=== PATIENT | male | born 1955 | race Caucasian/White ===

== ENCOUNTER → 2021-11-20 10:10 | Outpatient (CLI) | payer OTHER, SELFPAY ==
--- NOTE | ~2021-11-20 | XR_ITS ---
EXAM: XR knee LT 2V HISTORY: M25.562 - Pain in left lateral left knee COMPARISON: None available FINDINGS: Normal mineralization. Severe lateral compartment narrowing. Moderate patellofemoral and m edial joint space narrowing. Tricompartmental osteophytosis. Large osteophyte versus loose joint body in a posterior joint recess. No fracture or dislocation. No lytic or blastic lesions. Large volume j oint effusion. IMPRESSION: Severe tricompartmental arthritis. Large joint effusion. Large posterior osteophyte versus loose join t body. Reviewed, dictated and finalized at location K. IMPRESSION: Severe tricompartmental arthritis. Large joint effusion. Large posterior osteop hyte versus loose joint body.
== END ==
PROVIDERS: PCP Family Medicine Adolescent Medicine; Visit Provider Physician Assistant
DX: M17.12 Unilateral primary osteoarthritis, left knee (principal); M25.462 Effusion, left knee
CPT/HCPCS: 73560

== ENCOUNTER 2022-10-25 00:21 | Day surgery (SDC) | payer OTHER, SELFPAY ==
[2022-10-12 12:59] VITALS: BMI 34.0
[2022-10-25 09:05] VITALS: BP 148/71; PULSE 79; RESP 16; TEMP 36; O2SAT 100; BMI 34.7
[2022-10-25] MEDS: LACTATED RINGERS 1,000 ML 150 ML IV CONT (09:18)
[2022-10-25 09:22] LABS: Glucose Point of Care 150 mg/dl (65-105)
--- NOTE | 2022-10-25 09:31 | WPDANESEPPF ---
Anes - Initial Pre Proc Eval Procedure: Operation Date: 10/25/22 09:30 Proposed Procedures p Screening Colonoscopy - Sanjay Ruff MD Date/Time: 10/25/22 09:31 Surgeon: Sanjay Ruff MD Pre Op Diagnosis: hx rectal polyp Patient Data Age: 67 Gender: M Height: 1.75 m Weight: 106.58 kg Last Vital Signs Temp 36.0 C L 10/25/22 09:05 Pulse 79 10/25/22 09:05 Resp 16 10/25/22 09:05 BP 148/71 H 10/25/22 09:05 Pulse Ox 100 10/25/22 09:05 O2 Del Method Room Air 10/25/22 09:05 Allergies Allergy/AdvReac Type Severity Reaction Status Date / Time No Known Allergies Allergy Verified 10/25/22 09:04 Home Medications Medication Instructions Recorded Confirmed Type gabapentin 800 mg tablet 800 mg PO BID 05/07/21 10/25/22 History atorvastatin 80 mg tablet 80 mg PO DAILY #90 tabs 07/27/22 10/25/22 Rx pioglitazone 45 mg tablet 45 mg PO DAILY #90 tabs 08/17/22 10/25/22 Rx metformin 500 mg tablet 1,000 mg PO BID #360 tabs 08/24/22 10/25/22 Rx glimepiride 2 mg tablet 2 mg PO QAM #90 tabs 09/13/22 10/25/22 Rx coQ10 (ubiquinol) 200 mg capsule 200 mg PO DAILY 10/12/22 10/25/22 History elderberry fruit 200 mg capsule 200 mg PO DAILY 10/12/22 10/25/22 History Laboratory Tests 10/25/22 09:14 POC Capillary Glucose 150 mg/dl H mg/dl (65-105) Patient hx anesthesia problems: none Family hx anesthesia problems: none Results Review: All pre-operative results and documents have been reviewed as part of the pre-operative evaluation. 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 Gender identity (if verbalized by the patient): Male Sexual Orientation (if Verbalized by the Patient): Straight or Heterosexual Spiritual care concerns: No Agree to blood products: Yes Anes - Eval Final PreProcedure Day of Procedure 10/25/22 09:31 Patient weight: obese Heart: regular rate and rhythm Lungs: clear to auscultation and normal air movement Airway: Mallampati scale class II Neurological: alert and oriented Last oral intake: >/= 8 hours ASA classification: III Emergent: no Anesthetic plan: proceed Anesthesia type and monitoring: general GIVS Results Review: All pre-operative results and documents have been reviewed as part of the pre-operative evaluation. Informed Consent: The patient's anesthetic plan and its attendant risks and benefits were discussed with the patient/family/POA. Questions were solicited and answers provided to the satisfaction of the patient/family/POA.
--- NOTE | 2022-10-25 09:38 | PM.HPGS ---
History of Present Illness History of Present Illness Consent: Risks, benefits, and alternatives have been discussed and questions answered. Patient agrees to proceed with procedure. Chief complaint: hx rectal polyp Narrative: Norman Byers is a 67 year old male Presents for screening colonoscopy. Patient's current weight appetite and bowel movements are normal. Patient has a history of adenomatous colon polyp removed from the colon 10 years ago. Patient denies abdominal pain. He has had no bleeding. Family history is noncontributory. Patient does have a past medical history of prostate carcinoma in the last 10 years for which he has received radiation therapy and now hormone therapy. Review of Systems Review of Systems: Review of systems noncontributory. 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 Gender identity (if verbalized by the patient): Male Sexual Orientation (if Verbalized by the Patient): Straight or Heterosexual Spiritual care concerns: No Agree to blood products: Yes Meds Home Medications and Allergies Home Medications Medication Instructions Recorded Confirmed Type gabapentin 800 mg tablet 800 mg PO BID 05/07/21 10/25/22 History atorvastatin 80 mg tablet 80 mg PO DAILY #90 tabs 07/27/22 10/25/22 Rx pioglitazone 45 mg tablet 45 mg PO DAILY #90 tabs 08/17/22 10/25/22 Rx metformin 500 mg tablet 1,000 mg PO BID #360 tabs 08/24/22 10/25/22 Rx glimepiride 2 mg tablet 2 mg PO QAM #90 tabs 09/13/22 10/25/22 Rx coQ10 (ubiquinol) 200 mg capsule 200 mg PO DAILY 10/12/22 10/25/22 History elderberry fruit 200 mg capsule 200 mg PO DAILY 10/12/22 10/25/22 History Allergies Allergy/AdvReac Type Severity Reaction Status Date / Time No Known Allergies Allergy Verified 10/25/22 09:04 Vital Signs Vital Signs - 24 hr 10/25/22 09:05 Temperature 96.8 F L Pulse Rate 79 Respiratory Rate 16 Blood Pressure 148/71 H Pulse Oximetry 100 Oxygen Delivery Room Air Exam Narrative: Physical exam reveals patient to be alert. Vital signs stable. HEENT exam is unremarkable. Patient is anicteric. Lungs are clear to auscultation and percussion. Heart is without murmur or extra sounds. Abdomen bowel sounds are present soft nontender with no organomegaly. Digital external rectal exam is normal. Assessment and Plan Assessment and plan (1) History of colon polyps: Code(s): Z86.010 - Personal history of colonic polyps Status: Acute Assessment and Plan: Patient presents for follow-up colonoscopy. Patient has a history of adenomatous colon polyp removed from colon 2012. Further recommendations may be given after endoscopy.
[2022-10-25] MEDS: SIMETHICONE ORAL SUSPENSION 20 MG/0.3 ML 30 ML BOTTLE 0.6 ML IRRIGATION (09:54)
[2022-10-25 10:10] VITALS: BP 147/81; PULSE 73; RESP 14; O2SAT 98
[2022-10-25 10:20] VITALS: BP 143/80; PULSE 74; RESP 24; O2SAT 100
[2022-10-25 10:30] VITALS: BP 155/83; PULSE 64; RESP 18; O2SAT 99
== END 2022-10-25 10:38 | disposition home or self-care (01) ==
PROVIDERS: PCP Family Medicine Adolescent Medicine; Visit Provider Internal Medicine Gastroenterology
PROC: 0DJD8ZZ Inspection of Lower Intestinal Tract, Via Natural or Artificial Opening Endoscopic (ICD-10-PCS; CPT 45378; principal; 2022-10-25 09:30)
DX: Z12.11 Encounter for screening for malignant neoplasm of colon (principal); K64.8 Other hemorrhoids; Z86.010 Personal history of colon polyps; Z79.84 Long term (current) use of oral hypoglycemic drugs; E66.9 Obesity, unspecified; Z68.34 Body mass index [BMI] 34.0-34.9, adult
CPT/HCPCS: G0105; 82948; J2704; J7120

== ENCOUNTER 2023-02-28 17:20 | Inpatient (IN) | payer OTHER, SELFPAY ==
[2023-02-28] VITALS (18 sets, daily range): BP systolic 116–154; BP diastolic 66–86; PULSE 95–125; RESP 15–26; TEMP 36.4; O2SAT 96–100
--- NOTE | ~2023-02-28 | XR_ITS ---
EXAMINATION: XR abdomen/kub 1V INDICATION: Right ureteral stone TECHNIQUE: Supine views of the abdomen were obtained on 2 radiographs. COMPARISON: 03/01/2023 FINDINGS: There is an unchanged 7 mm stone of the proximal right ureter projecting just above the rig ht L3 transverse process. No additional urolithiasis is identified. Widespread sclerosis of the bones again noted. IMPRESSION: 1. Unchanged 7 mm stone of the proximal right ureter. 2. Widespread sclerotic osseous metastases. Reviewed, dictated and finalized at location L.
--- NOTE | ~2023-02-28 | XR_ITS ---
EXAMINATION: XR abdomen/kub 1V INDICATION: Right ureteral stone TECHNIQUE: Supine views of the abdomen were obtained on 2 radiographs. COMPARISON: CT from yesterday FINDINGS: A 7 mm stone projects in the proximal right ureter. There is a small amount of retained con trast material in the right kidney with mild hydronephrosis. No additional urinary tract calculi are identified. There is widespread sclerosis of the bones, consistent with metastatic disease. IMPRESSION: 1. 7 mm stone proximal right ureter. 2. Widespread sclerotic osseous metastases. Reviewed, dictated and finalized at location L.
--- NOTE | ~2023-02-28 | XR_ITS ---
EXAMINATION: XR chest 2V DATE: 02/28/2023 19:07 INDICATION: Weakness. Back pain. TECHNIQUE: Frontal and lateral views of the chest were obtained. COMPARISON: CT abdomen and pelvis 02/07/2018 FINDINGS: There is no pneumonia, pleural effusion, or pneumothorax. The heart size is normal. There i s diffusely increased bone density. IMPRESSION: 1. Diffuse increased bone density suspicious for metastatic disease. Reviewed, dictated and finalized at location E.
--- NOTE | ~2023-02-28 | CT_ITS ---
EXAMINATION: CT lumbar spine wo con DATE: 02/28/2023 19:22 INDICATION: Midline lumbar tenderness. Prostate cancer. TECHNIQUE: Computed tomography (CT) of the lumbar spine was performed without intravenous contrast. A utomated exposure control and iterative reconstruction technique were employed. The dose-length produ ct was 1296.25 mGy-cm. COMPARISON: None FINDINGS: There is 5 degrees levocurvature of lumbar spine. There is mild chronic anterior wedging of T11 and T12 vertebral bodies. There is widespread sclerosis of the bones, consistent metastatic dise ase. There is severely decreased disc height at L3-L4 and moderately decreased disc height at L4-L5. The following disc levels are specifically discussed: L1-L2: The disc does not extend beyond the endplate margin. There is mild bilateral facet joint osteo arthritis. There is no neural foraminal stenosis. There is no central canal stenosis. L2-L3: The disc is bulging. There is mild bilateral facet joint osteoarthritis. There is mild bilater al neural foraminal stenosis. There is mild central canal stenosis. L3-L4: The disc is bulging. There is severe bilateral facet joint osteoarthritis. There is moderate r ight and mild left neural foraminal stenosis. There is mild central canal stenosis. L4-L5: The disc is bulging. There is severe bilateral facet joint osteoarthritis. There is mild bilat eral neural foraminal stenosis. There is mild central canal stenosis. L5-S1: The disc is bulging. There is mild right and severe left facet joint osteoarthritis. There is mild bilateral neural foraminal stenosis. There is mild central canal stenosis. IMPRESSION: 1. Widespread sclerosis of the bones, consistent with metastatic disease. 2. Severe lumbar spondylosis. Reviewed, dictated and finalized at location E.
--- NOTE | ~2023-02-28 | CT_ITS ---
EXAMINATION: CTA chest PE abdomen pel DATE: 02/28/2023 19:23 INDICATION: Dyspnea. Back tenderness. TECHNIQUE: Computed tomography angiography (CTA) of the chest was performed with 100 mL Omnipaque-350 intravenous contrast timed to evaluate the pulmonary arteries. Coronal maximum intensity projection 3D-reconstructions were created by the technologist. Computed tomography (CT) of the abdomen and pelv is was performed with intravenous contrast. Automated exposure control and iterative reconstruction t echnique were employed. The dose-length product was 2079.00 mGy-cm. COMPARISON: CT abdomen and pelvis 02/07/2018 FINDINGS: CTA chest: There is a 3 mm nodule in right lung upper lobe, likely benign. No pleural effusion. The h eart size is normal. There are coronary artery calcifications. There is no pulmonary embolus. Motion artifact moderately decreased sensitivity. There is widespread sclerosis of the bones, consistent wit h metastatic disease. CT abdomen and pelvis: The liver, spleen, pancreas, and adrenal glands are normal. There is mild righ t hydronephrosis. There is an 8 mm stone in proximal right ureter. There is a peripelvic cysts in lef t kidney measuring up to 2.8 cm. There are brachytherapy seeds in the prostate. The appendix is dixon l. There are no dilated loops of bowel. There is mild right external iliac lymphadenopathy. For examp le, a right external iliac node measures 17 x 10 mm. There is no free intraperitoneal fluid. There ar e bilateral inguinal hernias containing fat. There is widespread sclerosis of the bones, consistent m etastatic disease. IMPRESSION: 1. No pulmonary embolus. Motion artifact moderately decreases sensitivity. 2. 8 mm stone in proximal right ureter mild right hydronephrosis. 3. Widespread sclerosis of the bones and mild right external iliac lymphadenopathy, consistent with m etastatic disease. Reviewed, dictated and finalized at location E. IMPRESSION: 1. No pulmonary embolus. Motion artifact moderately decreases sensitivity. 2. 8 mm stone in proximal right ureter mild right hydronephrosis. 3. Widespread sclerosis of the bones and mild right external iliac lymphadenopa thy, consistent with metastatic disease.
--- NOTE | ~2023-02-28 | NM_ITS ---
EXAMINATION: NM bone scan whole body DATE: 03/03/2023 14:14 INDICATION: Metastatic prostate cancer with bone metastasis. TECHNIQUE: 25.5 mCi Tc-99m HDP was administered intravenously. Delayed whole-body scintigrams were o btained. COMPARISON: CT chest, abdomen, and pelvis 02/28/2023 FINDINGS: There is widespread increased activity of the bones including the skull, humeri, clavicles, scapulae, ribs, sternum, spine, pelvis, and femora correlating with sclerotic lesions by CT, consist ent with metastatic disease. IMPRESSION: 1. Widespread osseous metastatic disease. Reviewed, dictated and finalized at location E.
--- NOTE | 2023-02-28 17:34 | ECG_ITS ---
Measurements Intervals [place] Rate: 121 P: 14 [place]: 162 QRS: 10 QRSD: 77 T: -28 QT: 423 QTc: 601 Interpretive Statements SINUS TACHYCARDIA MINIMAL Q WAVES- HIGH LATERAL LEADS BORDERLINE ST-T WAVE ABNORMALITY- DIFFUSE LEADS ABNORMAL ECG NO PREVIOUS ECG AVAILABLE FOR COMPARISON Electronically Signed On 02-28-2023 21:07:05 CDT by Bob Ferreira D.O.
[2023-02-28 17:51] LABS: Basophils Absolute Auto 0.1 K/mm3 (0.0-0.1); Basophils Percent Auto 1.2 % (0.2-1.2); Eosinophils Percent Auto 0.9 % (0-4.4); Hemoglobin 11.8 g/dL (14.0-18.0); Immature Granulocyte Absolute 0.21 K/mm3 (0.00-0.031); Immature Granulocyte Percent A 4.9 % (0-0.5); Lymphocytes Absolute Auto 1.33 K/mm3 (0.9-3.2); Lymphocytes Percent Auto 31.3 % (18.3-44.2); Mean Corpuscular HGB Conc 32.8 g/dl (32-36); Mean Corpuscular Volume 82.4 fl (80-100); Mean Platelet Volume 8.9 fl (7.4-10.4); Monocytes Absolute Auto 0.4 K/mm3 (0.1-0.6); Monocytes Percent Auto 8.2 % (2.6-8.5); Neutrophils Absolute Auto 2.3 K/mm3 (1.3-6.7); Neutrophils Percent Auto 53.5 % (45.5-73.1); Nucleated Red Blood Cells Perc 0.5 % (0.0-0.2); Platelet Count Result 169 k/mm3 (150-375); Red Blood Count 4.37 M/mm3 (4.6-6.20); Red Cell Distribution Width 15.4 % (11.5-14.5); White Blood Count 4.3 K/mm3 (4.5-10.0)
[2023-02-28 18:03] LABS: Appearance Urine Cloudy (Clear); Bacteria Urine None Seen /hpf; Bilirubin Urine 1+ (Negative); Blood Urine Trace (Negative); Color Urine Dark Yellow (Yellow); Glucose Urine UA Trace mg/dL (Negative); Hyaline Casts Urine Present /lpf; Ketones Urine Trace mg/dL (Negative); Leukocyte Esterase Ur Negative LEU/UL (Negative); Nitrate Urine Negative (Negative); Non Pathogenic Casts >20; Protein Urine 2+ mg/dL (Negative); RBC Urine 0-2 /hpf (0-2); Specific Grav Ur 1.024 (1.001-1.035); Squamous Epithelial Cell Urine Few /hpf (Few); WBC Urine 0-5 /hpf
[2023-02-28 18:04] LABS: Alanine Aminotransferase 18 U/L (6-50); Albumin Level 4.2 g/dL (3.5-5.1); Anion Gap 12 mmol/L (8-16); Aspartate Amino Transferase 277 U/L (17-59); Bilirubin,Total 1.2 mg/dL (0.2-1.3); Blood Urea Nitrogen 11 mg/dL (9-20); Calcium 9.5 mg/dL (8.4-10.2); Carbon Dioxide 20 mmol/L (22-30); Chloride 101 mmol/L (98-107); Estimated CRCL calculation 100 ml/min; Estimated Glomerular Filt Rate > 60; Glucose 225 mg/dL (65-110); Potassium 3.8 mmol/L (3.4-5.0); Sodium 133 mmol/L (137-145)
[2023-02-28 18:09] LABS: Add Urine Microscopic? YES
[2023-02-28 18:21] LABS: Alkaline Phosphatase 4363 U/L (38-126)
--- NOTE | 2023-02-28 18:42 | ED.WEAKNESS ---
HPI - Weakness General Chief complaint: Weakness Stated complaint: weak/decreased appetite/body ache Time Seen by Provider: 02/28/23 18:01 History of Present Illness HPI Narrative: Patient is a 68-year-old male with a history of prostate cancer presenting with weight loss and weakness. Patient states that he has been losing weight over the last several months. States that he is also been increasingly weak. States that he is an avid golfer and he often does 18-36 holes in 1 day. Over the last week he has only been able to do up to 3 holes until he is overwhelmingly short of breath. Complains of worsening lower back pain as well as decreased appetite. No fevers or chills, headache, numbness or weakness, chest pain, shortness of breath, vomiting, dysuria, leg swelling. Related Data Home Medications Medication Instructions Recorded Confirmed gabapentin 800 mg tablet 800 mg PO BID 05/07/21 03/01/23 coQ10 (ubiquinol) 200 mg capsule 200 mg PO DAILY 10/12/22 03/01/23 elderberry fruit 200 mg capsule 200 mg PO DAILY 10/12/22 03/01/23 tamsulosin 0.4 mg capsule 0.4 mg PO DAILY 02/24/23 03/01/23 Allergies Allergy/AdvReac Type Severity Reaction Status Date / Time No Known Allergies Allergy Verified 02/24/23 09:46 Review of Systems Review of Systems: All systems reviewed & are unremarkable except as noted in HPI and below PMFSH Past Medical History Medical History Abnormal colonoscopy 06/03 Tubular adenoma Surgical History Surgical History Hx of left knee surgery (~08/1996) Cartilage removed Family History Family History Father Glaucoma Mother Breast cancer Social History Social History Smoking status: Never smoker Second hand tobacco smoke exposure: No Alcohol intake: never Drinks per week: 5 Substance use: never Substance use type: does not use Lack of Transportation: No Lack of Food: Never True Current Housing: I Have Housing Concerned About Future Housing: No Difficulty Paying Gas/Electric Bills: No Difficulty Paying for Meds: No Currently Unemployed: No Education: Trade/Vocational Certificate Difficulty w/ Childcare or Family Care: No Living arrangements: with family Occupation/Education: occupation 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 EYES: PERRLA and EOMI. ENT: Nares clear, no rhinorrhea or epistaxis. Mucous membranes dry NECK: Supple. BACK: + Midline lumbar tenderness CHEST: Clear to auscultation. No respiratory distress. HEART: Tachycardic, regular rhythm ABDOMEN: Soft, nontender, nondistended EXTREMITIES: Normal range of motion. No edema. SKIN: Warm, dry, no rash. NEURO: No focal deficits. Alert and oriented x3. PSYCH: Normal mood and affect. Course Vital Signs Vital signs: Vital Signs Temperature 97.6 F 02/28/23 17:31 Pulse Rate 125 H 02/28/23 17:31 Respiratory Rate 22 H 02/28/23 17:31 Blood Pressure 116/66 02/28/23 17:31 Pulse Oximetry 100 02/28/23 17:31 Temperature 98.3 F 03/03/23 14:00 Pulse Rate 79 03/03/23 14:00 Respiratory Rate 16 03/03/23 14:00 Blood Pressure 137/73 03/03/23 14:00 Pulse Oximetry 98 03/03/23 14:00 Oxygen Delivery Room Air 03/03/23 13:15 Oxygen Flow Rate 8 03/03/23 12:35 MDM - Weakness MDM Narrative Medical decision making narrative: Patient is a 68-year-old male presenting with exertional dyspnea and weakness. Patient is
[2023-02-28] MEDS: SODIUM CHLORIDE 0.9% IV 1,000 ML 999 ML IV CONT ×2 (18:53→20:39)
[2023-02-28] MEDS: HYDROmorphone HCL INJ (*CRX) 1 MG/ML SYR IV PUSH ×2 (18:53→21:19)
[2023-02-28] MEDS: ONDANSETRON INJ 4 MG/2 ML VIAL IV PUSH (18:53)
[2023-02-28 20:04] LABS: Creatine Kinase 967 U/L (55-170); Lipase 157 U/L (23-300); Magnesium 1.5 mg/dL (1.6-2.3)
[2023-02-28 20:06] LABS: INR 1.2; Prothrombin Time 15.4 Seconds (11.1-14.7)
[2023-02-28 20:07] LABS: Partial Thromboplastin Time 28.5 SECONDS (22.3-36.8)
[2023-02-28 20:14] LABS: Lactic Acid Reflex 4.3 mmol/L (0.7-2.0)
[2023-02-28 20:17] LABS: Troponin I < 0.012 ng/mL (0.000-0.034)
[2023-02-28 20:30] LABS: Influenza A QL RT-PCR Negative (Negative); Influenza B QL RT-PCR Negative (Negative); SARS-CoV-2 RNA PCR Negative (Negative)
--- NOTE | 2023-02-28 21:16 | PM.IMHP ---
H&P: HPI History of Present Illness Date/Time: 02/28/23 21:16 Chief Complaint: Weakness Narrative: This is a 68 yo male with PMHx significant for Prostate CA, T2DM, BPH, Peripheral neuropathy. Patient has had a roughly 25 weight loss in the last 2 months or so, he has had decreased stamina as well, sob at exertion, poor appetite, comes in today due to worsening of all of these was out today playing Golf. Patient has been found to have metastatic prostate CA EXAMINATION: XR chest 2V DATE: 02/28/2023 19:07 INDICATION: Weakness. Back pain. TECHNIQUE: Frontal and lateral views of the chest were obtained. COMPARISON: CT abdomen and pelvis 02/07/2018 FINDINGS: There is no pneumonia, pleural effusion, or pneumothorax. The heart size is normal. There is diffusely increased bone density. IMPRESSION: 1. Diffuse increased bone density suspicious for metastatic disease. EXAMINATION: CT lumbar spine wo con DATE: 02/28/2023 19:22 INDICATION: Midline lumbar tenderness. Prostate cancer. TECHNIQUE: Computed tomography (CT) of the lumbar spine was performed without intravenous contrast. Automated exposure control and iterative reconstruction technique were employed. The dose-length product was 1296.25 mGy-cm. COMPARISON: None FINDINGS: There is 5 degrees levocurvature of lumbar spine. There is mild chronic anterior wedging of T11 and T12 vertebral bodies. There is widespread sclerosis of the bones, consistent metastatic disease. There is severely decreased disc height at L3-L4 and moderately decreased disc height at L4-L5. The following disc levels are specifically discussed: L1-L2: The disc does not extend beyond the endplate margin. There is mild bilateral facet joint osteoarthritis. There is no neural foraminal stenosis. There is no central canal stenosis. L2-L3: The disc is bulging. There is mild bilateral facet joint osteoarthritis. There is mild bilateral neural foraminal stenosis. There is mild central canal stenosis. L3-L4: The disc is bulging. There is severe bilateral facet joint osteoarthritis. There is moderate right and mild left neural foraminal stenosis. There is mild central canal stenosis. L4-L5: The disc is bulging. There is severe bilateral facet joint osteoarthritis. There is mild bilateral neural foraminal stenosis. There is mild central canal stenosis. L5-S1: The disc is bulging. There is mild right and severe left facet joint osteoarthritis. There is mild bilateral neural foraminal stenosis. There is mild central canal stenosis. IMPRESSION: 1. Widespread sclerosis of the bones, consistent with metastatic disease. 2. Severe lumbar spondylosis. EXAMINATION: CTA chest PE abdomen pel DATE: 02/28/2023 19:23 INDICATION: Dyspnea. Back tenderness. TECHNIQUE: Computed tomography angiography (CTA) of the chest was performed with 100 mL Omnipaque-350 intravenous contrast timed to evaluate the pulmonary arteries. Coronal maximum intensity projection 3D-reconstructions were created by the technologist. Computed tomography (CT) of the abdomen and pelvis was performed with intravenous contrast. Automated exposure control and iterative reconstruction technique were employed. The dose-length product was 2079.00 mGy-cm. COMPARISON: CT abdomen and pelvis 02/07/2018 FINDINGS: CTA chest: There is a 3 mm nodule in right lung upper lobe, likely benign. No pleural effusion. The heart size is normal. There are coronary artery calcifications. There is no pulmonary embolus. Motion artifact moderately decreased sensitivity. There is widespread sclerosis of the bones, consistent with metastatic disease. CT abdomen and pelvis: The liver, spleen, pancreas, and adrenal glands are normal. There is mild right hydronephrosis. There is an 8 mm stone in proximal right ureter. There is a peripelvic cysts in left kidney measuring up to 2.8 cm. There are brachytherapy seeds in the prostate. The appendix is normal. There are no dilated loops of estela
[2023-02-28 22:53] LABS: Reflex Lactic Acid Yes or No Add Lactic
[2023-02-28 23:56] LABS: Lactic Acid 2.1 mmol/L (0.7-2.0)
[2023-03-01] VITALS (10 sets, daily range): BP systolic 136–164; BP diastolic 66–80; PULSE 83–110; RESP 16–18; TEMP 35.8–36.7; O2SAT 96–98; BMI 33.5
--- NOTE | 2023-03-01 00:04 | ADMGEN ---
This patient, Norman Byers, was admitted to Medical Room 343-01. Patient/family oriented to hospital policies and general routines including ID bracelet, bed and alarms, visiting hours, pain management, procedures, bathroom and other care routines, personal items, smoking policy, room service/diet, and visiting hours. Information on how to activate the Rapid Response Team has been discussed. Patient/Family are encouraged to report perceived risks to care and to ask questions if they do not understand what they are told or what they should do.
[2023-03-01 00:08] LABS: Troponin I < 0.012 ng/mL (0.000-0.034)
[2023-03-01 02:48] LABS: Troponin I < 0.012 ng/mL (0.000-0.034)
[2023-03-01] MEDS: TAMSULOSIN HCL 0.4 MG CAPSULE PO (08:24)
[2023-03-01] MEDS: GABAPENTIN 400 MG CAPSULE 800 MG PO ×2 (08:24→17:00)
--- NOTE | 2023-03-01 10:48 | WPDURCON ---
Assessment and Plan Assessment and plan (1) Prostate cancer metastatic to bone: Code(s): C61 - Malignant neoplasm of prostate; C79.51 - Secondary malignant neoplasm of bone Status: Acute Assessment and Plan: Oncology to continue management. (2) Prostate cancer: Code(s): C61 - Malignant neoplasm of prostate Status: Acute (3) Right ureteral stone: Code(s): N20.1 - Calculus of ureter Status: Acute Assessment and Plan: Plan to do a Right ESWL as an outpatient Tuesday. Avoid NSAID's and blood thinners. Ok to discharge per Urology at anytime. Urology Consult Note HPI Date Seen: 03/01/23 Time Seen: 09:00 Requesting Physician: Kandy Burgess MD Primary Care Provider: Shaheen Foley MD Consult Narrative Reason for consult: 8mm right proximal ureteral stone/metastatic prostate cancer Narrative: Norman Byers is a 68 year old male who presented to the ER yesterday for worsening weakness, shortness of breath and right flank pain. He states his flank pain started a month ago but feels like a dull back ache and he thought it was from laying around too much. He is a very active person normally, but has been loosing an excessive amount of weight unintentionally recently, 25lbs in total. He has known prostate cancer that was diagnosed by Dr. Enamorado originally on 01/12/18 via prostate biopsy with a Grimstead score of 7. He underwent prostate radiation and ADT therapy. Unfortunately, he has metastatic disease which is now managed by Dr. Acuña. His CT scan in the ER notes metastatic disease widespread to his bones, as well as right iliac lymphadenopathy. The CT also found an 8mm right proximal ureteral stone with hydronephrosis as well which correlates to his right flank pain. He denies hematuria, dysuria, frequency or urgency of urination. He is afebrile and has a WBC of 4.3, creatinine of 0.70, UA is not suggestive of a UTI, urine culture pending. KUB was done showing the proximal ureteral stone. His pain at this time is mild and well managed. Review of Systems Cardiovascular: Cardiovascular: Denies chest pain Respiratory: Respiratory: Reports no additional respiratory complaints Genitourinary: Genitourinary: Denies hematuria, Denies dysuria, Reports flank pain, Denies testicular pain, Denies urinary frequency, Denies urinary hesitancy, Denies urinary incontinence and Denies urinary urgency PMFSH Past Medical History Medical History Abnormal colonoscopy 06/03 Tubular adenoma Surgical History Surgical History Hx of left knee surgery (~08/1996) Cartilage removed Family History Family History Father Glaucoma Mother Breast cancer Social History Social History Smoking status: Never smoker Second hand tobacco smoke exposure: No Alcohol intake: never Drinks per week: 5 Substance use: never Substance use type: does not use Lack of Transportation: No Lack of Food: Never True Current Housing: I Have Housing Concerned About Future Housing: No Difficulty Paying Gas/Electric Bills: No Difficulty Paying for Meds: No Currently Unemployed: No Education: Trade/Vocational Certificate Difficulty w/ Childcare or Family Care: No Living arrangements: with family Occupation/Education: occupation 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
--- NOTE | 2023-03-01 14:59 | WPDPN ---
Progress Note: A&P Assessment and Plan (1) Prostate cancer metastatic to bone: Code(s): C61 - Malignant neoplasm of prostate; C79.51 - Secondary malignant neoplasm of bone Status: Acute Assessment and Plan: 03/01/2023 interval history: 66-year-old male history of prostate cancer presented the progress weakness and fatigue patient is found to have bony metastasis patient be seen by hospitalist physician-Oncology and further recommendation to follow, also complains of abdominal pain is found to have 7 mm right ureteral stone seen by urologist patient will have lithotripsy on this Tuesday, will avoid NSAID and anticoagulation. patient states the pain is controlled with just feels tired and fatigued patient's present in the room, (2) Appetite loss: Code(s): R63.0 - Anorexia Status: Acute Assessment and Plan: most likely secondary pain will encourage patient to oral intake (3) Fatigue: Code(s): R53.83 - Other fatigue Status: Acute Assessment and Plan: most likely secondary to prostate cancer metastasis to bones. (4) Type 2 diabetes mellitus with diabetic polyneuropathy: Code(s): E11.42 - Type 2 diabetes mellitus with diabetic polyneuropathy Status: Acute Assessment and Plan: will continue home regimen and monitor with sliding scale (5) Aortic atherosclerosis: Code(s): I70.0 - Atherosclerosis of aorta Status: Acute Subjective Date/time seen: 03/01/23 14:59 Interval history: ED-HPI Narrative: Patient is a 68-year-old male with a history of prostate cancer presenting with weight loss and weakness.? Patient states that he has been losing weight over the last several months.? States that he is also been increasingly weak.? States that he is an avid golfer and he often does 18-36 holes in 1 day.? Over the last week he has only been able to do up to 3 holes until he is overwhelmingly short of breath.? Complains of worsening lower back pain as well as decreased appetite.? No fevers or chills, headache, numbness or weakness, chest pain, shortness of breath, vomiting, dysuria, leg swelling. 03/01/2023 interval history: 66-year-old male history of prostate cancer presented the progress weakness and fatigue patient is found to have bony metastasis patient be seen by hospitalist physician-Oncology and further recommendation to follow, also complains of abdominal pain is found to have 7 mm right ureteral stone seen by urologist patient will have lithotripsy on this Tuesday, will avoid NSAID and anticoagulation. patient states the pain is controlled with just feels tired and fatigued patient's present in the room, Objective Data Vital Signs Vital Signs: Vital Signs - 24 hr 02/28/23 17:31 02/28/23 18:03 02/28/23 18:12 Temperature 97.6 F Pulse Rate 125 H 112 H 110 H Respiratory Rate 22 H 16 Blood Pressure 116/66 139/83 Pulse Oximetry 100 100 Oxygen Delivery 02/28/23 18:03 02/28/23 18:04 02/28/23 18:18 Temperature Pulse Rate 110 H 113 H 105 H Respiratory Rate 26 H 22 H 22 H Blood Pressure 139/83 Pulse Oximetry 100 Oxygen Delivery 02/28/23 18:30 02/28/23 18:45 02/28/23 20:39 Temperature Pulse Rate 115 H 109 H 104 H Respiratory Rate 21 H 26 H 15 Blood Pressure 154/86 H Pulse Oximetry 100 100 100 Oxygen Delivery 02/28/23 19:23 02/28/23 19:30 02/28/23 19:45 Temperature Pulse Rate 97 98 102 H Respiratory Rate 22 H 24 H 20 Blood Pressure Pulse Oximetry 100 100 Oxygen Delivery 02/28/23 20:00 02/28/23 20:15 02/28/23 20:30 Temperature Pulse Rate 95 102 H 110 H Respiratory Rate 19 19 20 Blood Pressure Pulse Oximetry 100 100 98 Oxygen Delivery 02/28/23 20:45 02/28/23 21:15 02/28/23 21:32 Temperature Pulse Rate 105 H 109 H 108 H Respiratory Rate 18 16 18 Blood Pressure 145/70 H Pulse Oximetry 96 100 96 Oxygen Delivery 02/28/23 21:45 03/01/23 00:08 03/01/23 00:00 Tempera
[2023-03-02] VITALS (9 sets, daily range): BP systolic 124–143; BP diastolic 57–74; PULSE 75–113; RESP 16–22; TEMP 36.2–36.6; O2SAT 98–99
[2023-03-02 05:56] LABS: Hematocrit 30.1 % (42.0-52.0); Hemoglobin 9.4 g/dL (14.0-18.0); Mean Corpuscular HGB Conc 31.2 g/dl (32-36); Mean Corpuscular Hemoglobin 26.3 pg (26-34); Mean Corpuscular Volume 84.3 fl (80-100); Mean Platelet Volume 8.7 fl (7.4-10.4); Platelet Count Result 108 k/mm3 (150-375); Red Blood Count 3.57 M/mm3 (4.6-6.20); Red Cell Distribution Width 15.9 % (11.5-14.5)
[2023-03-02 06:07] LABS: Anion Gap 0 mmol/L (8-16); Blood Urea Nitrogen 9 mg/dL (9-20); Calcium 8.3 mg/dL (8.4-10.2); Carbon Dioxide 27 mmol/L (22-30); Chloride 108 mmol/L (98-107); Estimated CRCL calculation 139 ml/min; Estimated Glomerular Filt Rate > 60; Glucose 133 mg/dL (65-110); Magnesium 1.8 mg/dL (1.6-2.3); Sodium 135 mmol/L (137-145)
[2023-03-02] MEDS: GABAPENTIN 400 MG CAPSULE 800 MG PO ×2 (08:44→17:32)
[2023-03-02] MEDS: TAMSULOSIN HCL 0.4 MG CAPSULE PO (08:44)
--- NOTE | 2023-03-02 12:55 | PDONCCN ---
HPI - Date of Consult Date/Time: 03/02/23 12:56 Requesting Physician: Kandy Burgess MD Primary Care Provider: Shaheen Foley MD - Consult Narrative Reason for consult: Metastatic prostate cancer Narrative: Norman Byers is a 68 year old male with metastatic prostate cancer on Lupron injection since June of 2021 with the last injection given in November of 2022. He came into the hospital with generalized weakness and back and leg pain. He has been losing weight. He was complaining of some shortness of breath. CT chest abdomen and pelvis was performed that showed no evidence of pulmonary embolism, 8 mm right ureteral stone with hydronephrosis and widespread bone metastasis with right external iliac lymphadenopathy consistent with metastatic disease. Labs also showed anemia with hemoglobin of 9.4. He denies any bleeding and bruising. Denies any other complaints. Review of Systems - Review of Systems All systems reviewed & are unremarkable except as noted in HPI and [facility] Medical History: Medical History (Last Reviewed 03/01/23 @ 12:00 by Maranda Flowers APRN) Abnormal colonoscopy 06/03 Tubular adenoma Surgical History: Surgical History (Last Reviewed 03/01/23 @ 12:00 by Maranda Flowers APRN) Hx of left knee surgery Onset Date: ~08/1996 Cartilage removed Family History: Family History (Last Reviewed 03/01/23 @ 12:00 by Maranda Flowers APRN) Father Glaucoma Mother Breast cancer - Social History Social History: Social History (Last Reviewed 03/01/23 @ 12:00 by Maranda Flowers APRN) Gender Identity: Gender identity (if verbalized by the patient): Male Sexual Orientation: Sexual Orientation (if Verbalized by the Patient): Straight or Heterosexual Alcohol Use: Alcohol intake: never Drinks per week: 5 Substance Use: Substance use: never Substance use type: does not use Others: Spiritual care concerns: No Agree to blood products: Yes Living Arrangements: Living arrangements: with family Oppucation/Education: Occupation/Education: occupation Smoking Status: Smoking status: Never smoker Second hand tobacco smoke exposure: No Social Determinants of Health: Has the Lack of Transportation Kept You From Medical Appointments or From Getting Medications?: No Within the Past 12 Months, Were You Worried Whether Your Food Would Run Out Before You Got Money to Buy More?: Never True What is Your Housing Situation Today?: I Have Housing Are You Worried That in the Next 2 Months, You May Not Have Your Own Housing to Live In?: No Do You Have Trouble Paying Your Heating Or Electricity Bill?: No Do You Have Trouble Paying For Medicines?: No Are You Currently Unemployed and Looking for Work?: No Highest Level of Education Completed: Trade/Vocational Certific Do You Have Trouble With Childcare or the Care of a Family Member?: No Exam - Vital Signs Vital Signs - 24 hr 03/01/23 14:53 03/01/23 16:00 03/01/23 21:56 Temperature 36.7 C 36.3 C L Pulse Rate 102 H 110 H 98 Respiratory Rate 18 18 Blood Pressure 141/71 H 136/66 Pulse Oximetry 97 97 Oxygen Delivery 03/01/23 20:00 03/01/23 20:00 03/02/23 00:00 Temperature Pulse Rate 97 93 Respiratory Rate Blood Pressure Pulse Oximetry Oxygen Delivery Room Air 03/02/23 04:00 03/02/23 06:00 03/02/23 08:44 Temperature 36.2 C L Pulse Rate 80 75 Respiratory Rate 16 Blood Pressure 137/57 L Pulse Oximetry 98 Oxygen Delivery Room Air 03/02/23 08:00 03/02/23 12:00 Temperature Pulse Rate 93 98 Respiratory Rate Blood Pressure Pulse Oximetry Oxygen Delivery - Exam HEENT: EOMI, PERRLA, mucous membranes moist and pink Neck: supple Lungs: clear to auscultation, normal air movement Heart: no murmurs, gallops, or rubs, regular rhythm, regular rate Abdomen: abdomen
[2023-03-02 13:28] LABS: Iron 77 ug/dL (49-181)
[2023-03-02 13:37] LABS: Percent Iron Saturation 27 % (20-50)
[2023-03-02 13:53] LABS: Prostate Specific Antigen 16.9 ng/mL (< OR = 4.0)
[2023-03-02 15:18] LABS: Folic Acid 19.4 ng/mL (2.76->20)
--- NOTE | 2023-03-02 15:29 | WPDPN ---
Progress Note: A&P Assessment and Plan (1) Prostate cancer metastatic to bone: Code(s): C61 - Malignant neoplasm of prostate; C79.51 - Secondary malignant neoplasm of bone Status: Acute Assessment and Plan: 03/02/2023 interval history: 66-year-old male history of prostate cancer presented the progress weakness and fatigue patient is found to have bony metastasis patient is consulted seed cleaner operator-Oncology to further evaluate patient will have bone scan, and further recommendation to follow, also complains of abdominal pain is found to have 7 mm right ureteral stone seen by urologist patient will have lithotripsy tomorrow, will avoid NSAID and anticoagulation. patient states the pain is controlled with just feels tired and fatigued patient's present in the room, (2) Appetite loss: Code(s): R63.0 - Anorexia Status: Acute Assessment and Plan: most likely secondary pain will encourage patient to oral intake (3) Fatigue: Code(s): R53.83 - Other fatigue Status: Acute Assessment and Plan: most likely secondary to prostate cancer metastasis to bones. (4) Type 2 diabetes mellitus with diabetic polyneuropathy: Code(s): E11.42 - Type 2 diabetes mellitus with diabetic polyneuropathy Status: Acute Assessment and Plan: will continue home regimen and monitor with sliding scale (5) Aortic atherosclerosis: Code(s): I70.0 - Atherosclerosis of aorta Status: Acute Subjective Date/time seen: 03/02/23 15:29 Interval history: ED-HPI Narrative: Patient is a 68-year-old male with a history of prostate cancer presenting with weight loss and weakness.? Patient states that he has been losing weight over the last several months.? States that he is also been increasingly weak.? States that he is an avid golfer and he often does 18-36 holes in 1 day.? Over the last week he has only been able to do up to 3 holes until he is overwhelmingly short of breath.? Complains of worsening lower back pain as well as decreased appetite.? No fevers or chills, headache, numbness or weakness, chest pain, shortness of breath, vomiting, dysuria, leg swelling. 03/02/2023 interval history: 66-year-old male history of prostate cancer presented the progress weakness and fatigue patient is found to have bony metastasis patient is consulted seed cleaner operator-Oncology to further evaluate patient will have bone scan, and further recommendation to follow, also complains of abdominal pain is found to have 7 mm right ureteral stone seen by urologist patient will have lithotripsy tomorrow, will avoid NSAID and anticoagulation. patient states the pain is controlled with just feels tired and fatigued patient's present in the room, Review of Systems Review of Systems: fatigue, weakness, poor appetite, weight loss. Objective Data Vital Signs Vital Signs: Vital Signs - 24 hr 03/01/23 16:00 03/01/23 21:56 03/01/23 20:00 Temperature 97.4 F L Pulse Rate 110 H 98 97 Respiratory Rate 18 Blood Pressure 136/66 Pulse Oximetry 97 Oxygen Delivery 03/01/23 20:00 03/02/23 00:00 03/02/23 04:00 Temperature Pulse Rate 93 80 Respiratory Rate Blood Pressure Pulse Oximetry Oxygen Delivery Room Air 03/02/23 06:00 03/02/23 08:44 03/02/23 08:00 Temperature 97.1 F L Pulse Rate 75 93 Respiratory Rate 16 Blood Pressure 137/57 L Pulse Oximetry 98 Oxygen Delivery Room Air 03/02/23 12:00 03/02/23 13:34 Temperature 98 F Pulse Rate 98 108 H Respiratory Rate 22 H Blood Pressure 143/60 H Pulse Oximetry 99 Oxygen Delivery Intake/Output Intake/Output: Intake & Output 02/27/23 02/28/23 03/01/23 03/02/23 23:59 23:59 23:59 23:59 Intake Total 1999 720 1490 Output Total 200 Balance 1999 520 1490 Meds/Results Medications: Active Medications Generic Name Dose Route Start Last Admin Trade Name Freq PRN Reason Stop Dose Adm
[2023-03-03] VITALS (15 sets, daily range): BP systolic 111–151; BP diastolic 59–85; PULSE 79–110; RESP 16–20; TEMP 36.1–36.8; O2SAT 94–100
[2023-03-03 05:49] LABS: Hematocrit 29.4 % (42.0-52.0); Hemoglobin 9.3 g/dL (14.0-18.0); Immature Platelet Fraction Pct 2.1 % (0.9-11.2); Mean Corpuscular HGB Conc 31.6 g/dl (32-36); Mean Corpuscular Hemoglobin 26.8 pg (26-34); Mean Corpuscular Volume 84.7 fl (80-100); Mean Platelet Volume 9.5 fl (7.4-10.4); Platelet Count Result 114 k/mm3 (150-375); Red Blood Count 3.47 M/mm3 (4.6-6.20); Red Cell Distribution Width 15.7 % (11.5-14.5); White Blood Count 3.1 K/mm3 (4.5-10.0)
[2023-03-03 05:56] LABS: Anion Gap 4 mmol/L (8-16); Blood Urea Nitrogen 10 mg/dL (9-20); Calcium 8.5 mg/dL (8.4-10.2); Carbon Dioxide 26 mmol/L (22-30); Chloride 106 mmol/L (98-107); Estimated CRCL calculation 139 ml/min; Estimated Glomerular Filt Rate > 60; Glucose 185 mg/dL (65-110); Magnesium 1.8 mg/dL (1.6-2.3); Potassium 3.9 mmol/L (3.4-5.0); Sodium 136 mmol/L (137-145)
--- NOTE | 2023-03-03 06:24 | WPDHPUPDATE1 ---
History and Physical Update Update Date/Time: 03/03/23 06:24 History and Physical has been reviewed, including an updated exam of the patient. There are NO changes in the patient's condition. Risks, benefits, and alternatives have been discussed and questions answered. Patient agrees to proceed with procedure.
--- NOTE | 2023-03-03 08:06 | PC.NURSE ---
Patient off of unit to XRAY
--- NOTE | 2023-03-03 10:00 | PC.NURSE ---
Patient off of unit to surgery
[2023-03-03 10:16] LABS: Glucose Point of Care 197 mg/dl (65-105)
[2023-03-03] MEDS: LACTATED RINGERS 1,000 ML 30 ML IV CONT (10:19)
--- NOTE | 2023-03-03 10:19 | WPDANESEPPF ---
Anes - Initial Pre Proc Eval Procedure: Operation Date: 03/03/23 10:30 Proposed Procedures p Right Extracorporeal Shock Wave Lithotripsy - Yogesh Sosa MD Date/Time: 03/03/23 10:19 Surgeon: Kandy Burgess MD Pre Op Diagnosis: metastatic prostate cancer Patient Data Age: 68 Gender: M Height: 1.75 m Weight: 102.8 kg Last Vital Signs Temp 36.3 C L 03/03/23 10:09 Pulse 87 03/03/23 10:09 Resp 16 03/03/23 10:09 BP 151/77 H 03/03/23 10:09 Pulse Ox 98 03/03/23 10:09 O2 Del Method Room Air 03/03/23 10:09 Allergies Allergy/AdvReac Type Severity Reaction Status Date / Time No Known Allergies Allergy Verified 02/24/23 09:46 Home Medications Medication Instructions Recorded Confirmed Type gabapentin 800 mg tablet 800 mg PO BID 05/07/21 03/01/23 History pioglitazone 45 mg tablet 45 mg PO DAILY #90 tabs 08/17/22 03/01/23 Rx metformin 500 mg tablet 1,000 mg PO BID #360 tabs 08/24/22 03/01/23 Rx glimepiride 2 mg tablet 2 mg PO QAM #90 tabs 09/13/22 03/01/23 Rx coQ10 (ubiquinol) 200 mg capsule 200 mg PO DAILY 10/12/22 03/01/23 History elderberry fruit 200 mg capsule 200 mg PO DAILY 10/12/22 03/01/23 History atorvastatin 80 mg tablet 80 mg PO DAILY #90 tabs 11/24/22 03/01/23 Rx mirtazapine 7.5 mg tablet 7.5 mg PO QHS #90 tabs 02/24/23 03/01/23 Rx tamsulosin 0.4 mg capsule 0.4 mg PO DAILY 02/24/23 03/01/23 History Laboratory Tests 03/02/23 03/03/23 03/03/23 05:25 05:28 10:13 WBC 3.1 L K/mm3 (4.5-10.0) RBC 3.47 L M/mm3 (4.6-6.20) Hgb 9.3 L g/dL (14.0-18.0) Hct 29.4 L % (42.0-52.0) MCV 84.7 fl (80-100) MCH 26.8 pg (26-34) MCHC 31.6 L g/dl (32-36) RDW 15.7 H % (11.5-14.5) Plt Count 114 L k/mm3 (150-375) MPV 9.5 fl (7.4-10.4) % Immature Plt Fraction 2.1 % (0.9-11.2) Sodium 136 L mmol/L (137-145) Potassium 3.9 mmol/L (3.4-5.0) Chloride 106 mmol/L (98-107) Carbon Dioxide 26 mmol/L (22-30) Anion Gap 4 L mmol/L (8-16) BUN 10 mg/dL (9-20) Creatinine 0.50 L mg/dL (0.7-1.3) Estim Creat Clear Calc 139 ml/min Estimated GFR > 60 (59 - ) Glucose 185 H mg/dL (65-110) POC Capillary Glucose 197 H mg/dl (65-105) Calcium 8.5 mg/dL (8.4-10.2) Magnesium 1.8 mg/dL (1.6-2.3) Iron 77 ug/dL (49-181) TIBC 285 ug/dL (265-497) % Saturation 27 % (20-50) Prostate Specific Ag 16.9 H ng/mL (< OR = 4.0) Vitamin B12 254.0 pg/mL (239-931) Folate 19.4 ng/mL (2.76->20) Patient hx anesthesia problems: none Family hx anesthesia problems: none Results Review: All pre-operative results and documents have been reviewed as part of the pre-operative evaluation. [facility] Past Medical History Medical History Abnormal colonoscopy 06/03 Tubular adenoma Surgical History Surgical History Hx of left knee surgery (~08/1996) Cartilage removed Family History Family History Father Glaucoma Mother Breast cancer Social History Social History Smoking status: Never smoker Second hand tobacco smoke exposure: No Alcohol intake: never Drinks per week: 5 Substance use: never Substance use type: does not use Lack of Transportation: No Lack of Food: Never True Current Housing: I Have Housing Concerned About Future Housing: No Difficulty Paying Gas/Electric Bills: No Difficulty Paying for Meds: No Currently Unemployed: No Education: Trade/Vocational Certificate Difficulty w/ Childcare or Family Care: No Living arrangements:
[2023-03-03] MEDS: ceFAZolin 2 GM/D5W 50 ML 2 GM/50 ML BAG IVPB (11:02)
--- NOTE | 2023-03-03 11:59 | W.PM.PROC2 ---
Procedure Note - Detailed Date of Procedure 03/03/23 Pre-op Diagnosis Right mid-ureteral stone, metastatic prostate cancer Post-op Diagnosis Same Procedure Performed Right ESWL Surgeon Yogesh Sosa MD Anesthesia General Description of Procedure The patient was brought to the operative suite where he was placed in the supine position on the Dornier lithotripsy table. The focal point of the lithotripter was placed at a 8mm right mid-ureteral calculus. A total of 3000 shocks were delivered at a power setting of 5. There appeared to be good fragmentation of the stone. The patient tolerated the procedure well and was taken to the recovery room in good condition. Urine Output 200 Drains No Packing No Pathology None sent Complications No immediate complications
[2023-03-03] MEDS: fentaNYL CITRATE INJ (*CRX) 100 MCG/2 ML VIAL 25 MCG IV PUSH ×4 (12:26→12:45)
--- NOTE | 2023-03-03 13:46 | PC.NURSE ---
Patient off of unit to Nuclear Medicine
--- NOTE | 2023-03-03 14:26 | WPDPN ---
Progress Note: A&P Assessment and Plan (1) Prostate cancer metastatic to bone: Code(s): C61 - Malignant neoplasm of prostate; C79.51 - Secondary malignant neoplasm of bone Status: Acute Assessment and Plan: 03/03/2023 interval history: 66-year-old male history of prostate cancer presented the progress weakness and fatigue patient is found to have bony metastasis patient is consulted bleacher lard-Oncology to further evaluate patient will have bone scan today and further recommendation to follow, also complains of abdominal pain is found to have 7 mm right ureteral stone seen by urologist patient is scheduled to have lithotripsy today, , will avoid NSAID and anticoagulation. patient states the pain is controlled with just feels tired and fatigued patient's present in the room, (2) Appetite loss: Code(s): R63.0 - Anorexia Status: Acute Assessment and Plan: most likely secondary pain will encourage patient to oral intake (3) Fatigue: Code(s): R53.83 - Other fatigue Status: Acute Assessment and Plan: most likely secondary to prostate cancer metastasis to bones. (4) Type 2 diabetes mellitus with diabetic polyneuropathy: Code(s): E11.42 - Type 2 diabetes mellitus with diabetic polyneuropathy Status: Acute Assessment and Plan: will continue home regimen and monitor with sliding scale (5) Aortic atherosclerosis: Code(s): I70.0 - Atherosclerosis of aorta Status: Acute Subjective Date/time seen: 03/03/23 14:26 Interval history: ED-HPI Narrative: Patient is a 68-year-old male with a history of prostate cancer presenting with weight loss and weakness.? Patient states that he has been losing weight over the last several months.? States that he is also been increasingly weak.? States that he is an avid golfer and he often does 18-36 holes in 1 day.? Over the last week he has only been able to do up to 3 holes until he is overwhelmingly short of breath.? Complains of worsening lower back pain as well as decreased appetite.? No fevers or chills, headache, numbness or weakness, chest pain, shortness of breath, vomiting, dysuria, leg swelling. 03/03/2023 interval history: 66-year-old male history of prostate cancer presented the progress weakness and fatigue patient is found to have bony metastasis patient is consulted bleacher lard-Oncology to further evaluate patient will have bone scan today and further recommendation to follow, also complains of abdominal pain is found to have 7 mm right ureteral stone seen by urologist patient is scheduled to have lithotripsy today, , will avoid NSAID and anticoagulation. patient states the pain is controlled with just feels tired and fatigued patient's present in the room, Review of Systems Review of Systems: fatigue, weakness, poor appetite, weight loss. Objective Data Vital Signs Vital Signs: Vital Signs - 24 hr 03/02/23 16:00 03/02/23 19:18 03/02/23 20:00 Temperature 97.7 F Pulse Rate 109 H 113 H Respiratory Rate 17 Blood Pressure 124/74 Pulse Oximetry 98 Oxygen Delivery Room Air Oxygen Flow Rate 03/03/23 00:57 03/02/23 20:00 03/03/23 00:00 Temperature Pulse Rate 110 H 106 H 88 Respiratory Rate Blood Pressure Pulse Oximetry 98 Oxygen Delivery Room Air Oxygen Flow Rate 03/03/23 04:43 03/03/23 04:00 03/03/23 10:09 Temperature 97 F L 97.3 F L Pulse Rate 85 80 87 Respiratory Rate 16 16 Blood Pressure 147/68 H 151/77 H Pulse Oximetry 97 98 Oxygen Delivery Room Air Oxygen Flow Rate 03/03/23 10:00 03/03/23 10:00 03/03/23 12:09 Temperature 97.5 F L Pulse Rate 89 81 Respiratory Rate 20 Blood Pressure 116/59 L Pulse Oximetry 97 Oxygen Delivery Room Air Simple Face Mask Oxygen Flow Rate 8 03/03/23 12:20 03/03/23 12:25 03/03/23 12:35 Temperature Pulse Rate 83 81 80 Respiratory Rate 20 19 18 Blood Pressure 11
--- NOTE | 2023-03-03 15:37 | PM.DS ---
DS: Admitting Diagnosis Discharge Date 03/03/2023 Admitting Diagnosis Weakness DS: Discharge Diagnosis Discharge Diagnosis (1) Prostate cancer metastatic to bone: Code(s): C61 - Malignant neoplasm of prostate; C79.51 - Secondary malignant neoplasm of bone Status: Acute Assessment and Plan: 03/03/2023 interval history: 66-year-old male history of prostate cancer presented the progress weakness and fatigue patient is found to have bony metastasis patient is consulted social science research assistant-Oncology to further evaluate patient will have bone scan today and further recommendation to follow, also complains of abdominal pain is found to have 7 mm right ureteral stone seen by urologist patient is scheduled to have lithotripsy today, , will avoid NSAID and anticoagulation. patient states the pain is controlled with just feels tired and fatigued patient's present in the room, (2) Appetite loss: Code(s): R63.0 - Anorexia Status: Acute Assessment and Plan: most likely secondary pain will encourage patient to oral intake (3) Fatigue: Code(s): R53.83 - Other fatigue Status: Acute Assessment and Plan: most likely secondary to prostate cancer metastasis to bones. (4) Type 2 diabetes mellitus with diabetic polyneuropathy: Code(s): E11.42 - Type 2 diabetes mellitus with diabetic polyneuropathy Status: Acute Assessment and Plan: will continue home regimen and monitor with sliding scale (5) Aortic atherosclerosis: Code(s): I70.0 - Atherosclerosis of aorta Status: Acute DS: Summary Hospital Course Reason for hospitalization: Weakness Narrative: This is a 68 yo male with PMHx significant for Prostate CA, T2DM, BPH, Peripheral neuropathy. Patient has had a roughly 25 weight loss in the last 2 months or so, he has had decreased stamina as well, sob at exertion, poor appetite, comes in today due to worsening of all of these was out today playing Golf Hospital Course: 66-year-old male history of prostate cancer presented the progress weakness and fatigue patient is found to have bony metastasis patient is consulted social science research assistant-Oncology to further evaluate patient will have bone scan today and further recommendation to follow, also complains of abdominal pain is found to have 7 mm right ureteral stone? seen by urologist patient is scheduled to have? lithotripsy today, , will avoid NSAID and anticoagulation.? patient states the pain is controlled with just feels tired and fatigued patient's present in the room, Today patient had lithotripsy and it was scuccessful with the fragments of the kidney stone and patient will follow up with the urologist, patient was seen by Dr. Acuña and ordered bone scan which showed widespread osseous metastatic disease, patient will follow up with Dr. Acuña and further recommendation to follow. Time Spent with Patient Time attestation: Total time spent providing and/or coordinating discharge services: Exam Narrative: Patient is comfortable, NAD HEENT: eyes are clear and none icteric LUNGS: Normal respiratory effort ABD: Distended Lower extremities: no edema SKIN: nonjaundiced Neuro: grossly intact. DS: Data Data Completed and Pending Labs on day of discharge: Labs from last 24 hours 03/03/23 03/03/23 10:13 05:28 WBC 3.1 L RBC 3.47 L Hgb 9.3 L Hct 29.4 L MCV 84.7 MCH 26.8 MCHC 31.6 L RDW 15.7 H Plt Count 114 L MPV 9.5 % Immature Plt Fraction 2.1 Sodium 136 L Potassium 3.9 Chloride 106 Carbon Dioxide 26 Anion Gap 4 L BUN 10 Creatinine 0.50 L Estim Creat Clear Calc 139 Estimated GFR > 60 Glucose 185 H POC Capillary Glucose 197 H Calcium 8.5 Magnesium 1.8 Discharge Plan Discharge Attending physician on discharge: Dean Blue Consulting providers: Bruce Acuña; Tiara Borrego Discharging Clinician: Dean Blue
[2023-03-04 07:25] LABS: Glucose Point of Care 178 mg/dl (65-105)
== END 2023-03-03 16:31 | disposition home or self-care (01) | DRG 694 ==
LOC: ANHED 18:23 → ANH3MED 22:29
PROVIDERS: Internal Medicine Hematology & Oncology; Urology; Admitting Provider Internal Medicine; Emergency Provider Emergency Medicine; PCP Family Medicine Adolescent Medicine; Visit Provider Family Medicine
PROC: 0TF6XZZ Fragmentation in Right Ureter, External Approach (ICD-10-PCS; CPT 50590; principal; 2023-03-03 10:30)
DX: N13.2 Hydronephrosis with renal and ureteral calculous obstruction (principal); C79.51 Secondary malignant neoplasm of bone; C61 Malignant neoplasm of prostate; D63.0 Anemia in neoplastic disease; E11.42 Type 2 diabetes mellitus with diabetic polyneuropathy; I70.0 Atherosclerosis of aorta; N40.0 Benign prostatic hyperplasia without lower urinary tract symptoms; R63.0 Anorexia; Z20.822 Contact with and (suspected) exposure to COVID-19; Z79.84 Long term (current) use of oral hypoglycemic drugs
CPT/HCPCS: 36415; 71046; 71275; 72131; 74018; 74177; 78306; 80048; 80053; 81001; 82550; 82607; 82746; 82948; 83540; 83550; 83605; 83690; 83735; 84153; 84484; 85025; 85027; 85055; 85610; 85730; 87086; 87636; 93005; 96361; 96374; 96375; 96376; 99285; A9270; A9503; J0690; J1100; J1170; J2250; J2405; J2704; J3010; J7030; J7120; Q9967

== ENCOUNTER 2023-03-16 04:27 | Day surgery (SDC) | payer OTHER, SELFPAY ==
--- NOTE | 2023-03-10 13:37 | PC.NURSE ---
Report to the Outpatient Waiting Room, entrance under the green pavilion located off [facility], at time ___1000____ on date 03/16/23 . Planned Procedure Time: _1200 . Time changes happen often and if your time is changed the preop area will call you the afternoon before. - You and your visitor will be asked to self-screen and do not enter if you have any COVID symptoms. - A mask is optional within the hospital at this time. Patients may have clear liquids (water, carbonated beverages, clear teas, apple juice) until 3 hours prior to surgery with a maximum of 20 ounces. - No food from midnight until time of surgery - Infants may have breast milk until 4 hours before surgery, infant formula 6 hours prior to surgery. - Children will be allowed to drink immediately following surgery. If applicable, please bring a bottle or sippy cup to assist with drinking. Juice, water, soda, and popsicles are readily available. For infants on formula, please bring formula the day of surgery. Pacifiers are allowed. Take the following medications with a SIP of water the morning of surgery: ___GABAPENTIN,PREDNISONE DO NOT STOP ANY OF YOUR OTHER PRESCRIPTION MEDICATIONS PRIOR TO SURGERY ?EXCEPT THE FOLLOWING Medications to discontinue per physician __ALL VITAMINS/SUPPLEMENTS 3 DAYS PRE OP.LAST DOSE03/12/23 Please no make-up, nail wolof, hairspray, perfume, deodorant, or body powder the day of surgery. No jewelry (including any body piercings) or valuables the day of surgery, leave them at home. Please take a shower or bath the night before, or the morning of, surgery with an antibacterial soap. Wear comfortable, loose fitting clothing. Children are encouraged to wear pajamas. - Jewelry must be removed prior to entering the operating room. Rings and piercings that are not removed may be cut off. - The hospital will not accept responsibility for valuables. - Please leave all valuables, including medications, at home the day of surgery. If you are going home after surgery, a licensed regional otr company driver must drive you home. - NO public transportation without another adult if you receive anesthesia. - We recommend that an adult stay with you for 24 hours following discharge. - We also recommend that you do not drive, make important decision, drink alcoholic beverages, or take any drugs that were not prescribed by your health care provider for at least 24 hours after your discharge time. For Pediatric surgeries, we recommend two adults accompany the child home. Follow any additional instructions given to you from your surgeon. If you or anyone in your household have experienced Covid symptoms in the past week, please notify your surgeon or the nurse liaison at the phone number below for possible testing. Telephone instructions given to _PT'S KARL and asked if any additional questions and then verbalized understanding. Patient advised to call surgeon office or pre surgery nurse liaison [phone] if any additional questions.
[2023-03-10 13:52] VITALS: BMI 30.5
--- NOTE | 2023-03-15 10:02 | WPDANESEPPF ---
Anes - Initial Pre Proc Eval Procedure: Operation Date: 03/16/23 12:00 Proposed Procedures p Insertion Laci Cath - Tiffany Villa MD Date/Time: 03/15/23 10:02 Surgeon: Tiffany Villa MD Pre Op Diagnosis: malig neoplasm of prostate Patient Data Age: 68 Gender: M Height: 1.75 m Weight: 93.9 kg Allergies Allergy/AdvReac Type Severity Reaction Status Date / Time No Known Allergies Allergy Verified 03/16/23 10:06 Home Medications Medication Instructions Recorded Confirmed Type gabapentin 800 mg tablet 800 mg PO BID 05/07/21 03/16/23 History pioglitazone 45 mg tablet 45 mg PO DAILY #90 tabs 08/17/22 03/16/23 Rx metformin 500 mg tablet 1,000 mg PO BID #360 tabs 08/24/22 03/16/23 Rx glimepiride 2 mg tablet 2 mg PO QAM #90 tabs 09/13/22 03/16/23 Rx coQ10 (ubiquinol) 200 mg capsule 200 mg PO DAILY 10/12/22 03/16/23 History elderberry fruit 200 mg capsule 200 mg PO DAILY 10/12/22 03/16/23 History atorvastatin 80 mg tablet 80 mg PO DAILY #90 tabs 11/24/22 03/16/23 Rx tamsulosin 0.4 mg capsule 0.4 mg PO DAILY 02/24/23 03/16/23 History cyanocobalamin (vitamin B-12) 1,000 mcg PO DAILY 03/10/23 03/16/23 History 1,000 mcg tablet prednisone 5 mg tablet 5 mg PO BID 03/10/23 03/16/23 History mirtazapine 15 mg tablet 15 mg PO QHS #90 tabs 03/14/23 03/16/23 Rx Patient hx anesthesia problems: none Family hx anesthesia problems: none Results Review: All pre-operative results and documents have been reviewed as part of the pre-operative evaluation. [facility] Past Medical History Medical History (Updated 03/15/23 @ 10:03 by Catrachito Hernandez DO) Abnormal colonoscopy 06/03 Tubular adenoma Aortic atherosclerosis CT 02/06 Essential tremor Mixed hyperlipidemia Prostate cancer metastatic to bone Type 2 diabetes mellitus with diabetic polyneuropathy Surgical History Surgical History Hx of left knee surgery (~08/1996) Cartilage removed Family History Family History Father Glaucoma Mother Breast cancer Social History Social History Smoking status: Never smoker Second hand tobacco smoke exposure: No Alcohol intake: current Drinks per week: 5 Substance use: never Substance use type: does not use Lack of Transportation: No Lack of Food: Never True Current Housing: I Have Housing Concerned About Future Housing: No Difficulty Paying Gas/Electric Bills: No Difficulty Paying for Meds: No Currently Unemployed: No Education: Trade/Vocational Certificate Difficulty w/ Childcare or Family Care: No Living arrangements: with family Occupation/Education: occupation 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 Gender identity (if verbalized by the patient): Male Sexual Orientation (if Verbalized by the Patient): Straight or Heterosexual Spiritual care concerns: No Agree to blood products: Yes Anes - Eval Final PreProcedure Day of Procedure 03/15/23 10:02 Patient weight: obese Heart: regular rate and rhythm Lungs: clear to auscultation Airway: Mallampati scale class II Neurological: alert and oriented Last oral intake: >/= 8 hours ASA classification: III Emergent: no Anesthetic plan: proceed Anesthesia type and monitoring: general GIVS and standard monitoring Results Review: All pre-operative results and documents have been reviewed as part of the pre-operative evaluation. Informed Consent: The patient's anesthetic plan and its attendant risks and benefits were discussed with the patient/family/POA. Questions were solicited and answers provided to the satisfaction of the patient/family/POA.
--- NOTE | ~2023-03-16 | XR_ITS ---
XR fl guide central line place 03/16/2023 12:46 Indication: Insertion of portacatheter Procedure: Single fluoroscopic limited view of the chest. 38 seconds of fluoroscopy. Comparison: Chest dated 02/28/2023 Findings: Portacatheter partially visualized, tip in the SVC. Please refer to procedural report for d etails. Impression: 1: Portacatheter tip in the SVC. Reviewed, dictated and finalized at location A. Impression: 1: Portacatheter tip in the SVC.
--- NOTE | ~2023-03-16 | XR_ITS ---
Portable chest x-ray Comparison: 02/28/2023 Clinical History: Mediport placement Findings: Left-sided Mediport is in satisfactory position. There is linear left basilar scarring or atelectasis. Right lung clear. No pneumothorax. Cardiomediastinal silhouette is stable. Bones and so ft tissues are unremarkable. Impression: Left-sided Mediport in place. Linear left basilar scarring or atelectasis. Reviewed, dictated and finalized at location . Impression: Left-sided Mediport in place. Linear left basilar scarring or atelectasis.
[2023-03-16 10:05] VITALS: BP 116/60; PULSE 118; RESP 20; TEMP 36.1; O2SAT 100
[2023-03-16 10:47] LABS: Glucose Point of Care 133 mg/dl (65-105)
[2023-03-16] MEDS: LACTATED RINGERS 1,000 ML 30 ML IV CONT (10:50)
[2023-03-16] MEDS: KETOROLAC 15 MG/ML VIAL (*BKC) IV PUSH (10:54)
--- NOTE | 2023-03-16 11:42 | PM.IMHP ---
H&P: HPI History of Present Illness Date/Time: 03/16/23 11:42 Chief Complaint: prostate cancer Narrative: The patient is a 68-year-old male presenting to the hospital for port placement. The patient with metastatic prostate cancer to bone required chemotherapy and radiation therapy. The patient is here to get access for chemotherapy with planned start date next week. The patient denies any previous central venous catheterization. The patient is right handed. 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 Surgical History Surgical History Hx of left knee surgery (~08/1996) Cartilage removed Family History Family History Father Glaucoma Mother Breast cancer Social History Social History Smoking status: Never smoker Second hand tobacco smoke exposure: No Alcohol intake: current Drinks per week: 5 Substance use: never Substance use type: does not use Lack of Transportation: No Lack of Food: Never True Current Housing: I Have Housing Concerned About Future Housing: No Difficulty Paying Gas/Electric Bills: No Difficulty Paying for Meds: No Currently Unemployed: No Education: Trade/Vocational Certificate Difficulty w/ Childcare or Family Care: No Living arrangements: with family Occupation/Education: occupation 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 Gender identity (if verbalized by the patient): Male Sexual Orientation (if Verbalized by the Patient): Straight or Heterosexual Spiritual care concerns: No Agree to blood products: Yes Meds Home Medications and Allergies Home Medications Medication Instructions Recorded Confirmed Type gabapentin 800 mg tablet 800 mg PO BID 05/07/21 03/16/23 History pioglitazone 45 mg tablet 45 mg PO DAILY #90 tabs 08/17/22 03/16/23 Rx metformin 500 mg tablet 1,000 mg PO BID #360 tabs 08/24/22 03/16/23 Rx glimepiride 2 mg tablet 2 mg PO QAM #90 tabs 09/13/22 03/16/23 Rx coQ10 (ubiquinol) 200 mg capsule 200 mg PO DAILY 10/12/22 03/16/23 History elderberry fruit 200 mg capsule 200 mg PO DAILY 10/12/22 03/16/23 History atorvastatin 80 mg tablet 80 mg PO DAILY #90 tabs 11/24/22 03/16/23 Rx tamsulosin 0.4 mg capsule 0.4 mg PO DAILY 02/24/23 03/16/23 History cyanocobalamin (vitamin B-12) 1,000 mcg PO DAILY 03/10/23 03/16/23 History 1,000 mcg tablet prednisone 5 mg tablet 5 mg PO BID 03/10/23 03/16/23 History mirtazapine 15 mg tablet 15 mg PO QHS #90 tabs 03/14/23 03/16/23 Rx Allergies Allergy/AdvReac Type Severity Reaction Status Date / Time No Known Allergies Allergy Verified 03/16/23 10:06 Vital Signs Vital Signs - 24 hr 03/16/23 10:05 Temperature 36.1 C L Pulse Rate 118 H Respiratory Rate 20 Blood Pressure 116/60 Pulse Oximetry 100 Oxygen Delivery Room Air Exam Const: General: cooperative, comfortable, no acute distress, ill appearing and overweight HENMT: Head: normal to inspection, normocephalic and atraumatic Neck: Neck: normal visual inspection, full ROM and no lymphadenopathy Chest: Chest palpation & inspection: normal inspection of the chest Resp: Auscultation: clear to auscultation bilaterally Cardio: Rate: regular rate Rhythm: regular rhythm GI: Inspection: normal to inspection Assessment and Plan Assessment and plan (1) Prostate cancer metastatic to bone: Code(s): C61 - Malignant neoplasm of prostate; C79.51 - Secondary malignant neoplasm of bon
--- NOTE | 2023-03-16 11:45 | WPDHPUPDATE1 ---
History and Physical Update Update Date/Time: 03/16/23 11:45 History and Physical has been reviewed, including an updated exam of the patient. There are NO changes in the patient's condition. Risks, benefits, and alternatives have been discussed and questions answered. Patient agrees to proceed with procedure.
[2023-03-16 12:43] VITALS: BP 121/62; PULSE 93; RESP 16; O2SAT 100
[2023-03-16 12:53] LABS: Glucose Point of Care 175 mg/dl (65-105)
[2023-03-16 13:13] VITALS: BP 117/54; PULSE 94; RESP 16
[2023-03-16 13:43] VITALS: BP 118/59; PULSE 92; RESP 16
--- NOTE | 2023-03-16 13:54 | W.PM.PROC2 ---
Procedure Note - Detailed Date of Procedure 03/16/23 Pre-op Diagnosis malig neoplasm of prostate Post-op Diagnosis Same Procedure Performed Placement of left subclavian venous access device under fluoroscopic guidance Surgeon Tiffany Villa MD Anesthesia MAC and Local Indications 68 y/o M c metastatic prostate cancer requiring chemotherapy Findings first stick L SCV Description of Procedure Patient was brought into the operating room and placed in the supine position. After adequate induction of mac anesthesia, the patient was prepped and draped in normal sterile fashion. Time-out was then done to verify the patient's identity, as well as the procedure being performed. I began by making a small incision in the left chest, I then gained access into the left subclavian vein with an 18 gauge needle. I then placed the guidewire into the vein and confirmed placement via fluoroscopic guidance. I then locally anesthetized the area in the left chest. I then enlarged the incision around the guidewire including making a subcutaneous pocket inferiorly to allow placement of the port itself. I then placed a dilating sheath over the guidewire into the left subclavian vein via sterile Seldinger technique. This was once again done and confirmed via fluoroscopic guidance. I then removed the dilator and the guidewire, now just leaving the sheath in the vein. I then fed the previously flushed catheter into the left subclavian vein under fluoroscopic guidance. At approximately 21 cm, the catheter was noted to be near the atrial caval junction. I then peeled away the sheath, now just leaving the catheter in the vein. I then was able to easily draw and flush from the catheter. The catheter was cut to fit and attached to the port itself. The port was placed into the previously made subcutaneous pocket and sutured in with 0 Ethibond suture. Final fluoroscopic view showed the termination of the catheter at the atrial caval junction with a nice smooth curvature back to the port itself. I was able to gain access to the port with a Sumner needle and was able to easily draw and flush from the port. I then flushed 4 cc of a final heparin flush into the port. The incision was closed with 3 0 Vicryl suture in the subcutaneous tissue and the skin was closed with 4 O Monocryl subcuticular suture. Dermabond was then placed on wound. The patient tolerated the procedure well and will be sent to the recovery room in stable condition. Implants L SCV VAD Estimated Blood Loss 5 Drains No Packing No Pathology None sent Complications No immediate complications Condition Stable Disposition PACU [facility] Billing Surgery - Charge Forward: Surgery Billing
== END 2023-03-16 13:52 | disposition home or self-care (01) ==
PROVIDERS: PCP Family Medicine Adolescent Medicine; Visit Provider Surgery
PROC: (CPT 36561; principal; 2023-03-16 12:00)
DX: C61 Malignant neoplasm of prostate (principal); C79.51 Secondary malignant neoplasm of bone; E11.42 Type 2 diabetes mellitus with diabetic polyneuropathy; E78.2 Mixed hyperlipidemia; G25.0 Essential tremor; I70.0 Atherosclerosis of aorta; Z79.84 Long term (current) use of oral hypoglycemic drugs; E66.9 Obesity, unspecified; Z68.30 Body mass index [BMI] 30.0-30.9, adult
CPT/HCPCS: 36561; 77001; 82948; C1788; J1644; J1885; J3010; J7030; J7120

== ENCOUNTER 2023-04-11 10:12 | Inpatient (IN) | payer OTHER, SELFPAY ==
[2023-04-11] VITALS (16 sets, daily range): BP systolic 80–133; BP diastolic 41–77; PULSE 73–117; RESP 16–28; TEMP 35.9–36.8; O2SAT 99–100; BMI 65.7
[2023-04-11] MEDS: SODIUM CHLORIDE 0.9% IV 1,000 ML 999 ML IV CONT (11:14)
[2023-04-11] MEDS: CALCIUM GLUC 1,000 MG/NS 50 ML 1,000 MG/50 ML BAG 100 MG IVPB (12:05)
[2023-04-11] MEDS: SODIUM CHLORIDE 0.9% IV 250 ML 30 ML IV CONT (12:06)
--- NOTE | 2023-04-11 12:46 | PM.IMHP ---
H&P: HPI History of Present Illness Date/Time: 04/11/23 12:46 Chief Complaint: Abnormal labs and hypotension Narrative: This is a 68-year-old male patient who has metastatic prostate cancer. The patient has been on oral chemotherapy for the last week. The patient took his last dose this morning. The patient went to his 1st chemo infusion today however he was not able to follow through with the treatment today because he was hypotensive and his blood pressure was 7 0.7 and 24.9. He receives his treatment through Dr. Acuña. The patient had a consult visit with Dr. Rafa Gallego for his metastatic prostate cancer.(cT2b N0 M0, [place] score 7(4+3), PSA 9.2.? He underwent definitive IMRT with concurrent Lupron completed on 07/03/18.)He was found to have locoregionally recurrent disease involving the prostate + right pelvic LN in 2020 based on MRI prostate and Axumin PET. He was started on ADT with lupron (Dr. Acuña).He was admitted to [facility] in 02/2023. NM bone scan showed widespread osseous metastases involving? skull, humeri, clavicles, scapulae, ribs, sternum, spine, pelvis, and femora. CT CAP showed widespread osseous metastases and right external iliac LN. CT spine showed widespread bon metastases and severe lumbar spondylosis. He saw Dr. Acuña recently who plans to add Zytiga to ongoing ADT. He was referred to me for consideration of palliative RT.? The patient was typed and cross-matched for a unit of blood and was receiving his 1st unit of blood while I was in the emergency room. His calcium level was 4.3 and his venous tongue calcium was 0.61. The patient was given IV fluids calcium gluconate and a unit of blood in the emergency room. The patient is being admitted to observation status on the date of service of 04/11/2023 for Review of Systems Review of Systems: All systems reviewed & are unremarkable except as noted in HPI and below Constitutional: Constitutional: Reports as per HPI and Reports no additional constitutional complaints Eyes: Eyes: Reports as per HPI and Reports no additional eye complaints ENT: Reports system reviewed and no additional complaints, except as documented and Reports Normal hearing present Cardiovascular: Cardiovascular: Reports no additional cardiovascular complaints Respiratory: Respiratory: Reports no additional respiratory complaints and Reports no additional respiratory complaints Gastrointestinal: Gastrointestinal: Reports as per HPI and Reports no additional gastrointestinal complaints Musculoskeletal: Musculoskeletal: Reports no additional musculoskeletal complaints Integumentary/Breasts: Skin/Breast: Reports system reviewed and no additional complaints, except as docu and Reports as per HPI Neurologic: Reports system reviewed and no additional complaints, except as documented, Reports as per HPI and Reports Normal hearing present Psychiatric: Psychiatric: Reports no additional psychiatric complaints and Reports as per HPI Endocrine: Endocrine: Reports no additional endocrine complaints Hematologic/Lymphatic: Hematologic/Lymphatic: Reports no additional hematologic/lymphatic complaints Allergic/Immunologic: Allergic/Immunologic: Reports no additional allergic/immunologic complaints [facility] Past Medical History Medical History (Updated 04/11/23 @ 15:04 by Velia Gleason NP) Abnormal colonoscopy 06/03 Tubular adenoma Aortic atherosclerosis CT 02/06 Essential tremor History of colon polyps Mixed hyperlipidemia Port-A-Cath in place 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
[2023-04-11 12:48] LABS: Iron 96 ug/dL (49-181)
[2023-04-11 12:58] LABS: Percent Iron Saturation 35 % (20-50)
[2023-04-11] MEDS: TUBING, BLOOD SET 1 EACH XX (13:13)
[2023-04-11 13:34] LABS: Folic Acid 17.1 ng/mL (2.76->20)
--- NOTE | 2023-04-11 14:09 | PC.NURSE ---
admitted to floor with blood infusing per order
--- NOTE | 2023-04-11 14:43 | ADMGEN ---
This patient, Norman Byers, was admitted to [facility] Surg Room 313-01. Patient/family oriented to hospital policies and general routines including ID bracelet, bed and alarms, visiting hours, pain management, procedures, bathroom and other care routines, personal items, smoking policy, room service/diet, and visiting hours. Information on how to activate the Rapid Response Team has been discussed. Patient/Family are encouraged to report perceived risks to care and to ask questions if they do not understand what they are told or what they should do.
[2023-04-11 17:55] LABS: Hematocrit 27.9 % (42.0-52.0); Hemoglobin 8.7 g/dL (14.0-18.0)
--- NOTE | 2023-04-11 18:51 | PDONCCN ---
HPI - Date of Consult Date/Time: 04/11/23 18:51 Requesting Physician: Jose Duarte MD Primary Care Provider: Shaheen Foley MD - Consult Narrative Reason for consult: Metastatic prostate cancer Narrative: Norman Byers is a 68 year old male with history of metastatic prostate cancer with widespread bone metastasis. Patient was started on Zytiga due to progressive disease in February 2023. She he has been on Lupron since June of 2021. He received cycle 1 of chemotherapy with Taxotere on March 21. He was seen in the office due to tiredness and fatigue and found to have hemoglobin of 7.7. He was quite hypertensive along with lightheadedness and dizziness. He was having diarrhea as well. He was sent to the ER due to decline in his status and symptomatic anemia. Patient has received 1 unit of packed red blood cells with improvement in the symptoms. Review of Systems - Review of Systems All systems reviewed & are unremarkable except as noted in HPI and bel - Neurologic Reports system reviewed and no additional complaints, except as documented, Reports hearing normal [facility] Medical History: Medical History (Last Updated 04/11/23 @ 15:04 by Velia Gleason NP) Abnormal colonoscopy 06/03 Tubular adenoma Aortic atherosclerosis CT 02/06 Essential tremor History of colon polyps Mixed hyperlipidemia Port-A-Cath in place Prostate cancer metastatic to bone Type 2 diabetes mellitus with diabetic polyneuropathy Surgical History: Surgical History (Last Reviewed 04/11/23 @ 14:53 by Velia Gleason NP) H/O colonoscopy with polypectomy Hx of left knee surgery Onset Date: ~08/1996 Cartilage removed Family History: Family History (Last Updated 04/11/23 @ 14:59 by SANDER Meier) Father Glaucoma Lung cancer Mother Breast cancer - Social History Social History: Social History (Last Updated 04/11/23 @ 14:55 by Velia Gleason NP) Gender Identity: Gender identity (if verbalized by the patient): Male Sexual Orientation: Sexual Orientation (if Verbalized by the Patient): Straight or Heterosexual Alcohol Use: Alcohol intake: current Drinks per week: 5 Substance Use: Substance use: never Substance use type: does not use Others: Spiritual care concerns: No Agree to blood products: Yes Living Arrangements: Living arrangements: with family Oppucation/Education: Occupation/Education: occupation Smoking Status: Smoking status: Never smoker Second hand tobacco smoke exposure: Yes Social Determinants of Health: Has the Lack of Transportation Kept You From Medical Appointments or From Getting Medications?: No Within the Past 12 Months, Were You Worried Whether Your Food Would Run Out Before You Got Money to Buy More?: Never True What is Your Housing Situation Today?: I Have Housing Are You Worried That in the Next 2 Months, You May Not Have Your Own Housing to Live In?: No Do You Have Trouble Paying Your Heating Or Electricity Bill?: No Do You Have Trouble Paying For Medicines?: No Are You Currently Unemployed and Looking for Work?: No Highest Level of Education Completed: Trade/Vocational Certific Do You Have Trouble With Childcare or the Care of a Family Member?: No Exam - Vital Signs Vital Signs - 24 hr 04/11/23 10:23 04/11/23 10:36 04/11/23 10:48 Temperature 36.4 C L Pulse Rate 117 H 95 Respiratory Rate 20 17 20 Blood Pressure 80/47 L 117/77 Pulse Oximetry 100 100 100 Oxygen Delivery 04/11/23 11:04 04/11/23 11:06 04/11/23 10:50 Temperature Pulse Rate 91 109 H 96 Respiratory Rate 23 H Blood Pressure 96/41 L 99/59 L Pulse Oximetry 100 Oxygen Delivery 04/11/23 11:02 04/11/23 11:06 04/11/23 11:08 Temperature Pulse Rate 100 94 105 H Respiratory Rate 28 H 27 H 26 H Blood Pressure 96/41 L 99/59 L Pulse Oximetry 100 100 100 Ox
--- NOTE | 2023-04-11 20:08 | PC.NURSE ---
Pt 1700 meds not to floor. Received late and communicated with night RN who stated she would give the 1700 doses tonight closer to 2100 when pt normally takes them. Pt stated that pt fell, well not really fell but kind of slightly passed out last night at 0230 after shift change. Communicated concerns to night nurse about pt being fall risk.
[2023-04-11] MEDS: MIRTAZAPINE 15 MG TABLET PO (21:28)
[2023-04-11] MEDS: GABAPENTIN 400 MG CAPSULE 800 MG PO (21:28)
[2023-04-11] MEDS: CALCIUM CARBONATE (OSCAL) 500 MG TABLET PO (21:28)
[2023-04-11] MEDS: predniSONE 5 MG TABLET PO (21:29)
[2023-04-11] MEDS: TAMSULOSIN HCL 0.4 MG CAPSULE PO (21:29)
[2023-04-11] MEDS: CENTRAL LINE FLUSH 10 ML IV PUSH (22:00)
[2023-04-11 23:28] LABS: Hematocrit 25.1 % (42.0-52.0); Hemoglobin 7.7 g/dL (14.0-18.0)
[2023-04-12 06:00] VITALS: BP 114/94; PULSE 71; RESP 16; TEMP 36.6; O2SAT 99
[2023-04-12] MEDS: CENTRAL LINE FLUSH 10 ML IV PUSH ×3 (06:00→21:18)
[2023-04-12 06:38] LABS: Alanine Aminotransferase 10 U/L (6-50); Albumin Level 2.7 g/dL (3.5-5.1); Alkaline Phosphatase 821 U/L (38-126); Anion Gap 1 mmol/L (8-16); Aspartate Amino Transferase 33 U/L (17-59); Bilirubin,Total 1.2 mg/dL (0.2-1.3); Blood Urea Nitrogen 4 mg/dL (9-20); Calcium 3.8 mg/dL (8.4-10.2); Carbon Dioxide 23 mmol/L (22-30); Chloride 108 mmol/L (98-107); Estimated CRCL calculation 212 ml/min; Estimated Glomerular Filt Rate > 60; Glucose 143 mg/dL (65-110); Magnesium 1.6 mg/dL (1.6-2.3); Potassium 3.7 mmol/L (3.4-5.0); Sodium 132 mmol/L (137-145)
[2023-04-12 07:05] LABS: Hemoglobin A1C 6.6 % (<5.7)
[2023-04-12 07:59] LABS: Glucose Point of Care 134 mg/dl (65-105)
[2023-04-12] MEDS: predniSONE 5 MG TABLET PO ×2 (09:19→21:18)
[2023-04-12] MEDS: CALCIUM CARBONATE (OSCAL) 500 MG TABLET PO ×2 (09:19→16:48)
[2023-04-12] MEDS: CYANOCOBALAMIN 1,000 MCG TABLET 1000 MCG PO (09:19)
[2023-04-12] MEDS: GABAPENTIN 400 MG CAPSULE 800 MG PO ×2 (09:19→21:18)
[2023-04-12] MEDS: PIOGLITAZONE HCL 45 MG TABLET PO (09:20)
[2023-04-12] MEDS: MAGNESIUM SULF 2 GM/WATER 50ML 2 GM/50 ML BAG IVPB (09:20)
[2023-04-12] MEDS: GLIMEPIRIDE 2 MG TABLET PO (09:20)
[2023-04-12 11:33] LABS: Glucose Point of Care 169 mg/dl (65-105)
[2023-04-12 11:39] VITALS: BMI 28.8
[2023-04-12 11:40] LABS: Glucose Point of Care 189 mg/dl (65-105)
[2023-04-12 12:40] LABS: Hematocrit 28.9 % (42.0-52.0); Hemoglobin 8.9 g/dL (14.0-18.0)
[2023-04-12 14:00] VITALS: BP 115/70; PULSE 101; RESP 16; TEMP 36.1; O2SAT 100
--- NOTE | 2023-04-12 14:47 | PM.IMPN ---
Progress Note: A&P Assessment and Plan (1) Anemia: Qualifiers: Anemia type: due to chronic kidney disease Code(s): D64.9 - Anemia, unspecified Status: Acute Assessment and Plan: Patient was having symptomatic anemia. Symptoms included syncope, fatigue, weakness and lightheadedness. History of metastatic prostate cancer receiving treatment from Oncology and known anemia of chronic disease. Hemoglobin found to be 7.7 and patient received 1 unit of PRBCs Patient on Procrit. H&H q.6 hours. Stool for occult blood ordered. Oncology consulted. PT and OT consulted due to progressive weakness. (2) Prostate cancer metastatic to bone: Code(s): C61 - Malignant neoplasm of prostate; C79.51 - Secondary malignant neoplasm of bone Status: Acute Assessment and Plan: Patient diagnosed with prostate cancer in 2018 and ever since then he has been treated by Dr. Acuña. Patient has been taking oral chemotherapy, Lupron injections every 3 months as well as IV infusion every 3 weeks. Patient offered palliative radiation treatment but this has not yet been started.. NM bone scan showed widespread osseous metastases involving? skull, humeri, clavicles, scapulae, ribs, sternum, spine, pelvis, and femora. CT CAP showed widespread osseous metastases and right external iliac LN. CT spine showed widespread bon metastases and severe lumbar spondylosis. Oncology consulted (3) Type 2 diabetes mellitus with diabetic polyneuropathy: Code(s): E11.42 - Type 2 diabetes mellitus with diabetic polyneuropathy Status: Acute Assessment and Plan: Accu-Cheks AC and HS with sliding scale insulin. Hypoglycemic protocol. Holding his metformin at this time resume the glimepiride and Actos (4) Essential tremor: Code(s): G25.0 - Essential tremor Status: Acute Assessment and Plan: Continue gabapentin (5) Mixed hyperlipidemia: Code(s): E78.2 - Mixed hyperlipidemia Status: Acute Assessment and Plan: Continue with atorvastatin Subjective Date/time seen: 04/12/23 14:47 Interval history: Patient states that he has been progressively weak over the past several weeks. He states that when he had a syncopal event he remembers feeling lightheaded prior to that. When he arrived to get his chemo infusion they found him to have a low blood pressure and low hemoglobin. Patient states after receiving blood and IV fluids that he is feeling better. Discussed with him it would be kumar to have an evaluation by PT and OT and close monitoring of H&H overnight. If patient remains stable he could likely discharge tomorrow. Exam Narrative: GENERAL: Comfortable, no acute distress HENMT: moist mucous membranes EYES: EOM intact b/l NECK: no lymphadenopathy RESPIRATORY: clear to auscultation CARDIO: RRR GI: soft, nontender, bowel sounds present SKIN: no rashes EXTREMITIES: no edema, redness or tenderness Objective Data Vital Signs Vital Signs: Vital Signs - 24 hr 04/11/23 15:17 04/11/23 22:00 04/11/23 20:00 Temperature 98.3 F Pulse Rate 81 81 Respiratory Rate 18 18 Blood Pressure 133/63 Pulse Oximetry 99 99 Oxygen Delivery Room Air Room Air 04/12/23 06:00 04/12/23 13:27 04/11/23 15:10 Temperature 97.9 F 97.8 F Pulse Rate 71 73 Respiratory Rate 16 16 Blood Pressure 114/94 H 122/64 Pulse Oximetry 99 100 Oxygen Delivery Room Air 04/11/23 15:40 04/12/23 14:00 Temperature 98.0 F 96.9 F L Pulse Rate 78 101 H Respiratory Rate 16 16 Blood Pressure 128/66 115/70 Pulse Oximetry 100 100 Oxygen Delivery Intake/Output Intake/Output: Intake & Output 04/09/23 04/10/23 04/11/23 04/12/23 23:59 23:59 23:59 23:59 Intake Total 1915 608 Output Total 100 Balance 1815 608 Meds/Results Medications: Active Medications Generic Name Dose Route Start Last Admin Trade Name Freq PRN Reason
[2023-04-12 16:08] VITALS: BP 110/55; PULSE 74; RESP 20; TEMP 36.4; O2SAT 100
[2023-04-12 16:20] LABS: Glucose Point of Care 228 mg/dl (65-105)
[2023-04-12] MEDS: INSULIN ASPART (*BKC) 100 UNITS/ML SUB-Q ×2 (16:48→21:18)
[2023-04-12 18:28] LABS: Hematocrit 29.3 % (42.0-52.0); Hemoglobin 9.1 g/dL (14.0-18.0)
[2023-04-12 21:12] LABS: Glucose Point of Care 207 mg/dl (65-105)
[2023-04-12] MEDS: TAMSULOSIN HCL 0.4 MG CAPSULE PO (21:17)
[2023-04-12] MEDS: MIRTAZAPINE 15 MG TABLET PO (21:18)
[2023-04-12 22:00] VITALS: BP 143/70; PULSE 95; RESP 18; TEMP 36.3; O2SAT 100
[2023-04-13] VITALS (10 sets, daily range): BP systolic 105–140; BP diastolic 53–74; PULSE 72–85; RESP 16–18; TEMP 35.8–36.2; O2SAT 99–100
[2023-04-13] MEDS: CENTRAL LINE FLUSH 10 ML IV PUSH ×3 (05:28→21:14)
[2023-04-13 06:41] LABS: Hemoglobin 7.7 g/dL (14.0-18.0); Mean Corpuscular HGB Conc 30.8 g/dl (32-36); Mean Corpuscular Hemoglobin 27.4 pg (26-34); Mean Platelet Volume 9.2 fl (7.4-10.4); Platelet Count Result 106 k/mm3 (150-375); Red Blood Count 2.81 M/mm3 (4.6-6.20); Red Cell Distribution Width 21.3 % (11.5-14.5); White Blood Count 4.3 K/mm3 (4.5-10.0)
[2023-04-13 06:48] LABS: Anion Gap 2 mmol/L (8-16); Blood Urea Nitrogen 7 mg/dL (9-20); Calcium 4.8 mg/dL (8.4-10.2); Carbon Dioxide 22 mmol/L (22-30); Chloride 108 mmol/L (98-107); Estimated CRCL calculation 148 ml/min; Estimated Glomerular Filt Rate > 60; Glucose 197 mg/dL (65-110); Potassium 3.9 mmol/L (3.4-5.0); Sodium 132 mmol/L (137-145)
--- NOTE | 2023-04-13 08:00 | ED.GENADULT ---
HPI - General Adult General Chief complaint: Recheck/Abnormal Lab/Rx Stated complaint: blow BP, low hemoglobin Time Seen by Provider: 04/11/23 10:34 History of Present Illness HPI narrative: Patient is a 68-year-old male who presents ER with low hemoglobin. He was at an outpatient infusion center when his hemoglobin was found to be low. Additionally his blood pressure was low. Patient has metastatic prostate cancer to the bone. He does not endorse exertional fatigue and shortness of breath. No chest pain or chest pressure. No fevers chills or sweats. No recent syncope. Patient opted to come in by private vehicle. Oncologist is Dr. Acuña Related Data Home Medications Medication Instructions Recorded Confirmed gabapentin 800 mg tablet 800 mg PO Q12H 05/07/21 04/11/23 tamsulosin 0.4 mg capsule 0.4 mg PO HS 02/24/23 04/11/23 cyanocobalamin (vitamin B-12) 1,000 mcg PO DAILY 03/10/23 04/11/23 1,000 mcg tablet prednisone 5 mg tablet 5 mg PO Q12H 03/10/23 04/11/23 Abhilash-500 500 mg PO BID 03/28/23 04/11/23 metformin 500 mg tablet 1,000 mg PO Q12H 04/11/23 04/11/23 Allergies Allergy/AdvReac Type Severity Reaction Status Date / Time No Known Allergies Allergy Verified 04/11/23 10:47 Review of Systems Review of Systems: All systems reviewed & are unremarkable except as noted in HPI and below Constitutional: Constitutional: Denies chills, Reports fatigue and Denies fever(s) ENT: Denies nasal congestion and Denies sore throat Cardiovascular: Cardiovascular: Denies chest pain, Denies rapid heart rate and Denies radiating jaw, neck or arm pain Respiratory: Respiratory: Denies cough, Reports dyspnea and Denies wheezing Gastrointestinal: Gastrointestinal: Denies abdominal pain, Denies diarrhea, Denies nausea and Denies vomiting Musculoskeletal: Musculoskeletal: Reports myalgias Neurologic: Reports system reviewed and no additional complaints, except as documented PMFSH Past Medical History Medical History (Updated 04/13/23 @ 19:12 by Elmo Bush MD) Abnormal colonoscopy 06/03 Tubular adenoma Aortic atherosclerosis CT 02/06 Essential tremor History of colon polyps Mixed hyperlipidemia Port-A-Cath in place Prostate cancer metastatic to bone Type 2 diabetes mellitus with diabetic polyneuropathy Surgical History Surgical History (Updated 04/11/23 @ 18:59 by Bruce Acuña MD) H/O colonoscopy with polypectomy Hx of left knee surgery (~08/1996) Cartilage removed Family History Family History (Updated 04/11/23 @ 14:59 by SANDER Meier) Father Glaucoma Lung cancer Mother Breast cancer Social History Social History (Updated 04/11/23 @ 14:55 by Velia Gleason NP) Social History: The patient lives with his and 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 The patient occasionally socially drinks alcohol but has never used any tobacco products. 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 HEAD: Normocephalic, atraumatic. ENT: Mucous membranes moist. NECK: Supple. CHEST: Clear to auscultation.
[2023-04-13 08:09] LABS: Glucose Point of Care 171 mg/dl (65-105)
[2023-04-13] MEDS: PIOGLITAZONE HCL 45 MG TABLET PO (08:44)
[2023-04-13] MEDS: GABAPENTIN 400 MG CAPSULE 800 MG PO ×2 (08:44→21:12)
[2023-04-13] MEDS: predniSONE 5 MG TABLET PO ×2 (08:44→21:12)
[2023-04-13] MEDS: GLIMEPIRIDE 2 MG TABLET PO (08:44)
[2023-04-13] MEDS: CYANOCOBALAMIN 1,000 MCG TABLET 1000 MCG PO (08:45)
[2023-04-13] MEDS: CALCIUM CARBONATE (OSCAL) 500 MG TABLET PO ×2 (08:46→17:36)
[2023-04-13 11:46] LABS: Glucose Point of Care 306 mg/dl (65-105)
--- NOTE | 2023-04-13 12:08 | PM.IMPN ---
Progress Note: A&P Assessment and Plan (1) Anemia: Qualifiers: Anemia type: due to chronic kidney disease Code(s): D64.9 - Anemia, unspecified Status: Acute Assessment and Plan: Patient was having symptomatic anemia. Symptoms included syncope, fatigue, weakness and lightheadedness. History of metastatic prostate cancer receiving treatment from Oncology and known anemia of chronic disease. Hemoglobin found to be 7.7 and patient received 1 unit of PRBCs Patient on Procrit. H&H q.6 hours. Stool for occult blood ordered. Oncology consulted. PT and OT consulted due to progressive weakness. 11/11/2022 Hgb is 7.7, will monitor, transfuse if neneded. (2) Prostate cancer metastatic to bone: Code(s): C61 - Malignant neoplasm of prostate; C79.51 - Secondary malignant neoplasm of bone Status: Acute Assessment and Plan: Patient diagnosed with prostate cancer in 2018 and ever since then he has been treated by Dr. Acuña. Patient has been taking oral chemotherapy, Lupron injections every 3 months as well as IV infusion every 3 weeks. Patient offered palliative radiation treatment but this has not yet been started.. NM bone scan showed widespread osseous metastases involving? skull, humeri, clavicles, scapulae, ribs, sternum, spine, pelvis, and femora. CT CAP showed widespread osseous metastases and right external iliac LN. CT spine showed widespread bon metastases and severe lumbar spondylosis. Oncology consulted Continue current treatment (3) Type 2 diabetes mellitus with diabetic polyneuropathy: Code(s): E11.42 - Type 2 diabetes mellitus with diabetic polyneuropathy Status: Acute Assessment and Plan: Accu-Cheks AC and HS with sliding scale insulin. Hypoglycemic protocol. Stable on current meds. (4) Essential tremor: Code(s): G25.0 - Essential tremor Status: Acute Assessment and Plan: Continue gabapentin, stable. (5) Mixed hyperlipidemia: Code(s): E78.2 - Mixed hyperlipidemia Status: Acute Assessment and Plan: Continue with atorvastatin, stable Subjective Date/time seen: 04/13/23 12:08 Interval history: Patient was seen during the morning rounds today. generalized weakness otherwise feeling better. No sob or chest pain. Diarrhea is better No nausea or vomiting. Mood stable. Review of Systems Review of Systems: All systems reviewed & are unremarkable except as noted in HPI and below Constitutional: Constitutional: Reports as per HPI and Reports no additional constitutional complaints Eyes: Eyes: Reports as per HPI and Reports no additional eye complaints ENT: Reports system reviewed and no additional complaints, except as documented and Reports Normal hearing present Cardiovascular: Cardiovascular: Reports no additional cardiovascular complaints Respiratory: Respiratory: Reports no additional respiratory complaints and Reports no additional respiratory complaints Gastrointestinal: Gastrointestinal: Reports as per HPI and Reports no additional gastrointestinal complaints Musculoskeletal: Musculoskeletal: Reports no additional musculoskeletal complaints Integumentary/Breasts: Skin/Breast: Reports system reviewed and no additional complaints, except as docu and Reports as per HPI Neurologic: Reports system reviewed and no additional complaints, except as documented, Reports as per HPI and Reports Normal hearing present Psychiatric: Psychiatric: Reports no additional psychiatric complaints and Reports as per HPI Endocrine: Endocrine: Reports no additional endocrine complaints Hematologic/Lymphatic: Hematologic/Lymphatic: Reports no additional hematologic/lymphatic complaints Allergic/Immunologic: Allergic/Immunologic: Reports no additional allergic/immunologic complaints Exam Narrative: GENERAL: Comfortable, no acute distress HENMT: moist mucous membranes EYES: EO
[2023-04-13] MEDS: polyethylene glycoL 3350 17 GM POWD.PACK PO ×2 (13:02→13:05)
[2023-04-13] MEDS: INSULIN ASPART (*BKC) 100 UNITS/ML SUB-Q ×2 (13:02→21:11)
[2023-04-13 16:27] LABS: Glucose Point of Care 164 mg/dl (65-105)
[2023-04-13 17:51] LABS: Hematocrit 31.1 % (42.0-52.0); Hemoglobin 9.8 g/dL (14.0-18.0)
[2023-04-13] MEDS: SODIUM CHLORIDE 0.9% IV 250 ML 30 ML (18:55)
[2023-04-13 20:49] LABS: IFOB Positive Control Positive; Immunochemical Fecal Occult Bl Negative (N)
[2023-04-13] MEDS: MIRTAZAPINE 15 MG TABLET PO (21:12)
[2023-04-13] MEDS: TAMSULOSIN HCL 0.4 MG CAPSULE PO (21:12)
[2023-04-14 01:32] LABS: Glucose Point of Care 227 mg/dl (65-105)
--- NOTE | 2023-04-14 03:45 | PC.NURSE ---
pt A&Ox4, noncompliant with call light use. pt re-educated that he is a high fall risk
[2023-04-14] MEDS: CENTRAL LINE FLUSH 10 ML IV PUSH ×2 (05:52→08:42)
[2023-04-14 06:00] VITALS: BP 96/50; PULSE 67; RESP 14; TEMP 35.9; O2SAT 100
[2023-04-14 06:29] LABS: Hematocrit 30.4 % (42.0-52.0); Hemoglobin 9.4 g/dL (14.0-18.0); Mean Corpuscular HGB Conc 30.9 g/dl (32-36); Mean Corpuscular Volume 90.5 fl (80-100); Mean Platelet Volume 9.9 fl (7.4-10.4); Platelet Count Result 109 k/mm3 (150-375); Red Blood Count 3.36 M/mm3 (4.6-6.20); Red Cell Distribution Width 20.8 % (11.5-14.5)
[2023-04-14 07:43] LABS: Glucose Point of Care 182 mg/dl (65-105)
[2023-04-14] MEDS: CYANOCOBALAMIN 1,000 MCG TABLET 1000 MCG PO (08:40)
[2023-04-14] MEDS: PIOGLITAZONE HCL 45 MG TABLET PO (08:40)
[2023-04-14] MEDS: GABAPENTIN 400 MG CAPSULE 800 MG PO (08:40)
[2023-04-14] MEDS: CALCIUM CARBONATE (OSCAL) 500 MG TABLET PO (08:41)
[2023-04-14] MEDS: predniSONE 5 MG TABLET PO (08:42)
[2023-04-14] MEDS: GLIMEPIRIDE 2 MG TABLET PO (08:42)
[2023-04-14 10:32] VITALS: BP 103/67; BP 118/65; BP 96/51; PULSE 101; PULSE 106; PULSE 78; RESP 15; TEMP 35.9; O2SAT 100
[2023-04-14 11:20] LABS: Glucose Point of Care 241 mg/dl (65-105)
--- NOTE | 2023-04-14 13:35 | PM.DS ---
DS: Admitting Diagnosis Discharge Date 04/14/2023 Admitting Diagnosis Dizziness DS: Discharge Diagnosis Discharge Diagnosis (1) Anemia: Qualifiers: Anemia type: due to chronic kidney disease Code(s): D64.9 - Anemia, unspecified Status: Acute (2) Prostate cancer metastatic to bone: Code(s): C61 - Malignant neoplasm of prostate; C79.51 - Secondary malignant neoplasm of bone Status: Acute (3) Type 2 diabetes mellitus with diabetic polyneuropathy: Code(s): E11.42 - Type 2 diabetes mellitus with diabetic polyneuropathy Status: Acute (4) Essential tremor: Code(s): G25.0 - Essential tremor Status: Acute (5) Mixed hyperlipidemia: Code(s): E78.2 - Mixed hyperlipidemia Status: Acute DS: Summary Hospital Course Hospital Course: This is 68-year-old male with past medical history of metastatic prostate cancer. He has chemotherapy but recently was started. During the treatment he 1 hypotensive with blood pressure 70s with low hemoglobin and hence was sent to ER for evaluation. He has also been referred for consideration of palliative radiation therapy hemoglobin was low at 7.7 on admission received transfusion with improvement. Required 2 units of packed red blood cell transfusion during the stay. Oncology was consulted no also has underlying diabetes essential hypertension. Post transfusion anemia remains stable. No no evidence of GI bleed with FOBT negative. Will continue follow up with Oncology as an outpatient basis for further treatment and evaluation Time Spent with Patient Time attestation: Total time spent providing and/or coordinating discharge services: 35 minutes Exam Narrative: GENERAL: Comfortable, no acute distress HENMT: moist mucous membranes EYES: EOM intact b/l NECK: no lymphadenopathy RESPIRATORY: clear to auscultation CARDIO: RRR GI: soft, nontender, bowel sounds present SKIN: no rashes EXTREMITIES: no edema, redness or tenderness DS: Data Data Completed and Pending Labs on day of discharge: Labs from last 24 hours 04/14/23 04/14/23 04/14/23 11:15 07:41 06:02 WBC 4.0 L RBC 3.36 L Hgb 9.4 L Hct 30.4 L MCV 90.5 MCH 28.0 MCHC 30.9 L RDW 20.8 H Plt Count 109 L MPV 9.9 POC Capillary Glucose 241 H 182 H Stl Occult Blood (IFOB) Crossmatch 04/13/23 04/13/23 04/13/23 20:47 20:13 17:38 WBC RBC Hgb 9.8 L Hct 31.1 L MCV MCH MCHC RDW Plt Count MPV POC Capillary Glucose 227 H Stl Occult Blood (IFOB) Negative Crossmatch 04/13/23 04/11/23 16:21 11:18 WBC RBC Hgb Hct MCV MCH MCHC RDW Plt Count MPV POC Capillary Glucose 164 H Stl Occult Blood (IFOB) Crossmatch See Detail Discharge Plan Discharge Attending physician on discharge: Maurilio Jarvis Consulting providers: Bruce Acuañ Discharging Clinician: Maurilio Jarvis Anticipated Discharge Date/Time: 04/14/23 13:33 Patient Disposition: Home Health Service Activity: as tolerated Diet: regular Discharge Instructions: [facility] arranged for PT/OT evaluations and treatment. [facility] can be reached at [phone]. First visit anticipated to be , 04/14/23. [place] will contact you to confirm. Continue Zytiga as suggested by Dr. Acuña Patient Instructions: Antibiotic Form, Pain Management in Older Adults (GEN) Stand Alone Forms: General Discharge Information Follow-up/Referrals: Bruce Acuña MD [Physician] - Keep Reg. Scheduled Appt. Shaheen Foley MD [Primary Care Provider] - 1 Week Discharge Medications: Continued Abhilash-500 500 mg PO BID gabapentin 800 mg Tablet 800 mg PO Q12H mirtazapine 15 mg tablet 15 mg PO QHS Qty: 90 0RF tamsulosin 0.4 mg capsule 0.4 mg PO HS prednisone 5 mg tablet 5 mg PO Q12H cyanocobalamin
[2023-04-14] MEDS: HEPARIN SODIUM LOCK FLUSH 500 UNITS/5 ML SYRINGE IV PUSH (14:19)
[2023-04-14] MEDS: NEOMYCIN/POLYMYXIN/BACITRACIN OINTMENT PACKET 1 PACKET TOPICAL (14:19)
[2023-04-14 20:10] LABS: Ionized Calcium 2.9 mg/dL (4.7-5.5)
== END 2023-04-14 14:30 | disposition home health service (06) | DRG 723 ==
LOC: ANHED 10:40 → ANH3MEDSUR 13:32
PROVIDERS: Internal Medicine; Internal Medicine Critical Care Medicine; Nurse Practitioner; Admitting Provider Internal Medicine; Emergency Provider Emergency Medicine; PCP Family Medicine Adolescent Medicine; Visit Provider Internal Medicine
DX: C61 Malignant neoplasm of prostate (principal); C79.51 Secondary malignant neoplasm of bone; D64.81 Anemia due to antineoplastic chemotherapy; D63.0 Anemia in neoplastic disease; I70.0 Atherosclerosis of aorta; E78.2 Mixed hyperlipidemia; E11.42 Type 2 diabetes mellitus with diabetic polyneuropathy; E83.51 Hypocalcemia; I95.9 Hypotension, unspecified; R19.7 Diarrhea, unspecified; G25.0 Essential tremor; Z86.010 Personal history of colon polyps
CPT/HCPCS: 36415; 36430; 36592; 80047; 80048; 80053; 82274; 82330; 82607; 82728; 82746; 82948; 83036; 83540; 83550; 83735; 84443; 85014; 85018; 85025; 85027; 86850; 86900; 86901; 86923; 96361; 96365; 96367; 97110; 97161; 97165; 97530; 97535; 99285; A9270; G0378; J0612; J1642; J1815; J3475; J7030; J7050; J7512; P9016

== ENCOUNTER 2023-05-11 08:00 | Outpatient (CLI) | payer OTHER, SELFPAY ==
--- NOTE | ~2023-05-11 | DEXA_ITS ---
Bone Density Report Name: ALISTAIR CRAFT Age: 68 Sex: Male Ethnicity: White Date of : 1955 Indication: parental hip fracture; height loss; cancer; Referring Provider: JOSE FRANCISCO HERNANDEZ Study: Bone densitometry was performed. Exam Date: May 11, 2023 Accession number: [id number] Bone Density: Region BMD T-score Z-score Classification AP Spine(L1-L4) 1.455 3.3 4.2 Normal Femoral Neck (Left) 0.761 -1.2 -0.1 Osteopenia Total Hip (Left) 0.981 -0.3 0.3 Normal Femoral Neck (Right) 0.741 -1.4 -0.3 Osteopenia Total Hip (Right) 0.841 -1.3 -0.7 Osteopenia Total Hip Mean 0.911 -0.8 -0.2 Normal World Health Organization criteria for BMD impression classify patients as: Normal (T-score at or above -1.0), Osteopenia (T-score between -1.0 and -2.5), or Osteoporosis (T-score at or below -2.5). 10-year Fracture Risk(1): Major Osteoporotic Fracture 9.9% Hip Fracture 1.6% Reported Risk Factors: [place] (), Neck BMD=0.741, BMI=31.0, parental fracture (1) FRAX(R) Version 3.08. Fracture probability calculated for an untreated patient. Fracture probability may be lower if the patient has received treatment. Clinical Information Provided by Patient: Parent has had a hip fracture Has used the following medications: Calcium Has the following medical conditions: Cancer Patient maximum height was 70 No regular weight bearing exercise Drinks caffeinated beverages Impression: The patient has low bone mass, based on the Right Femoral Neck T-score. The patient has an estimated ten-year risk of hip fracture of 1.6% and an estimated ten-year risk of major fracture of 9.9%, based on the WHO FRAX algorithm. The patient has risk factors, including: parental hip fracture. Discussion: BONE DENSITY IS LOW AT ONE OR MORE SKELETAL SITES. This patient's lowest T-score is low at one or more skeletal sites. It meets the World Health Organization's (WHO) criteria for ?low bone mass? (T-score between -1.0 and -2.5). The patient's 10-year risk of fracture as calculated by FRAX is less than the threshold where pharmacological therapy is recommended by the National Osteoporosis Foundation (NOF). However, all treatment decisions require clinical judgment and consideration of individual patient factors, including patient preferences, comorbidities, previous drug use, risk factors not captured in the FRAX model (e.g., frailty, falls, vitamin D deficiency, increased bone turnover, interval significant decline in bone density) and possible under or overestimation of fracture risk by FRAX. The patient should follow a healthful lifestyle (good nutrition with adequate calcium and vitamin D, and appropriate weight-bearing exercise). Follow-Up: Consider repeating this study in 2 to 3 years to reassess this patient's stat
--- NOTE | ~2023-05-11 | CT_ITS ---
CT of the Abdomen and Pelvis: Indication: Prostate cancer follow-up Technique: 2.5 mm axial scans were obtained through the abdomen and pelvis following intravenous adm inistration of 100 cc of Omnipaque 350. Dose reduction technique was used on this scan by utilizing a utomated exposure control and iterative reconstruction technique. The dose-length product (DLP) was 8 70.19 mGy-cm. COMPARISON: 02/28/2023 Findings: Scans through the lung bases are unremarkable. The liver, spleen, pancreas, gallbladder, adrenals and kidneys are within normal limits. There are at herosclerotic calcifications of the aorta. No bowel obstruction or bowel wall thickening. There is no evidence to suggest acute appendicitis. Images through the pelvis were performed. Urinary bladder demonstrates possible mild wall thickening. Prostate gland fiducial markers are present. Subcentimeter pelvic lymph nodes are present, decreased in size from prior exam. No ascites. Diffuse osteoblastic metastatic disease is present, similar to prior exam. Impression: Diffuse osteoblastic metastatic disease, unchanged. Subcentimeter pelvic lymph nodes are present, overall decreased in size from prior exam. This could r eflect interval decrease in size of metastatic lymph nodes. Correlate with treatment/clinical history . Possible cystitis. Correlate with urinalysis. Reviewed, dictated and finalized at location M. Impression: Diffuse osteoblastic metastatic disease, unchanged. Subcentimeter pelvic lymph nodes are present, overall decreased in size from pr ior exam. This could reflect interval decrease in size of metastatic lymph node s. Correlate with treatment/clinical history. Possible cystitis. Correlate with urinalysis.
== END 2023-05-11 08:01 | disposition home or self-care (01) ==
PROVIDERS: PCP Family Medicine Adolescent Medicine; Visit Provider Internal Medicine Hematology & Oncology
DX: C61 Malignant neoplasm of prostate (principal); C79.51 Secondary malignant neoplasm of bone; M85.852 Other specified disorders of bone density and structure, left thigh; M85.851 Other specified disorders of bone density and structure, right thigh
CPT/HCPCS: 74177; 77080; 77387; 77412; Q9967

== ENCOUNTER 2023-08-18 12:20 | Outpatient (CLI) | payer OTHER, SELFPAY ==
--- NOTE | ~2023-08-18 | CT_ITS ---
EXAMINATION: CT chest abdomen pelvis w con DATE: 08/18/2023 13:19 INDICATION: Malignant neoplasm of the prostate TECHNIQUE: Transaxial computed tomographic images of the chest, abdomen, and pelvis were obtained aft er the administration of 100 cc of Omnipaque 350 intravenous contrast. The dose-length product (DLP) was 1486.18 mGy-cm. Automated exposure control and iterative reconstruction technique were employed. COMPARISON: 05/11/2023 FINDINGS: CHEST CT: The lungs are free of acute opacities. No pleural effusion or pneumothorax. A left subclavian Port-A- Cath ends with its tip in the superior vena cava. No pathologically enlarged thoracic lymph nodes are identified. The heart size is normal. Calcified coronary artery atherosclerosis is noted. There is m ild bilateral gynecomastia. There are widespread sclerotic osseous metastases involving the axial and appendicular skeleton. ABDOMEN/PELVIS CT: The liver, spleen, pancreas, gallbladder, and adrenal glands are normal. The kidneys are unremarkable . No pathologically enlarged abdominal or pelvic lymph nodes are identified. No free intraperitoneal gas or evidence of bowel obstruction. There are widespread sclerotic osseous metastases of the spine and pelvis without significant change. There is a basicervical fracture of the right femoral neck. IMPRESSION: 1. Unchanged widespread sclerotic osseous metastases with pathologic basicervical fracture of the rig ht femoral neck. Reviewed, dictated and finalized at location B. FORCING BAR SETTER IMPRESSION: 1. Unchanged widespread sclerotic osseous metastases with pathologic basicervic al fracture of the right femoral neck.
--- NOTE | ~2023-08-18 | NM_ITS ---
EXAMINATION: NM bone scan whole body DATE: 08/18/2023 15:48 INDICATION: Malignant neoplasm of the prostate TECHNIQUE: 25.7 mCi Tc-99m HDP was administered intravenously. Delayed whole-body scintigrams were o btained. COMPARISON: Bone scan dated 03/03/[address] dated 08/18/2023 FINDINGS: No significant change in somewhat heterogeneous pattern of diffuse increased bone uptake consistent w ith widespread osseous metastatic disease with corresponding widespread sclerosis of the bones. There is a new photopenic defect in the region of the right femoral head which suggests possibility of dev eloping avascular necrosis related to the basicervical right femoral neck fracture evident on the zuly or CT. IMPRESSION: 1. No significant change in diffuse heterogeneous increased bone uptake consistent with widespread os seous metastatic disease. 2. New decreased activity in the region of the left femoral head which could be seen in the setting o f avascular necrosis related to a basicervical fracture seen on immediately prior CT imaging. Reviewed, dictated and finalized at location A. ECT ACCOUNT MANAGER IMPRESSION: 1. No significant change in diffuse heterogeneous increased bone uptake consist ent with widespread osseous metastatic disease. 2. New decreased activity in the region of the left femoral head which could be seen in the setting of avascular necrosis related to a basicervical fracture s een on immediately prior CT imaging.
== END 2023-08-18 12:21 | disposition home or self-care (01) ==
PROVIDERS: PCP Family Medicine Adolescent Medicine; Visit Provider Internal Medicine Hematology & Oncology
DX: C61 Malignant neoplasm of prostate (principal); M84.451A Pathological fracture, right femur, initial encounter for fracture
CPT/HCPCS: 71260; 74177; 78306; A9503; Q9967

== ENCOUNTER 2023-09-28 15:53 | Outpatient (CLI) | payer OTHER, SELFPAY ==
--- NOTE | ~2023-09-28 | XR_ITS ---
EXAMINATION: XR pelvis 1-2V DATE: 09/28/2023 16:42 INDICATION: Closed fracture of right hip. TECHNIQUE: An anteroposterior view of the pelvis was obtained. COMPARISON: CT abdomen and pelvis 08/18/2023 FINDINGS: There is a subcapital fracture right femoral neck. The distal fracture fragment demonstrate s 12 mm lateral displacement, shortening, and varus angulation. There is widespread sclerosis of all of the bones, consistent with metastatic disease. There is mild osteoarthritis of the hips. IMPRESSION: 1. Subcapital fracture of right femoral neck, stable from 08/18/23. 2. Mild osteoarthritis of the hips. 3. Widespread sclerosis of the bones, consistent with metastatic disease. Reviewed, dictated and finalized at location E. MOTIVE PRODUCT SPECIALIST
--- NOTE | ~2023-09-28 | XR_ITS ---
EXAMINATION: XR femur RT min 2V DATE: 09/28/2023 16:42 INDICATION: Closed fracture of right hip. TECHNIQUE: 2 views right femur on 4 radiographs were obtained. COMPARISON: CT abdomen and pelvis 08/18/2023 FINDINGS: There is a subcapital fracture of right femoral neck. The distal fracture fragment demonstr ates 12 mm lateral displacement, shortening, and varus angulation. There is widespread sclerosis of t he bones, consistent with metastatic disease. There is mild right hip osteoarthritis. There are brach ytherapy seeds in the prostate. IMPRESSION: 1. Subcapital fracture of right femoral neck. 2. Mild right hip osteoarthritis. 3. Widespread sclerosis of the bones, consistent with metastatic disease. Reviewed, dictated and finalized at location E. CAL EDITOR
== END 2023-09-28 15:54 | disposition home or self-care (01) ==
LOC: ANHIMG 15:55
DX: S72.011A Unspecified intracapsular fracture of right femur, initial encounter for closed fracture (principal); M16.11 Unilateral primary osteoarthritis, right hip; M41.80 Other forms of scoliosis, site unspecified; X58.XXXA Exposure to other specified factors, initial encounter
CPT/HCPCS: 72170; 73552

== ENCOUNTER 2024-04-30 09:31 | Outpatient (CLI) | payer OTHER, SELFPAY ==
--- NOTE | ~2024-04-30 | PE_ITS ---
EXAMINATION: PET_PETPSMAST_PT DATE: 04/30/2024 11:51 INDICATION: Posterior cancer TECHNIQUE: 4.86 mCi of Illucix Ga-68([id number]) was administered i.v. Low dose computed tomog solo (CT) images were acquired from the base of the brain to the base of the brain to the proximal t highs for attenuation correction and anatomic localization. Positron emission tomography (PET) images were acquired in the same distribution beginning 93 minutes after injection. Images including fused PET/CT images were reconstructed in axial, coronal, and sagittal planes. Automated exposure control t echnique was employed. The dose-length product was 1253.08mGy-cm. COMPARISON: None FINDINGS: Musculoskeletal: Widespread sclerosis of the bones with innumerable PSMA abdomen lesions in places becoming essentiall y confluent throughout the visualized axial and appendicular skeleton consistent with widespread osse ous metastatic disease. Bipolar type right hip hemiarthroplasty. Head/neck: Typical pattern of symmetric physiologic increased activity in the lacrimal, parotid and submandibula r glands as well as along the mucosa of the nasal and oral cavities, pharynx and hypopharynx. No path ologically enlarged cervical lymphadenopathy or suspicious foci of increased soft tissue uptake in th e visualized head or neck. Chest: Left subclavian central venous port catheter with distal tip at the superior cavoatrial junction. Nor mal variant azygos lobe and fissure at the medial right apex. No suspicious pulmonary nodules, pneumo tee, pulmonary edema or pleural effusion. Heart size is normal. Atherosclerotic coronary artery calci fication is. No pericardial effusion. No pathologically enlarged thoracic lymphadenopathy. Abdomen/pelvis/proximal thighs: Physiologic renal accumulation and excretion of activity in the kidneys, bladder and along portions o f ureters. Status post prostatectomy with a few surgical clips versus brachytherapy seeds at the pros tatectomy bed. There is asymmetric minimal increased PSV may uptake at the left posterior aspect of t he prostatectomy bed with maximal severe 3.9. Normal degree and slightly heterogenous pattern of incr eased uptake throughout the liver and spleen without radiologic correlate or dominant PSMA avid lesio n. There is increased PSV may uptake at both the left and right adrenal glands without clearly defina ble adrenal nodule nonetheless suspicious for metastatic disease with maximal SUV of 18.4 on the left and 13.2 on the right. The gallbladder and pancreas are normal. Moderate uptake scattered throughout the bowels with typical duodenal and proximal jejunal predominance and without radiologic correlate, also likely physiologic. No other abnormal foci of increased uptake or pathologically enlarged lymph adenopathy in the abdomen, pelvis or proximal thighs. IMPRESSION: 1. Widespread osseous metastatic disease with diffuse sclerosis of the bones and innumerable scattere d associated foci of prominent increased PSV may uptake. 2. Prominent PSV may uptake at the normal-appearing left and right adrenal glands suspicious for caren y metastatic disease. 3. Minimal asymmetric increased PSA may uptake at the left posterior aspect of the prostatectomy bed and cannot exclude minimal amount of residual versus locally recurrent disease. Reviewed, dictated and finalized at location B. IMPRESSION: 1. Widespread osseous metastatic disease with diffuse sclerosis of the bones an d innumerable scattered associated foci of prominent increased PSV may uptake. 2. Prominent PSV may uptake at the normal-appearing left and right adrenal glan ds suspicious for early metastatic disease. 3. Minimal asymmetric increased PSA may uptake at the left posterior aspect of the prostatectomy bed and cannot exclude
== END 2024-04-30 09:32 | disposition home or self-care (01) ==
PROVIDERS: PCP Family Medicine Adolescent Medicine; Visit Provider Internal Medicine Hematology & Oncology
DX: C61 Malignant neoplasm of prostate (principal)
CPT/HCPCS: 78815; A9596

== ENCOUNTER 2024-05-09 10:43 | Outpatient (CLI) | payer OTHER, SELFPAY ==
--- NOTE | ~2024-05-09 | US_ITS ---
EXAMINATION: US venous doppler LE RT DATE: 05/09/2024 11:26 INDICATION: Right lower limb swelling and pain TECHNIQUE: Grayscale ultrasound images without and with compression and Doppler ultrasound images of the right lower extremity veins were obtained. COMPARISON: None. FINDINGS: The visualized portions of right common femoral vein, profunda (deep) femoral vein, femoral vein, pop liteal vein, peroneal trunk, posterior tibial veins, peroneal veins and greater saphenous vein outflo w are patent. IMPRESSION: 1. No deep venous thrombosis in the right lower limb. Reviewed, dictated and finalized at location B.
== END 2024-05-09 10:44 | disposition home or self-care (01) ==
LOC: ANHIMG 10:45
PROVIDERS: PCP Family Medicine Adolescent Medicine; Visit Provider Internal Medicine Hematology & Oncology
DX: M79.89 Other specified soft tissue disorders (principal)
CPT/HCPCS: 93971

== ENCOUNTER 2024-08-07 08:21 | Outpatient (CLI) | payer OTHER, SELFPAY ==
--- NOTE | ~2024-08-07 | XR_ITS ---
EXAMINATION: XR fl port a cath w contrast DATE: 08/07/2024 09:17 INDICATION: Position the dependent TECHNIQUE: 605 fluoroscopic images of the central chest were obtained during injection of intravenous contrast into the patient's left subclavian central venous port catheter. Injections were performed with the patient's left at his side with the hand extending across the abdomen with the arm completel y at the patient's left side and with the left arm elevated. A total of 10 mL Omnipaque 240 intraveno us contrast was injected. The catheter was flushed with saline at the conclusion of imaging. The [facility] nt of fluoroscopy time used during this procedure was 0.4 minutes. Total DAP was 2.854 Gycm^2 COMPARISON: None. FINDINGS: There is a left internal jugular central venous port catheter with loop in the proximal catheter prio r to its passage between the medial head of the left clavicle and the anterior left first rib. On the initial imaging with contrast injection with the left arm at the patient's side there is a risk of c ontrast which extends into the superior vena cava. With the patient's arm elevated there is focal anna rowing of the catheter secured to compression between the rib and clavicle. The injected contrast exi ting the tip of the catheter with the arm in the elevated position appears of lower volume and signif icant weight lower velocity. IMPRESSION: 1. Left subclavian central venous port catheter with the catheter with decreased volume and velocity of injected catheter exiting the tip of the catheter with the arm in the elevated position and with c orresponding flattening of the catheter where it passes between the anterior left first rib and the m edial head of the left clavicle. Reviewed, dictated and finalized at location A. OR NETWORK SECURITY ENGINEER IMPRESSION: 1. Left subclavian central venous port catheter with the catheter with decrease d volume and velocity of injected catheter exiting the tip of the catheter with the arm in the elevated position and with corresponding flattening of the cath eter where it passes between the anterior left first rib and the medial head of the left clavicle.
== END 2024-08-07 08:22 | disposition home or self-care (01) ==
PROVIDERS: PCP Family Medicine Adolescent Medicine; Visit Provider Internal Medicine Hematology & Oncology
DX: Z45.2 Encounter for adjustment and management of vascular access device (principal); C61 Malignant neoplasm of prostate
CPT/HCPCS: 36598; Q9966

== ENCOUNTER 2024-09-07 14:04 | Observation (INO) | payer OTHER, SELFPAY ==
[2024-09-07] VITALS (62 sets, daily range): BP systolic 73–182; BP diastolic 44–149; PULSE 91–134; RESP 13–28; TEMP 36.6–38.3; O2SAT 92–100; BMI 27.4
--- NOTE | ~2024-09-07 | XR_ITS ---
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 RESULT: Lines, tubes, and devices: Right chest implanted port. Mild kink in the catheter as it passes undern eath the clavicle. Lungs and pleura: Mild senescent/emphysematous change, otherwise clear. Cardiomediastinal silhouette: Stable. Other: No acute osseous or upper abdominal finding. Diffuse osseous sclerosis, a chronic finding. IMPRESSION: No acute cardiopulmonary process. Kinked implanted port catheter, a chronic finding. Likely not clinically significant if there is norm al port function. Diffuse osseous metastatic disease. Reviewed, dictated and finalized at location K. E ANNEALING MACHINE OPERATOR IMPRESSION: No acute cardiopulmonary process. Kinked implanted port catheter, a chronic finding. Likely not clinically signif icant if there is normal port function. Diffuse osseous metastatic disease.
--- NOTE | 2024-09-07 14:31 | ECG_ITS ---
Test Date: 2024-09-07 14:39:31 Measurements Intervals [place] Rate: 139 P: 26 MN: 147 QRS: 5 QRSD: 69 T: 12 QT: 329 QTc: 501 Interpretive Statements ATRIAL FIBRILLATION WITH RVR NONSPECIFIC ST AND T WAVE ABNORMALITY No previous ECG available for comparison Electronically Signed On 09-07-2024 14:57:54 ASSEMBLER CARDS AND ANNOUNCEMENTS by eDv Chambers M.D.
[2024-09-07] MEDS: ACETAMINOPHEN 500 MG TABLET 1000 MG PO (15:52)
[2024-09-07] MEDS: SODIUM CHLORIDE 0.9% IV 1,000 ML 999 ML IV CONT ×4 (16:00→23:00)
[2024-09-07 16:16] LABS: Alanine Aminotransferase 11 U/L (6-50); Albumin Level 3.6 g/dL (3.5-5.1); Alkaline Phosphatase 157 U/L (38-126); Anion Gap 10 mmol/L (4-12); Aspartate Amino Transferase 44 U/L (17-59); Bilirubin,Total 1.6 mg/dL (0.2-1.3); Blood Urea Nitrogen 18 mg/dL (9-20); Calcium 8.8 mg/dL (8.4-10.2); Carbon Dioxide 24 mmol/L (22-30); Chloride 100 mmol/L (98-107); Estimated CRCL calculation 116 ml/min; Estimated Glomerular Filt Rate > 60; Glucose 129 mg/dL (65-110); Magnesium 1.3 mg/dL (1.6-2.3); Potassium 3.7 mmol/L (3.4-5.0); Sodium 134 mmol/L (137-145)
[2024-09-07 16:17] LABS: Lactic Acid Reflex 2.1 mmol/L (0.7-2.0)
[2024-09-07 16:20] LABS: Partial Thromboplastin Time 29.6 Seconds (22.3-36.8); Prothrombin Time 14.1 Seconds (11.1-14.7)
[2024-09-07 16:28] LABS: NT Pro B Type Natriuretic Pept 91 pg/mL (19.9-100); Troponin I < 0.012 ng/mL (0.000-0.034)
[2024-09-07 16:30] LABS: Strep Group A RT-PCR NOT DETECTED (Negative)
[2024-09-07 16:41] LABS: Influenza A QL RT-PCR Negative (Negative); Influenza B QL RT-PCR Negative (Negative); RSV RNA, RT-PCR Negative (Negative); SARS-CoV-2 RNA PCR Negative (Negative)
--- NOTE | 2024-09-07 16:47 | ED.GENADULT ---
HPI - General Adult General Chief complaint: Recheck/Abnormal Lab/Rx Stated complaint: high hr, sob, weakness Time Seen by Provider: 09/07/24 15:28 History of Present Illness HPI narrative: Patient is a 69-year-old gentleman who presents emergency department with chief complaint of tachycardia and shortness of breath. The patient is undergoing chemotherapy treatment for prostate cancer that is metastatic the patient states that today he went to his oncologist office had been feeling as though he is getting short of breath with exertion the patient was found to be tachycardic and sent to the emergency department Related Data Home Medications ?Medication ?Instructions ?Recorded ?Confirmed ?Last Taken ?Type tamsulosin 0.4 mg capsule 0.4 mg PO HS 02/24/23 07/30/24 04/10/23 21:00 History cyanocobalamin (vitamin B-12) 1,000 mcg PO DAILY 03/10/23 07/30/24 04/11/23 09:00 History 1,000 mcg tablet prednisone 5 mg tablet 5 mg PO Q12H 03/10/23 07/30/24 04/10/23 21:00 History calcium carbonate-vitamin D3 600 500 tablet PO QID 08/08/23 07/30/24 Unknown History mg-125 unit tablet omeprazole 40 mg capsule,delayed 40 mg PO DAILY 10/07/23 07/30/24 Unknown History release polysaccharide iron complex 150 mg 150 mg PO DAILY 10/07/23 07/30/24 Unknown History iron capsule (Ferrex) potassium gluconate 2.5 mEq tablet 2.5 meq PO DAILY 10/07/23 07/30/24 Unknown History abiraterone 250 mg tablet 1,000 mg PO DAILY 04/17/24 07/30/24 Unknown History gabapentin 800 mg tablet 800 mg PO BID 04/17/24 07/30/24 Unknown History Allergies Allergy/AdvReac Type Severity Reaction Status Date / Time No Known Allergies Allergy Verified 09/07/24 16:23 Review of Systems Review of Systems: A 10 system review of systems was completed on the patient and is negative except for what is stated in the HPI. Nursing and ancillary documentation was reviewed. [facility] Past Medical History Medical History Port-A-Cath in place Prostate cancer metastatic to bone History of colon polyps Essential tremor Abnormal colonoscopy 06/03 Tubular adenoma Type 2 diabetes mellitus with diabetic polyneuropathy Aortic atherosclerosis CT 02/06 Mixed hyperlipidemia Surgical History Surgical History History of total right hip replacement (09/2023) H/O colonoscopy with polypectomy Hx of left knee surgery (~08/1996) Cartilage removed Family History Family History Father Glaucoma Lung cancer Mother Breast cancer Social History Social History Social History: The patient lives with his and 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 The patient occasionally socially drinks alcohol but has never used any tobacco products. 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 HEAD: Normocephalic, atraumatic. EYES: PERRLA and EOMI. ENT: Nares clear, no rhinorrhea or epistaxis. Mucous membranes moist. NECK: Supple. CHEST: Clear to auscultation. No respiratory distress. HEART: Tachycardic rate and regular rhythm. No murmur heard. Normal peripheral pulses. ABDOMEN: Soft, nontender, nondistended, normal active bowel sounds. EXTREMITIES: Normal range of motion. No edema. SKIN: Warm, dry, no rash. NEURO: No focal deficits. Alert and oriented x3. PSYCH: Normal mood and affect. Course Vital Signs Vital signs: Vital Signs Temperature 37.1 C 09/07/24 14:27 Pulse Rate 130 H 09/07/24 14:27 Respiratory Rate 18 09/07/24 14:27 Blood Pressure 115/70 09/07/24 14:27 Pulse Oximetry 100 09/07/24 14:27 Oxygen Delivery Room Air 09/07/24 14:27 Temperature 38.3 C H 09/07/24 15:21 Pulse Rate 118 H 09/07/24 17:01 Respiratory Rate 23 H 09/07/24 17:01 Blood Pressure 73/54 L 09/07/24 17:01 Pulse Oximetry 94 09/07/24 16:46 Oxygen Delivery Room Air 09/07/24 14:27 Fraction of Inspired Oxygen 100 09/07/24 15:21 Medical Decision Making MDM Narrative Medical decision making narrative: Differential diagnosis includes pneumonia, sepsis, UTI, COVID, flu, RSV, strep The patient was initially tachycardic with a heart rate of 130 does possible AFib with RVR. Patient has no prior history of AFib. The patient was found to be febrile and was given Tylenol and also given IV fluids heart rate has come down in the 120s appears to be more sinus rhythm at this time CBC showed a white count of 3.2 with a hemoglobin of 10.4 absolute neutrophil 2.3 platelet count was 189 Chest x-ray showed No acute cardiopulmonary process. Kinked implanted port catheter, a chronic finding. Likely not clinically significant if there is normal port function. Diffuse osseous metastatic disease. Vital Signs Vital Signs: Vital Signs Temperature 37.1 C 09/07/24 14:27 Pulse Rate 130 H 09/07/24 14:27 Respiratory Rate 18 09/07/24 14:27 Blood Pressure 115/70 09/07/24 14:27 Pulse Oximetry 100 09/07/24 14:27 Oxygen Delivery Room Air 09/07/24 14:27 Temperature 38.3 C H 09/07/24 15:21 Pulse Rate 118 H 09/07/24 17:01 Respiratory Rate 23 H 09/07/24 17:01 Blood Pressure 73/54 L 09/07/24 17:01 Pulse Oximetry 94 09/07/24 16:46 Oxygen Delivery Room Air 09/07/24 14:27 Fraction of Inspired Oxygen 100 09/07/24 15:21 Lab Data 09/07/24 15:56 Labs: Lab Results 09/07/24 09/07/24 Range/Units 15:56 17:34 PT 14.1 (11.1-14.7) Seconds INR 1.0 APTT 29.6 (22.3-36.8) Seconds Sodium 134 L (137-145) mmol/L Potassium 3.7 (3.4-5.0) mmol/L Chloride 100 (98-107) mmol/L Carbon Dioxide 24 (22-30) mmol/L Anion Gap 10 (4-12) mmol/L BUN 18 (9-20) mg/dL Creatinine 0.50 L (0.7-1.3) mg/dL Estim Creat Clear Calc 116 ml/min Estimated GFR > 60 (59 - ) Glucose 129 H (65-110) mg/dL Lactic Acid 2.1 H (0.7-2.0) mmol/L Calcium 8.8 (8.4-10.2) mg/dL Magnesium 1.3 L (1.6-2.3) mg/dL Total Bilirubin 1.6 H (0.2-1.3) mg/dL AST 44 (17-59) U/L ALT 11 (6-50) U/L Alkaline Phosphatase 157 H (38-126) U/L Troponin I < 0.012 (0.000-0.034) ng/mL NT-Pro-B Natriuret Pep 91 (19.9-100) pg/mL Total Protein 6.0 L (6.3-8.2) g/dL Albumin 3.6 (3.5-5.1) g/dL Procalcitonin 0.3 ng/mL Nasal MRSA (PCR) Pending Influenza A (RT-PCR) Negative (Negative) Influenza B (RT-PCR) Negative (Negative) RSV (RT-PCR) Negative (Negative) SARS-CoV-2 RNA (RT-PCR) Negative (Negative) Group A Strep (PCR) Not detected (Negative) Discharge Plan Discharge Clinical Impression: Acute febrile illness, Prostate cancer Patient Disposition: Still a Patient Condition: Stable Patient Language: Welsh Prescriptions: No Action Calcium 600 + D(3) 600-125 mg-unit Tablet 500 tablet PO QID Patient Comments: . tamsulosin 0.4 mg capsule 0.4 mg PO HS polysaccharide iron complex [Ferrex 150] 150 mg iron capsule 150 mg PO DAILY omeprazole 40 mg capsule,delayed release(DR/EC) 40 mg PO DAILY potassium gluconate 2.5 mEq tablet 2.5 meq PO DAILY gabapentin 800 mg tablet 800 mg PO BID abiraterone 250 mg tablet 1,000 mg PO DAILY Patient Comments: . prednisone 5 mg tablet 5 mg PO Q12H cyanocobalamin (vitamin B-12) 1,000 mcg Tablet 1,000 mcg PO DAILY Patient Comments: . metformin 500 mg tablet See Rx Instructions .ROUTE .COMPLEX Qty: 360 2RF Dose Instruction: TAKE 2 TABLETS BY MOUTH EVERY 12 HOURS Rx Instructions: TAKE 2 TABLETS BY MOUTH EVERY 12 HOURS pioglitazone 45 mg tablet See Rx Instructions .ROUTE .COMPLEX Qty: 90 0RF Dose Instruction: Take 1 tablet by mouth once daily Rx Instructions: Take 1 tablet by mouth once daily atorvastatin 20 mg tablet See Rx Instructions .ROUTE .COMPLEX Qty: 30 6RF Dose Instruction: TAKE 1 TABLET BY MOUTH EVERY DAY AT BEDTIME Patient Comments: . Rx Instructions: TAKE 1 TABLET BY MOUTH EVERY DAY AT BEDTIME Follow-up/Referrals: Shaheen Foley MD [Primary Care Provider] - Time of Disposition: 18:18
[2024-09-07 16:51] LABS: Procalcitonin 0.3 ng/mL
[2024-09-07] MEDS: MAGNESIUM SULF 2 GM/WATER 50ML 2 GM/50 ML BAG IVPB (17:11)
--- NOTE | 2024-09-07 17:35 | ECG_ITS ---
Test Date: 2024-09-07 17:38:02 Measurements Intervals [place] Rate: 102 P: 25 NE: 149 QRS: 1 QRSD: 90 T: -3 QT: 325 QTc: 423 Interpretive Statements SINUS TACHYCARDIA LOW QRS VOLTAGE IN PRECORDIAL LEADS [QRS DEFLECTION < 1.0 mV IN CHEST LEADS] NONSPECIFIC T-WAVE ABNORMALITY ABNORMAL RHYTHM ECG Compared to ECG 09/07/2024 14:39:31 sinus rhythm has replaced atrial fibrillation Electronically Signed On 09-08-2024 10:29:53 COMMUNITY HEALTH ADVISOR by Stuart Mejia M.D.
--- NOTE | 2024-09-07 17:42 | PC.NURSE ---
pt refusing straight cath and asks for some time to try to provide a urine sample with the urinal
[2024-09-07] MEDS: CEFEPIME 2 GM/NS 50 ML 2 GM/50 ML BAG IVPB (18:49)
[2024-09-07 19:03] LABS: Reflex Lactic Acid Yes or No Add Lactic
[2024-09-07 19:08] LABS: Troponin I < 0.012 ng/mL (0.000-0.034)
[2024-09-07 19:10] LABS: MRSA (PCR) NOT DETECTED (NOT DETECTE)
[2024-09-07] MEDS: VANCOMYCIN 1,250 MG/NS 250 ML 1,250 MG/250 ML BAG 166.67 MG IVPB (19:21)
[2024-09-07 19:45] LABS: Lactic Acid 0.7 mmol/L (0.7-2.0)
--- NOTE | 2024-09-07 20:21 | P.HP_ITS ---
H&P: HPI History of Present Illness Date/Time: 09/07/24 20:21 Chief Complaint: Shortness of breath, elevated heart rate Narrative: 69-year-old male with past medical history metastatic prostate cancer with metastases to the bone on chemotherapy, essential hypertension and type 2 diabetes mellitus who presented to the ER from the infusion center due to tachycardia and shortness of breath. The patient with the assistance of his helps provide majority of information in addition to review of past medical records. The patient presented to the infusion center to have his weekly Docetaxel and dexamethasone infusion. However when they were getting ready for the infusion the patient was noted to be tachycardic with heart rates in the 130s to 140s and tachypneic. He was sent to the ER for evaluation. On arrival to the ER patient's heart rate was between 130 and 140 and he was found to be febrile with a T-max of 101?. On initial presentation to the ER his blood pressures were normal but shortly after arrival he became overtly hypotensive with blood pressures of 73/54 the lowest. He reported that he has been having chronic sinus congestion and sensation of a thickness in his throat when he lays down for several months. He has been having some nasal congestion intermittently for the same amount of time. He denies any sore throat or headache. He reports he just generally does not feel well. However when he did urinate 1st thing in the morning he reported that he felt like he was ?pissing fire?. He denies any purulence are foul odor to his urine. However his urine has been darker than usual. However he he was unable to urinate after arrival to the ER and bladder scan demonstrated an empty bladder. He denied any nausea, vomiting or chest pain. He did not have a sensation of palpitations. His EKG on initial presentation was initially read as AFib but had significant baseline artifact. His labs demonstrated some mild hypo magnesemia and he received 2 g magnesium sulfate rider in addition to 2 L of fluid. After 2 L of fluid patient's blood pressures had improved up to the mid 90s systolic. He denies having any diarrhea or recent constipation. He denies any recent ill contacts. His viral PCRs were negative. Has outpatient labs demonstrate some mild leukopenia. He did not receive his weekly chemotherapy infusion. He reports that he had received all of his morning medications including his 5 mg of prednisone and his Zytiga as well as oral hypoglycemic agents. He reports chronic poor appetite since he resumed chemotherapy this past fall. His reports that the patient does not drink enough fluids on a day-to-day basis. The patient gave permission to discuss his medical care and management with his was at bedside. All questions were answered and both patient and his agreed to plan of care. Review of Systems 2 Review of Systems: 12 systems were reviewed with pertinent positives and negatives per HPI. Except as documented in the HPI, all other systems were reviewed and are negative. [facility] Past Medical History Medical History (Updated 09/07/24 @ 20:52 by Vanessa Zimmerman DO) Prostate cancer metastatic to bone History of colon polyps Essential tremor Abnormal colonoscopy 06/03 Tubular adenoma Type 2 diabetes mellitus with diabetic polyneuropathy Aortic atherosclerosis CT 02/06 Mixed hyperlipidemia Surgical History Surgical History (Updated 09/07/24 @ 20:28 by Vanessa Zimmerman DO) Port-A-Cath in place History of total right hip replacement (09/2023) H/O colonoscopy with polypectomy Hx of left knee surgery (~08/1996) Cartilage removed Family History Family History Father Lung cancer Glaucoma Mother Breast cancer Sibling Arrhythmia Social History Social History (Updated 09/08/24 @ 01:00 by Vanessa Zimmerman DO) Social History: The patient lives with his of 45 years. 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 The patient occasionally socially drinks alcohol but has never used any tobacco products. Code status: Full Code Surrogate decision maker: Josee () Smoking status: Never smoker Second hand tobacco smoke exposure: Yes Alcohol intake: former Drinks per week: 5 Substance use: never Substance use type: does not use Do You Feel Safe in your Home?: Yes Lack of Transportation: No Lack of Food: Never True Current Housing: I Have Housing Concerned About Future Housing: No Difficulty Paying Gas/Electric Bills: No Difficulty Paying for Meds: No Currently Unemployed: No Education: Associate Degree Difficulty w/ Childcare or Family Care: No Living arrangements: with family Occupation/Education: occupation 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 Gender identity (if verbalized by the patient): Male Sexual Orientation (if Verbalized by the Patient): Straight or Heterosexual Spiritual care concerns: No Agree to blood products: Yes Meds Home Medications and Allergies Home Medications ?Medication ?Instructions ?Recorded ?Confirmed ?Type tamsulosin 0.4 mg capsule 0.4 mg PO HS 02/24/23 09/07/24 History cyanocobalamin (vitamin B-12) 500 mcg PO DAILY 03/10/23 09/07/24 History 1,000 mcg tablet prednisone 5 mg tablet 5 mg PO Q12H 03/10/23 09/07/24 History omeprazole 40 mg capsule,delayed 40 mg PO DAILY 10/07/23 09/07/24 History release polysaccharide iron complex 150 mg 65 mg PO DAILY 10/07/23 09/07/24 History iron capsule (Ferrex) abiraterone 250 mg tablet 1,000 mg PO DAILY 04/17/24 09/07/24 History gabapentin 800 mg tablet 800 mg PO BID 04/17/24 09/07/24 History metformin 500 mg tablet See Rx Instructions .Route 05/06/24 09/07/24 Rx .COMPLEX #360 tabs pioglitazone 45 mg tablet See Rx Instructions .Route 08/29/24 09/07/24 Rx .COMPLEX #90 tabs atorvastatin 20 mg tablet See Rx Instructions .Route 09/07/24 09/07/24 Rx .COMPLEX #30 tabs calcitriol 0.5 mcg capsule 0.5 mcg PO BID 09/07/24 09/08/24 History calcium 600 mg capsule 600 mg PO QID 09/07/24 09/07/24 History cholecalciferol (vitamin D3) 25 25 mcg PO DAILY 09/07/24 09/07/24 History mcg (1,000 unit) capsule (Vitamin D3) glimepiride 2 mg tablet 2 mg PO DAILY 09/08/24 09/08/24 History megestrol 400 mg/10 mL (40 mg/mL) 400 mg PO QID 09/08/24 09/08/24 History oral suspension ondansetron 8 mg disintegrating 8 mg translingual Q8H PRN nausea 09/08/24 09/08/24 History tablet and vomiting oxycodone 5 mg tablet 5 mg PO Q4H PRN pain (scale score 09/08/24 09/08/24 History 7-10) Allergies Allergy/AdvReac Type Severity Reaction Status Date / Time No Known Allergies Allergy Verified 09/07/24 16:23 Vital Signs Vital Signs - 24 hr 09/07/24 14:27 09/07/24 15:21 09/07/24 15:21 Temperature 98.7 F 101.0 F H Pulse Rate 130 H 129 H Respiratory Rate 18 28 H 27 H Blood Pressure 115/70 129/61 Pulse Oximetry 100 100 Oxygen Delivery Room Air Fraction of Inspired Oxygen 100 09/07/24 16:04 09/07/24 16:05 09/07/24 16:07 Temperature Pulse Rate 134 H 133 H 131 H Respiratory Rate 17 18 15 Blood Pressure 182/149 H 95/60 L Pulse Oximetry 99 Oxygen Delivery Fraction of Inspired Oxygen 09/07/24 16:15 09/07/24 16:16 09/07/24 16:30 Temperature Pulse Rate 129 H 131 H 129 H Respiratory Rate 23 H 22 H 21 H Blood Pressure 99/60 L Pulse Oximetry 96 96 93 Oxygen Delivery Fraction of Inspired Oxygen 09/07/24 16:31 09/07/24 16:45 09/07/24 16:46 Temperature Pulse Rate 131 H 124 H 125 H Respiratory Rate 22 H 16 20 Blood Pressure 88/46 L 85/50 L Pulse Oximetry 94 95 94 Oxygen Delivery Fraction of Inspired Oxygen 09/07/24 17:00 09/07/24 17:01 09/07/24 17:02 Temperature Pulse Rate 119 H 118 H 114 H Respiratory Rate 20 23 H 16 Blood Pressure 73/54 L Pulse Oximetry Oxygen Delivery Fraction of Inspired Oxygen 09/07/24 17:10 09/07/24 17:15 09/07/24 17:16 Temperature Pulse Rate 117 H 110 H 112 H Respiratory Rate 22 H 19 22 H Blood Pressure 106/60 93/59 L Pulse Oximetry Oxygen Delivery Fraction of Inspired Oxygen 09/07/24 17:30 09/07/24 17:31 09/07/24 17:32 Temperature Pulse Rate 103 H 103 H 108 H Respiratory Rate 24 H 20 17 Blood Pressure 97/52 L 101/54 L Pulse Oximetry 96 100 98 Oxygen Delivery Fraction of Inspired Oxygen 09/07/24 17:45 09/07/24 17:46 09/07/24 18:00 Temperature Pulse Rate 115 H 102 H 104 H Respiratory Rate 18 13 21 H Blood Pressure 93/44 L Pulse Oximetry 92 97 97 Oxygen Delivery Fraction of Inspired Oxygen 09/07/24 18:01 09/07/24 18:15 09/07/24 18:16 Temperature Pulse Rate 101 H 98 98 Respiratory Rate 17 17 19 Blood Pressure 99/44 L 90/44 L Pulse Oximetry 97 94 94 Oxygen Delivery Fraction of Inspired Oxygen 09/07/24 18:17 09/07/24 18:30 09/07/24 18:31 Temperature Pulse Rate 99 101 H 99 Respiratory Rate 17 16 17 Blood Pressure 99/47 L Pulse Oximetry 95 94 92 Oxygen Delivery Fraction of Inspired Oxygen 09/07/24 18:45 09/07/24 18:46 09/07/24 19:00 Temperature Pulse Rate 103 H 102 H 101 H Respiratory Rate 20 18 18 Blood Pressure 100/51 L Pulse Oximetry 93 93 94 Oxygen Delivery Fraction of Inspired Oxygen 09/07/24 19:01 09/07/24 19:15 09/07/24 19:16 Temperature Pulse Rate 113 H 99 101 H Respiratory Rate 20 19 17 Blood Pressure 97/50 L 102/47 L Pulse Oximetry 94 93 93 Oxygen Delivery Fraction of Inspired Oxygen 09/07/24 19:30 09/07/24 19:31 09/07/24 19:32 Temperature Pulse Rate 101 H 106 H 101 H Respiratory Rate 14 20 17 Blood Pressure 93/48 L Pulse Oximetry 98 99 96 Oxygen Delivery Fraction of Inspired Oxygen Exam 2 Narrative: Weight 86.3 kg BMI 28 Const: Other: Mildly ill-appearing, well-developed well-nourished, appears older than stated age HENMT: Other: Mucous membranes are dry, no oral pharyngeal erythema, fair dentition Eyes: Other: Pupils are equal and reactive, no scleral icterus, positive conjunctival pallor Neck: Other: Anterior cervical lymphadenopathy, trachea midline Resp: Other: Clear to auscultation bilaterally, no increased work of breathing Cardio: Other: Regular rate, regular rhythm, 2+ bilateral radial pedal pulses, no murmur GI: Other: Soft, nontender, nondistended, positive bowel sounds Skin: Other: Hot to touch, mild pallor, non jaundice, no petechiae to post areas of skin Neuro: Other: Alert orient x4, speech is clear but slow, mildly hard of hearing, no localizing neurologic deficits noted during the course of conversation Extrem: Other: No clubbing, cyanosis or edema, no foot wounds Psych: Other: Appropriate mood and affect, pleasant and cooperative, judgment and insight intact H&P: Results Labs Labs: CBC outpatient: WBC 3.2 hemoglobin 10.4 platelet count 189 Laboratory Tests 09/07/24 15:56 09/07/24 09/07/24 09/07/24 15:56 17:34 18:38 PT 14.1 INR 1.0 APTT 29.6 Sodium 134 L Potassium 3.7 Chloride 100 Carbon Dioxide 24 Anion Gap 10 BUN 18 Creatinine 0.50 L Estim Creat Clear Calc 116 Estimated GFR > 60 Glucose 129 H Lactic Acid 2.1 H Calcium 8.8 Magnesium 1.3 L Total Bilirubin 1.6 H AST 44 ALT 11 Alkaline Phosphatase 157 H Troponin I < 0.012 < 0.012 NT-Pro-B Natriuret Pep 91 Total Protein 6.0 L Albumin 3.6 Procalcitonin 0.3 Nasal MRSA (PCR) Not detected Influenza A (RT-PCR) Negative Influenza B (RT-PCR) Negative RSV (RT-PCR) Negative SARS-CoV-2 RNA (RT-PCR) Negative Group A Strep (PCR) Not detected 09/07/24 19:30 PT INR APTT Sodium Potassium Chloride Carbon Dioxide Anion Gap BUN Creatinine Estim Creat Clear Calc Estimated GFR Glucose Lactic Acid 0.7 Calcium Magnesium Total Bilirubin AST ALT Alkaline Phosphatase Troponin I NT-Pro-B Natriuret Pep Total Protein Albumin Procalcitonin Nasal MRSA (PCR) Influenza A (RT-PCR) Influenza B (RT-PCR) RSV (RT-PCR) SARS-CoV-2 RNA (RT-PCR) Group A Strep (PCR) Impressions Chest X-Ray 09/07/24 15:52 IMPRESSION: No acute cardiopulmonary process. Kinked implanted port catheter, a chronic finding. Likely not clinically significant if there is normal port function. Diffuse osseous metastatic disease. EKG: Personally reviewed 1st EKG read by Cardiology as AFib RVR but could be sinus tach with severe baseline artifact QTC was initially 501 with a rate of 139 repeat EKG demonstrated sinus tachycardia rate 1 0 to with normal QTC of 423 Assessment and Plan Assessment and plan (1) SIRS (systemic inflammatory response syndrome): Code(s): R65.10 - Systemic inflammatory response syndrome (SIRS) of non-infectious origin without acute organ dysfunction Status: Acute (2) Hypotension: Qualifiers: Hypotension type: unspecified hypotension type Qualified Code(s): I95.9 - Hypotension, unspecified Code(s): I95.9 - Hypotension, unspecified Status: Acute (3) Type 2 diabetes mellitus with diabetic polyneuropathy: Qualifiers: Diabetes mellitus half-way insulin use: without half-way use Q ualified Code(s): E11.42 - Type 2 diabetes mellitus with diabetic polyneuropathy Code(s): E11.42 - Type 2 diabetes mellitus with diabetic polyneuropathy Status: Acute (4) Hypomagnesemia: Code(s): E83.42 - Hypomagnesemia Status: Acute (5) Chronic steroid use: Status: Acute Plan Patient meets SIRS criteria although source is uncertain. Blood cultures have been obtained and are pending. COVID flu and RSV PCR negative. Chest x-ray was read as no focal infiltrates by Radiology although on my review does seem suspicious for possible multifocal pneumonia. Patient been placed on broad- spectrum antibiotic coverage with vancomycin and cefepime since he has actively on immunosuppressive therapy with both chronic steroid therapy and is receiving chemotherapy for prostate cancer. SIRS criteria met with tachycardia, tachypnea, leukopenia and fever of 101?. Patient also had transient hypotension improved with 2 L fluid bolus. Patient will be continued on maintenance IV fluids. Initial EKG consistent with sinus tach versus AFib but rhythm is normalized to sinus tach with rate of 101. Will continue monitor on telemetry. Patient did have hypotension and given his chronic steroid use he did receive 1 dose of stress dose IV hydrocortisone. However, patient's blood pressures had already normalized prior to stress dose steroid. Patient's evening prednisone dose has subsequently been held will resume his home prednisone in a.m.. Will repeat CBC and electrolyte panel in a.m.. Will hold the patient's home Zytiga given acute infection. Will obtain UA with reflex culture as patient likely has underlying UTI given reported symptoms. Patient's initial magnesium in the ER was 1.3. Patient received 2 g magnesium sulfate rider. Will repeat magnesium level with a.m. labs. Patient does have type 2 diabetes mellitus presents currently euglycemic. Will hold patient's home metformin and resume patient's glimepiride and pioglitazone. Will also check Accu-Cheks a.c. HS and provide low-dose sliding scale insulin with hypoglycemia protocol as needed. Patient has been admitted to the IMU. Patient has been admitted as observation status. Quality VTE Prophylaxis VTE prophylaxis: pharmacologic ordered (Lovenox 40 mg subQ daily.) Hospitalist [facility] Advance Care Plan I have confirmed that the patient's Advanced Care Plan is present, code status is documented, or surrogate decision maker is listed in patient medical record.: Yes Medication Reconciliation I have utilized all available resources to obtain, update and review the patients current medications (includes all prescriptions, OTC, herbals, cannabis, and nutritional supplements).: Yes
[2024-09-07] MEDS: VANCOMYCIN 1,000 MG/NS 250 ML 1,000 MG/250 ML BAG 250 MG IVPB (20:55)
[2024-09-07] MEDS: HYDROCORTISONE SODIUM SUCCINATE 100 MG/2 ML VIAL IV PUSH (21:45)
[2024-09-07] MEDS: GABAPENTIN 400 MG CAPSULE 800 MG PO (22:59)
[2024-09-07] MEDS: TAMSULOSIN HCL 0.4 MG CAPSULE PO (22:59)
[2024-09-07] MEDS: SODIUM CHLORIDE 0.9% IV 1,000 ML 125 ML IV CONT (23:00)
[2024-09-07 23:04] LABS: Add Urine Microscopic? YES; Appearance Urine Clear (Clear); Bacteria Urine None Seen /hpf; Bilirubin Urine Negative (Negative); Blood Urine Negative (Negative); Color Urine Yellow (Yellow); Glucose Urine UA Negative (Negative); Ketones Urine 1+ mg/dL (Negative); Leukocyte Esterase Ur 1+ LEU/UL (Negative); Nitrate Urine Negative (Negative); Non Pathogenic Casts 0-2; Protein Urine Negative (Negative); RBC Urine 0-2 /hpf (0-2); Specific Grav Ur 1.022 (1.001-1.035); Squamous Epithelial Cell Urine None Seen /hpf (Few); Urobilinogen Urine 0.2 mg/dL (<2.0); WBC Urine 21-50 /hpf (0-3); pH Urine 5.5 (5.0-9.0)
--- NOTE | 2024-09-07 23:13 | ADMGEN ---
This patient, Norman Byers, was admitted to IMU Room 201-01 on 09/07/24 at 2244. Patient/family oriented to hospital policies and general routines including ID bracelet, bed and alarms, visiting hours, pain management, procedures, bathroom and other care routines, personal items, smoking policy, room service/diet, and visiting hours. Information on how to activate the Rapid Response Team has been discussed. Patient/Family are encouraged to report perceived risks to care and to ask questions if they do not understand what they are told or what they should do.
[2024-09-07 23:55] LABS: Glucose Point of Care 130 mg/dl (65-105)
[2024-09-08] VITALS (15 sets, daily range): BP systolic 102–133; BP diastolic 48–62; PULSE 74–129; RESP 15–24; TEMP 36.4–36.8; O2SAT 94–100
[2024-09-08 00:16] LABS: Glucose Point of Care 138 mg/dl (65-105)
[2024-09-08 05:27] LABS: Basophils Percent Auto 0.7 % (0.2-1.2); Hemoglobin 8.3 g/dL (14.0-18.0); Immature Granulocyte Absolute 0.07 K/mm3 (0.00-0.031); Immature Granulocyte Percent A 5.1 % (0-0.5); Lymphocytes Absolute Auto 0.18 K/mm3 (0.9-3.2); Mean Corpuscular HGB Conc 30.7 g/dl (32-36); Mean Corpuscular Hemoglobin 27.9 pg (26-34); Mean Corpuscular Volume 90.9 fl (80-100); Mean Platelet Volume 8.9 fl (7.4-10.4); Monocytes Absolute Auto 0.1 K/mm3 (0.1-0.6); Monocytes Percent Auto 7.2 % (2.6-8.5); Platelet Count Result 128 k/mm3 (150-375); Red Blood Count 2.97 M/mm3 (4.6-6.20); Red Cell Distribution Width 18.1 % (11.5-14.5)
[2024-09-08 05:36] LABS: White Blood Count 1.4 K/mm3 (4.5-10.0)
[2024-09-08 05:45] LABS: Alanine Aminotransferase 9 U/L (6-50); Albumin Level 2.6 g/dL (3.5-5.1); Alkaline Phosphatase 117 U/L (38-126); Anion Gap 6 mmol/L (4-12); Aspartate Amino Transferase 35 U/L (17-59); Bilirubin,Total 1.1 mg/dL (0.2-1.3); Blood Urea Nitrogen 11 mg/dL (9-20); Calcium 7.2 mg/dL (8.4-10.2); Carbon Dioxide 18 mmol/L (22-30); Chloride 108 mmol/L (98-107); Estimated CRCL calculation 159 ml/min; Estimated Glomerular Filt Rate > 60; Glucose 166 mg/dL (65-110); Magnesium 1.6 mg/dL (1.6-2.3); Potassium 3.6 mmol/L (3.4-5.0); Sodium 132 mmol/L (137-145)
[2024-09-08 05:54] LABS: Anisocytosis 1+; Burr Cells 1+; Ovalocytes 1+; Platelet Estimate Slightly Decreased (Adequate); Schistocytes None Seen; Tear Drop Cells 1+
[2024-09-08] MEDS: CEFEPIME 2 GM/NS 50 ML 2 GM/50 ML BAG IVPB ×2 (06:33→17:17)
[2024-09-08 08:16] LABS: Glucose Point of Care 153 mg/dl (65-105)
[2024-09-08] MEDS: calcitrioL 0.25 MCG CAPSULE 0.5 MCG PO ×2 (09:20→17:16)
[2024-09-08] MEDS: MEGESTROL ACETATE (*CHEMO) ORAL SUSP 40 MG/ML SYR 400 MG PO ×3 (09:20→17:27)
[2024-09-08] MEDS: GLIMEPIRIDE 2 MG TABLET PO (09:21)
[2024-09-08] MEDS: PANTOPRAZOLE 40 MG TABLET PO ×2 (09:21→21:35)
[2024-09-08] MEDS: CHOLECALCIFEROL 1,000 UNITS TABLET 1000 UNITS PO (09:21)
[2024-09-08] MEDS: predniSONE 5 MG TABLET PO ×2 (09:21→21:35)
[2024-09-08] MEDS: CALCIUM CARBONATE (OSCAL) 500 MG TABLET PO ×4 (09:21→21:35)
[2024-09-08] MEDS: GABAPENTIN 400 MG CAPSULE 800 MG PO ×2 (09:21→17:16)
[2024-09-08] MEDS: ENOXAPARIN 40 MG/0.4 ML SYRINGE SUB-Q (09:22)
[2024-09-08] MEDS: PIOGLITAZONE HCL 45 MG TABLET PO (09:22)
[2024-09-08] MEDS: CYANOCOBALAMIN 500 MCG TABLET PO (09:22)
[2024-09-08] MEDS: VANCOMYCIN 1,500 MG/NS 500 ML 1,500 MG/500 ML BAG 250 MG IVPB ×2 (09:33→21:33)
[2024-09-08] MEDS: POLYSACCHARIDE IRON COMPLEX 150 MG CAPSULE PO (10:22)
[2024-09-08 12:03] LABS: Glucose Point of Care 209 mg/dl (65-105)
[2024-09-08] MEDS: SODIUM CHLORIDE 0.9% IV 1,000 ML 125 ML IV CONT (14:32)
[2024-09-08 16:20] LABS: Glucose Point of Care 224 mg/dl (65-105)
[2024-09-08] MEDS: INSULIN ASPART (*BKC) 100 UNITS/ML SUB-Q (17:27)
[2024-09-08] MEDS: ATORVASTATIN 20 MG TABLET PO (21:35)
[2024-09-08] MEDS: TAMSULOSIN HCL 0.4 MG CAPSULE PO (21:35)
[2024-09-08 22:11] LABS: Glucose Point of Care 154 mg/dl (65-105)
--- NOTE | 2024-09-08 23:17 | PM.IMPN ---
Progress Note: A&P Assessment and Plan (1) Hypotension: Qualifiers: Hypotension type: unspecified hypotension type Qualified Code(s): I95.9 - Hypotension, unspecified Code(s): I95.9 - Hypotension, unspecified Status: Acute Assessment and Plan: Blood pressures improved --Follow VS (2) Neutropenia: Code(s): D70.9 - Neutropenia, unspecified Status: Acute Assessment and Plan: WBC low, neutropenic. WBC 1.4, neutrophils --discuss filgrastim with oncology (3) UTI (urinary tract infection): Code(s): N39.0 - Urinary tract infection, site not specified Status: Acute (4) Type 2 diabetes mellitus with diabetic polyneuropathy: Qualifiers: Diabetes mellitus correction insulin use: without correction use Qualified Code(s): E11.42 - Type 2 diabetes mellitus with diabetic polyneuropathy Code(s): E11.42 - Type 2 diabetes mellitus with diabetic polyneuropathy Status: Acute Assessment and Plan: Home meds: Actos, Metformin, Have been holding glimeperide for poor PO intake per PCP Blood sugars intermittently above goal --Coninue SSI --Continue actos, holding metformin (5) Prostate cancer: Code(s): C61 - Malignant neoplasm of prostate Status: Acute Assessment and Plan: Recieving chemotherapy outpatient --Follows with Dr. Acuña --Oncology consult for neutropenia and management (6) SIRS (systemic inflammatory response syndrome): Code(s): R65.10 - Systemic inflammatory response syndrome (SIRS) of non-infectious origin without acute organ dysfunction Status: Acute Assessment and Plan: Reporting dysuria. UA positive --Continue empiric antibioitics --Follow WBC and temps --Urine culture and blood cultures pending Time Spent With Patient Time: 56 minutes Subjective Date/time seen: 09/08/24 18:35 Interval history: Clinically improving, VSS. Lungs clear. Still having dysuria but improving on IV antibiotics. Has been up to the bathroom and no signficant shortness of breath. Has a rare cough, nonproductive Urine and blood cultures pending. Leukopenia/neutropenia, discuss with oncology, Dr. Acuña Exam Narrative: General - Awake and alert. No acute distress Eyes - PERRLA, EOM intact ENT - No thrush, No erythema Neck - No noticeable or palpable swelling Lymph Nodes - No lymphadenopathy Cardiovascular - Irregular, no m/r/g, no JVD Lungs: Clear to auscultation, No wheezing, use of accessory muscles, no crackles or wheezes. Skin - Skin warm and dry, no wounds or rashes Abdomen - Normal bowel sounds, abdomen soft and nontender Extremities - No edema, cyanosis or clubbing Musculoskeletal - 5/5 strength, normal range of motion, no swollen or erythematous joints. Neurological ? Alert and oriented x 3, CN 2-12 grossly intact. Psych: Normal mood and affect Objective Data Vital Signs Vital Signs: Vital Signs - 24 hr 09/08/24 00:00 09/08/24 00:00 09/08/24 02:00 Temperature 98.3 F Pulse Rate 94 93 83 Respiratory Rate 16 Blood Pressure 133/60 Pulse Oximetry 94 Oxygen Delivery 09/08/24 04:00 09/08/24 04:00 09/08/24 04:00 Temperature 98.1 F Pulse Rate 120 H 95 Respiratory Rate 15 Blood Pressure 102/48 L Pulse Oximetry 97 Oxygen Delivery Room Air 09/08/24 06:00 09/08/24 08:00 09/08/24 08:00 Temperature 98.0 F Pulse Rate 74 75 Respiratory Rate 20 Blood Pressure 107/54 L Pulse Oximetry 97 98 Oxygen Delivery Room Air 09/08/24 08:00 09/08/24 09:15 09/08/24 10:00 Temperature Pulse Rate 97 84 Respiratory Rate Blood Pressure Pulse Oximetry 98 Oxygen Delivery Room Air 09/08/24 12:00 09/08/24 12:00 09/08/24 12:00 Temperature 97.7 F Pulse Rate 91 129 H Respiratory Rate 20 Blood Pressure 110/49 L Pulse Oximetry 99 99 Oxygen Delivery Room Air 09/08/24 14:00 09/08/24 16:00 09/08/24 16:00 Temperature 97.6 F Pulse Rate 92 97 86 Respiratory Rate 16 Blood Pressure 112/62 Pulse Oximetry 100 Oxygen Delivery 09/08/24 16:00 09/08/24 18:00 09/08/24 19:40 Temperature 98.1 F Pulse Rate 105 H 106 H Respiratory Rate 24 H Blood Pressure 111/57 L Pulse Oximetry 100 99 Oxygen Delivery Room Air 09/08/24 22:48 Temperature Pulse Rate Respiratory Rate Blood Pressure Pulse Oximetry 98 Oxygen Delivery Room Air Intake/Output Intake/Output: Intake & Output 09/05/24 09/06/24 09/07/24 09/08/24 23:59 23:59 23:59 23:59 Intake Total 3600 3770 Output Total 1425 Balance 3600 2345 Meds/Results Medications: Active Medications Generic Name Dose Route Start Last Admin Trade Name Freq PRN Reason Stop Dose Admin Acetaminophen 650 mg 09/07/24 18:16 Acetaminophen 325 Mg Tablet PO Q4H PRN Mild Pain (1-3) or Fever Atorvastatin Calcium 20 mg 09/08/24 21:00 09/08/24 21:35 Atorvastatin 20 Mg Tablet PO 20 mg HS DUSTY Administration Calcitriol 0.5 mcg 09/08/24 09:00 09/08/24 17:16 Calcitriol 0.25 Mcg Capsule PO 0.5 mcg BID DUSTY Administration Calcium Carbonate 500 mg 09/08/24 09:00 09/08/24 21:35 Calcium Carbonate (Oscal) 500 Mg Tablet PO 500 mg QID DUSTY Administration Cyanocobalamin 500 mcg 09/08/24 09:00 09/08/24 09:22 Cyanocobalamin 500 Mcg Tablet PO 500 mcg DAILY DUSTY Administration Dextrose 12.5 gm 09/07/24 20:47 Dextrose 50% 25 Gm/50 Ml Syringe IV PUSH PRN PRN Hypoglycemia Protocol Enoxaparin Sodium 40 mg 09/08/24 09:00 09/08/24 09:22 Enoxaparin 40 Mg/0.4 Ml Syringe SUB-Q 40 mg DAILY DUSTY Administration Gabapentin 800 mg 09/08/24 09:00 09/08/24 17:16 Gabapentin 400 Mg Capsule PO 800 mg BID DUSTY Administration Glimepiride 2 mg 09/08/24 09:00 09/08/24 09:21 Glimepiride 2 Mg Tablet PO 2 mg DAILY DUSTY Administration Glucagon 1 mg 09/07/24 20:47 Glucagon For Inj 1 Mg Vial IM PRN PRN Hypoglycemia Protocol Glucose 15 gm 09/07/24 20:47 Glucose Oral Gel 15 Gm Of Glucse In 37.5 Gm Tube PO PRN PRN Hypoglycemia Protocol Cefepime HCl 2 gm in 50 mls @ 100 mls/hr 09/08/24 06:00 09/08/24 18:00 Maxipime 2 Gm/Ns 50 Ml IVPB Infused Q12H DUSTY Infusion Sodium Chloride 1,000 mls @ 125 mls/hr 09/07/24 18:20 09/08/24 14:32 Normal Saline Iv IV CONT 125 mls/hr .Q8H DUSTY Administration Vancomycin HCl 1,500 mg in 500 mls @ 250 mls/hr 09/08/24 08:00 09/08/24 21:33 Vancomycin 1,500 Mg/Ns 500 Ml IVPB 250 mls/hr Q12H DUSTY Administration Dextrose 1,000 mls @ 100 mls/hr 09/07/24 20:47 Dextrose 5% 1,000 Ml IVPB PRN PRN Hypoglycemia Protocol Insulin Aspart 2 - 5 units 09/08/24 08:00 09/08/24 17:27 Insulin Aspart (*Bkc) 100 Units/Ml SUB-Q 2 units TIDWM DUSTY Administration Protocol Insulin Aspart 1 - 2 units 09/07/24 21:00 09/08/24 21:37 Insulin Aspart (*Bkc) 100 Units/Ml SUB-Q Not Given HS DUSTY Protocol Megestrol Acetate 400 mg 09/08/24 09:00 09/08/24 21:37 Megestrol Acetate (*Chemo) Oral Susp 40 Mg/Ml Syr PO Not Given QID DUSTY Ondansetron HCl 4 mg 09/07/24 18:16 Ondansetron Inj 4 Mg/2 Ml Vial IV PUSH Q4H PRN Nausea Oxycodone HCl 5 mg 09/08/24 00:25 Oxycodone Hcl (*Crx) 5 Mg Tab Ir PO Q4H PRN pain (scale score 7-10) Pantoprazole Sodium 40 mg 09/08/24 09:00 09/08/24 21:35 Pantoprazole 40 Mg Tablet PO 40 mg Q12HR DUSTY Administration Pioglitazone HCl 45 mg 09/08/24 09:00 09/08/24 09:22 Pioglitazone Hcl 45 Mg Tablet PO 45 mg DAILY DUSTY Administration Polysaccharide Iron Complex 150 mg 09/08/24 09:40 09/08/24 10:22 Polysaccharide Iron Complex 150 Mg Capsule PO 150 mg DAILY DUSTY Administration Prednisone 5 mg 09/08/24 09:00 09/08/24 21:35 Prednisone 5 Mg Tablet PO 5 mg Q12HR DUSTY Administration Tamsulosin HCl 0.4 mg 09/07/24 21:55 09/08/24 21:35 Tamsulosin Hcl 0.4 Mg Capsule PO 0.4 mg HS DUSTY Administration Vitamin D 1,000 units 09/08/24 09:00 09/08/24 09:21 Cholecalciferol 1,000 Units Tablet PO 1,000 units DAILY DUSTY Administration Radiology Results: ITS Impressions Chest X-Ray 09/07/24 15:52 IMPRESSION: No acute cardiopulmonary process. Kinked implanted port catheter, a chronic finding. Likely not clinically significant if there is normal port function. Diffuse osseous metastatic disease. Labs Labs: Laboratory Results - last 24 hr 09/07/24 09/07/24 09/08/24 23:15 23:54 05:14 WBC 1.4 L* RBC 2.97 L Hgb 8.3 L Hct 27.0 L MCV 90.9 MCH 27.9 MCHC 30.7 L RDW 18.1 H Plt Count 128 L MPV 8.9 Immature Gran % (Auto) 5.1 H Neut % (Auto) 74.0 H Lymph % (Auto) 13.0 L [place] % (Auto) 7.2 Eos % (Auto) 0.0 Baso % (Auto) 0.7 Lymph # (Auto) 0.18 L [place] # (Auto) 0.1 Eos # (Auto) 0.0 Baso # (Auto) 0.0 Abs Immat Gran (auto) 0.07 H Absolute Neuts (auto) 1.0 L Absolute Nucleated RBC 0.000 Nucleated RBC % 0.0 Platelet Estimate Slightly decreased Anisocytosis 1+ Tear Drop Cells 1+ Ovalocytes 1+ [place] Cells 1+ Schistocytes None seen Sodium 132 L Potassium 3.6 Chloride 108 H Carbon Dioxide 18 L Anion Gap 6 BUN 11 D Creatinine 0.35 L Estim Creat Clear Calc 159 Estimated GFR > 60 Glucose 166 H POC Capillary Glucose 130 H 138 H Calcium 7.2 L Magnesium 1.6 Total Bilirubin 1.1 AST 35 ALT 9 Alkaline Phosphatase 117 Total Protein 5.0 L Albumin 2.6 L 09/08/24 09/08/24 09/08/24 08:10 11:45 16:15 WBC RBC Hgb Hct MCV MCH MCHC RDW Plt Count MPV Immature Gran % (Auto) Neut % (Auto) Lymph % (Auto) [place] % (Auto) Eos % (Auto) Baso % (Auto) Lymph # (Auto) [place] # (Auto) Eos # (Auto) Baso # (Auto) Abs Immat Gran (auto) Absolute Neuts (auto) Absolute Nucleated RBC Nucleated RBC % Platelet Estimate Anisocytosis Tear Drop Cells Ovalocytes [place] Cells Schistocytes Sodium Potassium Chloride Carbon Dioxide Anion Gap BUN Creatinine Estim Creat Clear Calc Estimated GFR Glucose POC Capillary Glucose 153 H 209 H 224 H Calcium Magnesium Total Bilirubin AST ALT Alkaline Phosphatase Total Protein Albumin 09/08/24 21:32 WBC RBC Hgb Hct MCV MCH MCHC RDW Plt Count MPV Immature Gran % (Auto) Neut % (Auto) Lymph % (Auto) [place] % (Auto) Eos % (Auto) Baso % (Auto) Lymph # (Auto) [place] # (Auto) Eos # (Auto) Baso # (Auto) Abs Immat Gran (auto) Absolute Neuts (auto) Absolute Nucleated RBC Nucleated RBC % Platelet Estimate Anisocytosis Tear Drop Cells Ovalocytes [place] Cells Schistocytes Sodium Potassium Chloride Carbon Dioxide Anion Gap BUN Creatinine Estim Creat Clear Calc Estimated GFR Glucose POC Capillary Glucose 154 H Calcium Magnesium Total Bilirubin AST ALT Alkaline Phosphatase Total Protein Albumin Quality VTE Prophylaxis VTE prophylaxis: pharmacologic ordered Hospitalist MIPS Advance Care Plan I have confirmed that the patient's Advanced Care Plan is present, code status is documented, or surrogate decision maker is listed in patient medical record.: Yes Medication Reconciliation I have utilized all available resources to obtain, update and review the patients current medications (includes all prescriptions, OTC, herbals, cannabis, and nutritional supplements).: Yes
[2024-09-09] VITALS (17 sets, daily range): BP systolic 114–147; BP diastolic 54–72; PULSE 85–143; RESP 14–20; TEMP 36.4–36.8; O2SAT 98–100
[2024-09-09] MEDS: SODIUM CHLORIDE 0.9% IV 1,000 ML 125 ML IV CONT ×3 (01:30→21:13)
[2024-09-09] MEDS: CEFEPIME 2 GM/NS 50 ML 2 GM/50 ML BAG IVPB (05:02)
[2024-09-09 07:23] LABS: Estimated CRCL calculation 145 ml/min; Estimated Glomerular Filt Rate > 60
[2024-09-09 08:26] LABS: Vancomycin Trough 17.5 ug/mL (10.0-20.0)
--- NOTE | 2024-09-09 08:32 | P.PNIM_ITS ---
Progress Note: A&P Assessment and Plan (1) Hypotension: Qualifiers: Hypotension type: unspecified hypotension type Qualified Code(s): I95.9 - Hypotension, unspecified Code(s): I95.9 - Hypotension, unspecified Status: Acute Assessment and Plan: Blood pressures improved --Follow VS (2) Neutropenia: Code(s): D70.9 - Neutropenia, unspecified Status: Acute Assessment and Plan: WBC low, neutropenic. 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 Acuña --Oncology consult for neutropenia and management (6) SIRS (systemic inflammatory response syndrome): Code(s): R65.10 - Systemic inflammatory response syndrome (SIRS) of non-infectious origin without acute organ dysfunction Status: Acute Assessment and Plan: Hypotensive and tachycardic prior to antibiotics. Reporting dysuria, now resolved. UA positive --Urine culture negative but received Cefepime and Vancomycin prior to culture --Follow blood cultures 09/07 --Follow WBC and temps --Stop Cefepime, change to augmentin 875/125 BID since fever to 101 and hypotensive on 09/07 and monitor. Dysuria resolved. Monitor on augmentin. Monitor off IV antibiotics (7) Tachycardia: Code(s): R00.0 - Tachycardia, unspecified Status: Acute Assessment and Plan: Heart rate elevated to the 160's intermittently Concern for afib on initial EKG. Repeat EKG Sinus tach with frequent supraventricular premature complexes Rates intermittently to 140's. Sinus arrhythmia vs afib Metoprolol for rate control 6.25 q6. Rate control may be limited by blood pressure Add on TSH Repleting electrolytes TTE Cardiology consult Holding off on anticoagulation for now after discussion with patient and family. Risk of falls. Overall risk of stroke 3% in a year if intermittently in afib Time Spent With Patient Time: 57 minutes Subjective Date/time seen: 09/09/24 08:32 Interval history: Clinically improving, VSS. Lungs clear. Dysuria resolved. Has been up to the bathroom and no significant shortness of breath. Has a rare cough, nonproductive Urine cultures negative but sent after antibiotics. Blood cultures pending. Leukopenia/neutropenia, discuss with oncology, Dr. Acuña EKG/Tele afib initially, sinus tach with premature complexes on EKG today. Review of Systems Review of Systems: 12 systems were reviewed with pertinent positives and negatives per HPI. Except as documented in the HPI, all other systems were reviewed and are negative. Exam Narrative: General - Awake and alert. No acute distress Eyes - PERRLA, EOM intact ENT - No thrush, No erythema Neck - No noticeable or palpable swelling Lymph Nodes - No lymphadenopathy Cardiovascular - Irregular, no m/r/g, no JVD Lungs: Clear to auscultation, No wheezing, use of accessory muscles, no crackles or wheezes. Skin - Skin warm and dry, no wounds or rashes Abdomen - Normal bowel sounds, abdomen soft and nontender Extremities - No edema, cyanosis or clubbing Musculoskeletal - 5/5 strength, normal range of motion, no swollen or erythematous joints. Neurological ? Alert and oriented x 3, CN 2-12 grossly intact. Psych: Normal mood and affect Objective Data Vital Signs Vital Signs: Vital Signs - 24 hr 09/08/24 09:15 09/08/24 10:00 09/08/24 12:00 Temperature 97.7 F Pulse Rate 84 91 Respiratory Rate 20 Blood Pressure 110/49 L Pulse Oximetry 98 99 Oxygen Delivery Room Air 09/08/24 12:00 09/08/24 12:00 09/08/24 14:00 Temperature Pulse Rate 129 H 92 Respiratory Rate Blood Pressure Pulse Oximetry 99 Oxygen Delivery Room Air 09/08/24 16:00 09/08/24 16:00 09/08/24 16:00 Temperature 97.6 F Pulse Rate 97 86 Respiratory Rate 16 Blood Pressure 112/62 Pulse Oximetry 100 100 Oxygen Delivery Room Air 09/08/24 18:00 09/08/24 19:40 09/08/24 20:00 Temperature 98.1 F Pulse Rate 105 H 106 H 100 Respiratory Rate 24 H Blood Pressure 111/57 L Pulse Oximetry 99 Oxygen Delivery 09/08/24 20:00 09/08/24 22:00 09/08/24 22:48 Temperature Pulse Rate 92 Respiratory Rate Blood Pressure Pulse Oximetry 98 Oxygen Delivery Room Air Room Air 09/09/24 00:00 09/09/24 00:00 09/09/24 00:00 Temperature 97.6 F Pulse Rate 91 105 H Respiratory Rate 16 Blood Pressure 147/72 H Pulse Oximetry 100 Oxygen Delivery Room Air 09/09/24 02:00 09/09/24 04:00 09/09/24 04:00 Temperature 98.1 F Pulse Rate 88 86 Respiratory Rate 14 Blood Pressure 116/54 L Pulse Oximetry 98 Oxygen Delivery Room Air 09/09/24 04:00 09/09/24 06:00 09/09/24 07:51 Temperature 98.2 F Pulse Rate 88 85 88 Respiratory Rate 18 Blood Pressure 117/62 Pulse Oximetry 100 Oxygen Delivery Intake/Output Intake/Output: Intake & Output 09/06/24 09/07/24 09/08/24 09/09/24 23:59 23:59 23:59 23:59 Intake Total 3600 4270 1290 Output Total 1425 600 Balance 3600 2845 690 Meds/Results Medications: Active Medications Generic Name Dose Route Start Last Admin Trade Name Freq PRN Reason Stop Dose Admin Acetaminophen 650 mg 09/07/24 18:16 Acetaminophen 325 Mg Tablet PO Q4H PRN Mild Pain (1-3) or Fever Atorvastatin Calcium 20 mg 09/08/24 21:00 09/08/24 21:35 Atorvastatin 20 Mg Tablet PO 20 mg HS DUSTY Administration Calcitriol 0.5 mcg 09/08/24 09:00 09/08/24 17:16 Calcitriol 0.25 Mcg Capsule PO 0.5 mcg BID DUSTY Administration Calcium Carbonate 500 mg 09/08/24 09:00 09/08/24 21:35 Calcium Carbonate (Oscal) 500 Mg Tablet PO 500 mg QID DUSTY Administration Cyanocobalamin 500 mcg 09/08/24 09:00 09/08/24 09:22 Cyanocobalamin 500 Mcg Tablet PO 500 mcg DAILY DUSTY Administration Dextrose 12.5 gm 09/07/24 20:47 Dextrose 50% 25 Gm/50 Ml Syringe IV PUSH PRN PRN Hypoglycemia Protocol Enoxaparin Sodium 40 mg 09/08/24 09:00 09/08/24 09:22 Enoxaparin 40 Mg/0.4 Ml Syringe SUB-Q 40 mg DAILY DUSTY Administration Gabapentin 800 mg 09/08/24 09:00 09/08/24 17:16 Gabapentin 400 Mg Capsule PO 800 mg BID DUSTY Administration Glucagon 1 mg 09/07/24 20:47 Glucagon For Inj 1 Mg Vial IM PRN PRN Hypoglycemia Protocol Glucose 15 gm 09/07/24 20:47 Glucose Oral Gel 15 Gm Of Glucse In 37.5 Gm Tube PO PRN PRN Hypoglycemia Protocol Cefepime HCl 2 gm in 50 mls @ 100 mls/hr 09/08/24 06:00 09/09/24 05:35 Maxipime 2 Gm/Ns 50 Ml IVPB Infused Q12H DUSTY Infusion Sodium Chloride 1,000 mls @ 125 mls/hr 09/07/24 18:20 09/09/24 01:30 Normal Saline Iv IV CONT 125 mls/hr .Q8H DUSTY Administration Vancomycin HCl 1,500 mg in 500 mls @ 250 mls/hr 09/08/24 08:00 09/08/24 23:33 Vancomycin 1,500 Mg/Ns 500 Ml IVPB Infused Q12H DUSTY Infusion Dextrose 1,000 mls @ 100 mls/hr 09/07/24 20:47 Dextrose 5% 1,000 Ml IVPB PRN PRN Hypoglycemia Protocol Insulin Aspart 2 - 5 units 09/08/24 08:00 09/08/24 17:27 Insulin Aspart (*Bkc) 100 Units/Ml SUB-Q 2 units TIDWM DUSTY Administration Protocol Insulin Aspart 1 - 2 units 09/07/24 21:00 09/08/24 21:37 Insulin Aspart (*Bkc) 100 Units/Ml SUB-Q Not Given HS DUSTY Protocol Megestrol Acetate 400 mg 09/09/24 09:00 Megestrol Acetate (*Chemo) Oral Susp 40 Mg/Ml Syr PO QAM DUSTY Ondansetron HCl 4 mg 09/07/24 18:16 Ondansetron Inj 4 Mg/2 Ml Vial IV PUSH Q4H PRN Nausea Oxycodone HCl 5 mg 09/08/24 00:25 Oxycodone Hcl (*Crx) 5 Mg Tab Ir PO Q4H PRN pain (scale score 7-10) Pantoprazole Sodium 40 mg 09/08/24 09:00 09/08/24 21:35 Pantoprazole 40 Mg Tablet PO 40 mg Q12HR DUSTY Administration Pioglitazone HCl 45 mg 09/08/24 09:00 09/08/24 09:22 Pioglitazone Hcl 45 Mg Tablet PO 45 mg DAILY DUSTY Administration Polysaccharide Iron Complex 150 mg 09/08/24 09:40 09/08/24 10:22 Polysaccharide Iron Complex 150 Mg Capsule PO 150 mg DAILY DUSTY Administration Prednisone 5 mg 09/08/24 09:00 09/08/24 21:35 Prednisone 5 Mg Tablet PO 5 mg Q12HR DUSTY Administration Tamsulosin HCl 0.4 mg 09/07/24 21:55 09/08/24 21:35 Tamsulosin Hcl 0.4 Mg Capsule PO 0.4 mg HS DUSTY Administration Vitamin D 1,000 units 09/08/24 09:00 09/08/24 09:21 Cholecalciferol 1,000 Units Tablet PO 1,000 units DAILY DUSTY Administration Radiology Results: ITS Impressions Chest X-Ray 09/07/24 15:52 IMPRESSION: No acute cardiopulmonary process. Kinked implanted port catheter, a chronic finding. Likely not clinically significant if there is normal port function. Diffuse osseous metastatic disease. Labs Labs: Laboratory Results - last 24 hr 09/08/24 09/08/24 09/08/24 11:45 16:15 21:32 Creatinine Estim Creat Clear Calc Estimated GFR POC Capillary Glucose 209 H 224 H 154 H Vancomycin Trough 09/09/24 06:50 Creatinine 0.39 L Estim Creat Clear Calc 145 Estimated GFR > 60 POC Capillary Glucose Vancomycin Trough 17.5 ECG Interpretation: 09/09 EKG Sinus tachycardia with premature supraventricular premature complexes 09/07 EKG Afib with RVR Quality VTE Prophylaxis VTE prophylaxis: pharmacologic ordered Hospitalist MIPS Advance Care Plan I have confirmed that the patient's Advanced Care Plan is present, code status is documented, or surrogate decision maker is listed in patient medical record.: Yes Medication Reconciliation I have utilized all available resources to obtain, update and review the patients current medications (includes all prescriptions, OTC, herbals, cannabis, and nutritional supplements).: Yes
[2024-09-09 08:48] LABS: Glucose Point of Care 163 mg/dl (65-105)
[2024-09-09 08:50] LABS: Anion Gap 3 mmol/L (4-12); Blood Urea Nitrogen 6 mg/dL (9-20); Calcium 8.4 mg/dL (8.4-10.2); Carbon Dioxide 22 mmol/L (22-30); Chloride 113 mmol/L (98-107); Estimated CRCL calculation 141 ml/min; Estimated Glomerular Filt Rate > 60; Glucose 170 mg/dL (65-110); Magnesium 1.7 mg/dL (1.6-2.3); Phosphorus 1.9 mg/dL (2.5-4.5); Potassium 3.8 mmol/L (3.4-5.0); Sodium 138 mmol/L (137-145)
[2024-09-09] MEDS: PANTOPRAZOLE 40 MG TABLET PO ×2 (08:56→21:20)
[2024-09-09] MEDS: CALCIUM CARBONATE (OSCAL) 500 MG TABLET PO ×4 (08:56→21:20)
[2024-09-09] MEDS: POLYSACCHARIDE IRON COMPLEX 150 MG CAPSULE PO (08:56)
[2024-09-09] MEDS: predniSONE 5 MG TABLET PO ×2 (08:56→21:20)
[2024-09-09] MEDS: MEGESTROL ACETATE (*CHEMO) ORAL SUSP 40 MG/ML SYR 400 MG PO (08:56)
[2024-09-09] MEDS: GABAPENTIN 400 MG CAPSULE 800 MG PO ×2 (08:56→16:42)
[2024-09-09] MEDS: CYANOCOBALAMIN 500 MCG TABLET PO (08:56)
[2024-09-09] MEDS: CHOLECALCIFEROL 1,000 UNITS TABLET 1000 UNITS PO (08:56)
[2024-09-09] MEDS: PIOGLITAZONE HCL 45 MG TABLET PO (08:56)
[2024-09-09] MEDS: VANCOMYCIN 1,500 MG/NS 500 ML 1,500 MG/500 ML BAG 250 MG IVPB (08:57)
[2024-09-09] MEDS: calcitrioL 0.25 MCG CAPSULE 0.5 MCG PO ×2 (08:57→16:42)
[2024-09-09] MEDS: MAGNESIUM SULF 1 GM/D5W 100 ML 1 GM/100 ML BAG IVPB (09:02)
[2024-09-09 10:20] LABS: Basophils Percent Auto 1.2 % (0.2-1.2); Eosinophils Percent Auto 0.6 % (0-4.4); Hematocrit 27.4 % (42.0-52.0); Hemoglobin 8.4 g/dL (14.0-18.0); Immature Granulocyte Absolute 0.09 K/mm3 (0.00-0.031); Immature Granulocyte Percent A 5.3 % (0-0.5); Lymphocytes Absolute Auto 0.31 K/mm3 (0.9-3.2); Lymphocytes Percent Auto 18.3 % (18.3-44.2); Mean Corpuscular HGB Conc 30.7 g/dl (32-36); Mean Corpuscular Hemoglobin 28.2 pg (26-34); Mean Corpuscular Volume 91.9 fl (80-100); Mean Platelet Volume 9.4 fl (7.4-10.4); Monocytes Absolute Auto 0.1 K/mm3 (0.1-0.6); Monocytes Percent Auto 7.7 % (2.6-8.5); Neutrophils Absolute Auto 1.1 K/mm3 (1.3-6.7); Neutrophils Percent Auto 66.9 % (45.5-73.1); Platelet Count Result 176 k/mm3 (150-375); Red Blood Count 2.98 M/mm3 (4.6-6.20); Red Cell Distribution Width 18.1 % (11.5-14.5)
[2024-09-09 10:35] LABS: White Blood Count 1.7 K/mm3 (4.5-10.0)
[2024-09-09 10:41] LABS: Platelet Estimate Adequate (Adequate)
[2024-09-09 10:42] LABS: Anisocytosis 1+; Burr Cells 1+; Ovalocytes 1+; Schistocytes None Seen; Tear Drop Cells 1+
--- NOTE | 2024-09-09 11:01 | ECG_ITS ---
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
[2024-09-09 11:43] LABS: Glucose Point of Care 294 mg/dl (65-105)
[2024-09-09] MEDS: INSULIN ASPART (*BKC) 100 UNITS/ML SUB-Q (12:30)
[2024-09-09] MEDS: METOPROLOL TARTRATE 6.25 MG TABLET PO ×2 (12:30→18:57)
[2024-09-09 13:01] LABS: Free T4 Free Thyroxine Reflex 1.56 ng/dL (0.78-2.19)
[2024-09-09 13:50] LABS: Total Triiodothyronine (T3) 0.96 NG/ML (0.97-1.69)
[2024-09-09 16:22] LABS: Glucose Point of Care 196 mg/dl (65-105)
[2024-09-09] MEDS: MAGNESIUM OXIDE 400 MG TABLET PO (16:42)
[2024-09-09] MEDS: POTASSIUM PHOS/SODIUM PHOS 250 MG TABLET 500 MG PO (18:57)
[2024-09-09] MEDS: AMOXICILLIN/CLAVULANATE K 875-125 MG TAB 1 TABLET PO (21:19)
[2024-09-09] MEDS: TAMSULOSIN HCL 0.4 MG CAPSULE PO (21:20)
[2024-09-09] MEDS: ATORVASTATIN 20 MG TABLET PO (21:20)
[2024-09-10] VITALS (17 sets, daily range): BP systolic 113–140; BP diastolic 52–67; PULSE 80–103; RESP 16–28; TEMP 36.4–36.9; O2SAT 96–100; BMI 27.3
--- NOTE | 2024-09-10 | ECHO_ITS ---
Patient Info Name: Norman Byers Age: 69 years : 1955 Gender: Male Ht: 69 in Wt: 186 lbs BSA: 2.04 m2 HR: 98 bpm BP: 119 / 59 mmHg Technical Quality: Poor Exam Date: 09/10/2024 9:40 AM Exam Location: Echo Lab Patient Status: Outpatient Admit Date: 09/07/2024 Staff Ordering Physician: oPlly Barillas APRN Superintendent Drivers: Lara Sutton RDCS Attending Provider: Ashley Beard Exam Type: CA echo dop color flow w con Study Info Indications - NEW AFIB Complete two-dimensional, color flow and Doppler transthoracic echocardiogram is performed with contrast to opacify the left ventricle and to improve the deliniation of the left ventricle endocardial borders. Contrast/Agitated Saline Contrast/Ag. Saline: Definity Amount: 2.00 ml Existing IV Access: Yes Summary 1. Left ventricular systolic function is normal, estimated at 60-65%. 2. There is mildly increased left ventricular wall thickness. 3. There is mild mitral valve calcification. Left Ventricle Left ventricular chamber dimension is normal. Left ventricular systolic function is normal, estimated at 60-65%. There is mildly increased left ventricular wall thickness. Left ventricular septal wall motion is normal. The left ventricular diastolic function is normal. Right Ventricle Right ventricular chamber dimension is normal. Right ventricular systolic function is normal. Left Atria Left atrial chamber dimension is normal. Right Atria Right atrial chamber dimension is normal. Aortic Valve The aortic valve is trileaflet. There is no aortic valve sclerosis. There is no aortic valve stenosis. There is no aortic valve regurgitation. There is mild aortic valve calcification. Pulmonic Valve The pulmonic valve is normal. There is no pulmonic valve stenosis. There is no pulmonic regurgitation. Mitral Valve The mitral valve has normal leaflets. There is no mitral valve stenosis. There is no mitral valve regurgitation. There is mild mitral valve calcification. Tricuspid Valve The tricuspid valve leaflets are normal. There is no significant tricuspid valve stenosis. There is no tricuspid valve regurgitation. No pulmonary hypertension, estimated pulmonary arterial systolic pressure is Empty. Pericardium/Pleural The pericardium appears epicardial fat pad. There is no pericardial effusion. Inferior Vena Cava Normal inferior vena cava with <50% collapse upon inspiration consistent with Empty right atrial pressure, 10 mmHg. Aorta The aortic root size at the sinus of Valsalva is normal. The prox ascending aorta size is normal. Left Ventricular Outflow Tract Name Value Normal LVOT 2D LVOT Diameter 1.94 cm LVOT Doppler LVOT Peak Gradient 5 mmHg LVOT Mean Gradient 3 mmHg LVOT VTI 27.94 cm LVOT VTI/AV VTI Ratio 0.92 LVOT Stroke Volume 68.41 ml LVOT CO 6.02 l/min LVOT CI 3.01 L/min/m2 Pulmonic Valve Name Value Normal RVOT Doppler RVOT Peak Gradient 3 mmHg PV Doppler PV Peak Gradient 3 mmHg Mitral Valve Name Value Normal MV Doppler MV Decel [place] 589.44 cm/s2 MV PHT 0 s MV Area (PHT) 5.25 cm2 4.00-5.00 MV Diastolic Function MV E Peak Velocity 85.24 cm/s MV A Peak Velocity 94.93 cm/s MV E/A 0.90 MV Decel Time 0 s MV Annular TDI MV E/e' (Septal) 10.28 <=8.00 MV E/e' (Lateral) 6.18 <=8.00 MV E/e' (Average) 8.23 Tricuspid Valve Name Value Normal Estimated PAP/RSVP RA Pressure 10 mmHg <=5 Aorta Name Value Normal Ascending Aorta Ao Root Diameter (MM) 3.79 cm Ao Root Diam Index (MM) 1.86 cm/m2 Aortic Valve Name Value Normal AV Doppler AV Peak Velocity 152.86 cm/s AV Peak Gradient 8 mmHg AV Mean Gradient 5 mmHg AV VTI 30.50 cm AV Area (Cont Eq VTI) 2.47 cm2 >=3.00 AV Area (Cont Eq Mauricio) 2.25 cm2 AV Regurgitation 2D LVOT Area 2.96 cm2 Ventricles Name Value Normal LV Dimensions 2D/MM IVS Diastolic Thickness (2D) 0.92 cm 0.60-1.00 LVID Diastole (2D) 3.61 cm 4.20-5.80 LVIW Diastolic Thickness (2D) 1.22 cm 0.60-1.00 LVID Systole (2D) 2.37 cm 2.50-4.00 LVOT Diameter 1.94 cm LV Mass (2D Cubed) 119.77 g 88.00-224.00 LV Mass Index (2D Cubed) 0.01 g/cm2 0.00-0.01 Relative Wall Thickness (2D) 0.68 LV Fractional Shortening/Ejection Fraction 2D/MM LV Fractional Shortening (2D) 27 % 25-43 LV EF (2D Teicholz) 53 % 52-72 LV Diastolic Volume (4C MOD) 95.29 ml LV EF (4C MOD) 70 % LV Diastolic Volume (2C MOD) 89.73 ml LV EF (2C MOD) 67 % LV Diastolic Volume (BP MOD) 99.69 ml 62.00-150.00 LV Diastolic Volume Index (BP MOD) 0.05 l/m2 0.03-0.07 LV Systolic Volume (BP MOD) 29.65 ml 21.00-61.00 LV Systolic Volume Index (BP MOD) 0.01 l/m2 0.01-0.03 LV EF (BP MOD) 70 % 52-72 LV Diastolic Length (4C) 8.84 cm LV Systolic Length (4C) 7.28 cm LV Stroke Volume (4C MOD) 66.80 ml Atria Name Value Normal LA Dimensions LA Dimension (MM) 3.60 cm 3.00-4.10 LA Volume (4C A-L) 46.02 ml LA Volume (BP A-L) 58.28 ml RA Dimensions RA Area (4C) 14.76 cm2 <=18.00 Report Signatures
[2024-09-10 00:03] LABS: Glucose Point of Care 195 mg/dl (65-105)
[2024-09-10] MEDS: METOPROLOL TARTRATE 6.25 MG TABLET PO ×4 (01:04→17:01)
[2024-09-10 05:24] LABS: Eosinophils Percent Auto 0.5 % (0-4.4); Hematocrit 24.8 % (42.0-52.0); Hemoglobin 7.6 g/dL (14.0-18.0); Immature Granulocyte Absolute 0.16 K/mm3 (0.00-0.031); Lymphocytes Absolute Auto 0.36 K/mm3 (0.9-3.2); Lymphocytes Percent Auto 18.1 % (18.3-44.2); Mean Corpuscular HGB Conc 30.6 g/dl (32-36); Mean Corpuscular Hemoglobin 28.1 pg (26-34); Mean Corpuscular Volume 91.9 fl (80-100); Mean Platelet Volume 9.2 fl (7.4-10.4); Monocytes Absolute Auto 0.2 K/mm3 (0.1-0.6); Monocytes Percent Auto 10.6 % (2.6-8.5); Neutrophils Absolute Auto 1.2 K/mm3 (1.3-6.7); Neutrophils Percent Auto 60.8 % (45.5-73.1); Platelet Count Result 170 k/mm3 (150-375); Red Cell Distribution Width 18.4 % (11.5-14.5)
[2024-09-10 05:36] LABS: Anion Gap 6 mmol/L (4-12); Blood Urea Nitrogen 3 mg/dL (9-20); Calcium 7.4 mg/dL (8.4-10.2); Carbon Dioxide 18 mmol/L (22-30); Chloride 111 mmol/L (98-107); Estimated CRCL calculation 159 ml/min; Estimated Glomerular Filt Rate > 60; Glucose 171 mg/dL (65-110); Potassium 3.6 mmol/L (3.4-5.0); Sodium 135 mmol/L (137-145)
[2024-09-10] MEDS: SODIUM CHLORIDE 0.9% IV 1,000 ML 125 ML IV CONT ×2 (05:47→13:46)
[2024-09-10 05:49] LABS: Anisocytosis 1+; Platelet Estimate Adequate (Adequate)
[2024-09-10 05:50] LABS: Poikilocytosis 1+; Schistocytes None Seen
[2024-09-10 08:25] LABS: Glucose Point of Care 159 mg/dl (65-105)
[2024-09-10] MEDS: POTASSIUM PHOS/SODIUM PHOS 250 MG TABLET 500 MG PO (08:46)
[2024-09-10] MEDS: PIOGLITAZONE HCL 45 MG TABLET PO (08:47)
[2024-09-10] MEDS: AMOXICILLIN/CLAVULANATE K 875-125 MG TAB 1 TABLET PO ×2 (08:47→20:21)
[2024-09-10] MEDS: calcitrioL 0.25 MCG CAPSULE 0.5 MCG PO ×2 (08:47→16:57)
[2024-09-10] MEDS: POLYSACCHARIDE IRON COMPLEX 150 MG CAPSULE PO (08:47)
[2024-09-10] MEDS: GABAPENTIN 400 MG CAPSULE 800 MG PO ×2 (08:48→16:57)
[2024-09-10] MEDS: CHOLECALCIFEROL 1,000 UNITS TABLET 1000 UNITS PO (08:48)
[2024-09-10] MEDS: PANTOPRAZOLE 40 MG TABLET PO ×2 (08:48→20:21)
[2024-09-10] MEDS: CALCIUM CARBONATE (OSCAL) 500 MG TABLET PO ×4 (08:48→20:21)
[2024-09-10] MEDS: CYANOCOBALAMIN 500 MCG TABLET PO (08:48)
[2024-09-10] MEDS: MAGNESIUM OXIDE 400 MG TABLET PO (08:49)
[2024-09-10] MEDS: MEGESTROL ACETATE (*CHEMO) ORAL SUSP 40 MG/ML SYR 400 MG PO (08:49)
[2024-09-10] MEDS: ENOXAPARIN 40 MG/0.4 ML SYRINGE SUB-Q (08:49)
[2024-09-10] MEDS: predniSONE 5 MG TABLET PO ×2 (08:53→20:21)
[2024-09-10] MEDS: PERFLUTREN LIPID MICROSPHERES 1.5 ML VIAL DILUTED TO 10 ML TOTAL VOLUME IV PUSH (10:20)
[2024-09-10 11:49] LABS: Glucose Point of Care 232 mg/dl (65-105)
[2024-09-10] MEDS: INSULIN ASPART (*BKC) 100 UNITS/ML SUB-Q ×2 (12:16→20:30)
--- NOTE | 2024-09-10 13:13 | IVDEFINITY ---
Prior to administration of IV Definity the patient was educated on the risks and benefits of the imaging enhancing agent including potential adverse side effects. The patient verbalized understanding. Allergies were verified. No exclusion criteria were identified and at least one of the following inclusion criteria were met: 1) physician request, 2) patient technically difficult to image (per the [place] [employer] guidelines of two or more segments not discernable within the apical view), or 3) questionable left ventricular function. ?
[2024-09-10] MEDS: OXYMETAZOLINE HCL 0.05% NAS 15 ML BTL (*BKC) 1 SPRAY NASAL (14:28)
--- NOTE | 2024-09-10 14:32 | P.PNIM_ITS ---
Progress Note: A&P Assessment and Plan (1) Hypotension: Qualifiers: Hypotension type: unspecified hypotension type Qualified Code(s): I95.9 - Hypotension, unspecified Code(s): I95.9 - Hypotension, unspecified Status: Resolved Assessment and Plan: 09/10/24: * Resolved. Blood pressures improved --Follow VS (2) Neutropenia: Code(s): D70.9 - Neutropenia, unspecified Status: Acute Assessment and Plan: 09/10/24: * WBC's 2.0. * Oncology is consulted. Awaiting recs. * Await Blood cultures. WBC low, neutropenic. WBC 1.4<1.7, neutropenia --discuss filgrastim with oncology (3) UTI (urinary tract infection): Code(s): N39.0 - Urinary tract infection, site not specified Status: Ruled-out Assessment and Plan: 09/10/24: * Final urine culture is without any growth. * Transition to oral abx of Augmentin. (4) Type 2 diabetes mellitus with diabetic polyneuropathy: Qualifiers: Diabetes mellitus medical terminologist insulin use: without medical terminologist use Qualified Code(s): E11.42 - Type 2 diabetes mellitus with diabetic polyneuropathy Code(s): E11.42 - Type 2 diabetes mellitus with diabetic polyneuropathy Status: Acute Assessment and Plan: 09/10/24: * Continue current regimen. Home meds: Actos, Metformin, Have been holding glimeperide for poor PO intake per PCP Blood sugars intermittently above goal --Coninue SSI --Continue actos, holding metformin (5) Prostate cancer: Code(s): C61 - Malignant neoplasm of prostate Status: Acute Assessment and Plan: 09/10/24; * Awaiting Dr. Domenico lorenz and recommendations. Recieving chemotherapy outpatient --Follows with Dr. Acuña --Oncology consult for neutropenia and management (6) SIRS (systemic inflammatory response syndrome): Code(s): R65.10 - Systemic inflammatory response syndrome (SIRS) of non-infectious origin without acute organ dysfunction Status: Resolved Assessment and Plan: 09/10/24: * Negative Urine cx. * Continue Augmentin to complete a full course. * CXR without acute infectious source. * Await Blood cultures * Trend and monitor labs and VS. Hypotensive and tachycardic prior to antibiotics. Reporting dysuria, now resolved. UA positive --Urine culture negative but received Cefepime and Vancomycin prior to culture --Follow blood cultures 09/07 --Follow WBC and temps --Stop Cefepime, change to augmentin 875/125 BID since fever to 101 and hypotensive on 09/07 and monitor. Dysuria resolved. Monitor on augmentin. Monitor off IV antibiotics (7) Tachycardia: Code(s): R00.0 - Tachycardia, unspecified Status: Resolved Assessment and Plan: Heart rate elevated to the 160's intermittently Concern for afib on initial EKG. Repeat EKG Sinus tach with frequent supraventricular premature complexes Rates intermittently to 140's. Sinus arrhythmia vs afib Metoprolol for rate control 6.25 q6. Rate control may be limited by blood pressure Add on TSH Repleting electrolytes TTE Cardiology consult Holding off on anticoagulation for now after discussion with patient and family. Risk of falls. Overall risk of stroke 3% in a year if intermittently in afib Time Spent With Patient Time with patient: 15 - 25 minutes Subjective Date/time seen: 09/10/24 0850 Interval history: This pt was examined today at the bedside and is found to have no definite cause of his presenting sepsis. He states he feels better overall and is feeling stronger. Currently being treated with Augmentin, downgrading from IV abx. No longer meeting sepsis criteria, but pt's first symptom with his initial sepsis presentation this hospitalization was tachycardia. ECHO was performed today and cardiology is consulted, but we have no results as of yet. Dr. Acuña was also consulted. No new complaints. Review of Systems Review of Systems: All systems reviewed & are unremarkable except as noted in HPI and below Exam Narrative: General - Awake and alert. No acute distress, obese male pt lying supine at this time. Eyes - PERRLA, EOM intact ENT - No thrush, No erythema Neck - No noticeable or palpable swelling Lymph Nodes - No lymphadenopathy Cardiovascular - Irregular, no m/r/g, no JVD Lungs: Clear to auscultation, No wheezing, use of accessory muscles, no crackles or wheezes. Skin - Skin warm and dry, no wounds or rashes Abdomen - Normal bowel sounds, abdomen soft and nontender Extremities - No edema, cyanosis or clubbing Musculoskeletal - 5/5 strength, normal range of motion, no swollen or erythem atous joints. Neurological ? Alert and oriented x 3, CN 2-12 grossly intact. Psych: Normal mood and affect Objective Data Vital Signs Vital Signs: Vital Signs - 24 hr 09/09/24 16:00 09/09/24 16:00 09/09/24 16:00 Temperature 97.9 F Pulse Rate 90 94 Respiratory Rate 20 Blood Pressure 114/60 Pulse Oximetry 100 Oxygen Delivery Room Air 09/09/24 18:00 09/09/24 18:57 09/09/24 19:17 Temperature 98.3 F Pulse Rate 92 95 104 H Respiratory Rate 20 Blood Pressure 115/60 Pulse Oximetry 100 Oxygen Delivery 09/09/24 20:00 09/09/24 20:10 09/09/24 22:00 Temperature Pulse Rate 97 104 H 87 Respiratory Rate 20 Blood Pressure Pulse Oximetry 100 Oxygen Delivery Room Air 09/10/24 00:00 09/10/24 00:40 09/10/24 00:40 Temperature 97.6 F Pulse Rate 95 87 87 Respiratory Rate 20 20 Blood Pressure 119/59 L Pulse Oximetry 96 96 Oxygen Delivery Room Air 09/10/24 01:04 09/10/24 02:00 09/10/24 04:00 Temperature Pulse Rate 91 80 87 Respiratory Rate Blood Pressure Pulse Oximetry Oxygen Delivery 09/10/24 04:02 09/10/24 04:02 09/10/24 05:45 Temperature 98.3 F Pulse Rate 85 85 98 Respiratory Rate 16 16 Blood Pressure 119/66 Pulse Oximetry 99 99 Oxygen Delivery Room Air 09/10/24 06:00 09/10/24 08:00 09/10/24 08:00 Temperature 98.1 F Pulse Rate 98 85 Respiratory Rate 22 H Blood Pressure 117/52 L Pulse Oximetry 97 Oxygen Delivery Room Air 09/10/24 08:00 09/10/24 10:00 09/10/24 12:00 Temperature 98 F Pulse Rate 93 103 H 102 H Respiratory Rate 28 H Blood Pressure 140/67 Pulse Oximetry 97 Oxygen Delivery 09/10/24 12:00 Temperature Pulse Rate 86 Respiratory Rate Blood Pressure Pulse Oximetry Oxygen Delivery Intake/Output Intake/Output: Intake & Output 09/07/24 09/08/24 09/09/24 09/10/24 23:59 23:59 23:59 23:59 Intake Total 3600 4270 5470 3394.9 Output Total 6467 869 4145 Balance 3600 2845 4870 1094.9 Meds/Results Medications: Active Medications Generic Name Dose Route Start Last Admin Trade Name Freq PRN Reason Stop Dose Admin Acetaminophen 650 mg 09/07/24 18:16 Acetaminophen 325 Mg Tablet PO Q4H PRN Mild Pain (1-3) or Fever Amoxicillin/Clavulanate Potassium 1 tablet 09/09/24 21:00 09/10/24 08:47 Amoxicillin/Clavulanate K 875-125 Mg Tab PO 09/12/24 20:59 1 tablet Q12HR DUSTY Administration Atorvastatin Calcium 20 mg 09/08/24 21:00 09/09/24 21:20 Atorvastatin 20 Mg Tablet PO 20 mg HS DUSTY Administration Calcitriol 0.5 mcg 09/08/24 09:00 09/10/24 08:47 Calcitriol 0.25 Mcg Capsule PO 0.5 mcg BID DUSTY Administration Calcium Carbonate 500 mg 09/08/24 09:00 09/10/24 12:16 Calcium Carbonate (Oscal) 500 Mg Tablet PO 500 mg QID DUSTY Administration Cyanocobalamin 500 mcg 09/08/24 09:00 09/10/24 08:48 Cyanocobalamin 500 Mcg Tablet PO 500 mcg DAILY DUSTY Administration Dextrose 12.5 gm 09/07/24 20:47 Dextrose 50% 25 Gm/50 Ml Syringe IV PUSH PRN PRN Hypoglycemia Protocol Enoxaparin Sodium 40 mg 09/08/24 09:00 09/10/24 08:49 Enoxaparin 40 Mg/0.4 Ml Syringe SUB-Q 40 mg DAILY DUSTY Administration Gabapentin 800 mg 09/08/24 09:00 09/10/24 08:48 Gabapentin 400 Mg Capsule PO 800 mg BID DUSTY Administration Glucagon 1 mg 09/07/24 20:47 Glucagon For Inj 1 Mg Vial IM PRN PRN Hypoglycemia Protocol Glucose 15 gm 09/07/24 20:47 Glucose Oral Gel 15 Gm Of Glucse In 37.5 Gm Tube PO PRN PRN Hypoglycemia Protocol Sodium Chloride 1,000 mls @ 125 mls/hr 09/07/24 18:20 09/10/24 13:46 Normal Saline Iv IV CONT 125 mls/hr .Q8H DUSTY Administration Dextrose 1,000 mls @ 100 mls/hr 09/07/24 20:47 Dextrose 5% 1,000 Ml IVPB PRN PRN Hypoglycemia Protocol Insulin Aspart 2 - 5 units 09/08/24 08:00 09/10/24 12:16 Insulin Aspart (*Bkc) 100 Units/Ml SUB-Q 2 units TIDWM DUSTY Administration Protocol Insulin Aspart 1 - 2 units 09/07/24 21:00 09/09/24 21:34 Insulin Aspart (*Bkc) 100 Units/Ml SUB-Q Not Given HS DUSTY Protocol Megestrol Acetate 400 mg 09/09/24 09:00 09/10/24 08:49 Megestrol Acetate (*Chemo) Oral Susp 40 Mg/Ml Syr PO 400 mg QAM DUSTY Administration Metoprolol Tartrate 6.25 mg 09/09/24 11:15 09/10/24 12:16 Metoprolol Tartrate 6.25 Mg Tablet PO 6.25 mg Q6HR DUSTY Administration Ondansetron HCl 4 mg 09/07/24 18:16 Ondansetron Inj 4 Mg/2 Ml Vial IV PUSH Q4H PRN Nausea Oxycodone HCl 5 mg 09/08/24 00:25 Oxycodone Hcl (*Crx) 5 Mg Tab Ir PO Q4H PRN pain (scale score 7-10) Oxymetazoline HCl 1 spray 09/10/24 12:58 09/10/24 14:28 Oxymetazoline Hcl 0.05% Kyle 15 Ml Btl (*Bkc) NASAL 1 spray Q12HR PRN Administration Congestion Pantoprazole Sodium 40 mg 09/08/24 09:00 09/10/24 08:48 Pantoprazole 40 Mg Tablet PO 40 mg Q12HR DUSTY Administration Pioglitazone HCl 45 mg 09/08/24 09:00 09/10/24 08:47 Pioglitazone Hcl 45 Mg Tablet PO 45 mg DAILY DUSTY Administration Polysaccharide Iron Complex 150 mg 09/08/24 09:40 09/10/24 08:47 Polysaccharide Iron Complex 150 Mg Capsule PO 150 mg DAILY DUSTY Administration Prednisone 5 mg 09/08/24 09:00 09/10/24 08:53 Prednisone 5 Mg Tablet PO 5 mg Q12HR DUSTY Administration Tamsulosin HCl 0.4 mg 09/07/24 21:55 09/09/24 21:20 Tamsulosin Hcl 0.4 Mg Capsule PO 0.4 mg HS DUSTY Administration Vitamin D 1,000 units 09/08/24 09:00 09/10/24 08:48 Cholecalciferol 1,000 Units Tablet PO 1,000 units DAILY DUSTY Administration Radiology Results: ITS Impressions Chest X-Ray 09/07/24 15:52 IMPRESSION: No acute cardiopulmonary process. Kinked implanted port catheter, a chronic finding. Likely not clinically significant if there is normal port function. Diffuse osseous metastatic disease. Labs Labs: Laboratory Results - last 24 hr 09/09/24 09/09/24 09/10/24 16:18 21:32 04:26 WBC 2.0 L RBC 2.70 L Hgb 7.6 L Hct 24.8 L MCV 91.9 MCH 28.1 MCHC 30.6 L RDW 18.4 H Plt Count 170 MPV 9.2 Immature Gran % (Auto) 8.0 H Neut % (Auto) 60.8 Lymph % (Auto) 18.1 L [place] % (Auto) 10.6 H Eos % (Auto) 0.5 Baso % (Auto) 2.0 H Lymph # (Auto) 0.36 L [place] # (Auto) 0.2 Eos # (Auto) 0.0 Baso # (Auto) 0.0 Abs Immat Gran (auto) 0.16 H Absolute Neuts (auto) 1.2 L Absolute Nucleated RBC 0.020 H Nucleated RBC % 1.0 H Platelet Estimate Adequate Poikilocytosis 1+ Anisocytosis 1+ Schistocytes None seen Sodium 135 L Potassium 3.6 Chloride 111 H Carbon Dioxide 18 L Anion Gap 6 BUN 3 L Creatinine 0.35 L Estim Creat Clear Calc 159 Estimated GFR > 60 Glucose 171 H POC Capillary Glucose 196 H 195 H Calcium 7.4 L 09/10/24 09/10/24 07:48 11:25 WBC RBC Hgb Hct MCV MCH MCHC RDW Plt Count MPV Immature Gran % (Auto) Neut % (Auto) Lymph % (Auto) [place] % (Auto) Eos % (Auto) Baso % (Auto) Lymph # (Auto) [place] # (Auto) Eos # (Auto) Baso # (Auto) Abs Immat Gran (auto) Absolute Neuts (auto) Absolute Nucleated RBC Nucleated RBC % Platelet Estimate Poikilocytosis Anisocytosis Schistocytes Sodium Potassium Chloride Carbon Dioxide Anion Gap BUN Creatinine Estim Creat Clear Calc Estimated GFR Glucose POC Capillary Glucose 159 H 232 H Calcium Quality VTE Prophylaxis VTE prophylaxis: pharmacologic ordered
--- NOTE | 2024-09-10 15:47 | PM.CNCAR ---
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: without 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 Check TSH, free T3 and T4 2. Obtain TTE 3. Check electrolytes and replace keeping potassium greater than 4 and magnesium greater than 2 4. Monitor H&H daily and transfuse for hemoglobin less than 7 5. Continue metoprolol 6.25 mg q.6 hours. Can switch to 12.5 mg b.i.d. Target heart rate less 90 6. Keep well-hydrated and to avoid dehydration 7. Management of other medical problems per primary team History of Present Illness History of Present Illness Consult date/time: 09/10/24 15:47 Reason For Visit: prostate cancer febrille illness Narrative: 69-year-old male with past medical history of metastatic prostate cancer with metastasis to bone on chemotherapy, hypertension, hyperlipidemia, type 2 diabetes presented to the ER from the chemotherapy infusion center due to shortness of breath and tachycardia. When patient was getting ready for the infusion, he was noted to be tachycardic with heart rates in the 140s. He was also tachypneic. He was sent to the ER for further evaluation. In the ER patient was noted to have a temperature of 101?. His blood pressure was normal at presentation but quickly dropped to 73/54. This improved with 2 L of saline. He reported chronic sinus congestion and tightness in his throat when he lays down for several months. He is overall feeling weak and tired and had not been drinking enough fluids. He also reported burning urination. Cardiology was consulted for sinus tachycardia/concern for atrial fibrillation. Patient denies any chest pain, dizziness, lightheadedness, palpitations at this time. No leg swelling, recent weight gain. He reports feeling very tired and weak at the time of his chemotherapy. He also reports shortness of breath prior to his admission. Pertinent workup: EKG: ST, NSTWA, PACs CXR: IMPRESSION: No acute cardiopulmonary process. Kinked implanted port catheter, a chronic finding. Likely not clinically significant if there is normal port function. Diffuse osseous metastatic disease. Review of Systems Review of Systems: A complete review of systems was performed and is mentioned in the HPI. [facility] Past Medical History Medical History (Updated 09/10/24 @ 14:41 by JUAN Ace) Prostate cancer metastatic to bone History of colon polyps Essential tremor Abnormal colonoscopy 06/03 Tubular adenoma Type 2 diabetes mellitus with diabetic polyneuropathy Aortic atherosclerosis CT 02/06 Mixed hyperlipidemia Surgical History Surgical History (Updated 09/07/24 @ 20:28 by Vanessa Zimmerman DO) Port-A-Cath in place History of total right hip replacement (09/2023) H/O colonoscopy with polypectomy Hx of left knee surgery (~08/1996) Cartilage removed Family History Family History Father Lung cancer Glaucoma Mother Breast cancer Sibling Arrhythmia Social History Social History (Updated 09/08/24 @ 01:00 by Vanessa Zimmerman DO) Social History: The patient lives with his of 45 years. 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 The patient occasionally socially drinks alcohol but has never used any tobacco products. Code status: Full Code Surrogate decision maker: Josee () Smoking status: Never smoker Second hand tobacco smoke exposure: Yes Alcohol intake: former Drinks per week: 5 Substance use: never Substance use type: does not use Do You Feel Safe in your Home?: Yes Lack of Transportation: No Lack of Food: Never True Current Housing: I Have Housing Concerned About Future Housing: No Difficulty Paying Gas/Electric Bills: No Difficulty Paying for Meds: No Currently Unemployed: No Education: Associate Degree Difficulty w/ Childcare or Family Care: No Living arrangements: with family Occupation/Education: occupation 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 Gender identity (if verbalized by the patient): Male Sexual Orientation (if Verbalized by the Patient): Straight or Heterosexual Spiritual care concerns: No Agree to blood products: Yes Meds Home Medications and Allergies Home Medications ?Medication ?Instructions ?Recorded ?Confirmed ?Type tamsulosin 0.4 mg capsule 0.4 mg PO HS 02/24/23 09/07/24 History cyanocobalamin (vitamin B-12) 500 mcg PO DAILY 03/10/23 09/07/24 History 1,000 mcg tablet prednisone 5 mg tablet 5 mg PO Q12H 03/10/23 09/07/24 History omeprazole 40 mg capsule,delayed 40 mg PO DAILY 10/07/23 09/07/24 History release polysaccharide iron complex 150 mg 65 mg PO DAILY 10/07/23 09/07/24 History iron capsule (Ferrex) abiraterone 250 mg tablet 1,000 mg PO DAILY 04/17/24 09/07/24 History gabapentin 800 mg tablet 800 mg PO BID 04/17/24 09/07/24 History metformin 500 mg tablet See Rx Instructions .Route 05/06/24 09/07/24 Rx .COMPLEX #360 tabs pioglitazone 45 mg tablet See Rx Instructions .Route 08/29/24 09/07/24 Rx .COMPLEX #90 tabs atorvastatin 20 mg tablet See Rx Instructions .Route 09/07/24 09/07/24 Rx .COMPLEX #30 tabs calcitriol 0.5 mcg capsule 0.5 mcg PO BID 09/07/24 09/08/24 History calcium 600 mg capsule 600 mg PO QID 09/07/24 09/07/24 History cholecalciferol (vitamin D3) 25 25 mcg PO DAILY 09/07/24 09/07/24 History mcg (1,000 unit) capsule (Vitamin D3) glimepiride 2 mg tablet 2 mg PO DAILY 09/08/24 09/08/24 History megestrol 400 mg/10 mL (40 mg/mL) 400 mg PO DAILY 09/08/24 09/08/24 History oral suspension ondansetron 8 mg disintegrating 8 mg translingual Q8H PRN nausea 09/08/24 09/08/24 History tablet and vomiting oxycodone 5 mg tablet 5 mg PO Q4H PRN pain (scale score 09/08/24 09/08/24 History 7-10) Allergies Allergy/AdvReac Type Severity Reaction Status Date / Time No Known Allergies Allergy Verified 09/07/24 16:23 Vital Signs Vital Signs - 24 hr 09/09/24 16:00 09/09/24 16:00 09/09/24 16:00 Temperature 36.6 C Pulse Rate 90 94 Respiratory Rate 20 Blood Pressure 114/60 Pulse Oximetry 100 Oxygen Delivery Room Air 09/09/24 18:00 09/09/24 18:57 09/09/24 19:17 Temperature 36.8 C Pulse Rate 92 95 104 H Respiratory Rate 20 Blood Pressure 115/60 Pulse Oximetry 100 Oxygen Delivery 09/09/24 20:00 09/09/24 20:10 09/09/24 22:00 Temperature Pulse Rate 97 104 H 87 Respiratory Rate 20 Blood Pressure Pulse Oximetry 100 Oxygen Delivery Room Air 09/10/24 00:00 09/10/24 00:40 09/10/24 00:40 Temperature 36.4 C Pulse Rate 95 87 87 Respiratory Rate 20 20 Blood Pressure 119/59 L Pulse Oximetry 96 96 Oxygen Delivery Room Air 09/10/24 01:04 09/10/24 02:00 09/10/24 04:00 Temperature Pulse Rate 91 80 87 Respiratory Rate Blood Pressure Pulse Oximetry Oxygen Delivery 09/10/24 04:02 09/10/24 04:02 09/10/24 05:45 Temperature 36.8 C Pulse Rate 85 85 98 Respiratory Rate 16 16 Blood Pressure 119/66 Pulse Oximetry 99 99 Oxygen Delivery Room Air 09/10/24 06:00 09/10/24 08:00 09/10/24 08:00 Temperature 36.7 C Pulse Rate 98 85 Respiratory Rate 22 H Blood Pressure 117/52 L Pulse Oximetry 97 Oxygen Delivery Room Air 09/10/24 08:00 09/10/24 10:00 09/10/24 12:00 Temperature 36.6 C Pulse Rate 93 103 H 102 H Respiratory Rate 28 H Blood Pressure 140/67 Pulse Oximetry 97 Oxygen Delivery 09/10/24 12:00 Temperature Pulse Rate 86 Respiratory Rate Blood Pressure Pulse Oximetry Oxygen Delivery Exam Narrative: General: Alert oriented x3, no acute distress Neck: Supple, JVD + Chest: Bilaterally clear to auscultation, no rales or rhonchi Cardiac: S1, S2 +, regular rate, regular rhythm, no murmurs or rubs Extremities: Bilateral lower extremity edema 1+, no skin rash Neurologic: Alert and oriented x3, no focal neurological deficits Results Labs and Meds 09/10/24 04:26 09/10/24 04:26 Lab results: CBC 09/10/24 Range/Units 04:26 WBC 2.0 L (4.5-10.0) K/mm3 RBC 2.70 L (4.6-6.20) M/mm3 Hgb 7.6 L (14.0-18.0) g/dL Hct 24.8 L (42.0-52.0) % Plt Count 170 (150-375) k/mm3 Lymph # (Auto) 0.36 L (0.9-3.2) K/mm3 [place] # (Auto) 0.2 (0.1-0.6) K/mm3 Eos # (Auto) 0.0 (0-0.3) K/mm3 Baso # (Auto) 0.0 (0.0-0.1) K/mm3 Comprehensive Metabolic Panel 09/10/24 Range/Units 04:26 Sodium 135 L (137-145) mmol/L Potassium 3.6 (3.4-5.0) mmol/L Chloride 111 H (98-107) mmol/L Carbon Dioxide 18 L (22-30) mmol/L BUN 3 L (9-20) mg/dL Creatinine 0.35 L (0.7-1.3) mg/dL Glucose 171 H (65-110) mg/dL Calcium 7.4 L (8.4-10.2) mg/dL Intake and Output 09/09/24 09/10/24 09/10/24 23:59 07:59 15:59 Intake Total 2340 1577 1817.9 Output Total 1700 600 Balance 2340 -123 1217.9 Intake: IV 1000 957 997.9 Sodium Chloride 0.9% IV 1,000 1000 957 997.9 ml @ 125 mls/hr IV CONT .Q8H [facility] Rx#:[id number] Oral 1340 620 820 Output: Urine 1700 600 Patient Weight 09/10/24 23:59 Weight 84.2 kg
[2024-09-10 17:11] LABS: Glucose Point of Care 171 mg/dl (65-105)
--- NOTE | 2024-09-10 19:02 | WPDONCCN ---
Assessment and Plan Assessment and plan (1) Prostate cancer: Code(s): C61 - Malignant neoplasm of prostate Status: Acute Assessment and Plan: Patient was diagnosed with metastatic prostate cancer with bone involvement in February of 2023. He has been on Lupron injection along with Zytiga and prednisone. He finished initial round of chemotherapy with Taxotere in June of 2023 but the chemotherapy with restarted in April of 2024 due to rising PSA. Patient is due to have chemotherapy today we. We will hold chemotherapy until next week until he starts feeling better and more energetic. I will check PSA now. Plan Pancytopenia. This is secondary to metastatic prostate cancer and chemotherapy-induced pancytopenia. I will check iron studies and vitamin B12 level today. ANC is stable and no need for Neupogen support. He will continue oral iron and vitamin B12. I will give him a dose of Procrit 16819 units while he is inpatient and continue that as an outpatient for chemotherapy-induced anemia. HPI Data of Consult Date/Time: 09/10/24 19:02 Requesting Physician: JUAN Ace Primary Care Provider: Shaheen Foley MD Consult Narrative Narrative: Norman Byers is a 69 year old male with history of metastatic prostate cancer with widespread bone metastasis. Patient is currently on weekly chemotherapy with Taxotere started again on April 2024 due to rising PSA. He is due to have chemotherapy today but came into the hospital on last Tuesday when he was in the office and having symptoms of nausea vomiting tiredness and fatigue. He was complaining of shortness of breath and tachycardia. He was sent to the ER from the clinic due to the symptoms. He is feeling much better now. Labs showed WBC count of 2.0 with hemoglobin of 7.6 and platelet of 170,000. Review of Systems Review of Systems: Review of system as per HPI otherwise negative PMFSH Past Medical History Medical History (Updated 09/10/24 @ 14:41 by JUAN Ace) Prostate cancer metastatic to bone History of colon polyps Essential tremor Abnormal colonoscopy 06/03 Tubular adenoma Type 2 diabetes mellitus with diabetic polyneuropathy Aortic atherosclerosis CT 02/06 Mixed hyperlipidemia Surgical History Surgical History (Updated 09/07/24 @ 20:28 by Vanessa Zimmerman DO) Port-A-Cath in place History of total right hip replacement (09/2023) H/O colonoscopy with polypectomy Hx of left knee surgery (~08/1996) Cartilage removed Family History Family History Father Lung cancer Glaucoma Mother Breast cancer Sibling Arrhythmia Social History Social History (Updated 09/08/24 @ 01:00 by Vanessa Zimmerman DO) Social History: The patient lives with his of 45 years. 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 The patient occasionally socially drinks alcohol but has never used any tobacco products. Code status: Full Code Surrogate decision maker: Josee () Smoking status: Never smoker Second hand tobacco smoke exposure: Yes Alcohol intake: former Drinks per week: 5 Substance use: never Substance use type: does not use Do You Feel Safe in your Home?: Yes Lack of Transportation: No Lack of Food: Never True Current Housing: I Have Housing Concerned About Future Housing: No Difficulty Paying Gas/Electric Bills: No Difficulty Paying for Meds: No Currently Unemployed: No Education: Associate Degree Difficulty w/ Childcare or Family Care: No Living arrangements: with family Occupation/Education: occupation 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 Gender identity (if verbalized by the patient): Male Sexual Orientation (if Verbalized by the Patient): Straight or Heterosexual Spiritual care concerns: No Agree to blood products: Yes Meds Home Medications and Allergies Home Medications ?Medication ?Instructions ?Recorded ?Confirmed ?Type tamsulosin 0.4 mg capsule 0.4 mg PO HS 02/24/23 09/07/24 History cyanocobalamin (vitamin B-12) 500 mcg PO DAILY 03/10/23 09/07/24 History 1,000 mcg tablet prednisone 5 mg tablet 5 mg PO Q12H 03/10/23 09/07/24 History omeprazole 40 mg capsule,delayed 40 mg PO DAILY 10/07/23 09/07/24 History release polysaccharide iron complex 150 mg 65 mg PO DAILY 10/07/23 09/07/24 History iron capsule (Ferrex) abiraterone 250 mg tablet 1,000 mg PO DAILY 04/17/24 09/07/24 History gabapentin 800 mg tablet 800 mg PO BID 04/17/24 09/07/24 History metformin 500 mg tablet See Rx Instructions .Route 05/06/24 09/07/24 Rx .COMPLEX #360 tabs pioglitazone 45 mg tablet See Rx Instructions .Route 08/29/24 09/07/24 Rx .COMPLEX #90 tabs atorvastatin 20 mg tablet See Rx Instructions .Route 09/07/24 09/07/24 Rx .COMPLEX #30 tabs calcitriol 0.5 mcg capsule 0.5 mcg PO BID 09/07/24 09/08/24 History calcium 600 mg capsule 600 mg PO QID 09/07/24 09/07/24 History cholecalciferol (vitamin D3) 25 25 mcg PO DAILY 09/07/24 09/07/24 History mcg (1,000 unit) capsule (Vitamin D3) glimepiride 2 mg tablet 2 mg PO DAILY 09/08/24 09/08/24 History megestrol 400 mg/10 mL (40 mg/mL) 400 mg PO DAILY 09/08/24 09/08/24 History oral suspension ondansetron 8 mg disintegrating 8 mg translingual Q8H PRN nausea 09/08/24 09/08/24 History tablet and vomiting oxycodone 5 mg tablet 5 mg PO Q4H PRN pain (scale score 09/08/24 09/08/24 History 7-10) Allergies Allergy/AdvReac Type Severity Reaction Status Date / Time No Known Allergies Allergy Verified 09/07/24 16:23 Vital Signs Vital Signs - 24 hr 09/09/24 19:17 09/09/24 20:00 09/09/24 20:10 Temperature 36.8 C Pulse Rate 104 H 97 104 H Respiratory Rate 20 20 Blood Pressure 115/60 Pulse Oximetry 100 100 Oxygen Delivery Room Air 09/09/24 22:00 09/10/24 00:00 09/10/24 00:40 Temperature 36.4 C Pulse Rate 87 95 87 Respiratory Rate 20 Blood Pressure 119/59 L Pulse Oximetry 96 Oxygen Delivery 09/10/24 00:40 09/10/24 01:04 09/10/24 02:00 Temperature Pulse Rate 87 91 80 Respiratory Rate 20 Blood Pressure Pulse Oximetry 96 Oxygen Delivery Room Air 09/10/24 04:00 09/10/24 04:02 09/10/24 04:02 Temperature 36.8 C Pulse Rate 87 85 85 Respiratory Rate 16 16 Blood Pressure 119/66 Pulse Oximetry 99 99 Oxygen Delivery Room Air 09/10/24 05:45 09/10/24 06:00 09/10/24 08:00 Temperature 36.7 C Pulse Rate 98 98 85 Respiratory Rate 22 H Blood Pressure 117/52 L Pulse Oximetry 97 Oxygen Delivery 09/10/24 08:00 09/10/24 08:00 09/10/24 10:00 Temperature Pulse Rate 93 103 H Respiratory Rate Blood Pressure Pulse Oximetry Oxygen Delivery Room Air 09/10/24 12:00 09/10/24 12:00 09/10/24 16:00 Temperature 36.6 C Pulse Rate 102 H 86 86 Respiratory Rate 28 H Blood Pressure 140/67 Pulse Oximetry 97 Oxygen Delivery 09/10/24 16:58 09/10/24 17:01 Temperature Pulse Rate 98 Respiratory Rate Blood Pressure 113/56 L Pulse Oximetry Oxygen Delivery Exam Narrative: Lungs are clear to auscultation bilaterally Cardiovascular regular rate rhythm no murmurs Abdomen soft nontender nondistended Extremities no edema Results Labs 09/10/24 04:26 09/10/24 04:26 Labs: Short CBC 09/10/24 Range/Units 04:26 WBC 2.0 L (4.5-10.0) K/mm3 Hgb 7.6 L (14.0-18.0) g/dL Hct 24.8 L (42.0-52.0) % Plt Count 170 (150-375) k/mm3 BMP 09/10/24 04:26 Sodium 135 L Potassium 3.6 Chloride 111 H Carbon Dioxide 18 L BUN 3 L Creatinine 0.35 L Glucose 171 H Calcium 7.4 L
[2024-09-10 19:55] LABS: Iron 50 ug/dL (49-181)
[2024-09-10 20:05] LABS: Percent Iron Saturation 23 % (20-50)
[2024-09-10] MEDS: EPOETIN ALFA 20,000 UNITS/ML VIAL 20000 UNITS SUB-Q (20:17)
[2024-09-10] MEDS: TAMSULOSIN HCL 0.4 MG CAPSULE PO (20:21)
[2024-09-10] MEDS: ATORVASTATIN 20 MG TABLET PO (20:21)
[2024-09-10 20:26] LABS: Glucose Point of Care 201 mg/dl (65-105)
[2024-09-10 21:49] LABS: Ferritin > 2000.00 ng/mL (11.1-264)
[2024-09-10 21:59] LABS: Prostate Specific Antigen 7.2 ng/mL (< OR = 4.0)
[2024-09-11] VITALS (9 sets, daily range): BP systolic 120–126; BP diastolic 63–66; PULSE 81–120; RESP 17–18; TEMP 36.5–36.6; O2SAT 97–98
[2024-09-11] MEDS: METOPROLOL TARTRATE 6.25 MG TABLET PO ×3 (00:32→12:31)
[2024-09-11 06:15] LABS: Basophils Absolute Auto 0.1 K/mm3 (0.0-0.1); Basophils Percent Auto 2.3 % (0.2-1.2); Eosinophils Percent Auto 0.9 % (0-4.4); Hematocrit 28.4 % (42.0-52.0); Hemoglobin 8.5 g/dL (14.0-18.0); Immature Granulocyte Percent A 9.3 % (0-0.5); Lymphocytes Absolute Auto 0.36 K/mm3 (0.9-3.2); Lymphocytes Percent Auto 16.7 % (18.3-44.2); Mean Corpuscular HGB Conc 29.9 g/dl (32-36); Mean Corpuscular Hemoglobin 28.1 pg (26-34); Mean Corpuscular Volume 93.7 fl (80-100); Mean Platelet Volume 9.5 fl (7.4-10.4); Monocytes Absolute Auto 0.3 K/mm3 (0.1-0.6); Monocytes Percent Auto 12.6 % (2.6-8.5); Neutrophils Absolute Auto 1.3 K/mm3 (1.3-6.7); Neutrophils Percent Auto 58.2 % (45.5-73.1); Nucleated Red Blood Cells Perc 1.4 % (0.0-0.2); Platelet Count Result 162 k/mm3 (150-375); Red Blood Count 3.03 M/mm3 (4.6-6.20); Red Cell Distribution Width 18.6 % (11.5-14.5); White Blood Count 2.2 K/mm3 (4.5-10.0)
[2024-09-11 06:35] LABS: Anion Gap 8 mmol/L (4-12); Blood Urea Nitrogen 4 mg/dL (9-20); Calcium 7.8 mg/dL (8.4-10.2); Carbon Dioxide 18 mmol/L (22-30); Chloride 110 mmol/L (98-107); Estimated CRCL calculation 180 ml/min; Estimated Glomerular Filt Rate > 60; Glucose 140 mg/dL (65-110); Potassium 3.8 mmol/L (3.4-5.0); Sodium 136 mmol/L (137-145)
[2024-09-11 07:11] LABS: Anisocytosis 1+; Burr Cells 1+; Ovalocytes 1+; Platelet Estimate Adequate (Adequate); Schistocytes None Seen
[2024-09-11 07:12] LABS: Tear Drop Cells 1+
--- NOTE | 2024-09-11 07:48 | P.PNIM_ITS ---
Progress Note: A&P Assessment and Plan (1) Neutropenia: Code(s): D70.9 - Neutropenia, unspecified Status: Acute Assessment and Plan: neutropenic fever * Oncology is consulted. * blood cultures with no growth today * ANC is stable and no need for Neupogen * Procrit 13241 units while he is inpatient and continue that as an outpatient for chemotherapy-induced anemia. (2) UTI (urinary tract infection): Code(s): N39.0 - Urinary tract infection, site not specified Status: Ruled-out Assessment and Plan: * Final urine culture is without any growth. * Transition to oral abx of Augmentin. 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 Acuña (5) SIRS (systemic inflammatory response syndrome): Code(s): R65.10 - Systemic inflammatory response syndrome (SIRS) of non-infectious origin without acute organ dysfunction Status: Resolved Assessment and Plan: * Negative Urine cx. * Continue Augmentin to complete a full course. * CXR without acute infectious source. * blood cultures no growth today * Trend and monitor labs and VS. (6) Tachycardia: Code(s): R00.0 - Tachycardia, unspecified Status: Resolved Assessment and Plan: secondary to neutropenic fever Heart rate elevated to the 160's intermittently Concern for afib on initial EKG. Repeat EKG Sinus tach with frequent supraventricular premature complexes Rates intermittently to 140's. Sinus arrhythmia vs afib Metoprolol for rate control 6.25 q6. Rate control may be limited by blood pressure Add on TSH Repleting electrolytes TTE pending Cardiology consult Holding off on anticoagulation for now after discussion with patient and family. Risk of falls. Overall risk of stroke 3% in a year if intermittently in afib (7) Hypotension: Qualifiers: Hypotension type: unspecified hypotension type Qualified Code(s): I95.9 - Hypotension, unspecified Code(s): I95.9 - Hypotension, unspecified Status: Resolved Assessment and Plan: * Resolved. Follow VS Incourage oral intake Subjective Date/time seen: 09/11/24 07:48 Interval history: 69-year-old male with past medical history metastatic prostate cancer with metastases to the bone on chemotherapy, essential hypertension and type 2 diabetes mellitus who presented to the ER from the infusion center due to tachycardia and shortness of breath pending of neutropenic fever and chemotherapy-induced pancytopenia. Currently being treated with Augmentin, downgrading from IV abx. Cardiology is consulted, with plan for KAV[facility]. Dr. Acuña was also consulted. No new complaints. Review of Systems Review of Systems: 12 systems were reviewed with pertinent positives and negatives per HPI. Except as documented in the HPI, all other systems were reviewed and are negative. Exam Narrative: General - Awake and alert. No acute distress, obese male pt lying supine at this time. Eyes - PERRLA, EOM intact ENT - No thrush, No erythema Neck - No noticeable or palpable swelling Lymph Nodes - No lymphadenopathy Cardiovascular - Irregular, no m/r/g, no JVD Lungs: Clear to auscultation, No wheezing, use of accessory muscles, no crackles or wheezes. Skin - Skin warm and dry, no wounds or rashes Abdomen - Normal bowel sounds, abdomen soft and nontender Extremities - No edema, cyanosis or clubbing Musculoskeletal - 5/5 strength, normal range of motion, no swollen or erythematous joints. Neurological ? Alert and oriented x 3, CN 2-12 grossly intact. Psych: Normal mood and affect Objective Data Vital Signs Vital Signs: Vital Signs - 24 hr 09/10/24 08:00 09/10/24 08:00 09/10/24 08:00 Temperature 98.1 F Pulse Rate 85 93 Respiratory Rate 22 H Blood Pressure 117/52 L Pulse Oximetry 97 Oxygen Delivery Room Air 09/10/24 10:00 09/10/24 12:00 09/10/24 12:00 Temperature 98 F Pulse Rate 103 H 102 H 86 Respiratory Rate 28 H Blood Pressure 140/67 Pulse Oximetry 97 Oxygen Delivery 09/10/24 16:00 09/10/24 16:58 09/10/24 17:01 Temperature Pulse Rate 86 98 Respiratory Rate Blood Pressure 113/56 L Pulse Oximetry Oxygen Delivery 09/10/24 20:00 09/10/24 20:21 09/10/24 22:00 Temperature 98.5 F Pulse Rate 88 81 Respiratory Rate 18 Blood Pressure 136/63 Pulse Oximetry 100 100 Oxygen Delivery Room Air 09/11/24 00:01 09/11/24 00:32 09/11/24 04:00 Temperature Pulse Rate 89 89 88 Respiratory Rate Blood Pressure Pulse Oximetry Oxygen Delivery 09/11/24 05:20 09/11/24 06:00 Temperature 97.9 F Pulse Rate 81 84 Respiratory Rate 18 Blood Pressure 126/66 Pulse Oximetry 97 Oxygen Delivery Intake/Output Intake/Output: Intake & Output 09/08/24 09/09/24 09/10/24 09/11/24 23:59 23:59 23:59 23:59 Intake Total 4270 5470 4034.9 Output Total 9703 665 1063 Balance 2845 4870 1734.9 Meds/Results Medications: Active Medications Generic Name Dose Route Start Last Admin Trade Name Freq PRN Reason Stop Dose Admin Acetaminophen 650 mg 09/07/24 18:16 Acetaminophen 325 Mg Tablet PO Q4H PRN Mild Pain (1-3) or Fever Amoxicillin/Clavulanate Potassium 1 tablet 09/09/24 21:00 09/10/24 20:21 Amoxicillin/Clavulanate K 875-125 Mg Tab PO 09/12/24 20:59 1 tablet Q12HR DUSTY Administration Atorvastatin Calcium 20 mg 09/08/24 21:00 09/10/24 20:21 Atorvastatin 20 Mg Tablet PO 20 mg HS DUSTY Administration Calcitriol 0.5 mcg 09/08/24 09:00 09/10/24 16:57 Calcitriol 0.25 Mcg Capsule PO 0.5 mcg BID DUSTY Administration Calcium Carbonate 500 mg 09/08/24 09:00 09/10/24 20:21 Calcium Carbonate (Oscal) 500 Mg Tablet PO 500 mg QID DUSTY Administration Cyanocobalamin 500 mcg 09/08/24 09:00 09/10/24 08:48 Cyanocobalamin 500 Mcg Tablet PO 500 mcg DAILY DUSTY Administration Dextrose 12.5 gm 09/07/24 20:47 Dextrose 50% 25 Gm/50 Ml Syringe IV PUSH PRN PRN Hypoglycemia Protocol Enoxaparin Sodium 40 mg 09/08/24 09:00 09/10/24 08:49 Enoxaparin 40 Mg/0.4 Ml Syringe SUB-Q 40 mg DAILY DUSTY Administration Gabapentin 800 mg 09/08/24 09:00 09/10/24 16:57 Gabapentin 400 Mg Capsule PO 800 mg BID DUSTY Administration Glucagon 1 mg 09/07/24 20:47 Glucagon For Inj 1 Mg Vial IM PRN PRN Hypoglycemia Protocol Glucose 15 gm 09/07/24 20:47 Glucose Oral Gel 15 Gm Of Glucse In 37.5 Gm Tube PO PRN PRN Hypoglycemia Protocol Dextrose 1,000 mls @ 100 mls/hr 09/07/24 20:47 Dextrose 5% 1,000 Ml IVPB PRN PRN Hypoglycemia Protocol Insulin Aspart 2 - 5 units 09/08/24 08:00 09/10/24 17:14 Insulin Aspart (*Bkc) 100 Units/Ml SUB-Q Not Given TIDWM DUSTY Protocol Insulin Aspart 1 - 2 units 09/07/24 21:00 09/10/24 20:30 Insulin Aspart (*Bkc) 100 Units/Ml SUB-Q 1 units HS DUSTY Administration Protocol Megestrol Acetate 400 mg 09/09/24 09:00 09/10/24 08:49 Megestrol Acetate (*Chemo) Oral Susp 40 Mg/Ml Syr PO 400 mg QAM DUSTY Administration Metoprolol Tartrate 6.25 mg 09/09/24 11:15 09/11/24 05:20 Metoprolol Tartrate 6.25 Mg Tablet PO 6.25 mg Q6HR DUSTY Administration Ondansetron HCl 4 mg 09/07/24 18:16 Ondansetron Inj 4 Mg/2 Ml Vial IV PUSH Q4H PRN Nausea Oxycodone HCl 5 mg 09/08/24 00:25 Oxycodone Hcl (*Crx) 5 Mg Tab Ir PO Q4H PRN pain (scale score 7-10) Oxymetazoline HCl 1 spray 09/10/24 12:58 09/10/24 14:28 Oxymetazoline Hcl 0.05% Kyle 15 Ml Btl (*Bkc) NASAL 1 spray Q12HR PRN Administration Congestion Pantoprazole Sodium 40 mg 09/08/24 09:00 09/10/24 20:21 Pantoprazole 40 Mg Tablet PO 40 mg Q12HR DUSTY Administration Pioglitazone HCl 45 mg 09/08/24 09:00 01/20/25 08:47 Pioglitazone Hcl 45 Mg Tablet PO 45 mg DAILY DUSTY Administration Polysaccharide Iron Complex 150 mg 09/08/24 09:40 09/10/24 08:47 Polysaccharide Iron Complex 150 Mg Capsule PO 150 mg DAILY DUSTY Administration Prednisone 5 mg 09/08/24 09:00 09/10/24 20:21 Prednisone 5 Mg Tablet PO 5 mg Q12HR DUSTY Administration Tamsulosin HCl 0.4 mg 09/07/24 21:55 09/10/24 20:21 Tamsulosin Hcl 0.4 Mg Capsule PO 0.4 mg HS DUSTY Administration Vitamin D 1,000 units 09/08/24 09:00 09/10/24 08:48 Cholecalciferol 1,000 Units Tablet PO 1,000 units DAILY DUSTY Administration Radiology Results: ITS Impressions Chest X-Ray 09/07/24 15:52 IMPRESSION: No acute cardiopulmonary process. Kinked implanted port catheter, a chronic finding. Likely not clinically significant if there is normal port function. Diffuse osseous metastatic disease. Labs Labs: Laboratory Results - last 24 hr 09/10/24 09/10/24 09/10/24 07:48 11:25 17:03 WBC RBC Hgb Hct MCV MCH MCHC RDW Plt Count MPV Immature Gran % (Auto) Neut % (Auto) Lymph % (Auto) [place] % (Auto) Eos % (Auto) Baso % (Auto) Lymph # (Auto) [place] # (Auto) Eos # (Auto) Baso # (Auto) Abs Immat Gran (auto) Absolute Neuts (auto) Absolute Nucleated RBC Nucleated RBC % Platelet Estimate Anisocytosis Tear Drop Cells Ovalocytes [place] Cells Schistocytes Sodium Potassium Chloride Carbon Dioxide Anion Gap BUN Creatinine Estim Creat Clear Calc Estimated GFR Glucose POC Capillary Glucose 159 H 232 H 171 H Calcium Iron TIBC % Saturation Ferritin Prostate Specific Ag 09/10/24 09/10/24 09/11/24 19:34 20:15 05:44 WBC 2.2 L RBC 3.03 L Hgb 8.5 L Hct 28.4 L MCV 93.7 MCH 28.1 MCHC 29.9 L RDW 18.6 H Plt Count 162 MPV 9.5 Immature Gran % (Auto) 9.3 H Neut % (Auto) 58.2 Lymph % (Auto) 16.7 L [place] % (Auto) 12.6 H Eos % (Auto) 0.9 Baso % (Auto) 2.3 H Lymph # (Auto) 0.36 L [place] # (Auto) 0.3 Eos # (Auto) 0.0 Baso # (Auto) 0.1 Abs Immat Gran (auto) 0.20 H Absolute Neuts (auto) 1.3 Absolute Nucleated RBC 0.030 H Nucleated RBC % 1.4 H Platelet Estimate Adequate Anisocytosis 1+ Tear Drop Cells 1+ Ovalocytes 1+ [place] Cells 1+ Schistocytes None seen Sodium 136 L Potassium 3.8 Chloride 110 H Carbon Dioxide 18 L Anion Gap 8 BUN 4 L Creatinine 0.30 L Estim Creat Clear Calc 180 Estimated GFR > 60 Glucose 140 H POC Capillary Glucose 201 H Calcium 7.8 L Iron 50 TIBC 219 L % Saturation 23 Ferritin > 2000.00 H Prostate Specific Ag 7.2 H Quality VTE Prophylaxis VTE prophylaxis: mechanical ordered
[2024-09-11 08:34] LABS: Glucose Point of Care 123 mg/dl (65-105)
[2024-09-11] MEDS: GABAPENTIN 400 MG CAPSULE 800 MG PO (08:37)
[2024-09-11] MEDS: AMOXICILLIN/CLAVULANATE K 875-125 MG TAB 1 TABLET PO (08:37)
[2024-09-11] MEDS: CHOLECALCIFEROL 1,000 UNITS TABLET 1000 UNITS PO (08:38)
[2024-09-11] MEDS: calcitrioL 0.25 MCG CAPSULE 0.5 MCG PO (08:38)
[2024-09-11] MEDS: CYANOCOBALAMIN 500 MCG TABLET PO (08:38)
[2024-09-11] MEDS: PANTOPRAZOLE 40 MG TABLET PO (08:38)
[2024-09-11] MEDS: POLYSACCHARIDE IRON COMPLEX 150 MG CAPSULE PO (08:38)
[2024-09-11] MEDS: MEGESTROL ACETATE (*CHEMO) ORAL SUSP 40 MG/ML SYR 400 MG PO (08:38)
[2024-09-11] MEDS: CALCIUM CARBONATE (OSCAL) 500 MG TABLET PO ×2 (08:38→12:31)
[2024-09-11] MEDS: predniSONE 5 MG TABLET PO (08:39)
[2024-09-11] MEDS: PIOGLITAZONE HCL 45 MG TABLET PO (08:39)
[2024-09-11] MEDS: ENOXAPARIN 40 MG/0.4 ML SYRINGE SUB-Q (08:39)
--- NOTE | 2024-09-11 11:31 | P.PNCA_ITS ---
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 Qualified Code(s): E11.42 - Type 2 diabetes mellitus with diabetic polyneuropathy Code(s): E11.42 - Type 2 diabetes mellitus with diabetic polyneuropathy Status: Acute Plan Sinus tachycardia most likely secondary to ongoing chemotherapy with dehydration-review of EKGs shows sinus tachycardia with PACs; TTE showed normal LV ejection fraction and no significant valvular pathology Hypertension with hypotension on presentation-hypertension is also Hyperlipidemia Type 2 diabetes mellitus Prostate cancer with metastatic disease to the bone on chemotherapy Leukopenia and anemia with hemoglobin 7.6 secondary to chemotherapy Plan: 1. TSH was low at 0.270 on 09/09, free T3 was low normal, free T4 was normal 2. Check electrolytes and replace keeping potassium greater than 4 and magnesium greater than 2 3. Monitor H&H daily and transfuse for hemoglobin less than 7 4. Continue metoprolol 6.25 mg q.6 hours. Can switch to 12.5 mg b.i.d. Target heart rate less 90 5. Keep well-hydrated and to avoid dehydration 6. Management of other medical problems per primary team Thank you for allowing us to participate in the care of your patient. Cardiology will sign off please call for any further questions Subjective Date/time seen: 09/11/24 11:31 Interval history: 69-year-old male with past medical history of metastatic prostate cancer with metastasis to bone on chemotherapy, hypertension, hyperlipidemia, type 2 diabetes presented to the ER from the chemotherapy infusion center due to eli rtness of breath and tachycardia. When patient was getting ready for the infusion, he was noted to be tachycardic with heart rates in the 140s. He was also tachypneic. He was sent to the ER for further evaluation. In the ER patient was noted to have a temperature of 101?. His blood pressure was normal at presentation but quickly dropped to 73/54. This improved with 2 L of saline. He reported chronic sinus congestion and tightness in his throat when he lays down for several months. He is overall feeling weak and tired and had not been drinking enough fluids. He also reported burning urination. Cardiology was consulted for sinus tachycardia/concern for atrial fibrillation. Review of EKG showed sinus tachycardia with PACs. Pertinent workup: EKG: ST, NSTWA, PACs TT: Normal LVEF of 60-65%, no significant valvular abnormalities CXR: IMPRESSION: No acute cardiopulmonary process. Kinked implanted port catheter, a chronic finding. Likely not clinically significant if there is normal port function. Diffuse osseous metastatic disease. Interval history: Patient denies any chest pain, shortness of breath, lightheadedness, dizziness. He he states he is improving. He remains in sinus rhythm with heart rate in the 80s. Review of Systems Review of Systems: A complete review of systems was performed and negative other than those mentioned in the interval history Exam Narrative: General: Alert oriented x3, no acute distress Neck: Supple, JVD + Chest: Bilaterally clear to auscultation, no rales or rhonchi Cardiac: S1, S2 +, regular rate, regular rhythm, no murmurs or rubs Extremities: No pedal edema, no skin rash Neurologic: Alert and oriented x3, no focal neurological deficits Objective Data Vital Signs Vital Signs: Vital Signs - 24 hr 09/10/24 12:00 09/10/24 12:00 09/10/24 16:00 Temperature 36.6 C Pulse Rate 102 H 86 86 Respiratory Rate 28 H Blood Pressure 140/67 Pulse Oximetry 97 Oxygen Delivery 09/10/24 16:58 09/10/24 17:01 09/10/24 20:00 Temperature Pulse Rate 98 88 Respiratory Rate Blood Pressure 113/56 L Pulse Oximetry Oxygen Delivery 09/10/24 20:21 09/10/24 22:00 09/11/24 00:01 Temperature 36.9 C Pulse Rate 81 89 Respiratory Rate 18 Blood Pressure 136/63 Pulse Oximetry 100 100 Oxygen Delivery Room Air 09/11/24 00:32 09/11/24 04:00 09/11/24 05:20 Temperature Pulse Rate 89 88 81 Respiratory Rate Blood Pressure Pulse Oximetry Oxygen Delivery 09/11/24 06:00 Temperature 36.6 C Pulse Rate 84 Respiratory Rate 18 Blood Pressure 126/66 Pulse Oximetry 97 Oxygen Delivery Intake/Output Intake/Output: Intake & Output 09/08/24 09/09/24 09/10/24 09/11/24 23:59 23:59 23:59 23:59 Intake Total 4270 5470 4034.9 340 Output Total 2120 884 8095 Balance 2845 4870 1734.9 340 Meds/Results Medications: Active Medications Generic Name Dose Route Start Last Admin Trade Name Freq PRN Reason Stop Dose Admin Acetaminophen 650 mg 09/07/24 18:16 Acetaminophen 325 Mg Tablet PO Q4H PRN Mild Pain (1-3) or Fever Amoxicillin/Clavulanate Potassium 1 tablet 09/09/24 21:00 09/11/24 08:37 Amoxicillin/Clavulanate K 875-125 Mg Tab PO 09/12/24 20:59 1 tablet Q12HR DUSTY Administration Atorvastatin Calcium 20 mg 09/08/24 21:00 09/10/24 20:21 Atorvastatin 20 Mg Tablet PO 20 mg HS DUSTY Administration Calcitriol 0.5 mcg 09/08/24 09:00 09/11/24 08:38 Calcitriol 0.25 Mcg Capsule PO 0.5 mcg BID DUSTY Administration Calcium Carbonate 500 mg 09/08/24 09:00 09/11/24 08:38 Calcium Carbonate (Oscal) 500 Mg Tablet PO 500 mg QID DUSTY Administration Cyanocobalamin 500 mcg 09/08/24 09:00 09/11/24 08:38 Cyanocobalamin 500 Mcg Tablet PO 500 mcg DAILY DUSTY Administration Dextrose 12.5 gm 09/07/24 20:47 Dextrose 50% 25 Gm/50 Ml Syringe IV PUSH PRN PRN Hypoglycemia Protocol Enoxaparin Sodium 40 mg 09/08/24 09:00 09/11/24 08:39 Enoxaparin 40 Mg/0.4 Ml Syringe SUB-Q 40 mg DAILY DUSTY Administration Gabapentin 800 mg 09/08/24 09:00 09/11/24 08:37 Gabapentin 400 Mg Capsule PO 800 mg BID DUSTY Administration Glucagon 1 mg 09/07/24 20:47 Glucagon For Inj 1 Mg Vial IM PRN PRN Hypoglycemia Protocol Glucose 15 gm 09/07/24 20:47 Glucose Oral Gel 15 Gm Of Glucse In 37.5 Gm Tube PO PRN PRN Hypoglycemia Protocol Dextrose 1,000 mls @ 100 mls/hr 09/07/24 20:47 Dextrose 5% 1,000 Ml IVPB PRN PRN Hypoglycemia Protocol Insulin Aspart 2 - 5 units 09/08/24 08:00 09/11/24 08:35 Insulin Aspart (*Bkc) 100 Units/Ml SUB-Q Not Given TIDWM [facility] Protocol Insulin Aspart 1 - 2 units 09/07/24 21:00 09/10/24 20:30 Insulin Aspart (*Bkc) 100 Units/Ml SUB-Q 1 units HS DUSTY Administration Protocol Megestrol Acetate 400 mg 09/09/24 09:00 09/11/24 08:38 Megestrol Acetate (*Chemo) Oral Susp 40 Mg/Ml Syr PO 400 mg QAM DUSTY Administration Metoprolol Tartrate 6.25 mg 09/09/24 11:15 09/11/24 05:20 Metoprolol Tartrate 6.25 Mg Tablet PO 6.25 mg Q6HR DUSTY Administration Ondansetron HCl 4 mg 09/07/24 18:16 Ondansetron Inj 4 Mg/2 Ml Vial IV PUSH Q4H PRN Nausea Oxycodone HCl 5 mg 09/08/24 00:25 Oxycodone Hcl (*Crx) 5 Mg Tab Ir PO Q4H PRN pain (scale score 7-10) Oxymetazoline HCl 1 spray 09/10/24 12:58 09/10/24 14:28 Oxymetazoline Hcl 0.05% Kyle 15 Ml Btl (*Bkc) NASAL 1 spray Q12HR PRN Administration Congestion Pantoprazole Sodium 40 mg 09/08/24 09:00 09/11/24 08:38 Pantoprazole 40 Mg Tablet PO 40 mg Q12HR DUSTY Administration Pioglitazone HCl 45 mg 09/08/24 09:00 09/11/24 08:39 Pioglitazone Hcl 45 Mg Tablet PO 45 mg DAILY DUSTY Administration Polysaccharide Iron Complex 150 mg 09/08/24 09:40 09/11/24 08:38 Polysaccharide Iron Complex 150 Mg Capsule PO 150 mg DAILY DUSTY Administration Prednisone 5 mg 09/08/24 09:00 09/11/24 08:39 Prednisone 5 Mg Tablet PO 5 mg Q12HR DUSTY Administration Tamsulosin HCl 0.4 mg 09/07/24 21:55 09/10/24 20:21 Tamsulosin Hcl 0.4 Mg Capsule PO 0.4 mg HS [facility] Administration Vitamin D 1,000 units 09/08/24 09:00 09/11/24 08:38 Cholecalciferol 1,000 Units Tablet PO 1,000 units DAILY DUSTY Administration Radiology Results: ITS Impressions Chest X-Ray 09/07/24 15:52 IMPRESSION: No acute cardiopulmonary process. Kinked implanted port catheter, a chronic finding. Likely not clinically significant if there is normal port function. Diffuse osseous metastatic disease. Labs Labs: Laboratory Results - last 24 hr 09/10/24 09/10/24 09/10/24 11:25 17:03 19:34 WBC RBC Hgb Hct MCV MCH MCHC RDW Plt Count MPV Immature Gran % (Auto) Neut % (Auto) Lymph % (Auto) [place] % (Auto) Eos % (Auto) Baso % (Auto) Lymph # (Auto) [place] # (Auto) Eos # (Auto) Baso # (Auto) Abs Immat Gran (auto) Absolute Neuts (auto) Absolute Nucleated RBC Nucleated RBC % Platelet Estimate Anisocytosis Tear Drop Cells Ovalocytes [place] Cells Schistocytes Sodium Potassium Chloride Carbon Dioxide Anion Gap BUN Creatinine Estim Creat Clear Calc Estimated GFR Glucose POC Capillary Glucose 232 H 171 H Calcium Iron 50 TIBC 219 L % Saturation 23 Ferritin > 2000.00 H Prostate Specific Ag 7.2 H 09/10/24 09/11/24 09/11/24 20:15 05:44 08:15 WBC 2.2 L RBC 3.03 L Hgb 8.5 L Hct 28.4 L MCV 93.7 MCH 28.1 MCHC 29.9 L RDW 18.6 H Plt Count 162 MPV 9.5 Immature Gran % (Auto) 9.3 H Neut % (Auto) 58.2 Lymph % (Auto) 16.7 L [place] % (Auto) 12.6 H Eos % (Auto) 0.9 Baso % (Auto) 2.3 H Lymph # (Auto) 0.36 L [place] # (Auto) 0.3 Eos # (Auto) 0.0 Baso # (Auto) 0.1 Abs Immat Gran (auto) 0.20 H Absolute Neuts (auto) 1.3 Absolute Nucleated RBC 0.030 H Nucleated RBC % 1.4 H Platelet Estimate Adequate Anisocytosis 1+ Tear Drop Cells 1+ Ovalocytes 1+ [place] Cells 1+ Schistocytes None seen Sodium 136 L Potassium 3.8 Chloride 110 H Carbon Dioxide 18 L Anion Gap 8 BUN 4 L Creatinine 0.30 L Estim Creat Clear Calc 180 Estimated GFR > 60 Glucose 140 H POC Capillary Glucose 201 H 123 H Calcium 7.8 L Iron TIBC % Saturation Ferritin Prostate Specific Ag
[2024-09-11 12:11] LABS: Glucose Point of Care 162 mg/dl (65-105)
--- NOTE | 2024-09-11 15:16 | P.DS_ITS ---
DS: Admitting Diagnosis Discharge Date 09/11/2024 Admitting Diagnosis fever DS: Discharge Diagnosis Discharge Diagnosis (1) Neutropenia: Code(s): D70.9 - Neutropenia, unspecified Status: Acute Assessment and Plan: neutropenic fever * Oncology is consulted. * blood cultures with no growth today * ANC is stable and no need for Neupogen * Procrit 08609 units while he is inpatient and continue that as an outpatient for chemotherapy-induced anemia. * holding off chemotherapy until next week (2) UTI (urinary tract infection): Code(s): N39.0 - Urinary tract infection, site not specified Status: Ruled-out Assessment and Plan: * Final urine culture is without any growth. * Transition to oral abx of Augmentin. (3) Type 2 diabetes mellitus with diabetic polyneuropathy: Qualifiers: Diabetes mellitus termite exterminator insulin use: without long-term use Qualified Code(s): E11.42 - Type 2 diabetes mellitus with diabetic polyneuropathy Code(s): E11.42 - Type 2 diabetes mellitus with diabetic polyneuropathy Status: Acute Assessment and Plan: Blood sugars intermittently above goal --Coninue SSI --Continue actos, holding metformin while hospital diabetic diet (4) Prostate cancer: Code(s): C61 - Malignant neoplasm of prostate Status: Acute Assessment and Plan: management per Dr. Acuña (5) SIRS (systemic inflammatory response syndrome): Code(s): R65.10 - Systemic inflammatory response syndrome (SIRS) of non-infectious origin without acute organ dysfunction Status: Resolved Assessment and Plan: * Negative Urine cx. * Continue Augmentin to complete a full course. * CXR without acute infectious source. * blood cultures no growth today * Trend and monitor labs and VS. (6) Tachycardia: Code(s): R00.0 - Tachycardia, unspecified Status: Resolved Assessment and Plan: secondary to neutropenic fever Heart rate elevated to the 160's intermittently Concern for afib on initial EKG. Repeat EKG Sinus tach with frequent supraventricular premature complexes Rates intermittently to 140's. Sinus arrhythmia vs afib Metoprolol for rate control 6.25 q6. Rate control may be limited by blood pressure Add on TSH Repleting electrolytes echo EF 60-65% Cardiology consult Holding off on anticoagulation for now after discussion with patient and family. Risk of falls. Overall risk of stroke 3% in a year if intermittently in afib (7) Hypotension: Qualifiers: Hypotension type: unspecified hypotension type Qualified Code(s): I95.9 - Hypotension, unspecified Code(s): I95.9 - Hypotension, unspecified Status: Resolved Assessment and Plan: * Resolved. Follow VS Incourage oral intake DS: Summary Hospital Course Reason for hospitalization: neutropenic fever Hospital Course: 69-year-old male with past medical history metastatic prostate cancer with metastases to the bone on chemotherapy, essential hypertension and type 2 diabetes mellitus who presented to the ER from the infusion center due to tachycardia and shortness of breath. The patient with the assistance of his helps provide majority of information in addition to review of past medical records. The patient presented to the infusion center to have his weekly Docetaxel and dexamethasone infusion. However when they were getting ready for the infusion the patient was noted to be tachycardic with heart rates in the 130s to 140s and tachypneic. He was sent to the ER for evaluation. On arrival to the ER patient's heart rate was between 130 and 140 and he was found to be febrile with a T-max of 101?. On initial presentation to the ER his blood pressures were normal but shortly after arrival he became overtly hypotensive w ith blood pressures of 73/54 the lowest. He reported that he has been having chronic sinus congestion and sensation of a thickness in his throat when he lays down for several months. He has been having some nasal congestion intermittently for the same amount of time. He denies any sore throat or headache. He reports he just generally does not feel well. However when he did urinate 1st thing in the morning he reported that he felt like he was ?pissing fire?. He denies any purulence are foul odor to his urine. However his urine has been darker than usual. However he he was unable to urinate after arrival to the ER and bladder scan demonstrated an empty bladder. He denied any nausea, vomiting or chest pain. He did not have a sensation of palpitations. His EKG on initial presentation was initially read as AFib but had significant baseline artifact. His labs demonstrated some mild hypo magnesemia and he received 2 g magnesium sulfate rider in addition to 2 L of fluid. After 2 L of fluid patient's blood pressures had improved up to the mid 90s systolic. He denies having any diarrhea or recent constipation. He denies any recent ill contacts. His viral PCRs were negative. Has outpatient labs demonstrate some mild leukopenia. He did not receive his weekly chemotherapy infusion. He reports that he had received all of his morning medications including his 5 mg of predni sone and his Zytiga as well as oral hypoglycemic agents. He reports chronic poor appetite since he resumed chemotherapy this past fall. His reports that the patient does not drink enough fluids on a day-to-day basis. patient was seen by Cardiology with normal findings on echocardiogram with a EF of 60 -65%, with recommendations discharge on metoprolol 12.5 b.i.d. And maintain hydration. Patient was seen by Oncology for Pancytopenia. This is secondary to metastatic prostate cancer and chemotherapy-induced pancytopenia. . ANC is stable and no need for Neupogen support. He will continue oral iron and vitamin B12. he was given a dose of Procrit 40352 units while he is inpatient and continue that as an outpatient for chemotherapy-induced anemia. oncology and cardiology okay with patient discharging. Patient's blood cultures and urine showed no growth to date. Patient will continue with Augmentin outpatient. And follow-up with Oncology in 1 week. Patient has no additional complaints. Status at Discharge Functional status at discharge: independent ambulation Time Spent with Patient Time attestation: Total time spent providing and/or coordinating discharge services: Time spent: Greater than 30 minutes Exam Narrative: General - Awake and alert. No acute distress, obese male pt lying supine at this time. Eyes - PERRLA, EOM intact ENT - No thrush, No erythema Neck - No noticeable or palpable swelling Lymph Nodes - No lymphadenopathy Cardiovascular - Irregular, no m/r/g, no JVD Lungs: Clear to auscultation, No wheezing, use of accessory muscles, no crackles or wheezes. Skin - Skin warm and dry, no wounds or rashes Abdomen - Normal bowel sounds, abdomen soft and nontender Extremities - No edema, cyanosis or clubbing Musculoskeletal - 5/5 strength, normal range of motion, no swollen or erythematous joints. Neurological ? Alert and oriented x 3, CN 2-12 grossly intact. Psych: Normal mood and affect DS: Data Data Completed and Pending Completed studies during hospitalization: Summary 1. Left ventricular systolic function is normal, estimated at 60-65%. 2. There is mildly increased left ventricular wall thickness. 3. There is mild mitral valve calcification. Left Ventricle Left ventricular chamber dimension is normal. Left ventricular systolic function is normal, estimated at 60-65%. There is mildly increased left ventricular wall thickness. Left ventricular septal wall motion is normal. The left ventricular diastolic function is normal. Right Ventricle Right ventricular chamber dimension is normal. Right ventricular systolic function is normal. Left Atria Left atrial chamber dimension is normal. Right Atria Right atrial chamber dimension is normal. Aortic Valve The aortic valve is trileaflet. There is no aortic valve sclerosis. There is no aortic valve stenosis. There is no aortic valve regurgitation. There is mild aortic valve calcification. Pulmonic Valve The pulmonic valve is normal. There is no pulmonic valve stenosis. There is no pulmonic regurgitation. Mitral Valve The mitral valve has normal leaflets. There is no mitral valve stenosis. There is no mitral valve regurgitation. There is mild mitral valve calcification. Tricuspid Valve The tricuspid valve leaflets are normal. There is no significant tricuspid valve stenosis. There is no tricuspid valve regurgitation. No pulmonary hypertension, estimated pulmonary arterial systolic pressure is Empty. Pericardium/Pleural The pericardium appears epicardial fat pad. There is no pericardial effusion. Inferior Vena Cava Normal inferior vena cava with <50% collapse upon inspiration consistent with Empty right atrial pressure, 10 mmHg. Aorta The aortic root size at the sinus of Valsalva is normal. The prox ascending aorta size is normal. Pending studies at discharge: None Labs on day of discharge: Labs from last 24 hours 09/11/24 09/11/24 09/11/24 11:58 08:15 05:44 WBC 2.2 L RBC 3.03 L Hgb 8.5 L Hct 28.4 L MCV 93.7 MCH 28.1 MCHC 29.9 L RDW 18.6 H Plt Count 162 MPV 9.5 Immature Gran % (Auto) 9.3 H Neut % (Auto) 58.2 Lymph % (Auto) 16.7 L Taliaferro % (Auto) 12.6 H Eos % (Auto) 0.9 Baso % (Auto) 2.3 H Lymph # (Auto) 0.36 L Taliaferro # (Auto) 0.3 Eos # (Auto) 0.0 Baso # (Auto) 0.1 Abs Immat Gran (auto) 0.20 H Absolute Neuts (auto) 1.3 Absolute Nucleated RBC 0.030 H Nucleated RBC % 1.4 H Platelet Estimate Adequate Anisocytosis 1+ Tear Drop Cells 1+ Ovalocytes 1+ Santa Cells 1+ Schistocytes None seen Sodium 136 L Potassium 3.8 Chloride 110 H Carbon Dioxide 18 L Anion Gap 8 BUN 4 L Creatinine 0.30 L Estim Creat Clear Calc 180 Estimated GFR > 60 Glucose 140 H POC Capillary Glucose 162 H 123 H Calcium 7.8 L Iron TIBC % Saturation Ferritin Prostate Specific Ag Vitamin B12 Folate 09/10/24 09/10/24 09/10/24 20:15 19:34 17:03 WBC RBC Hgb Hct MCV MCH MCHC RDW Plt Count MPV Immature Gran % (Auto) Neut % (Auto) Lymph % (Auto) Taliaferro % (Auto) Eos % (Auto) Baso % (Auto) Lymph # (Auto) Taliaferro # (Auto) Eos # (Auto) Baso # (Auto) Abs Immat Gran (auto) Absolute Neuts (auto) Absolute Nucleated RBC Nucleated RBC % Platelet Estimate Anisocytosis Tear Drop Cells Ovalocytes Parish Cells Schistocytes Sodium Potassium Chloride Carbon Dioxide Anion Gap BUN Creatinine Estim Creat Clear Calc Estimated GFR Glucose POC Capillary Glucose 201 H 171 H Calcium Iron 50 TIBC 219 L % Saturation 23 Ferritin > 2000.00 H Prostate Specific Ag 7.2 H Vitamin B12 Pending Folate Pending Preliminary micro results at discharge 09/07/24 15:56 Blood Culture - Preliminary Blood 09/07/24 16:03 Blood Culture - Preliminary Blood Discharge Plan Discharge Consulting providers: Bruce Acuña; Stuart Mejia Discharging Clinician: Dasia Rosas Anticipated Discharge Date/Time: 09/11/24 15:41 Patient Disposition: Home, Self-Care Activity: may shower Diet: diabetic Discharge Instructions: Discharge instructions: Take medications as prescribed New medications prescribed: you have been started on metoprolol, follow-up with your primary care provider You are activity as tolerated Monitor blood pressures Avoid social areas, you wear a mask when in social settings Encouraged to continue with yearly vaccinations Return to the emergency department if he developed sudden shortness of breath, chest pain, nausea, vomiting, upset stomach or intractable diarrhea Return to the emergency department if you develop fever greater than 101.5 Follow-up with: Your primary care physician within 1-2 weeks for post hospitalization check up follow-up with your oncologist next week no need to follow up with Cardiology at this time Thank you for [facility] for your healthcare needs Patient Instructions: Antibiotic Form, Prostate Cancer (GEN), Fever in Adults (GEN) Patient Language: Thai Stand Alone Forms: General Discharge Information Follow-up/Referrals: Bruce Acuña MD [Physician] - 1 Week Shaheen Foley MD [Primary Care Provider] - 2 Weeks Discharge Medications: New metoprolol succinate 25 mg tablet extended release 24 hr 12.5 mg PO BID Qty: 30 0RF amoxicillin-pot clavulanate [Augmentin] 500-125 mg tablet 1 tablet PO Q12H Qty: 6 0RF Continued tamsulosin 0.4 mg capsule 0.4 mg PO HS polysaccharide iron complex [Ferrex 150] 150 mg iron capsule 65 mg PO DAILY omeprazole 40 mg capsule,delayed release(DR/EC) 40 mg PO DAILY gabapentin 800 mg tablet 800 mg PO BID abiraterone 250 mg tablet 1,000 mg PO DAILY Patient Comments: . prednisone 5 mg tablet 5 mg PO Q12H cyanocobalamin (vitamin B-12) 1,000 mcg Tablet 500 mcg PO DAILY Patient Comments: . Rx Instructions: takes 250mcg (2) gummies daily cholecalciferol (vitamin D3) [Vitamin D3] 25 mcg (1,000 unit) capsule 25 mcg PO DAILY calcium 600 mg capsule 600 mg PO QID calcitriol 0.5 mcg capsule 0.5 mcg PO BID glimepiride 2 mg tablet 2 mg PO DAILY megestrol 400 mg/10 mL (40 mg/mL) suspension 400 mg PO DAILY ondansetron 8 mg tablet,disintegrating 8 mg translingual Q8H PRN (Reason: nausea and vomiting) oxycodone 5 mg tablet 5 mg PO Q4H PRN (Reason: pain (scale score 7-10)) metformin 500 mg tablet See Rx Instructions .ROUTE .COMPLEX Qty: 360 2RF Dose Instruction: TAKE 2 TABLETS BY MOUTH EVERY 12 HOURS Rx Instructions: TAKE 2 TABLETS BY MOUTH EVERY 12 HOURS pioglitazone 45 mg tablet See Rx Instructions .ROUTE .COMPLEX Qty: 90 0RF Dose Instruction: Take 1 tablet by mouth once daily Rx Instructions: Take 1 tablet by mouth once daily atorvastatin 20 mg tablet See Rx Instructions .ROUTE .COMPLEX Qty: 30 6RF Dose Instruction: TAKE 1 TABLET BY MOUTH EVERY DAY AT BEDTIME Patient Comments: . Rx Instructions: TAKE 1 TABLET BY MOUTH EVERY DAY AT BEDTIME Date of admission: 09/07/24 18:17 Primary Care Provider: Shaheen Foley Admitting Provider: Todd Castillo Attending physician on admission: Ashley Beard Condition: Stable Quality VTE Prophylaxis VTE prophylaxis: mechanical ordered Hospitalist MIPS Heart Failure (Exclusion) Patient has history of Heart Transplant or Left Ventricular Assistive Device?: No IF YES, STOP HERE Heart Failure (Qualifier) Patient has current or prior documentation of LVEF less than or equal to 40%, or mod/servere depressed LVSF?: No IF NO, STOP HERE
[2024-09-12 00:25] LABS: Folic Acid 8.4 ng/mL (2.76->20)
--- OUTSIDE RECORDS SUMMARY | 2024-09-13 07:16 | XMS_ITS | Encounter Summary ---
Author Organization [facility] [employer] [facility] Address [address] [place] [address] Care Team Providers Care Fire [employer] Name Role Phone Shaheen Foley MD Primary Care Provider [phone]- [phone] Encounter Details Date Type Department Care Team (Late Contact Info) Description 03/21/2023 Telephone [facility] Oncology and [facility] [address] [place] [address] Bruce Acuña MD [facility] [employer] [address] [place] [phone] Social History Tobacco Use Types Packs/Day Years Used Date Smoking Tobacco: Never Smokeless Tobacco: Never Comments:non smoker Sex and Gender Information Value Date Recorded Sex Assigned at Not on file Legal Sex Male 2:13 PM CDT Gender Identity Not on file Sexual Orientation Not on file documented as of this encounter Plan of Treatment Upcoming Encounters Date Type Department Care Team (Late Contact Info) Description 09/17/2024 10:15 AM COMPRESSED GAS TESTER Office Visit [facility] Oncology [facility] [address] [place] [address] Bruce Acuña MD [address] [employer] [address] [place] [phone] documented as of this encounter Visit Diagnoses Diagnosis Malignant neoplasm of prostate (CMS/HCC)- Primary Malignant neoplasm of prostate documented in this encounter Care Teams [employer] Relationship Specialty Start Date End Date Shaheen Foley MD [address] [address] PCP - General Family Practice 04/21/21 documented as of this encounter
--- OUTSIDE RECORDS SUMMARY | 2024-09-13 07:16 | XMS_ITS | Encounter Summary ---
Author Organization [facility] [employer] [facility] Address [address] [place] [address] Care Team Providers Care Securities Adviser Name Role Phone Shaheen Foley MD Primary Care Provider [phone]- [phone] Encounter Details Date Type Department Care Team (Late Contact Info) Description 09/04/2024 Orders Only [facility] Oncology and Hematology - [facility] [address] [place] [address] Bruce Acuña MD [address] [place], [place] [address] [employer] [address] [place] [phone] Social History Tobacco Use Types Packs/Day Years Used Date Smoking Tobacco: Never Smokeless Tobacco: Never Comments:non smoker Sex and Gender Information Value Date Recorded Sex Assigned at Not on file Legal Sex Male 2:13 PM CDT Gender Identity Not on file Sexual Orientation Not on file documented as of this encounter Plan of Treatment Upcoming Encounters Date Type Department Care Team (Late st Contact Info) Description 09/17/2024 10:15 AM MATERIAL CONTROL SPECIALIST Office Visit [facility] Oncology and Hematology [address] [place] [address] Bruce Acuña MD [address] [place] [phone] documented as of this encounter Procedures Procedure Name Priority Date/Time Associated Diagnosis Comments COMPREHENSIVE METABOLIC PANEL Routine 09/03/2024 1:43 PM MATERIAL CONTROL SPECIALIST BASIC METABOLIC PANEL Routine 09/03/2024 12:15 PM MATERIAL CONTROL SPECIALIST CBC WITH DIFFERENTIAL Routine 09/03/2024 10:24 AM MATERIAL CONTROL SPECIALIST documented in this encounter Results * COMPREHENSIVE METABOLIC PANEL (09/03/2024 1:43 PM MATERIAL CONTROL SPECIALIST) Blood us Bruce Acuña MD CHEMISTRY ORDERABLES Final Resu lt * BASIC METABOLIC PANEL (09/03/2024 12:15 PM MATERIAL CONTROL SPECIALIST) Blood us Bruce Acuña MD CHEMISTRY ORDERABLES Final Resu lt * CBC WITH DIFFERENTIAL (09/03/2024 10:24 AM MATERIAL CONTROL SPECIALIST) Blood Result Mariah Acuña MD HEMATOLOGY ORDERABLES Final Res ult documented in this encounter Visit Diagnoses Not on filedocumented in this encounter Care Teams Securities Adviser Relationship Specialty Start Date End Date Shaheen Foley MD [address] [address] PCP - General Family Practice 04/21/21 documented as of this encounter
--- OUTSIDE RECORDS SUMMARY | 2024-09-13 07:16 | XMS_ITS | Clinical Summary ---
Author Organization [facility] Administrative Offices Address [address] [place] [address] Care Team Providers Care Bulk Driver Name Role Phone Shaheen Foley MD Primary Care Provider [phone] Allergies No known active allergies Medications atorvastatin (LIPITOR) 80 mg tablet 1 Active gabapentin (NEURONTIN) 800 mg tablet TAKE 1 TABLET BY MOUTH TWICE DAILY 1 Active metFORMIN (GLUCOPHAGE) 500 mg tablet Take 500 mg by mouth 4 times daily. Active pioglitazone (ACTOS) 30 mg tablet Take 30 mg by mouth daily. Active mecobalamin/L- mefolate/B6 phos (METANX ORAL) Take 2 mg by mouth 2 times daily. Active bicalutamide (Casodex) 50 mg tabletIndicati ons:Malignant neoplasm of prostate (CMS/HCC) Take 1 Tablet (50 mg) by mouth daily. 10 Tablet 2 Active mirtazapine (REMERON) 7.5 mg tablet Take 7.5 mg by mouth daily at bedtime. 3 Active amoxicillin (AMOXIL) 500 mg capsule Take 500 mg by mouth 3 times daily. Active oxyCODONE (ROXICODONE) 5 mg tabletIndicati ons:Cancer associated pain Take 1 Tablet (5 mg) by mouth every 4 hours as needed for Pain. Max Daily Amount: 30 mg 60 Tablet 4 Active omeprazole (PriLOSEC) 40 mg Capsule, Delayed Release(E.C.)I ndications:Mal ignant neoplasm of prostate (CMS/HCC) Take 1 capsule by mouth once daily 30 Capsule 4 Active nitrofurantoin (Macrobid) 100 mg capsule Take 1 Capsule (100 mg) by mouth 2 times daily. 14 Capsule 4 Active phenazopyridin e 200 mg tabletIndicati ons:Urine frequency Take 1 Tablet (200 mg) by mouth 3 times daily. 20 Tablet 4 Active calcitRIOL (ROCALTROL) 0.5 mcg capsuleIndicat ions:Cancer associated pain Take 1 Capsule (0.5 mcg) by mouth 2 times daily. 60 Capsule 4 4 Active cyanocobalamin 1,000 mcg Tablet Take 1,000 mcg by mouth daily. Active abiraterone (ZYTIGA) 250 mg tablet Take 4 Tablets (1,000 mg) by mouth daily before breakfast. 120 Tablet 5 08/23/2024 3:11 PM HEALTHCARE RECRUITER 4 Active ondansetron (ZOFRAN ODT) 8 mg Tablet, Rapid DissolveIndica tions:Malignan t neoplasm of prostate (CMS/HCC) Dissolve 1 tablet on top of tongue then swallow with saliva every 8 hours as needed for nausea or vomiting 30 Tablet 3 4 Active megestroL (MEGACE) 400 mg/10 mL (40 mg/mL) suspension Take 5 mL (200 mg) by mouth daily. 300 mL 4 Active predniSONE (DELTASONE) 5 mg tablet Take 1 Tablet (5 mg) by mouth 2 times daily with meals. 60 Tablet 2 4 Active tamsulosin (FLOMAX) 0.4 mg capsule Take 1 capsule by mouth once daily 60 Capsule 4 Active omeprazole (PriLOSEC) 40 mg Capsule, Delayed Release(E.C.)I ndications:Mal ignant neoplasm of prostate (CMS/HCC) Take 1 capsule by mouth once daily 90 Capsule 5 Active omeprazole (PriLOSEC) 40 mg Capsule, Delayed Release(E.C.)I ndications:Mal ignant neoplasm of prostate (CMS/HCC) Take 1 capsule by mouth once daily 30 Capsule 1 4 025 Discontinued Active Problems Problem Noted Date Diagnosed Date Chronic anemia 04/14/2023 DM (diabetes mellitus) 06/12/2021 Malignant neoplasm of prostate Encounters Date Type Department Care Team Description 09/13/2024 External Device Data ST[facility] ABSTRACTION Provider, Abstract 09/11/2024 External Device Data [facility] ABSTRACTION Provider, Abstract 09/10/2024 Orders Only [facility] - [address] [place] [address] Bruce Acuña MD Malignant neoplasm of prostate (CMS/HCC) 09/09/2024 Refill [facility] - [address] [place] [address] Bruce Acuña MD Malignant neoplasm of prostate (CMS/HCC) 09/04/2024 External Device Data STL ABSTRACTION Provider, Abstract 09/04/2024 Orders Only [facility] - [address] [place] [address] Bruce Acuña MD 08/31/2024 Orders Only [facility] - [address] [place] [address] Bruce Acuña MD 08/28/2024 Telephone [facility] - [address] [place] [address] Bruce Acuña MD Referral 08/27/2024 Orders Only [facility] - [address] [place] [address] Bruce Acuña MD Malignant neoplasm of prostate (CMS/HCC) 08/17/2024 9:30 AM HEALTHCARE RECRUITER Office Visit [facility] - [address] [place] [id number] Isaac Matson MD Malignant neoplasm of prostate (CMS/HCC) (Primary Dx) 08/14/2024 Specialty Pharmacy [facility] [address] [place] [address] [place] [phone] Maranda Doll, PHARMACIST Specialty Pharmacy Refill Coordination 08/13/2024 Orders Only [facility] - [address] [place] [id number] Bruce Acuña MD Malignant neoplasm of prostate ([facility]/HCC) 08/08/2024 Orders Only [facility] - [address] [place] [id number] Bruce Acuña MD 08/07/2024 Orders Only [facility]ology - [address] [place] [id number] Bruce Acuña MD 08/01/2024 Orders Only [facility] - [address] [place] [address] Bruce Acuña MD 07/30/2024 Orders Only [facility] - [address] [place] [address] Bruce Acuña MD Malignant neoplasm of prostate ([facility]/HCC) 07/24/2024 Orders Only [facility] - [address] [place] [address] Bruce Acuña MD 07/23/2024 Refill [facility] - [address] [place] [address] Bruce Acuña MD Malignant neoplasm of prostate ([facility]/HCC) 07/20/2024 Specialty Pharmacy [facility] [address] [place] [address] [place] [phone] Maranda Doll, PHARMACIST Specialty Pharmacy Refill Coordination 07/17/2024 Telephone [facility] - [address] [place] [address] Bruce Acuña MD Port Dye Study 07/17/2024 Orders Only [facility] - [address] [place] [address] Bruce Acuña MD 07/16/2024 9:30 AM HEALTHCARE RECRUITER Office Visit [facility] - [address] [place] [address] Bruce Acuña MD Malignant neoplasm of prostate (CMS/HCC) 07/16/2024 Refill [facility] - [address] [place] [address] Bruce Acuña MD 07/11/2024 Orders Only [facility] - [address] [place] [address] Bruce Acuña MD 07/04/2024 Orders Only [facility] - [address] [place] [address] Bruce Acuña MD 07/02/2024 Orders Only [facility] - [address] [place] [address] Bruce Acuña MD Malignant neoplasm of prostate (CMS/HCC) 06/25/2024 Refill [facility] - [address] [place] [address] Nasreen Lunsford MD 06/22/2024 Specialty Pharmacy [facility] [address] [place] [address] [place] [address] Elaine Hernández, PHARMACIST Specialty Pharmacy Refill Coordination 06/20/2024 9:30 AM CDT Office Visit [facility] - [address] [place] [address] Bruce Acuña MD Malignant neoplasm of prostate (CMS/HCC) (Primary Dx) 06/19/2024 Orders Only [facility]ology - [address] [place] [address] Bruce Acuña MD Malignant neoplasm of prostate (CMS/HCC) (Primary Dx) 06/18/2024 Orders Only [facility] [address] [place] [address] Bruce Acuña MD Malignant neoplasm of prostate (CMS/HCC) from Last 3 Months Family History Medical History Relation Name Comments Cancer Father Cancer Mother Relation Name Status Comments Brother Alive Daughter Alive Father Mother Alive Sister Alive Son 1 Alive Son 2 Alive Social History Tobacco Use Types Packs/Day Years Used Date Smoking Tobacco: Never Smokeless Tobacco: Never Comments:non smoker Sex and Gender Information Value Date Recorded Sex Assigned at Not on file Legal Sex Male 2:13 PM CDT Gender Identity Not on file Sexual Orientation Not on file Last Filed Vital Signs Vital Sign Reading Time Taken Comments Blood Pressure 116/69 08/17/2024 9:10 AM HEALTHCARE RECRUITER Pulse 115 08/17/2024 9:10 AM HEALTHCARE RECRUITER Temperature 36.4 ??C (97.5 ??F) 08/17/2024 9:10 AM CS T Respiratory Rate 15 08/17/2024 9:10 AM HEALTHCARE RECRUITER Oxygen Saturation 97% 08/17/2024 9:10 AM HEALTHCARE RECRUITER Inhaled Oxygen Concentration - - Weight 86.4 kg (190 lb 6.4 oz) 08/17/2024 9:10 A M HEALTHCARE RECRUITER Height 175.3 cm (5' 9 ) 06/16/2022 11:54 AM CDT Body Mass Index 28.12 06/16/2022 11:54 AM CDT Plan of Treatment Upcoming Encounters Date Type Department Care Team (Late st Contact Info) Description 09/17/2024 10:15 AM HEALTHCARE RECRUITER Office Visit [facility] [address] [place] [address] Bruce Acuña MD [address] [facility] [address] [place] [address] Health Maintenance Due Date Last Done Comments DIABETES ANNUAL FOOT EXAM 1973 DIABETES ANNUAL RETINAL EXAM 1973 DIABETES MICROALBUMIN ANNUAL SCREEN 1973 LDL CHOLESTEROL ANNUAL 1973 DTAP/TDAP/TD VACCINES (1 - Tdap) 1974 PNEUMOCOCCAL VACCINE 65+ YEARS (1 of 2 - PCV) 02/13/19 74 COLORECTAL SCREENING 02/14/2000 Colorectal Cancer Screening 02/14/2000 FIT-DNA Q 3 years 02/14/2000 FIT/FOBT Q 1 year 02/14/2000 Flex Sig/CT Colonography Q 5 years 02/14/2000 ZOSTER VACCINE (1 of 2) 2005 INFLUENZA VACCINE (#1) 2024 DIABETES HBA1C Q 6 MONTHS 03/23/2024 09/23/2023 [place] Prev entative Visit/Annual Wellness Visit 08/22/2024 RSV VACCINE (60+ or ) (1 - 1-dose 75+ series) 2030 Procedures Procedure Name Priority Date/Time Associated Diagnosis Comments CBC WITH DIFFERENTIAL Routine 09/07/2024 11:27 AM HEALTHCARE RECRUITER COMPREHENSIVE METABOLIC PANEL Routine 09/03/2024 1:43 PM HEALTHCARE RECRUITER BASIC METABOLIC PANEL Routine 09/03/2024 12:15 PM HEALTHCARE RECRUITER CBC WITH DIFFERENTIAL Routine 09/03/2024 10:24 AM HEALTHCARE RECRUITER COMPREHENSIVE METABOLIC PANEL Routine 08/24/2024 11:18 AM HEALTHCARE RECRUITER BASIC METABOLIC PANEL Routine 08/24/2024 10:17 AM HEALTHCARE RECRUITER CBC WITH DIFFERENTIAL Routine 08/24/2024 10:14 AM HEALTHCARE RECRUITER XR PORT CONTRAST INJECT W FLUORO Routine 08/07/2024 10:12 AM HEALTHCARE RECRUITER COMPREHENSIVE METABOLIC PANEL Routine 08/06/2024 1:24 PM HEALTHCARE RECRUITER BASIC METABOLIC PANEL Routine 08/06/2024 1:03 PM HEALTHCARE RECRUITER COMPREHENSIVE METABOLIC PANEL Routine 07/30/2024 2:52 PM HEALTHCARE RECRUITER CBC WITH DIFFERENTIAL Routine 07/30/2024 1:04 PM HEALTHCARE RECRUITER BASIC METABOLIC PANEL Routine 07/30/2024 12:35 PM HEALTHCARE RECRUITER COMPREHENSIVE METABOLIC PANEL Routine 07/23/2024 1:06 PM HEALTHCARE RECRUITER CBC WITH DIFFERENTIAL Routine 07/23/2024 11:10 AM HEALTHCARE RECRUITER BASIC METABOLIC PANEL Routine 07/23/2024 10:44 AM HEALTHCARE RECRUITER BASIC METABOLIC PANEL Routine 07/16/2024 10:19 AM HEALTHCARE RECRUITER CBC WITH DIFFERENTIAL Routine 07/16/2024 10:03 AM HEALTHCARE RECRUITER COMPREHENSIVE METABOLIC PANEL Routine 07/09/2024 3:41 PM HEALTHCARE RECRUITER BASIC METABOLIC PANEL Routine 07/09/2024 10:41 AM HEALTHCARE RECRUITER COMPREHENSIVE METABOLIC PANEL Routine 07/02/2024 11:13 AM HEALTHCARE RECRUITER BASIC METABOLIC PANEL Routine 07/02/2024 10:36 AM HEALTHCARE RECRUITER CBC WITH DIFFERENTIAL Routine 07/02/2024 10:28 AM HEALTHCARE RECRUITER COMPREHENSIVE METABOLIC PANEL Routine 06/18/2024 10:57 AM CDT BASIC METABOLIC PANEL Routine 06/18/2024 10:33 AM CDT CBC WITH DIFFERENTIAL Routine 06/18/2024 10:22 AM CDT PSA FREE Routine 06/15/2024 12:06 PM CDT from Last 3 Months Results * CBC WITH DIFFERENTIAL (09/07/2024 11:27 AM HEALTHCARE RECRUITER) Only the most recent of8 resultswithin the time period is included. Blood us Bruce Acuña MD HEMATOLOGY ORDERABLES Final Res ult * COMPREHENSIVE METABOLIC PANEL (09/03/2024 1:43 PM HEALTHCARE RECRUITER) Only the most recent of8 resultswithin the time period is included. Blood us Bruce Acuña MD CHEMISTRY ORDERABLES Final Resu lt * BASIC METABOLIC PANEL (09/03/2024 12:15 PM HEALTHCARE RECRUITER) Only the most recent of9 resultswithin the time period is included. Blood us Bruce Acuña MD CHEMISTRY ORDERABLES Final Resu lt * XR PORT CONTRAST INJECT W FLUORO (08/07/2024 10:12 AM HEALTHCARE RECRUITER) Anatomical Region Laterality Modality Other us Bruce Acuña MD DIAGNOSTIC IMAGING ORDERABLES F inal Result * PSA FREE (06/15/2024 12:06 PM CDT) Blood us Bruce Acuña MD CHEMISTRY ORDERABLES Final Resu lt from Last 3 Months Insurance [employer] Medicare Part D Care Teams Bulk Driver Relationship Specialty Start Date End Date Shaheen Foley MD [address] [place] [phone] PCP - General Family Practice 04/21/21
== END 2024-09-11 16:19 | disposition home or self-care (01) ==
LOC: ANHED 17:39 → ANHIMU 20:34 → ANH2MED 09-10 13:29
PROVIDERS: Internal Medicine; Internal Medicine Hematology & Oncology; Nurse Practitioner Acute Care; Admitting Provider General Practice; Emergency Provider Emergency Medicine; PCP Family Medicine Adolescent Medicine; Visit Provider Nurse Practitioner Adult Health
DX: D70.9 Neutropenia, unspecified (principal); R50.81 Fever presenting with conditions classified elsewhere; R65.10 Systemic inflammatory response syndrome (SIRS) of non-infectious origin without acute organ dysfunction; C61 Malignant neoplasm of prostate; C79.51 Secondary malignant neoplasm of bone; D64.81 Anemia due to antineoplastic chemotherapy; D61.810 Antineoplastic chemotherapy induced pancytopenia; R30.0 Dysuria; E11.42 Type 2 diabetes mellitus with diabetic polyneuropathy; I10 Essential (primary) hypertension; G25.0 Essential tremor; E83.42 Hypomagnesemia; E78.2 Mixed hyperlipidemia; R06.01 Orthopnea; Z20.822 Contact with and (suspected) exposure to COVID-19; Z79.84 Long term (current) use of oral hypoglycemic drugs; Z79.52 Long term (current) use of systemic steroids; Z79.899 Other long term (current) drug therapy
CPT/HCPCS: 36415; 71045; 80048; 80053; 80202; 81001; 82565; 82607; 82728; 82746; 82948; 83540; 83550; 83605; 83735; 83880; 84100; 84145; 84153; 84439; 84443; 84480; 84484; 85025; 85610; 85730; 87040; 87086; 87637; 87641; 87651; 93005; 94762; 96361; 96365; 96366; 96367; 96368; 96372; 96375; 96376; 99285; A9270; C8929; G0378; J0692; J1650; J1720; J1815; J3370; J3475; J7030; J7512; Q4081; Q9957

== ENCOUNTER 2024-09-20 01:12 | Day surgery (SDC) | payer OTHER, SELFPAY ==
[2024-09-13 14:46] VITALS: BMI 29.1
--- NOTE | 2024-09-13 15:07 | PC.NURSE ---
Report to the Outpatient Waiting Room, entrance under the green pavilion located off [facility], at time ___7:00AM____ on date ___09/20/24____. Planned Procedure Time: ___9:00AM .? Time changes happen often and if your time is changed the preop area will call you the afternoon before. - You and your visitor will be asked to self-screen and do not enter if you have any COVID symptoms. Please call surgeon if you need to reschedule. - A mask is optional within the hospital at this time. Patients may have clear liquids (water, carbonated beverages, clear teas, apple juice) until 3 hours prior to surgery (6:00AM) with a maximum of 20 ounces. - No food from midnight until time of surgery and no smoking. This includes no chewing gum, candy or mints. Take only the following medications with a SIP of water on the morning of surgery: __GABAPENTIN, METOPROLOL, PREDNISONE. MAY TAKE ONDANSETRON & OXYCODONE NEEDED. DO NOT STOP ANY OF YOUR OTHER PRESCRIPTION MEDICATIONS PRIOR TO SURGERY EXCEPT THE FOLLOWING Medications to discontinue per physician ___HOLD VITAMINS/SUPPLEMENTS 3 DAYS PRE-OP PER ANESTHESIA (VIT D AND B12) Date to take last dose 09/16/24 Please no make-up, nail vincentian, hairspray, perfume, deodorant, or body powder the day of surgery.? No jewelry (including any body piercings) or valuables the day of surgery, leave them at home.? Please take a shower or bath the night before, or the morning of, surgery with an antibacterial soap.? Wear comfortable, loose fitting clothing.? Children are encouraged to wear pajamas. - Jewelry must be removed prior to entering the operating room.? Rings and piercings that are not removed may be cut off. - The hospital will not accept responsibility for valuables.? - Please leave all valuables, including medications, at home the day of surgery. If you are going home after surgery, a licensed cdl dedicated truck driver must drive you home.? - NO public transportation without another adult if you receive anesthesia. - We recommend that an adult stay with you for 24 hours following discharge. - We also recommend that you do not drive, make important decision, drink alcoholic beverages, or take any drugs that were not prescribed by your health care provider for at least 24 hours after your discharge time. Follow any additional instructions given to you from your surgeon. Telephone instructions given to __PATIENT'S WIFE and asked if any additional questions and then verbalized understanding. Patient advised to call surgeon office or pre surgery nurse liaison [phone] if any additional questions.
--- NOTE | ~2024-09-20 | XR_ITS ---
EXAMINATION: XR fl guide central line place DATE: 09/20/2024 09:50 INDICATION: Port placement. TECHNIQUE: 2 intraoperative fluoroscopic views of the chest were obtained. I was not present. Fluoros copy exposure time was 17 seconds. COMPARISON: Chest single view 09/20/2024 FINDINGS: There is a left internal jugular port with tip in superior vena cava. IMPRESSION: 1. Port tip in superior vena cava. Reviewed, dictated and finalized at location A. RIDER
--- NOTE | ~2024-09-20 | XR_ITS ---
EXAMINATION: XR chest port-a-cath/central DATE: 09/20/2024 10:10 INDICATION: Port placement. TECHNIQUE: A single frontal view of the chest was obtained on 2 radiographs. COMPARISON: Chest single view 09/07/2024 FINDINGS: There is no pneumonia, pleural effusion, or pneumothorax. The heart size is normal. There i s a left internal jugular port with tip in superior vena cava. There is widespread sclerosis of the b ones. IMPRESSION: 1. Port tip in superior vena cava. 2. Widespread sclerosis of the bones, consistent with metastatic disease. Reviewed, dictated and finalized at location A. ET MAKER
--- OUTSIDE RECORDS SUMMARY | 2024-09-20 01:15 | XMS_ITS | Clinical Summary ---
Author Organization [facility] Address [address] [place] [address] Care Team Providers Care Processing Analyst Name Role Phone Bruce Acuña MD Primary Care Provider [phone] Sammy Patel MD Unavailable Allergies No known active allergies Medications abiraterone (ZYTIGA) 250 mg tablet Take 4 tablets (1,000 mg total) by mouth daily before breakfast 08/31/19 24 Active calcitRIOL (ROCALTROL) 0.5 mcg capsule Take 1 capsule (0.5 mcg total) by mouth 2 (two) times a day 09/01/19 24 Active gabapentin (NEURONTIN) 800 mg tablet Take 1 tablet (800 mg total) by mouth 2 (two) times a day Active glimepiride (AMARYL) 2 mg tablet Take 1 tablet (2 mg total) by mouth daily with breakfast Active metFORMIN (GLUCOPHAGE) 500 mg tablet Take 2 tablets (1,000 mg total) by mouth every 12 (twelve) hours Active mirtazapine (REMERON) 15 mg tablet Take 1 tablet (15 mg total) by mouth nightly at bedtime Active omeprazole (PriLOSEC) 40 mg capsule Take 1 capsule (40 mg total) by mouth supervisor covering and lining before breakfast 08/25/19 24 Active pioglitazone (ACTOS) 45 mg tablet Take 1 tablet (45 mg total) by mouth nightly Active predniSONE (DELTASONE) 5 mg tablet Take 1 tablet (5 mg) by mouth 2 (two) times a day 09/07/19 24 Active tamsulosin (FLOMAX) 0.4 mg extended release capsule Take 1 capsule (0.4 mg total) by mouth nightly 08/29/19 24 Active ondansetron ODT (ZOFRAN-ODT) 8 mg disintegrating tablet Take 1 tablet (8 mg total) by mouth every 12 (twelve) hours as needed 03/21/20 23 Active mupirocin (BACTROBAN) 2 % ointmentIndication s:Closed fracture of right hip, initial encounter ([facility]) Apply to each nostril with a clean Q-tip twice a day for 5 days prior to surgery 15 g 09/19/19 24 Active Additional Information Patient not taking.Informant: Self, Reported on 02/29/2024 calcium carbonate-vitamin D3 1,500 mg (600mg elemental) -800 unit per tablet Take 1 tablet by mouth 4 (four) times a day Active potassium gluconate 2.5 mEq tablet Take 30 mcg by mouth supervisor covering and lining before breakfast Active iron bis-gly/FA/C/B12/C a/succ (IRON-150 ORAL) Take 65 mg by mouth supervisor covering and lining before breakfast Active amoxicillin-clavul anate (AUGMENTIN) 875-125 mg per tablet Take 1 tablet by mouth 2 (two) times a day 02/16/20 24 Active cyanocobalamin (Vitamin B-12) 1,000 mcg tablet Take 1 tablet (1,000 mcg total) by mouth daily Active nitrofurantoin monohydrate (MACROBID) 100 mg capsule Take 1 capsule (100 mg total) by mouth 2 (two) times a day 12/07/19 24 Active phenazopyridine (PYRIDIUM) 200 mg tablet Take 1 tablet (200 mg total) by mouth 3 (three) times a day 12/16/19 24 Active Active Problems Problem Noted Date Diagnosed Date COVID 11/10/2023 Assessment & Plan (11/10/2023 2:02 AM CDT): Sick contact at home. Symptoms started 11/07 with new cough. Diagnosed positive 11/08. He presented with dry cough and fever. Vital signs on admission with minimum SPO2 84% leading to 2L [id number]. A CXR obtained on admission unremarkable. - The patient currently requires supplemental oxygen. Closely monitor continuous pulse oximetry for evidence of decompensation. Wean oxygen as tolerated. - Remdesivir (11/08-) - Dexamethasone (11/09-) - Continue supportive care with antitussives and antipyretics as needed. COVID- 19 droplet and contact precautions per hospital protocol. Hypocalcemia 11/10/2023 Assessment & Plan (11/10/2023 2:13 AM CDT): On calcium and vitamin D supplementation at home - Continue home meds - Check PTH, vit D, phos, mg Fall, initial encounter 11/09/2023 Assessment & Plan (11/10/2023 4:18 AM CDT): Mechanical fall at home. CTH/Cspine, XR R hip without fracture. GTS consulted in ED, reassuring exam. - PT/OT - Pain control: APAP PRN, home gabapentin - CT pelvis - GTS to follow for tertiary exam Hip fracture requiring opera tive repair, right, closed, initial encounter 09/30/2023 Closed fracture of right hip, initial encounter 09/29/2023 Closed displaced fracture of right femoral neck 09/29/2023 Closed fracture of right hip 09/19/2023 Malignant neoplasm of prostate 09/14/2023 Assessment & Plan (11/10/2023 2:15 AM CDT): Patient follows with Zhane Shay, diagnosed with [id number] prostate adenocarcinoma in 2020, on ADT with lupron and docetaxel x6c last 07/18/2023, s/p RT to bilateral knees completed 05/2023. He underwent elective R hip hemiarthroplasty 09/29/2023 for pathologic fracture and discharged 10/02/2023. - Home abiraterone Chronic anemia 04/14/2023 DM (diabetes mellitus) 06/12/2021 Assessment & Plan (11/10/2023 2:14 AM CDT): - Hold PO metformin/glimepiride/pioglitazone - HDSSI while on steroids Encounters Date Type Department Care Team Description 09/14/2024 Orders Only [facility] Cardiology [address] [place] [address] REINA Smith [address] Coral Fitzgerald MD from Last 3 Months Social History Tobacco Use Types Packs/Day Years Used Date Smoking Tobacco: Never Passive Smoke Exposure: Past Smokeless Tobacco: Never Tobacco Cessation:Counseling Given: Not Answered Alcohol Use Standard Drinks/Week Comments Not Currently 0 (1 standard drink = 0.6 oz pur e alcohol) AUDIT-C Answer Date Recorded Q1: How often do you have a drink containing alc ohol? 2-3 times a week 09/23/2023 Q2: How many drinks containi ng alcohol do you have on a typical day when you are drinking? 3 or 4 09/23/2023 Q3: How often do you have si x or more drinks on one occasion? Never 09/23/2023 Personal Safety Answer Date Recorded Have you ever been in or are you currently in a harmful physical or emotional relationship or is someone making you feel afraid or unsafe? 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 Gender Identity Not on file Sexual Orientation Not on file Obstetrics History Last Filed Vital Signs Vital Sign Reading Time Taken Comments Blood Pressure 109/65 11/13/2023 8:25 AM CDT Pulse 65 11/13/2023 8:25 AM CDT Temperature 36.6 ??C (97.9 ??F) 11/13/2023 8:25 AM CD T Respiratory Rate 18 11/13/2023 4:36 AM CDT Oxygen Saturation 99% 11/13/2023 8:25 AM CDT Inhaled Oxygen Concentration - - Weight 102.9 kg (226 lb 14.4 oz) 11/13/2023 4:36 AM CDT Height 175.3 cm (5' 9.02 ) 11/10/2023 1 1:10 PM CDT Body Mass Index 33.49 11/10/2023 11:10 PM CDT Plan of Treatment Health Maintenance Due Date Last Done Comments Albumin Creatinine Ratio, Urine 1955 Colon Cancer Screening-Colonoscopy 1955 Depression Screening 1955 Hepatitis C Screening 1955 Prostate Cancer Screening-PSA 1955 Dilated Eye Exam 1955 Foot Exam 1955 Pneumococcal vaccine 65+ (1 of 2 - PCV) 1961 DTaP/Tdap/Td Vaccine (1 - Tdap) 1966 Hepatitis B Screening 1973 Zoster Vaccine (1 of 2) 1974 Well Visit 65+ 02/14/2020 Covid-19 Vaccine (3 - Modern a risk series) 11/29/2020 11/01/2020, 10/04/2020 Hemoglobin A1C 03/23/2024 09/23/2023 Influenza Vaccine (#1) 2024 Lipid Panel 09/29/2024 09/29/2023 eGFR 11/08/2024 11/09/2023, 09/22, 09/30/2023, Additional history exists Fall Risk Assessment 11/12/2024 11/13/2023 Medical Devices Implanted Type Area Plant Tender Device Identifier Shelf Expiration Date Model / Serial / Lot [employer] Simplex P Radiopaque Full Dose Cement Bone Sterile 6191-1-010 - [id number] Implanted:Qty: 2 on 09/29/2023 by Sammy Patel MD at [facility] Right: Hip [employer] 11/19/2025 6191-1-010 / / [id number] [employer] Simplex P Radiopaque Full Dose Cement Bone Sterile 6191-1-010 - [id number] Implanted:Qty: 1 on 09/29/2023 by Sammy Patel MD at [facility] Right: Hip [employer] 09/21/2024 6191-1-010 / / [id number] [employer] Versys Od13 Mm L300 Mm Revision; Cemented Hip; Calcar 41 Mm; Offs [id number] - [id number] Implanted:Qty: 1 on 09/29/2023 by Sammy Patel MD at [facility] Right: Hip [employer] [id number] 11/19/2028 [id number] / / [id number] [employer] 28mm Hip +0mm [place] Femoral Cocr [id number] - [id number] Implanted:Qty: 1 on 09/29/2023 by Sammy Patel MD at [facility] Right: Hip [employer] [id number] 12/27/2032 [id number] / / [id number] [employer] Ringloc Bio-Arizmendi Ii 52mm 28mm 2 Articulate Surface Lock [id number] - [id number] Implanted:Qty: 1 on 09/29/2023 by Sammy Patel MD at [facility] Right: Hip [employer] [id number] 10/13/2027 / / [id number] Explanted Type Area Plant Tender Device Identifier Shelf Expiration Date Model / Serial / Lot [employer]/ Ortho Prep-Im Plug Strunk Sponge Suction Hip Kit Thr Latex Free [id number] - [id number] Explanted:Qty: 1 on 09/29/2023 by Sammy Patel MD at [facility] Right: Hip [employer]/Or tho [id number] 06/01/2033 [id number] / / [id number] Description:Kit was used but cement restrictor was not used. Procedures Procedure Name Priority Date/Time Associated Diagnosis Comments CARDIOLOGY DOCUMENT SCAN Routine 09/11/2024 5:15 PM PARTS ANALYST CARDIOLOGY DOCUMENT SCAN Routine 09/10/2024 5:13 PM PARTS ANALYST EGFR STAT 11/09/2023 4:38 PM CDT LIPID PANEL Routine 09/29/2023 11:47 PM PARTS ANALYST POCT HEMOGLOBIN A1C Routine 09/23/2023 4 :18 PM PARTS ANALYST from Last 3 Months or Most Recently Relevant to Health Maintenance Results * Cardiology Document Scan (09/11/2024 5:15 PM PARTS ANALYST) Anatomical Region Laterality Modality Other us Coral Fitzgerald MD [facility] PROCEDU RES Final Result * Cardiology Document Scan (09/10/2024 5:13 PM PARTS ANALYST) Anatomical Region Laterality Modality Other us Coral Fitzgerald MD CV CARDIAC SERVICES PROCEDU RES Final Result * eGFR (11/09/2023 4:38 PM CDT) eGFR >90 >=60 mL/min/1. 73 m2 Comment: Interpretive Data Reference Interval Normal ?>/= 90 mL/min/1.73m2 Mildly decreased* ? 60 - 89 mL/min/1.73m2 Mildly to moderately decreased ?45 - 59 mL/min/1.73m2 Moderately to severely decreased ??30 - 44 mL/min/1.73m2 Severely decreased ?15 - 29 mL/min/1.73m2 Kidney Failure ?< 15 ??mL/min/1.73m2 *Relative to young adult level Estimated glomerular filtration rate is determined by the 2020 CKD-EPI equation recommended by the National Kidney Foundation (A Unifying Approach to GFR Estimation: Recommendations of the NKF-ASK Task Force on Reassessing the Inclusion of Race in Diagnosing Kidney Disease, JASN 2020). The CKD-EPI equation should not be used for patients with unstable renal function and has not been validated in children and those over 70. Current interpretive data was last reviewed 2021. Blood 11/09/2023 4:38 PM CDT 11/09/2023 4:56 PM CDT Jamil Cisneros MD LAB BLOOD ORDERABLE S Final Result [facility] Department [place] [address] * (ABNORMAL) Lipid panel (09/29/2023 11:47 PM PARTS ANALYST) Cholesterol 161 30 - 199 mg/dL [facility] Comment: Interpretive Data Ages < or = 19 years ??Acceptable: ? <170 mg/dL ??Borderline high: ??170-199 mg/dL ??High: ? >or= 200 mg/dL Ages > or = 20 years ??Desirable: ?<200 mg/dL ??Borderline high: ??200-239 mg/dL ??High: ? >or= 240 mg/dL Literature References: 1. Expert Panel on Integrated Guidelines for Cardiovascular Health and Risk Reduction in Children and Adolescents. Pediatrics 2011;128:S213 2. NCEP Expert Panel. Circulation 2004;110:227 Current Interpretive Data was last revised on 2018. Triglycerides 169(H) <=149 mg/dL [facility] Comment: Interpretive Data Ages < or = 9 years ??Acceptable: ? <75 mg/dL ??Borderline high: ??75-99 mg/dL ??High: ? >or= 100 mg/dL Ages 10 to 20 years ??Acceptable: ? <90 mg/dL ??Borderline high: ??90-129 mg/dL ??High: ? >or= 130 mg/dL Ages > or = 20 years ??Desirable: ?<150 mg/dL ??Borderline high: ??150-199 mg/dL ??High: ? 200-499 mg/dL ?Very high: ?? >or= 499 mg/dL Literature References: 1. Expert Panel on Integrated Guidelines for Cardiovascular Health and Risk Reduction in Children and Adolescents. Pediatrics 2011;128:S213 2. NCEP Expert Panel. Circulation 2004;110:227 Current Interpretive Data was last revised on 2018. HDL 32(L) >=40 mg/dL [facility] Comment: Interpretive Data Ages < or = 19 years ??Acceptable: ? >45 mg/dL ??Borderline low: ?? 40-45 mg/dL ??Low: ? <40 mg/dL Ages > or = 20 years ??Desirable: ?>or= 60 mg/dL ??Low: ? <40 mg/dL Literature References: 1. Expert Panel on Integrated Guidelines for Cardiovascular Health and Risk Reduction in Children and Adolescents. Pediatrics 2011;128:S213 2. NCEP Expert Panel. Circulation 2004;110:227 Current Interpretive Data was last revised on 2018. LDL, calculated 95 <=129 mg/dL [facility] Comment: Interpretive Data Ages < or = 19 years ??Acceptable: ? <110 mg/dL ??Borderline high: ??110-129 mg/dL ??High: ?>or= 130 mg/dL Ages > or = 20 years ??Optimal: ? <100 mg/dL ??Near optimal: ?100-129 mg/dL ??Borderline high: ?? 130-159 mg/dL ??High: ?>160 mg/dL Literature References: 1. Expert Panel on Integrated Guidelines for Cardiovascular Health and Risk Reduction in Children and Adolescents. Pediatrics 2011;128:S213 2. NCEP Expert Panel. Circulation 2004;110:227 Current Interpretive Data was last revised on 2018. Non-HDL Cholesterol 129 mg/dL [facility] Comment: Interpretive Data Ages < or = 19 years ??Acceptable: ?<120 mg/dL ??Borderline high: ??120-144 mg/dL ??High: ?>145 mg/dL Ages > or = 20 years ??When triglycerides are >200 mg/dL, Non-HDL cholesterol is a secondary target of ? therapy with treatment goals that are 30 mg/dL greater than the LDL cholesterol target. ? Literature References: 1. Expert Panel on Integrated Guidelines for Cardiovascular Health and Risk Reduction in Children and Adolescents. Pediatrics 2011;128:S213 2. NCEP Expert Panel. Circulation 2004;110:227 Current Interpretive Data was last revised on 2018. Chol/HDL ratio 5 [facility] Blood 09/29/2023 11:4 7 PM PARTS ANALYST 09/30/2023 12:27 AM PARTS ANALYST us Sammy Patel MD LAB BLOOD ORDERABLES Hailey l Result Performing Organization Address [facility] Co de Phone Number [facility] Department [place] [address] * (ABNORMAL) POCT hemoglobin A1c (09/23/2023 4:18 PM PARTS ANALYST) Hgb A1C, POC 6.3(H) 4.0 - 5.6 % [facility] Est Average Gluc POC 134 mg/dL [facility] Comment: The ADA recommends reporting an estimated Average Glucose (eAG) with all Hemoglobin A1c results using the equation derived from a study of 507 normal and diabetic adults. ??Minority populations were underrepresented and children were not included. ?? (Diabetes Care 31:4060-5844, 2008). ??The eAG is not equivalent to a fasting glucose. Blood 09/23/2023 4:18 PM PARTS ANALYST 09/23/2023 4:18 PM PARTS ANALYST Sammy Patel MD POINT OF CARE TEST ORDERA BLES Final Result Performing Organization Address [facility] de Phone Number [facility] Department [place] [address] from Last 3 Months or Most Recently Relevant to Health Maintenance Insurance [facility] Advance Directives For more information, please contact: [phone] * Full Code (Latest Code Status on File) Date Activated Date Inactivated Comments 11/10/2023 2:10 AM 11/13/2023 2:47 PM * Full Code Date Activated Date Inactivated Comments 09/29/2023 2:47 PM 10/02/2023 8:01 PM Care Teams Processing Analyst Relationship Specialty Start Date End Date Bruce Acuña MD [address] [address] PCP - General Hematology 09/08/23 Sammy Patel MD [address] [facility] [address] [place] [address] Surgeon Orthopedic Surgery 10/04/23
--- OUTSIDE RECORDS SUMMARY | 2024-09-20 01:15 | XMS_ITS ---
Author Organization [facility] Address [address] [place] [address] Care Team Providers Care Service Captain Name Role Phone Bruce Acuña MD Primary Care Provider Sammy Patel MD Unavailable [phone] Active Problems Problem Noted Date Diagnosed Date COVID 11/10/2023 Assessment & Plan (11/10/2023 2:02 AM CDT): Sick contact at home. Symptoms started 11/07 with new cough. Diagnosed positive 11/08. He presented with dry cough and fever. Vital signs on admission with minimum SPO2 84% leading to 2L [id number]. A CXR obtained on admission unremarkable. - [...] Patient follows with Zhane Shay, diagnosed with [id number] prostate adenocarcinoma in 2020, on ADT with lupron and docetaxel x6c last 07/18/2023, s/p RT to bilateral knees completed 05/2023. He underwent elective R hip hemiarthroplasty 09/29/2023 for pathologic fracture and discharged 10/02/2023. - Home abiraterone Chronic anemia 04/14/2023 DM (diabetes mellitus) 06/12/2021 Assessment & Plan (11/10/2023 2:14 AM CDT): - Hold PO metformin/glimepiride/pioglitazone - HDSSI while on steroids Current Oncology Plans No current plan information found. Past Plans No past plan information found. Radiation Treatments * No radiation treatments are documented for this patient in [facility]. Treatments may have been administered in another system. Lifetime Dose Tracking * Chemical Lifetime Dose Automatic Entry Manual Entr y DLP 1,860 mGycm 1,860 mGycm 0 mGycm
--- OUTSIDE RECORDS SUMMARY | 2024-09-20 01:15 | XMS_ITS | Referral Summary ---
Author Organization [facility] Address [address] [place] [id number] Care Team Providers Care Work From Home Name Role Phone Bruce Acuña MD Primary Care Provider [phone] Sammy Patel MD Unavailable [phone] Encounters Date Type Department Care Team Description 09/14/2024 Orders Only [facility] Cardiology [address] [place] [id number] Coral Fitzgerald MD from Last 3 Months Allergies No known active allergies Medications abiraterone [...] 1 capsule (40 mg total) by mouth assisted living care manager before breakfast 08/25/19 24 Active pioglitazone (ACTOS) [...] s:Closed fracture of right hip, initial encounter ([facility]) Apply to each nostril with a clean Q-tip twice a day for 5 days prior to surgery 15 g 09/19/19 24 Active Additional Information Patient not taking.Informant: Self, Reported on 02/29/2024 calcium carbonate-vitamin D3 1,500 mg (600mg elemental) -800 unit per tablet Take 1 tablet by mouth 4 (four) times a day Active potassium gluconate 2.5 mEq tablet Take 30 mcg by mouth assisted living care manager before breakfast Active iron bis-gly/FA/C/B12/C a/succ (IRON-150 ORAL) Take 65 mg by mouth assisted living care manager before breakfast Active amoxicillin-clavul anate (AUGMENTIN) 875-125 [...] with minimum SPO2 84% leading to 2L [id number]. A CXR obtained on admission unremarkable. - [...] Patient follows with Zhane Shay, diagnosed with [id number] prostate adenocarcinoma in 2020, on ADT with lupron and docetaxel x6c last 07/18/2023, s/p RT to bilateral knees completed 05/2023. He underwent elective R hip hemiarthroplasty 09/29/2023 for pathologic fracture and discharged 10/02/2023. 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 Gender Identity Not on file Sexual Orientation [...] 11/10/2023 11:10 PM CDT Plan of Treatment Not on file Medical Devices Implanted Type Area [employer] Certified Internetwork Expert Device Identifier Shelf Expiration Date Model / Serial / Lot [employer] Simplex P Radiopaque Full Dose Cement Bone Sterile 6191-1-010 - [id number] Implanted:Qty: 2 on 09/29/2023 by Sammy Patel MD at [facility] Right: Hip [employer] 11/19/2025 6191-1-010 / / [id number] [employer] Simplex P Radiopaque Full Dose Cement Bone Sterile 6191-1-010 - [id number] Implanted:Qty: 1 on 09/29/2023 by Sammy Patel MD at [facility] Right: Hip [employer] 09/21/2024 6191-1-010 / / [id number] [employer] Versys Od13 Mm L300 Mm Revision; Cemented Hip; Calcar 41 Mm; Offs [id number] - [id number] Implanted:Qty: 1 on 09/29/2023 by Sammy Patel MD at [facility] Right: Hip [employer] [id number] 11/19/2028 [id number] / / [id number] [employer] 28mm Hip +0mm Elmo Head Femoral Cocr [id number] - [id number] Implanted:Qty: 1 on 09/29/2023 by Sammy Patel MD at [facility] Right: Hip [employer] [id number] 12/27/2032 [id number] / / [id number] [employer] Ringloc Bio-Arizmendi Ii 52mm 28mm 2 Articulate Surface Lock [id number] - [id number] Implanted:Qty: 1 on 09/29/2023 by Sammy Patel MD at [facility] Right: Hip [employer] [id number] 10/13/2027 / / [id number] Explanted Type Area Cisco Certified Internetwork Expert Device Identifier Shelf Expiration Date Model / Serial / Lot [employer]/ Ortho Prep-Im Plug Lewis Sponge Suction Hip Kit Thr Latex Free 096814 - [id number] Explanted:Qty: 1 on 09/29/2023 by Sammy Patel MD at [facility] Right: Hip [employer]/Or tho [id number] 06/01/2033 [id number] / / [id number] Description:Kit was used but cement restrictor was not used. Procedures Procedure Name Priority Date/Time Associated Diagnosis Comments CARDIOLOGY DOCUMENT SCAN Routine 09/11/2024 5:15 PM EMAIL ADMINISTRATOR CARDIOLOGY DOCUMENT SCAN Routine 09/10/2024 5:13 PM EMAIL ADMINISTRATOR EGFR STAT 11/09/2023 4:38 PM CDT LIPID PANEL Routine 09/29/2023 11:47 PM EMAIL ADMINISTRATOR POCT HEMOGLOBIN A1C Routine 09/23/2023 4 :18 PM EMAIL ADMINISTRATOR from Last 3 Months or Most Recently Relevant to Health Maintenance Results * Cardiology Document Scan (09/11/2024 5:15 PM EMAIL ADMINISTRATOR) Anatomical Region Laterality Modality Other us Coral Fitzgerald MD CV CARDIAC SERVICES PROCEDU RES Final Result * Cardiology Document Scan (09/10/2024 5:13 PM EMAIL ADMINISTRATOR) Anatomical Region Laterality Modality Other us Coral [...] of Race in Diagnosing Kidney Disease, JASN 1). The CKD-EPI equation should not be used for patients with unstable renal function and has not been validated in children and those over 70. Current interpretive data was last reviewed 2021. Blood 11/09/2023 4:38 PM CDT 11/09/2023 4:56 PM CDT Jamil Cisneros MD LAB BLOOD ORDERABLE S Final Result [facility] [place] [address] * (ABNORMAL) Lipid panel (09/29/2023 11:47 PM EMAIL ADMINISTRATOR) Cholesterol 161 30 - 199 mg/dL [facility] Comment: Interpretive Data Ages < or = [...] on 2018. Triglycerides 169(H) <=149 mg/dL [facility] Comment: Interpretive Data Ages < or = [...] revised on 2018. HDL 32(L) >=40 mg/dL [facility] Comment: Interpretive Data Ages < or = [...] on 2018. LDL, calculated 95 <=129 mg/dL [facility] Comment: Interpretive Data Ages < or = [...] revised on 2018. Non-HDL Cholesterol 129 mg/dL [facility] Comment: Interpretive Data Ages < or = [...] last revised on 2018. Chol/HDL ratio 5 [facility] Blood 09/29/2023 11:4 7 PM EMAIL ADMINISTRATOR 09/30/2023 12:27 AM EMAIL ADMINISTRATOR us Sammy Patel MD LAB BLOOD ORDERABLES Hailey l Result [facility] [place] [address] * (ABNORMAL) POCT hemoglobin A1c (09/23/2023 4:18 PM EMAIL ADMINISTRATOR) Hgb A1C, POC 6.3(H) 4.0 - 5.6 % [facility] Est Average Gluc POC 134 mg/dL [facility] Comment: The ADA recommends reporting an estimated Average Glucose (eAG) with all Hemoglobin A1c results using the equation derived from a study of 507 normal and diabetic adults. ??Minority populations were underrepresented and children were not included. ?? (Diabetes Care 31:5003-9883, 2008). ??The eAG is not equivalent to a fasting glucose. Blood 09/23/2023 4:18 PM EMAIL ADMINISTRATOR 09/23/2023 4:18 PM EMAIL ADMINISTRATOR us Sammy Patel MD POINT OF CARE TEST ORDERA BLES Final Result [facility] [place] [address] from Last 3 Months or Most Recently Relevant to Health Maintenance Insurance [facility] Advance Directives For more information, please contact: [phone] * Full Code (Latest Code Status on File) Date Activated Date Inactivated Comments 11/10/2023 2:10 AM 11/13/2023 2:47 PM * Full Code Date Activated Date Inactivated Comments 09/29/2023 2:47 PM 10/02/2023 8:01 PM Care Teams Work From Home Relationship Specialty Start Date End Date Bruce Acuña MD [address] [place] [id number] PCP - General Hematology 09/08/23 Sammy Patel MD [address] [facility] [address] [address] Surgeon Orthopedic Surgery 10/04/23
--- NOTE | 2024-09-20 07:28 | PM.IMHP ---
H&P: HPI History of Present Illness Date/Time: 09/20/24 07:28 Chief Complaint: Metastatic prostate cancer Narrative: The patient is a 69-year-old male continuing treatment for metastatic prostate cancer. The patient had port placed in the left subclavian vein in February of 2023. The patient reports that the port initially worked well, however has recently become very positional dependent. Port study shows narrowing of the catheter near the clavicle, 1st rib junction. Given these findings, it has been decided to replace the port as the patient will need continued access for treatment. Of note, the patient denies any other issues with the port. 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 The patient occasionally socially drinks alcohol but has never used any tobacco products. Code status: Full Code Surrogate decision maker: Josee () Smoking status: Never smoker Second hand tobacco smoke exposure: Yes Alcohol intake: current Drinks per week: 5 Substance use: never Substance use type: does not use Do You Feel Safe in your Home?: Yes Lack of Transportation: No Lack of Food: Never True Current Housing: I Have Housing Concerned About Future Housing: No Difficulty Paying Gas/Electric Bills: No Difficulty Paying for Meds: No Currently Unemployed: No Education: Associate Degree Difficulty w/ Childcare or Family Care: No Living arrangements: with family Additional living arrangements comments: Occupation/Education: occupation 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 Gender identity (if verbalized by the patient): Male Sexual Orientation (if Verbalized by the Patient): Straight or Heterosexual Spiritual care concerns: No Agree to blood products: Yes Meds Home Medications and Allergies Home Medications ?Medication ?Instructions ?Recorded ?Confirmed ?Type tamsulosin 0.4 mg capsule 0.4 mg PO HS 02/24/23 09/18/24 History cyanocobalamin (vitamin B-12) 500 mcg PO DAILY 03/10/23 09/18/24 History 1,000 mcg tablet omeprazole 40 mg capsule,delayed 40 mg PO DAILY 10/07/23 09/18/24 History release polysaccharide iron complex 150 mg 65 mg PO DAILY 10/07/23 09/18/24 History iron capsule (Ferrex) abiraterone 250 mg tablet 500 mg PO DAILY 04/17/24 09/19/24 History gabapentin 800 mg tablet 800 mg PO BID 04/17/24 09/18/24 History metformin 500 mg tablet See Rx Instructions .Route 05/06/24 09/18/24 Rx .COMPLEX #360 tabs pioglitazone 45 mg tablet See Rx Instructions .Route 08/29/24 09/18/24 Rx .COMPLEX #90 tabs atorvastatin 20 mg tablet See Rx Instructions .Route 09/07/24 09/18/24 Rx .COMPLEX #30 tabs calcitriol 0.5 mcg capsule 0.5 mcg PO BID 09/07/24 09/18/24 History calcium 600 mg capsule 600 mg PO QID 09/07/24 09/18/24 History cholecalciferol (vitamin D3) 25 25 mcg PO DAILY 09/07/24 09/18/24 History mcg (1,000 unit) capsule (Vitamin D3) megestrol 400 mg/10 mL (40 mg/mL) 40 mg PO DAILY 09/08/24 09/18/24 History oral suspension ondansetron 8 mg disintegrating 8 mg translingual Q8H PRN nausea 09/08/24 09/18/24 History tablet and vomiting albuterol sulfate 90 mcg/actuation 1 inh inhalation Q4H PRN shortness 09/18/24 09/19/24 Rx aerosol inhaler (Ventolin HFA) of breath or wheezing #6.7 grams metoprolol succinate 25 mg 12.5 mg PO DAILY 09/18/24 09/19/24 History tablet,extended release 24 hr prednisone 5 mg tablet 5 mg PO DAILY 09/18/24 09/19/24 History tramadol 50 mg tablet 50 mg PO DAILY PRN pain #30 tabs 09/18/24 09/19/24 Rx Allergies Allergy/AdvReac Type Severity Reaction Status Date / Time No Known Allergies Allergy Verified 09/18/24 09:53 Exam Const: General: cooperative, comfortable, no acute distress and ill appearing Neck: Neck: normal visual inspection, full ROM and no lymphadenopathy Chest: Other: Left subclavian Port-A-Cath clean dry and intact Resp: Effort & Inspection: normal respiratory effort Cardio: Rate: tachycardic Rhythm: regular rhythm GI: Inspection: normal to inspection Assessment and Plan Assessment and plan (1) Encounter for care related to Port-a-Cath: Code(s): Z45.2 - Encounter for adjustment and management of vascular access device Status: Acute Assessment and Plan: full set up for removal and replacement left subclavian Port-A-Cath, most likely placement in the left internal jugular vein
--- NOTE | 2024-09-20 07:31 | WPDHPUPDATE1 ---
History and Physical Update Update Date/Time: 09/20/24 07:31 History and Physical has been reviewed, including an updated exam of the patient. There are NO changes in the patient's condition. Risks, benefits, and alternatives have been discussed and questions answered. Patient agrees to proceed with procedure.
--- NOTE | 2024-09-20 07:33 | P.PNAN_ITS ---
Anes - Initial Pre Proc Eval Procedure: Operation Date: 09/20/24 09:00 Proposed Procedures p Removal and Replacement Laci Cath - Tiffany Villa MD Date/Time: 09/20/24 07:33 Surgeon: Tiffany Villa MD Pre Op Diagnosis: malig neoplasm of prostate Patient Data Age: 69 Gender: M Height: 1.73 m Weight: 87 kg Allergies Allergy/AdvReac Type Severity Reaction Status Date / Time No Known Allergies Allergy Verified 09/18/24 09:53 Home Medications ?Medication ?Instructions ?Recorded ?Confirmed ?Type tamsulosin 0.4 mg capsule 0.4 mg PO HS 02/24/23 09/18/24 History cyanocobalamin (vitamin B-12) 500 mcg PO DAILY 03/10/23 09/18/24 History 1,000 mcg tablet omeprazole 40 mg capsule,delayed 40 mg PO DAILY 10/07/23 09/18/24 History release polysaccharide iron complex 150 mg 65 mg PO DAILY 10/07/23 09/18/24 History iron capsule (Ferrex) abiraterone 250 mg tablet 500 mg PO DAILY 04/17/24 09/19/24 History gabapentin 800 mg tablet 800 mg PO BID 04/17/24 09/18/24 History metformin 500 mg tablet See Rx Instructions .Route 05/06/24 09/18/24 Rx .COMPLEX #360 tabs pioglitazone 45 mg tablet See Rx Instructions .Route 08/29/24 09/18/24 Rx .COMPLEX #90 tabs atorvastatin 20 mg tablet See Rx Instructions .Route 09/07/24 09/18/24 Rx .COMPLEX #30 tabs calcitriol 0.5 mcg capsule 0.5 mcg PO BID 09/07/24 09/18/24 History calcium 600 mg capsule 600 mg PO QID 09/07/24 09/18/24 History cholecalciferol (vitamin D3) 25 25 mcg PO DAILY 09/07/24 09/18/24 History mcg (1,000 unit) capsule (Vitamin D3) megestrol 400 mg/10 mL (40 mg/mL) 40 mg PO DAILY 09/08/24 09/18/24 History oral suspension ondansetron 8 mg disintegrating 8 mg translingual Q8H PRN nausea 09/08/24 09/18/24 History tablet and vomiting albuterol sulfate 90 mcg/actuation 1 inh inhalation Q4H PRN shortness 09/18/24 09/19/24 Rx aerosol inhaler (Ventolin HFA) of breath or wheezing #6.7 grams metoprolol succinate 25 mg 12.5 mg PO DAILY 09/18/24 09/19/24 History tablet,extended release 24 hr prednisone 5 mg tablet 5 mg PO DAILY 09/18/24 09/19/24 History tramadol 50 mg tablet 50 mg PO DAILY PRN pain #30 tabs 09/18/24 09/19/24 Rx Patient hx anesthesia problems: none Family hx anesthesia problems: none Results Review: All pre-operative results and documents have been reviewed as part of the pre- operative evaluation. 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 The patient occasionally socially drinks alcohol but has never used any tobacco products. Code status: Full Code Surrogate decision maker: Josee () Smoking status: Never smoker Second hand tobacco smoke exposure: Yes Alcohol intake: current Drinks per week: 5 Substance use: never Substance use type: does not use Do You Feel Safe in your Home?: Yes Lack of Transportation: No Lack of Food: Never True Current Housing: I Have Housing Concerned About Future Housing: No Difficulty Paying Gas/Electric Bills: No Difficulty Paying for Meds: No Currently Unemployed: No Education: Associate Degree Difficulty w/ Childcare or Family Care: No Living arrangements: with family Additional living arrangements comments: Occupation/Education: occupation 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 Gender identity (if verbalized by the patient): Male Sexual Orientation (if Verbalized by the Patient): Straight or Heterosexual Spiritual care concerns: No Agree to blood products: Yes Anes - Eval Final PreProcedure Day of Procedure 09/20/24 07:33 Patient weight: overweight Heart: regular rate and rhythm Lungs: clear to auscultation Airway: Mallampati scale class II Neurological: alert and oriented Last oral intake: >/= 8 hours ASA classification: IV Emergent: no Anesthetic plan: proceed Anesthesia type and monitoring: general GIVS and standard monitoring Results Review: All pre-operative results and documents have been reviewed as part of the pre-op erative evaluation. Informed Consent: The patient's anesthetic plan and its attendant risks and benefits were discussed with the patient/family/POA. Questions were solicited and answers provided to the satisfaction of the patient/family/POA.
[2024-09-20 08:30] VITALS: BP 94/60; PULSE 115; RESP 16; TEMP 37.2; O2SAT 94
[2024-09-20] MEDS: KETOROLAC 15 MG/ML VIAL (*BKC) IV PUSH (08:30)
[2024-09-20] MEDS: LACTATED RINGERS 1,000 ML 30 ML IV CONT (08:30)
[2024-09-20 08:31] LABS: Glucose Point of Care 122 mg/dl (65-105)
[2024-09-20] MEDS: ceFAZolin 2 GM/D5W 50 ML 2 GM/50 ML BAG IVPB (08:55)
[2024-09-20] MEDS: BUPIVACAINE/EPINEPHRINE 0.5% 50 ML VIAL 20 ML INFILTRATE (09:22)
[2024-09-20] MEDS: HEPARIN SODIUM, PORCINE 10,000 UNITS/10 ML VIAL 4000 UNITS IRRIGATION (09:24)
[2024-09-20] MEDS: HEPARIN SODIUM 5,000 UNITS/ML VIAL 5000 UNITS IRRIGATION (09:25)
[2024-09-20 09:52] VITALS: BP 92/48; PULSE 106; RESP 16; O2SAT 100
--- NOTE | 2024-09-20 10:04 | W.PM.PROC2 ---
Procedure Note - Detailed Date of Procedure 09/20/24 Pre-op Diagnosis metastatic prostate cancer, malfunction of previously placed left subclavian venous access device Post-op Diagnosis Same Procedure Performed removal of malfunction left subclavian venous access device, placement of left internal jugular venous access device under ultrasound and fluoroscopic guidance Surgeon Tiffany Villa MD Anesthesia MAC and Local Indications 69-year-old male with metastatic prostate cancer presenting with malfunction of previously placed left subclavian venous access device Findings 1st stick left IJ under ultrasound guidance Description of Procedure Patient was brought into the operating room and placed in the supine position. After adequate induction of mac anesthesia, the patient was prepped and draped in normal sterile fashion. Time-out was then done to verify the patient's identity, as well as the procedure being performed. I then used the ultrasound to gain access into the left internal jugular vein. Once access was gained, I placed the guidewire in the vein and confirmed proper positioning under fluoroscopic guidance. I then locally anesthetized the area in the left chest of the previously placed catheterization. I then open the previous incision and dissected out the previously placed left subclavian venous access device. I was then able to remove the device in full including the previously placed catheter in the left subclavian vein. Pressure was then held at the level of the left subclavian vein and hemostasis was obtained. I proceeded to tunnel the new catheter from the left chest to the left neck insertion site. I then placed a dilating sheath over the guidewire into the left internal jugular vein via sterile Seldinger technique. This was once again done and confirmed via fluoroscopic guidance. I then removed the dilator and the guidewire, now just leaving the sheath in the vein. I then fed the previously flushed catheter into the left internal jugular vein under fluoroscopic guidance. At approximately 35 cm, the catheter was noted to be near the superior vena cava. I then peeled away the sheath, now just leaving the catheter in the vein. I then was able to easily draw and flush from the catheter. The catheter was cut to fit and attached to the port itself. The port was placed into the previously made subcutaneous pocket and sutured in with 0 Ethibond suture. Final fluoroscopic view showed the termination of the catheter at the atrial caval junction with a nice smooth curvature back to the port itself. I was able to gain access to the port with a Sumner needle and was able to easily draw and flush from the port. I then flushed 4 cc of a final heparin flush into the port. The incision was closed with 3 0 Vicryl suture in the subcutaneous tissue and the skin was closed with 4 O Monocryl subcuticular suture. Dermabond was then placed on wound. The patient tolerated the procedure well and will be sent to the recovery room in stable condition. Implants left internal jugular venous access device Estimated Blood Loss 5 Pathology None sent Complications No immediate complications Condition Stable Disposition PACU [facility] Billing Surgery - Charge Forward: Surgery Billing
[2024-09-20 10:22] VITALS: BP 106/54; PULSE 115; RESP 16; O2SAT 94
[2024-09-20 10:44] LABS: Glucose Point of Care 132 mg/dl (65-105)
[2024-09-20 10:52] VITALS: BP 112/47; PULSE 98; RESP 16
== END 2024-09-20 11:04 | disposition home or self-care (01) ==
PROVIDERS: PCP Family Medicine Adolescent Medicine; Visit Provider Surgery
PROC: (CPT 36590; principal; 2024-09-20 09:00)
DX: Z45.2 Encounter for adjustment and management of vascular access device (principal); C61 Malignant neoplasm of prostate; E78.2 Mixed hyperlipidemia; E11.42 Type 2 diabetes mellitus with diabetic polyneuropathy; I70.0 Atherosclerosis of aorta; G25.0 Essential tremor; Z79.84 Long term (current) use of oral hypoglycemic drugs; Z79.51 Long term (current) use of inhaled steroids; Z79.52 Long term (current) use of systemic steroids; Z79.891 Long term (current) use of opiate analgesic; Z98.890 Other specified postprocedural states; Z86.0100 Personal history of colon polyps, unspecified; Z80.1 Family history of malignant neoplasm of trachea, bronchus and lung; Z80.3 Family history of malignant neoplasm of breast
CPT/HCPCS: 36590; 36561; 77001; 82948; C1788; J0690; J1644; J1885; J2405; J2704; J3010; J7030; J7120

== ENCOUNTER 2024-10-10 12:39 | Inpatient (IN) | payer OTHER, SELFPAY ==
[2024-10-10] VITALS (53 sets, daily range): BP systolic 90–123; BP diastolic 48–72; PULSE 93–128; RESP 15–26; TEMP 36.4–36.6; O2SAT 94–100; BMI 25.6
--- OUTSIDE RECORDS SUMMARY | 2024-10-10 12:42 | XMS_ITS | Clinical Summary ---
Author Organization [facility] Administrative Offices Address [address] [place] [address] Care Team Providers Care Credit Card Control Clerk Name Role Phone Shaheen Foley MD Primary Care Provider [phone]- [phone] Allergies No known active allergies Medications atorvastatin (LIPITOR) 80 mg tablet 05/26/20 21 Active gabapentin (NEURONTIN) 800 mg tablet TAKE 1 TABLET BY MOUTH TWICE DAILY 05/05/20 21 Active metFORMIN (GLUCOPHAGE) 500 mg tablet Take 500 mg by mouth 4 times daily. Active pioglitazone (ACTOS) 30 mg tablet Take 30 mg by mouth daily. Active mecobalamin/L- mefolate/B6 phos (METANX ORAL) Take 2 mg by mouth 2 times daily. Active bicalutamide (Casodex) 50 mg tabletIndicati ons:Malignant neoplasm of prostate (CMS/HCC) Take 1 Tablet (50 mg) by mouth daily. 10 Tablet 09/16/19 22 Active mirtazapine (REMERON) 7.5 mg tablet Take 7.5 mg by mouth daily at bedtime. 02/27/20 23 Active amoxicillin (AMOXIL) 500 mg capsule Take 500 mg by mouth 3 times daily. Active oxyCODONE (ROXICODONE) 5 mg tabletIndicati ons:Cancer associated pain Take 1 Tablet (5 mg) by mouth every 4 hours as needed for Pain. Max Daily Amount: 30 mg 60 Tablet 09/19/19 24 Active omeprazole (PriLOSEC) 40 mg Capsule, Delayed Release(E.C.)I ndications:Mal ignant neoplasm of prostate (CMS/HCC) Take 1 capsule by mouth once daily 30 Capsule 09/26/19 24 Active nitrofurantoin (Macrobid) 100 mg capsule Take 1 Capsule (100 mg) by mouth 2 times daily. 14 Capsule 12/07/19 24 Active phenazopyridin e 200 mg tabletIndicati ons:Urine frequency Take 1 Tablet (200 mg) by mouth 3 times daily. 20 Tablet 12/16/19 24 Active calcitRIOL (ROCALTROL) 0.5 mcg capsuleIndicat ions:Cancer associated pain Take 1 Capsule (0.5 mcg) by mouth 2 times daily. 60 Capsule 4 01/18/20 24 Active cyanocobalamin 1,000 mcg Tablet Take 1,000 mcg by mouth daily. Active ondansetron (ZOFRAN ODT) 8 mg Tablet, Rapid DissolveIndica tions:Malignan t neoplasm of prostate (CMS/HCC) Dissolve 1 tablet on top of tongue then swallow with saliva every 8 hours as needed for nausea or vomiting 30 Tablet 3 05/17/20 24 Active megestroL (MEGACE) 400 mg/10 mL (40 mg/mL) suspension Take 5 mL (200 mg) by mouth daily. 300 mL 06/04/20 24 Active predniSONE (DELTASONE) 5 mg tablet Take 1 Tablet (5 mg) by mouth 2 times daily with meals. 60 Tablet 2 06/25/20 24 Active omeprazole (PriLOSEC) 40 mg Capsule, Delayed Release(E.C.)I ndications:Mal ignant neoplasm of prostate (CMS/HCC) Take 1 capsule by mouth once daily 90 Capsule 09/10/19 25 Active tamsulosin (FLOMAX) 0.4 mg capsule Take 1 capsule by mouth once daily 60 Capsule 09/17/19 25 Active metoprolol succinate (TOPROL XL) 25 mg Extended Release 24 hour tablet Take 25 mg by mouth daily. 09/11/19 25 Active abiraterone (ZYTIGA) 250 mg tabletIndicati ons:Malignant neoplasm of prostate (CMS/HCC) Take 2 Tablets (500 mg) by mouth daily before breakfast. 60 Tablet 4 09/17/19 25 Active abiraterone (ZYTIGA) 250 mg tablet Take 4 Tablets (1,000 mg) by mouth daily before breakfast. 120 Tablet 5 5 3:11 PM TOBACCO FEEDER CATCHER 03/19/20 24 01/27/2 025 Discontinued(Re order) tamsulosin (FLOMAX) 0.4 mg capsule Take 1 capsule by mouth once daily 60 Capsule 07/17/20 025 Discontinued Active Problems Problem Noted Date Diagnosed Date Chronic anemia 04/14/2023 DM (diabetes mellitus) 06/12/2021 Malignant neoplasm of prostate Encounters Date Type Department Care Team Description 10/09/2024 External Device Data STL ABSTRACTION Provider, Abstract 10/08/2024 Orders Only [facility] Oncology and Hematology - Edu F[address] Clements [address] Bruce Acuña MD Malignant neoplasm of prostate (CMS/HCC) 09/25/2024 External Device Data STL ABSTRACTION Provider, Abstract 09/25/2024 Orders Only [facility] Oncology and Hematology - Edu Fah[address] Clements [address] Bruce Acuña MD 09/24/2024 Orders Only [facility] Oncology and Hematology - Edu [address] Bruce Acuña MD Malignant neoplasm of prostate (CMS/HCC) 09/18/2024 Orders Only [facility] Oncology and Hematology - Edu Fahad Clements [address] Bruce Acuña MD 09/17/2024 10:15 AM TOBACCO FEEDER CATCHER Office Visit [facility] Oncology and Hematology - Edu Fah[address] Clements [address] [place] [id number] Bruce Acuña MD Malignant neoplasm of prostate (CMS/HCC) (Primary Dx); Chronic anemia 09/17/2024 Refill [facility] Oncology and Hematology - Edu Fahad Clements [address] Bruce Acuña MD Malignant neoplasm of prostate (CMS/HCC) (Primary Dx) 09/16/2024 Refill [facility] Oncology and Hematology - Edu Fahad Clements [address] Bruce Mosher MD 09/13/2024 External Device Data STL ABSTRACTION Provider, Abstract 09/11/2024 External Device Data STL ABSTRACTION Provider, Abstract 09/10/2024 Orders Only [facility] Oncology and Hematology - Edu [address] [place] [address] Bruce Acuña MD Malignant neoplasm of prostate (CMS/HCC) 09/09/2024 Refill [facility] Oncology and Hematology - Edu [address] [place] [address] Bruce Acuña MD Malignant neoplasm of prostate (CMS/HCC) 09/04/2024 External Device Data STL ABSTRACTION Provider, Abstract 09/04/2024 Orders Only [facility] Oncology and Hematology - Edu [address] [place] [address] Bruce Acuña MD 08/31/2024 Orders Only [facility] Oncology and Hematology - Edu [address] [place] [address] Bruce Acuña MD 08/28/2024 Telephone [facility] Oncology and Hematology - Edu [address] [place] [address] Bruce Acuña MD Referral 08/27/2024 Orders Only [facility] Oncology and Hematology - Edu [address] [place] [address] Bruce Acuña MD Malignant neoplasm of prostate (CMS/HCC) 08/17/2024 9:30 AM TOBACCO FEEDER CATCHER Office Visit [facility] Oncology and Hematology - Edu [address] [place] [id number] Isaac Matson MD Malignant neoplasm of prostate (CMS/HCC) (Primary Dx) 08/14/2024 Specialty Pharmacy [facility] [address] [place] [phone] Maranda Doll, PHARMACIST Specialty Pharmacy Refill Coordination 08/13/2024 Orders Only [facility] Oncology and Hematology - Edu [address] [place] [id number] Bruce Acuña MD Malignant neoplasm of prostate ([facility]/HCC) 08/08/2024 Orders Only [facility] Oncology and Hematology - Edu [address] [place] [id number] Bruce Acuña MD 08/07/2024 Orders Only [facility] Oncology and Hematology - Edu [address] [place] [id number] Bruce Acuña MD 08/01/2024 Orders Only [facility] Oncology and Hematology - Edu [address] [place] [address] Bruce Acuña MD 07/30/2024 Orders Only [facility] Oncology and Hematology - Edu [address] [place] [address] Bruce Acuña MD Malignant neoplasm of prostate ([facility]/HCC) 07/24/2024 Orders Only [facility] Oncology and Hematology - Edu [address] [place] [id number] Bruce Acuña MD 07/23/2024 Refill [facility] Oncology and Hematology - Edu [address] [place] [address] Bruce Acuña MD Malignant neoplasm of prostate ([facility]/HCC) 07/20/2024 Specialty Pharmacy [facility] [address] [place] [phone] Maranda Doll, PHARMACIST Specialty Pharmacy Refill Coordination 07/17/2024 Telephone [facility] Oncology and Hematology - Edu [address] [place] [address] Bruce Acuña MD Port Dye Study 07/17/2024 Orders Only [facility] Oncology and Hematology - Edu [address] [place] [address] Bruce Acuña MD 07/16/2024 9:30 AM TOBACCO FEEDER CATCHER Office Visit [facility] Oncology and Hematology - Edu [address] [place] [address] Bruce Acuña MD Malignant neoplasm of prostate (CMS/HCC) 07/16/2024 Refill [facility] Oncology and Hematology - Edu [address] [place] [address] Bruce Acuña MD 07/11/2024 Orders Only [facility] Oncology and Hematology - Edu [address] [place] [address] Bruce Acuña MD from Last 3 Months Family History Medical History Relation Name Comments Cancer Father Cancer Mother Relation Name Status Comments Brother Alive Daughter Alive Father Mother Alive Sister Alive Son 1 Alive Son 2 Alive Social History Tobacco Use Types Packs/Day Years Used Date Smoking Tobacco: Never Smokeless Tobacco: Never Tobacco Cessation:Counseling Given: Not Answered Comments:non smoker Sex and Gender Information Value Date Recorded Sex Assigned at Not on file Legal Sex Male 2:13 PM CDT Gender Identity Not on file Sexual Orientation Not on file Last Filed Vital Signs Vital Sign Reading Time Taken Comments Blood Pressure 100/61 09/17/2024 9:59 AM TOBACCO FEEDER CATCHER Pulse 104 09/17/2024 9:59 AM TOBACCO FEEDER CATCHER Temperature 36.1 C (96.9 F) 09/17/2024 9:59 AM TOBACCO FEEDER CATCHER Respiratory Rate 15 09/17/2024 9:59 AM TOBACCO FEEDER CATCHER Oxygen Saturation 98% 09/17/2024 9:59 AM TOBACCO FEEDER CATCHER Inhaled Oxygen Concentration - - Weight 87.5 kg (192 lb 12.8 oz) 09/17/2024 9:59 AM TOBACCO FEEDER CATCHER Height 175.3 cm (5' 9 ) 06/16/2022 11:5 4 AM CDT Body Mass Index 28.47 06/16/2022 11:54 AM CDT Plan of Treatment Upcoming Encounters Date Type Department Care Team (Late st Contact Info) Description 10/15/2024 9:15 AM TOBACCO FEEDER CATCHER Office Visit [facility] Oncology and Hematology - Edu [address] [place] [address] Bruce Acuña MD [address] [facility] [address] [place] [address] Health Maintenance Due Date Last [...] Q 6 MONTHS 03/23/2024 09/23/2023 [place] Prev entative Visit/Annual Wellness Visit 08/22/2024 RSV VACCINE (60+ or ) (1 - 1-dose 75+ series) 2030 Procedures Procedure Name Priority Date/Time Associated Diagnosis Comments BASIC METABOLIC PANEL Routine 09/24/2024 2:41 PM TOBACCO FEEDER CATCHER COMPREHENSIVE METABOLIC PANEL Routine 09/17/2024 12:44 PM TOBACCO FEEDER CATCHER BASIC METABOLIC PANEL Routine 09/17/2024 10:38 AM TOBACCO FEEDER CATCHER CBC WITH DIFFERENTIAL Routine 09/17/2024 10:16 AM TOBACCO FEEDER CATCHER CBC WITH DIFFERENTIAL Routine 09/07/2024 11:27 AM TOBACCO FEEDER CATCHER COMPREHENSIVE METABOLIC PANEL Routine 09/03/2024 1:43 PM TOBACCO FEEDER CATCHER BASIC METABOLIC PANEL Routine 09/03/2024 12:15 PM TOBACCO FEEDER CATCHER CBC WITH DIFFERENTIAL Routine 09/03/2024 10:24 AM TOBACCO FEEDER CATCHER COMPREHENSIVE METABOLIC PANEL Routine 08/24/2024 11:18 AM TOBACCO FEEDER CATCHER BASIC METABOLIC PANEL Routine 08/24/2024 10:17 AM TOBACCO FEEDER CATCHER CBC WITH DIFFERENTIAL Routine 08/24/2024 10:14 AM TOBACCO FEEDER CATCHER XR PORT CONTRAST INJECT W FLUORO Routine 08/07/2024 10:12 AM TOBACCO FEEDER CATCHER COMPREHENSIVE METABOLIC PANEL Routine 08/06/2024 1:24 PM TOBACCO FEEDER CATCHER BASIC METABOLIC PANEL Routine 08/06/2024 1:03 PM TOBACCO FEEDER CATCHER COMPREHENSIVE METABOLIC PANEL Routine 07/30/2024 2:52 PM TOBACCO FEEDER CATCHER CBC WITH DIFFERENTIAL Routine 07/30/2024 1:04 PM TOBACCO FEEDER CATCHER BASIC METABOLIC PANEL Routine 07/30/2024 12:35 PM TOBACCO FEEDER CATCHER COMPREHENSIVE METABOLIC PANEL Routine 07/23/2024 1:06 PM TOBACCO FEEDER CATCHER CBC WITH DIFFERENTIAL Routine 07/23/2024 11:10 AM TOBACCO FEEDER CATCHER BASIC METABOLIC PANEL Routine 07/23/2024 10:44 AM TOBACCO FEEDER CATCHER BASIC METABOLIC PANEL Routine 07/16/2024 10:19 AM TOBACCO FEEDER CATCHER CBC WITH DIFFERENTIAL Routine 07/16/2024 10:03 AM TOBACCO FEEDER CATCHER from Last 3 Months Results * BASIC METABOLIC PANEL (09/24/2024 2:41 PM TOBACCO FEEDER CATCHER) Only the most recent of8 resultswithin the time period is included. Blood us Bruce Acuña MD CHEMISTRY ORDERABLES Final Resu lt * COMPREHENSIVE METABOLIC PANEL (09/17/2024 12:44 PM TOBACCO FEEDER CATCHER) Only the most recent of6 resultswithin the time period is included. Blood us Bruce Acuña MD CHEMISTRY ORDERABLES Final Resu lt * CBC WITH DIFFERENTIAL (09/17/2024 10:16 AM TOBACCO FEEDER CATCHER) Only the most recent of7 resultswithin the time period is included. Blood us Bruce Acuña MD HEMATOLOGY ORDERABLES Final Res ult * XR PORT CONTRAST INJECT W FLUORO (08/07/2024 10:12 AM TOBACCO FEEDER CATCHER) Anatomical Region Laterality Modality Other us Bruce Acuña MD DIAGNOSTIC IMAGING ORDERABLES F inal Result from Last 3 Months Insurance [facility] O MCR RX [employer] Medicare Part D RX [employer]ANS (INTERNAL) [facility] Plans Care Teams Credit Card Control Clerk Relationship Specialty Start Date End Date Shaheen Foley MD [address] [id number] PCP - General Family Practice 04/21/21
--- OUTSIDE RECORDS SUMMARY | 2024-10-10 12:42 | XMS_ITS | Encounter Summary ---
Author Organization [facility] Address [address] [place] [address] Care Team Providers Care Metal Trim Erector Name Role Phone Shaheen Foley MD Primary Care Provider +1- [phone] Encounter Details Date Type Department Care Team (Late Contact Info) Description 03/21/2023 Telephone [facility] Oncology and [facility] [address] [place] [address] Bruce Acuña MD [facility] [employer] [address] [place] [address] Social History Tobacco Use Types Packs/Day [...] Department Care Team (Late Contact Info) Description 10/15/2024 9:15 AM CASE MANAGEMENT SOCIAL WORKER Office Visit [facility] [address] [place] [address] Bruce Acuña MD [address] [place] [address] documented as of this encounter Visit Diagnoses Diagnosis Malignant neoplasm of prostate (CMS/HCC)- Primary Malignant neoplasm of prostate documented in this encounter Care Teams Metal Trim Erector Relationship Specialty Start Date End Date Shaheen Foley MD [address] [address] PCP - General Family Practice 04/21/21 documented as of this encounter
--- OUTSIDE RECORDS SUMMARY | 2024-10-10 12:42 | XMS_ITS | Encounter Summary ---
Author Organization [facility] Address [address] [place] [address] Care Team Providers Care Admission Liaison Name Role Phone Shaheen Foley MD Primary Care Provider +1- [phone] Encounter Details Date Type Department Care Team (Late st Contact Info) Description 10/09/2024 External Device Data STL ABSTRACTION Provider, Abstract NO ADDRESS ON FILE Social History Tobacco Use Types Packs/Day Years [...] st Contact Info) Description 10/15/2024 9:15 AM LABORER/KEY MAN Office Visit [facility] Oncology and Hematology - Edu [address] [facility] [address] [address] Bruce Acuña MD [address] [address] documented as of this encounter Visit Diagnoses Not on filedocumented in this encounter Care Teams Admission Liaison Relationship Specialty Start Date End Date Shaheen Foley MD [address] [facility] [address] [place] [address] PCP - General Family Practice 04/21/21 documented as of this encounter
--- OUTSIDE RECORDS SUMMARY | 2024-10-10 12:42 | XMS_ITS | Encounter Summary ---
Author Organization [facility] [employer] [facility] Address [address] [place] [address] Care Team Providers Care Atmospheric Chemist Name Role Phone Shaheen Foley MD Primary Care Provider +1- [phone] Encounter Details Date Type Department Care Team (Late Contact Info) Description 10/08/2024 Orders Only [facility] Oncology and Hematology [facility] [address] [place] [address] Bruce Acuña MD [facility] [employer] [address] [place] [address] Malignant neoplasm of prostate (CMS/HCC) Social History Tobacco Use Types Packs/Day Years [...] (Late Contact Info) Description 10/15/2024 9:15 AM OUTSIDE RIGGER Office Visit [facility] Oncology and Hematology [facility] [address] [place] [address] Bruce Acuña MD [address] [employer] [address] [place] [address] documented as of this encounter Visit Diagnoses Diagnosis Malignant neoplasm of prostate (CMS/HCC) Malignant neoplasm of prostate documented in this encounter Care Teams Atmospheric Chemist Relationship Specialty Start Date End Date Shaheen Foley MD [address] [address] PCP - General Family Practice 04/21/21 documented as of this encounter
--- NOTE | 2024-10-10 12:47 | ECG_ITS ---
Test Date: 2024-10-10 12:48:33 Measurements Intervals [place] Rate: 119 P: 48 SC: 147 QRS: 19 QRSD: 70 T: 150 QT: 339 QTc: 478 Interpretive Statements SINUS TACHYCARDIA ST-T WAVE ABNORMALITY IN ANTEROLAT/INF LEADS- CONSIDER ISCHEMIA BASELINE ARTIFACT- I, II, III, AVR, AVL, AVF, V1-V3, V5-V6 ABNORMAL ECG Compared to ECG 09/09/2024 11:23:44 HEART RATE HAS INCREASED Electronically Signed On 10-10-2024 13:27:55 VB DEVELOPER by Bob Ferreira D.O.
[2024-10-10] MEDS: LACTATED RINGERS 1,000 ML 999 ML IV CONT ×2 (14:13→17:04)
--- NOTE | 2024-10-10 14:18 | PC.NURSE ---
patient provided with a urinal and states that he will attempt to provide a urine sample. pt educated that if we don't get a urine sample we will have to use a straight cath to obtain a urine sample
--- NOTE | 2024-10-10 14:18 | ED.GENADULT ---
HPI - General Adult General Chief complaint: Recheck/Abnormal Lab/Rx Stated complaint: abnormal VS, from infusion center Time Seen by Provider: 10/10/24 13:36 History of Present Illness HPI narrative: Patient is a 69-year-old male who presents ER with low blood pressure and elevated heart rate from his chemotherapy infusion center. Unable to get chemo for 2 weeks due to dehydration. Received some IV fluid last week. Receives treatment for prostate cancer. No fevers or chills or sweats. No chest pain or chest pressure. Occasional loose stool. Reports poor oral intake due to generalized fatigue and weakness. Has exertional fatigue and difficulty just getting up and putting on issues. This has been ongoing for 3 weeks. Related Data Home Medications ?Medication ?Instructions ?Recorded ?Confirmed ?Last Taken ?Type tamsulosin 0.4 mg capsule 0.4 mg PO HS 02/24/23 09/18/24 04/10/23 21:00 History cyanocobalamin (vitamin B-12) 500 mcg PO DAILY 03/10/23 09/18/24 04/11/23 09:00 History 1,000 mcg tablet omeprazole 40 mg capsule,delayed 40 mg PO DAILY 10/07/23 09/18/24 Unknown History release polysaccharide iron complex 150 mg 65 mg PO DAILY 10/07/23 09/18/24 Unknown History iron capsule (Ferrex) abiraterone 250 mg tablet 500 mg PO DAILY 04/17/24 09/20/24 09/20/24 History gabapentin 800 mg tablet 800 mg PO BID 04/17/24 09/18/24 Unknown History calcitriol 0.5 mcg capsule 0.5 mcg PO BID 09/07/24 09/24/24 09/20/24 History calcium 600 mg capsule 600 mg PO QID 09/07/24 09/24/24 09/20/24 History cholecalciferol (vitamin D3) 25 25 mcg PO DAILY 09/07/24 09/24/24 Unknown History mcg (1,000 unit) capsule (Vitamin D3) megestrol 400 mg/10 mL (40 mg/mL) 40 mg PO DAILY 09/08/24 09/24/24 09/20/24 History oral suspension ondansetron 8 mg disintegrating 8 mg translingual Q8H PRN nausea 09/08/24 09/24/24 Unknown History tablet and vomiting metoprolol succinate 25 mg 12.5 mg PO DAILY 09/18/24 09/24/24 09/20/24 History tablet,extended release 24 hr prednisone 5 mg tablet 5 mg PO DAILY 09/18/24 09/24/24 Unknown History Allergies Allergy/AdvReac Type Severity Reaction Status Date / Time No Known Allergies Allergy Verified 10/03/24 09:50 Review of Systems Review of Systems: All systems reviewed & are unremarkable except as noted in HPI and below Constitutional: Constitutional: Reports no additional constitutional complaints ENT: Reports system reviewed and no additional complaints, except as documented Cardiovascular: Cardiovascular: Reports no additional cardiovascular complaints Respiratory: Respiratory: Reports no additional respiratory complaints Neurologic: Reports system reviewed and no additional complaints, except as documented [facility] Past Medical History Medical History Prostate cancer metastatic to bone History of colon polyps Essential tremor Abnormal colonoscopy 06/03 Tubular adenoma Type 2 diabetes mellitus with diabetic polyneuropathy Aortic atherosclerosis CT 02/06 Mixed hyperlipidemia Surgical History Surgical History Port-A-Cath in place 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 The patient occasionally socially drinks alcohol but has never used any tobacco products. Code status: Full Code Surrogate decision maker: Josee () Smoking status: Never smoker Second hand tobacco smoke exposure: Yes Alcohol intake: current Drinks per week: 5 Substance use: never Substance use type: does not use Do You Feel Safe in your Home?: Yes Lack of Transportation: No Lack of Food: Never True Current Housing: I Have Housing Concerned About Future Housing: No Difficulty Paying Gas/Electric Bills: No Difficulty Paying for Meds: No Currently Unemployed: No Education: Associate Degree Difficulty w/ Childcare or Family Care: No Living arrangements: with family Additional living arrangements comments: Occupation/Education: occupation 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 HEAD: Normocephalic, atraumatic. ENT: Mucous membranes moist. NECK: Supple. CHEST: Clear to auscultation. No respiratory distress. HEART: Regular rate and rhythm. No murmur heard. Normal peripheral pulses. ABDOMEN: Soft, nontender, nondistended, normal active bowel sounds. EXTREMITIES: Normal range of motion. No edema. SKIN: Warm, dry, no rash. NEURO: No focal deficits. Alert and oriented x3. PSYCH: Normal mood and affect. Course Course Emergency Course: After 2 L of IV fluids patient's orthostatics like when going from sitting to standing go from 105 mmHg systolic to 60 mmHg systolic and his heart rate goes from 103 beats per minutes to 142 beats per minute. Admit to hospitalist service for continued hydration further evaluation. Vital Signs Vital signs: Vital Signs Temperature 97.6 F 10/10/24 12:44 Pulse Rate 128 H 10/10/24 12:44 Respiratory Rate 18 10/10/24 12:44 Blood Pressure 118/69 10/10/24 12:44 Pulse Oximetry 100 10/10/24 12:44 Temperature 97.9 F 10/10/24 14:16 Pulse Rate 128 H 10/10/24 15:00 Respiratory Rate 18 10/10/24 14:18 Blood Pressure 103/72 10/10/24 15:00 Pulse Oximetry 100 10/10/24 14:16 Medical Decision Making Vital Signs Vital Signs: Vital Signs Temperature 97.6 F 10/10/24 12:44 Pulse Rate 128 H 10/10/24 12:44 Respiratory Rate 18 10/10/24 12:44 Blood Pressure 118/69 10/10/24 12:44 Pulse Oximetry 100 10/10/24 12:44 Temperature 97.9 F 10/10/24 14:16 Pulse Rate 128 H 10/10/24 15:00 Respiratory Rate 18 10/10/24 14:18 Blood Pressure 103/72 10/10/24 15:00 Pulse Oximetry 100 10/10/24 14:16 Lab Data 10/10/24 14:09 10/10/24 14:09 Labs: Lab Results 10/10/24 10/10/24 10/10/24 Range/Units 14:08 14:09 16:44 WBC 5.0 (4.5-10.0) K/mm3 RBC 3.69 L (4.6-6.20) M/mm3 Hgb 10.1 L (14.0-18.0) g/dL Hct 33.4 L (42.0-52.0) % MCV 90.5 (80-100) fl MCH 27.4 (26-34) pg MCHC 30.2 L (32-36) g/dl RDW 19.0 H (11.5-14.5) % Plt Count 187 (150-375) k/mm3 MPV 8.9 (7.4-10.4) fl Immature Gran % (Auto) 7.2 H (0-0.5) % Neut % (Auto) 62.6 (45.5-73.1) % Lymph % (Auto) 19.2 (18.3-44.2) % Mclennan % (Auto) 8.4 (2.6-8.5) % Eos % (Auto) 1.4 (0-4.4) % Baso % (Auto) 1.2 (0.2-1.2) % Lymph # (Auto) 0.96 (0.9-3.2) K/mm3 Mclennan # (Auto) 0.4 (0.1-0.6) K/mm3 Eos # (Auto) 0.1 (0-0.3) K/mm3 Baso # (Auto) 0.1 (0.0-0.1) K/mm3 Abs Immat Gran (auto) 0.36 H (0.00-0.031) K/mm3 Absolute Neuts (auto) 3.1 (1.3-6.7) K/mm3 Absolute Nucleated RBC 0.020 H (0.0-0.012) K/mm3 Band Neutrophils % Not Reportable Nucleated RBC % 0.4 H (0.0-0.2) % Platelet Estimate Adequate (Adequate) Polychromasia 1+ Hypochromasia 1+ Anisocytosis 2+ Schistocytes None seen Sodium 136 L (137-145) mmol/L Potassium 3.9 (3.4-5.0) mmol/L Chloride 103 (98-107) mmol/L Carbon Dioxide 20 L (22-30) mmol/L Anion Gap 13 H (4-12) mmol/L BUN 15 (9-20) mg/dL Creatinine 0.52 L (0.7-1.3) mg/dL Estim Creat Clear Calc 112 ml/min Estimated GFR > 60 (59 - ) Glucose 175 H (65-110) mg/dL Calcium 9.2 (8.4-10.2) mg/dL Total Bilirubin 1.3 (0.2-1.3) mg/dL AST 61 H (17-59) U/L ALT 13 (6-50) U/L Alkaline Phosphatase 271 H (38-126) U/L Total Protein 7.0 (6.3-8.2) g/dL Albumin 3.5 (3.5-5.1) g/dL Urine Color Dark yellow (Yellow) Urine Appearance Cloudy H (Clear) Urine pH 5.5 (5.0-9.0) Ur Specific [place] 1.027 (1.001-1.035) Urine Protein 1+ H (Negative) mg/dL Urine Glucose (UA) Negative (Negative) mg/dL Urine Ketones Trace H (Negative) mg/dL Ur Blood (Man) Negative (Negative) Urine Nitrate Negative (Negative) Urine Bilirubin 1+ H (Negative) Urine Urobilinogen 1.0 (<2.0) mg/dL Add Ur Microanalysis Reviewed Leukocyte Esterase Rfl Negative (Negative) GABRIELA/UL Urine RBC 0-2 (0-2) /hpf Urine WBC 0-5 (0-3) /hpf Ur Squamous Epith Cells Occasional (Few) /hpf Urine Bacteria None seen /hpf Urine Casts 11-20 Hyaline Casts 3-4 H (None) /lpf Urine Mucus Present /lpf Influenza A (RT-PCR) Negative (Negative) Influenza B (RT-PCR) Negative (Negative) RSV (RT-PCR) Negative (Negative) SARS-CoV-2 RNA (RT-PCR) Negative (Negative) Discharge Plan Discharge Clinical Impression: Orthostatic hypotension Patient Disposition: Still a Patient Condition: Stable Patient Language: Ghanaian Prescriptions: No Action tamsulosin 0.4 mg capsule 0.4 mg PO HS polysaccharide iron complex [Ferrex 150] 150 mg iron capsule 65 mg PO DAILY omeprazole 40 mg capsule,delayed release(DR/EC) 40 mg PO DAILY gabapentin 800 mg tablet 800 mg PO BID abiraterone 250 mg tablet 500 mg PO DAILY Patient Comments: . metoprolol succinate 25 mg tablet extended release 24 hr 12.5 mg PO DAILY Patient Comments: QAM prednisone 5 mg tablet 5 mg PO DAILY tramadol 50 mg tablet 50 mg PO DAILY PRN (Reason: pain) Qty: 30 0RF albuterol sulfate [Ventolin HFA] 90 mcg/actuation HFA aerosol inhaler 1 inh inhalation Q4H PRN (Reason: shortness of breath or wheezing) Qty: 6.7 1RF cyanocobalamin (vitamin B-12) 1,000 mcg Tablet 500 mcg PO DAILY Patient Comments: . Rx Instructions: takes 250mcg (2) gummies daily cholecalciferol (vitamin D3) [Vitamin D3] 25 mcg (1,000 unit) capsule 25 mcg PO DAILY Patient Comments: with K2 calcium 600 mg capsule 600 mg PO QID calcitriol 0.5 mcg capsule 0.5 mcg PO BID megestrol 400 mg/10 mL (40 mg/mL) suspension 40 mg PO DAILY ondansetron 8 mg tablet,disintegrating 8 mg translingual Q8H PRN (Reason: nausea and vomiting) metformin 500 mg tablet See Rx Instructions .ROUTE .COMPLEX Qty: 360 2RF Dose Instruction: TAKE 2 TABLETS BY MOUTH EVERY 12 HOURS Rx Instructions: TAKE 2 TABLETS BY MOUTH EVERY 12 HOURS pioglitazone 45 mg tablet See Rx Instructions .ROUTE .COMPLEX Qty: 90 0RF Dose Instruction: Take 1 tablet by mouth once daily Patient Comments: HS Rx Instructions: Take 1 tablet by mouth once daily atorvastatin 20 mg tablet See Rx Instructions .ROUTE .COMPLEX Qty: 30 6RF Dose Instruction: TAKE 1 TABLET BY MOUTH EVERY DAY AT BEDTIME Patient Comments: . Rx Instructions: TAKE 1 TABLET BY MOUTH EVERY DAY AT BEDTIME Follow-up/Referrals: Shaheen Foley MD [Primary Care Provider] -
--- OUTSIDE RECORDS SUMMARY | 2024-10-10 14:21 | XMS_ITS | Encounter Summary ---
Author Organization [facility] [employer] [facility] Address [address] [place] [address] Care Team Providers Care Treating Plant Operator Name Role Phone Shaheen Foley MD Primary Care Provider [phone] Encounter Details Date Type Department Care Team (Late Contact Info) Description 03/21/2023 Telephone [facility] Oncology and [facility] [address] [place] [address] Bruce Acuña MD [facility] [address] [place] [phone] Social History Tobacco Use Types Packs/Day [...] (Late Contact Info) Description 10/15/2024 9:15 AM 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 WORKER Office Visit [facility] Oncology [facility] [address] [place] [address] Bruce Acuña MD [address] [place] [phone] documented as of this encounter Visit Diagnoses Diagnosis Malignant neoplasm of prostate (CMS/HCC)- Primary Malignant neoplasm of prostate documented in this encounter Care Teams Treating Plant Operator Relationship Specialty Start Date End Date Shaheen Foley MD [address] [address] PCP - General Family Practice 04/21/21 documented as of this encounter
--- OUTSIDE RECORDS SUMMARY | 2024-10-10 14:21 | XMS_ITS | Referral Summary ---
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 A CXR obtained on admission unremarkable. - [...] Patient follows with Zhane Shay, diagnosed with [id number] prostate adenocarcinoma in 2020, on ADT with [...] on file Legal Sex Male 11:04 AM LENS EXAMINER Gender Identity Not on file Sexual Orientation Not on file Last Filed Vital Signs Vital Sign Reading Time Taken Comments Blood Pressure 109/65 11/13/2023 8:25 AM CDT Pulse 65 11/13/2023 8:25 AM CDT Temperature 36.6 C (97.9 F) 11/13/2023 8:25 AM CDT Respiratory Rate 18 11/13/2023 4:36 AM CDT Oxygen Saturation 99% 11/13/2023 8:25 AM CDT Inhaled Oxygen Concentration - - Weight 102.9 kg (226 lb 14.4 oz) 11/13/2023 4:36 AM CDT Height 175.3 cm (5' 9.02 ) 11/10/2023 1 1:10 PM CDT Body Mass Index 33.49 11/10/2023 11:10 PM CDT Plan of Treatment Not on file Medical Devices Implanted Type Area Curriculum Assistant Principal Device Identifier Shelf Expiration Date Model / Serial / Lot [employer] Simplex P Radiopaque Full Dose Cement Bone Sterile 6191-1-010 - [id number] Implanted:Qty: 2 on 09/29/2023 by Sammy Patel MD at [facility] Right: Hip [employer] 11/19/2025 6191-1-010 / / [id number] [employer] Simplex P Radiopaque Full Dose Cement Bone Sterile 6191-1-010 - [id number] Implanted:Qty: 1 on 09/29/2023 by Sammy Patel MD at [facility] Right: Hip [employer] 09/21/2024 6191-1-010 / / [id number] [employer] Versys Od13 Mm L300 Mm Revision; Cemented Hip; Calcar 41 Mm; Offs [id number] - [id number] Implanted:Qty: 1 on 09/29/2023 by Sammy Patel MD at [facility] Right: Hip [employer] [id number] 11/19/2028 [id number] / / [id number] [employer] 28mm Hip +0mm [place] Head Femoral Cocr [id number] - [id number] Implanted:Qty: 1 on 09/29/2023 by Sammy Patel MD at [facility] Right: Hip [employer] [id number] 12/27/2032 [id number] / / [id number] [employer] Ringloc Bio-Arizmendi Ii 52mm 28mm 2 Articulate Surface Lock [id number] - [id number] Implanted:Qty: 1 on 09/29/2023 by Sammy Patel MD at [facility] Right: Hip [employer] [id number] 10/13/2027228 / / [id number] Explanted Type Area Curriculum Assistant Principal Device Identifier Shelf Expiration Date Model / Serial / Lot [employer]/ Ortho Prep-Im Plug [place] Sponge Suction Hip Kit Thr Latex Free [id number] - [id number] Explanted:Qty: 1 on 09/29/2023 by Sammy Patel MD at [facility] Right: Hip [employer]Or tho [id number] 06/01/2033 [id number] / / [id number] Description:Kit was used but cement restrictor was not used. Procedures Procedure Name Priority Date/Time Associated Diagnosis Comments CARDIOLOGY DOCUMENT SCAN Routine 09/11/2024 5:15 PM LENS EXAMINER CARDIOLOGY DOCUMENT SCAN Routine 09/10/2024 5:13 PM LENS EXAMINER EGFR STAT 11/09/2023 4:38 PM CDT LIPID PANEL Routine 09/29/2023 11:47 PM LENS EXAMINER POCT HEMOGLOBIN A1C Routine 09/23/2023 4 :18 PM LENS EXAMINER from Last 3 Months or Most Recently Relevant to Health Maintenance Results * Cardiology Document Scan (09/11/2024 5:15 PM LENS EXAMINER) Anatomical Region Laterality Modality Other us Coral Fitzgerald MD [facility] CARDIAC SERVICES PROCEDU RES Final Result * Cardiology Document Scan (09/10/2024 5:13 PM LENS EXAMINER) Anatomical Region Laterality Modality Other us Coral Fitzgerald MD CV CARDIAC SERVICES PROCEDU RES Final Result * eGFR (11/09/2023 4:38 PM CDT) eGFR >90 >=60 mL/min/1. 73 m2 Comment: Interpretive Data Reference Interval Normal >/= 90 mL/min/1.73m2 Mildly decreased* 60 - 89 mL/min/1.73m2 Mildly to moderately decreased 45 - 59 mL/min/1.73m2 Moderately to severely decreased 30 - 44 mL/min/1.73m2 Severely decreased 15 - 29 mL/min/1.73m2 Kidney Failure < 15 mL/min/1.73m2 *Relative to young adult level Estimated glomerular filtration rate is determined by the 2020 CKD-EPI equation recommended by the National Kidney Foundation (A Unifying Approach to GFR Estimation: Recommendations of the NKF-ASK Task Force on Reassessing the Inclusion of Race in Diagnosing Kidney Disease, JASN 202). The CKD-EPI equation should not be used for patients with unstable renal function and has not been validated in children and those over 70. Current interpretive data was last reviewed 2021. Blood 11/09/2023 4:38 PM CDT 11/09/2023 4:56 PM CDT us Jamil Cisneros MD LAB BLOOD ORDERABLE S Final Result [facility] [place] [address] * (ABNORMAL) Lipid panel (09/29/2023 11:47 PM LENS EXAMINER) Cholesterol 161 30 - 199 mg/dL [facility] Comment: Interpretive Data Ages < or = 19 years Acceptable: <170 mg/dL Borderline high: 170-199 mg/dL High: >or= 200 mg/dL Ages > or = 20 years Desirable: <200 mg/dL Borderline high: 200-239 mg/dL High: >or= 240 mg/dL Literature References: 1. Expert Panel on Integrated Guidelines for Cardiovascular Health and Risk Reduction in Children and Adolescents. Pediatrics 2011;128:S213 2. NCEP Expert Panel. Circulation 2004;110:227 Current Interpretive Data was last revised on 2018. Triglycerides 169(H) <=149 mg/dL [facility] Comment: Interpretive Data Ages < or = 9 years Acceptable: <75 mg/dL Borderline high: 75-99 mg/dL High: >or= 100 mg/dL Ages 10 to 20 years Acceptable: <90 mg/dL Borderline high: 90-129 mg/dL High: >or= 130 mg/dL Ages > or = 20 years Desirable: <150 mg/dL Borderline high: 150-199 mg/dL High: 200-499 mg/dL Very high: >or= 499 mg/dL Literature References: 1. Expert Panel on Integrated Guidelines for Cardiovascular Health and Risk Reduction in Children and Adolescents. Pediatrics 2011;128:S213 2. NCEP Expert Panel. Circulation 2004;110:227 Current Interpretive Data was last revised on 2018. HDL 32(L) >=40 mg/dL [facility] Comment: Interpretive Data Ages < or = 19 years Acceptable: >45 mg/dL Borderline low: 40-45 mg/dL Low: <40 mg/dL Ages > or = 20 years Desirable: >or= 60 mg/dL Low: <40 mg/dL Literature References: 1. Expert Panel on Integrated Guidelines for Cardiovascular Health and Risk Reduction in Children and Adolescents. Pediatrics 2011;128:S213 2. NCEP Expert Panel. Circulation 2004;110:227 Current Interpretive Data was last revised on 2018. LDL, calculated 95 <=129 mg/dL [facility] Comment: Interpretive Data Ages < or = 19 years Acceptable: <110 mg/dL Borderline high: 110-129 mg/dL High: >or= 130 mg/dL Ages > or = 20 years Optimal: <100 mg/dL Near optimal: 100-129 mg/dL Borderline high: 130-159 mg/dL High: >160 mg/dL Literature References: 1. Expert Panel on Integrated Guidelines for Cardiovascular Health and Risk Reduction in Children and Adolescents. Pediatrics 2011;128:S213 2. NCEP Expert Panel. Circulation 2004;110:227 Current Interpretive Data was last revised on 2018. Non-HDL Cholesterol 129 mg/dL [facility] Comment: Interpretive Data Ages < or = 19 years Acceptable: <120 mg/dL Borderline high: 120-144 mg/dL High: >145 mg/dL Ages > or = 20 years When triglycerides are >200 mg/dL, Non-HDL cholesterol is a secondary target of therapy with treatment goals that are 30 mg/dL greater than the LDL cholesterol target. Literature References: 1. Expert Panel on Integrated Guidelines for Cardiovascular Health and Risk Reduction in Children and Adolescents. Pediatrics 2011;128:S213 2. NCEP Expert Panel. Circulation 2004;110:227 Current Interpretive Data was last revised on 2018. Chol/HDL ratio 5 [facility] Blood 09/29/2023 11:4 7 PM LENS EXAMINER 09/30/2023 12:27 AM LENS EXAMINER us Sammy Patel MD LAB BLOOD ORDERABLES Hailey avila Result [facility] [place], [place] [id number] * (ABNORMAL) POCT hemoglobin A1c (09/23/2023 4:18 PM LENS EXAMINER) Hgb A1C, POC 6.3(H) 4.0 - 5.6 % [facility] Est Average Gluc POC 134 mg/dL [facility] Comment: The ADA recommends reporting an estimated Average Glucose (eAG) with all Hemoglobin A1c results using the equation derived from a study of 507 normal and diabetic adults. Minority populations were underrepresented and children were not included. (Diabetes Care 31:2862-6724, 2008). The eAG is not equivalent to a fasting glucose. Blood 09/23/2023 4:18 PM LENS EXAMINER 09/23/2023 4:18 PM LENS EXAMINER us Sammy Patel MD POINT OF CARE TEST ORDERA BLES Final Result [facility] [place] [address] from Last 3 Months or Most Recently Relevant to Health Maintenance Insurance [facility] Advance Directives For more information, please contact: [phone] * Full Code (Latest Code Status on File) Date Activated Date Inactivated Comments 11/10/2023 2:10 AM 11/13/2023 2:47 PM * Full Code Date Activated Date Inactivated Comments 09/29/2023 2:47 PM 10/02/2023 8:01 PM Care Teams Hall Supervisor Relationship Specialty Start Date End Date Bruce Acuña MD [address] [place] [phone] PCP - General Hematology 09/08/23 Sammy Patel MD [address] [facility] 6A[address]6B[address] [place] [address] Surgeon Orthopedic Surgery 10/04/23
--- OUTSIDE RECORDS SUMMARY | 2024-10-10 14:21 | XMS_ITS | Encounter Summary ---
Author Organization [facility] [email or web address] [facility] Address [address] [place] [address] Care Team Providers Care Vice President Network Name Role Phone Shaheen Foley MD Primary Care Provider [phone] Encounter Details Date Type Department Care Team (Late Contact Info) Description 10/08/2024 Orders Only [facility] Oncology and Hematology [facility] [address] [place] [address] Bruce Acuña MD [facility] [address] [place] [phone] Malignant neoplasm of prostate (CMS/HCC) Social [...] (Late Contact Info) Description 10/15/2024 9:15 AM HAND 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
--- OUTSIDE RECORDS SUMMARY | 2024-10-10 14:21 | XMS_ITS | Clinical Summary ---
Author Organization [facility] Address [address] [place] [address] Care Team Providers Care Director Targeted Marketing Name Role Phone Bruce Acuña MD Primary Care Provider [phone] Sammy Patel MD Unavailable [phone] Allergies No known active allergies Medications abiraterone [...] 1 capsule (40 mg total) by mouth child care cook before breakfast 08/25/19 24 Active pioglitazone (ACTOS) [...] mEq tablet Take 30 mcg by mouth child care cook before breakfast Active iron bis-gly/FA/C/B12/C a/succ (IRON-150 ORAL) Take 65 mg by mouth child care cook before breakfast Active amoxicillin-clavul anate (AUGMENTIN) 875-125 [...] with minimum SPO2 84% leading to 2L [id number]. A CXR obtained on admission unremarkable. - [...] Patient follows with Zhane Shay, diagnosed with [id number] prostate adenocarcinoma in 2020, on ADT with [...] Department Care Team Description 09/14/2024 Orders Only [facility] Cardiology [address] [place] [address] REINA Smith [address] Coral Fitzgerald MD from [...] on file Legal Sex Male 11:04 AM PLUMBER GASFITTER Gender Identity Not on file Sexual Orientation [...] Dilated Eye Exam 1955 Foot Exam 1955 DTaP/Tdap/Td Vaccine (1 - Tdap) 1966 Hepatitis B Screening 1973 Pneumococcal vaccine 65+ (1 of 2 - PCV) 1974 Zoster Vaccine (1 of 2) 1974 Well Visit 65+ 02/14/2020 Covid-19 Vaccine (3 - Modern a risk series) 11/29/2020 11/01/2020, 10/04/2020 Hemoglobin A1C 03/23/2024 09/23/2023 Influenza Vaccine (#1) 2024 Lipid Panel 09/29/2024 09/29/2023 eGFR 11/08/2024 11/09/2023, 09/22, 09/30/2023, Additional history exists Fall Risk Assessment 11/12/2024 11/13/2023 Medical Devices Implanted Type Area Automotive Engineer Device Identifier Shelf Expiration Date Model / Serial / Lot [employer] Simplex P Radiopaque Full Dose Cement Bone Sterile 6191-1-010 - [id number] Implanted:Qty: 2 on 09/29/2023 by Sammy Patel MD at [facility] Right: Hip [employer] 11/19/2025 6191-1-010 / / [id number] [employer] Simplex P Radiopaque Full Dose Cement Bone Sterile 6191-1-010 - [id number] Implanted:Qty: 1 on 09/29/2023 by Sammy Patel MD at [facility] Right: Hip [employer] 09/21/2024 6191-1-010 / / [id number] [employer] Versys Od13 Mm L300 Mm Revision; Cemented Hip; Calcar 41 Mm; Offs [id number] - [id number] Implanted:Qty: 1 on 09/29/2023 by Sammy Patel MD at [facility] Right: Hip [employer] [id number] 11/19/2028 [id number] / / [id number] [employer] 28mm Hip +0mm [place] Head Femoral Cocr [id number] - [id number] Implanted:Qty: 1 on 09/29/2023 by Sammy Patel MD at [facility] Right: Hip [employer] [id number] 12/27/2032 [id number] / / [id number] [employer] Ringloc Bio-Arizmendi Ii 52mm 28mm 2 Articulate Surface Lock [id number] - [id number] Implanted:Qty: 1 on 09/29/2023 by Sammy Patel MD at [facility] Right: Hip [employer] [id number] 10/13/2027328351 / / [id number] Explanted Type Area Automotive Engineer Device Identifier Shelf Expiration Date Model / Serial / Lot [employer]/ Ortho Prep-Im Plug [place] Sponge Suction Hip Kit Thr Latex Free [id number] - [id number] Explanted:Qty: 1 on 09/29/2023 by Sammy Patel MD at [facility] Right: Hip [employer]/Or tho [id number] 06/01/2033 [id number] / / [id number] Description:Kit was used but cement restrictor was not used. Procedures Procedure Name Priority Date/Time Associated Diagnosis Comments CARDIOLOGY DOCUMENT SCAN Routine 09/11/2024 5:15 PM PLUMBER GASFITTER CARDIOLOGY DOCUMENT SCAN Routine 09/10/2024 5:13 PM PLUMBER GASFITTER EGFR STAT 11/09/2023 4:38 PM CDT LIPID PANEL Routine 09/29/2023 11:47 PM PLUMBER GASFITTER POCT HEMOGLOBIN A1C Routine 09/23/2023 4 :18 PM PLUMBER GASFITTER from Last 3 Months or Most Recently Relevant to Health Maintenance Results * Cardiology Document Scan (09/11/2024 5:15 PM PLUMBER GASFITTER) Anatomical Region Laterality Modality Other us Coral Fitzgerald MD CV CARDIAC SERVICES PROCEDU RES Final Result * Cardiology Document Scan (09/10/2024 5:13 PM PLUMBER GASFITTER) Anatomical Region Laterality Modality Other us Coral [...] ORDERABLE S Final Result [facility] CHIL[facility] Department [place] [address] * (ABNORMAL) Lipid panel (09/29/2023 11:47 PM PLUMBER GASFITTER) Cholesterol 161 30 - 199 mg/dL IZABELA JULIO Comment: Interpretive Data Ages < or = [...] revised on 2018. Triglycerides 169(H) <=149 mg/dL [facility] Comment: Interpretive Data Ages < or = [...] revised on 2018. HDL 32(L) >=40 mg/dL [facility] Comment: Interpretive Data Ages < or = [...] on 2018. LDL, calculated 95 <=129 mg/dL [facility] Comment: Interpretive Data Ages < or = [...] revised on 2018. Non-HDL Cholesterol 129 mg/dL [facility] Comment: Interpretive Data Ages < or = [...] last revised on 2018. Chol/HDL ratio 5 [facility] Blood 09/29/2023 11:4 7 PM PLUMBER GASFITTER 09/30/2023 12:27 AM PLUMBER GASFITTER Sammy Patel MD LAB BLOOD ORDERABLES Hailey l Result Performing Organization Address [facility] de Phone Number [facility] [place] [address] * (ABNORMAL) POCT hemoglobin A1c (09/23/2023 4:18 PM PLUMBER GASFITTER) Hgb A1C, POC 6.3(H) 4.0 - 5.6 % [facility] Est Average Gluc POC 134 mg/dL [facility] Comment: The ADA recommends reporting an estimated Average Glucose (eAG) with all Hemoglobin A1c results using the equation derived from a study of 507 normal and diabetic adults. Minority populations were underrepresented and children were not included. (Diabetes Care 31:8216-2030, 2008). The eAG is not equivalent to a fasting glucose. Blood 09/23/2023 4:18 PM PLUMBER GASFITTER 09/23/2023 4:18 PM PLUMBER GASFITTER Result [facility] Sammy Patel MD POINT OF CARE TEST ORDERA BLES Final Result Performing Organization Address [facility] Co de Phone Number [facility] [place] [address] from Last 3 Months or Most Recently Relevant to Health Maintenance Insurance [facility] Advance Directives For more information, please contact: [phone] * Full Code (Latest Code Status on File) Date Activated Date Inactivated Comments 11/10/2023 2:10 AM 11/13/2023 2:47 PM * Full Code Date Activated Date Inactivated Comments 09/29/2023 2:47 PM 10/02/2023 8:01 PM Care Teams Director Targeted Marketing Relationship Specialty Start Date End Date Bruce Acuña MD [address] [id number] PCP - General Hematology 09/08/23 Sammy Patel MD [address] [facility] [address]6B[address] [place] [address] Surgeon Orthopedic Surgery 10/04/23
--- OUTSIDE RECORDS SUMMARY | 2024-10-10 14:21 | XMS_ITS ---
Author Organization [facility] Address [address] [place] [address] Care Team Providers Care Retirement Manager Name Role Phone Bruce Acuña MD Primary Care Provider [phone] Sammy Patel MD Unavailable [phone] Active Problems Problem Noted Date Diagnosed Date COVID 11/10/2023 Assessment & Plan (11/10/2023 2:02 AM CDT): Sick contact at home. Symptoms started 11/07 with new cough. Diagnosed positive 11/08. He presented with dry cough and fever. Vital signs on admission with minimum SPO2 84% leading to 2L [id number]. A CXR obtained on admission unremarkable. - [...] Patient follows with Zhane Shay, diagnosed with [id number] prostate adenocarcinoma in 2020, on ADT with lupron and docetaxel x6c last 07/18/2023, s/p RT to bilateral knees completed 05/2023. He underwent elective R hip hemiarthroplasty 09/29/2023 for pathologic fracture and discharged 10/02/2023. - Home abiraterone Chronic anemia 04/14/2023 DM (diabetes mellitus) 06/12/2021 Assessment & Plan (11/10/2023 2:14 AM CDT): - Hold PO metformin/glimepiride/pioglitazone - HDSSI while on steroids Current Treatment and Therapy Plans No current plan information found. Past Treatment and Therapy Plans No past plan information found. Lifetime Dose Tracking * Chemical Lifetime Dose Automatic Entry Manual Entr y DLP 1,860 mGycm 1,860 mGycm 0 mGycm
--- OUTSIDE RECORDS SUMMARY | 2024-10-10 14:21 | XMS_ITS | Clinical Summary ---
Author Organization [facility] Administrative Offices Address [address] [place] [address] Care Team Providers Care Canine Deputy Name Role Phone Shaheen Foley MD Primary Care Provider [phone] Allergies No known active allergies Medications atorvastatin [...] breakfast. 120 Tablet 5 5 3:11 PM CLINICAL LAB CLERK 03/19/20 24 01/27/2 025 Discontinued(Re order) tamsulosin (FLOMAX) 0.4 mg capsule Take 1 capsule by mouth once daily 60 Capsule 07/17/20 025 Discontinued Active Problems Problem Noted Date Diagnosed Date Chronic anemia 04/14/2023 DM (diabetes mellitus) 06/12/2021 Malignant neoplasm of prostate Encounters Date Type Department Care Team Description 10/09/2024 External Device Data STL ABSTRACTION Provider, Abstract 10/08/2024 Orders Only [facility] Oncology and Hematology - Edu [address] Bruce Acuña MD Malignant neoplasm of prostate (CMS/HCC) 09/25/2024 External Device Data STL ABSTRACTION Provider, Abstract 09/25/2024 Orders Only [facility] Oncology and Hematology - Edu [address] Bruce Acuña MD 09/24/2024 Orders Only [facility] Oncology and Hematology - Edu [address] Bruce Acuña MD Malignant neoplasm of prostate (CMS/HCC) 09/18/2024 Orders Only [facility] Oncology and Hematology - Edu [address] Bruce Acuña MD 09/17/2024 10:15 AM CLINICAL LAB CLERK Office Visit [facility] Oncology and Hematology - Edu [address] [place] [phone] Bruce Acuña MD Malignant neoplasm of prostate (CMS/HCC) (Primary Dx); Chronic anemia 09/17/2024 Refill [facility] Oncology and Hematology - Edu [address] Bruce Acuña MD Malignant neoplasm of prostate (CMS/HCC) (Primary Dx) 09/16/2024 Refill [facility] Oncology and Hematology - Deu [address] Bruce Mosher MD 09/13/2024 External Device Data STL ABSTRACTION Provider, Abstract 09/11/2024 External Device Data STL ABSTRACTION Provider, Abstract 09/10/2024 Orders Only [facility] Oncology and Hematology - Edu [address] [place] [address] Bruce Acuña MD Malignant neoplasm of prostate (CMS/HCC) 09/09/2024 Refill [facility] Oncology and Hematology - Edu [address] [place] [address] Bruce Acuña MD Malignant neoplasm of prostate (CMS/HCC) 09/04/2024 External Device Data STL ABSTRACTION Provider, Abstract 09/04/2024 Orders Only [facility] Oncology and Hematology - Edu [address] [place] [address] Bruce Acuña MD 08/31/2024 Orders Only [facility] Oncology and Hematology - Edu [address] [place] [address] Bruce Acuña MD 08/28/2024 Telephone [facility] Oncology and Hematology - Edu [address] [place] [address] Bruce Acuña MD Referral 08/27/2024 Orders Only [facility] Oncology and Hematology - Edu [address] [place] [address] Bruce Acuña MD Malignant neoplasm of prostate (CMS/HCC) 08/17/2024 9:30 AM CLINICAL LAB CLERK Office Visit [facility] Oncology and Hematology - Edu [address] [place] [address] Isaac Matson MD Malignant neoplasm of prostate (CMS/HCC) (Primary Dx) 08/14/2024 Specialty Pharmacy [facility] [address] [place] [phone] Maranda Doll, PHARMACIST Specialty Pharmacy Refill Coordination 08/13/2024 Orders Only [facility] Oncology and Hematology - Edu [address] [place] [address] Bruce Acuña MD Malignant neoplasm of prostate ([facility]/HCC) 08/08/2024 Orders Only [facility] Oncology and Hematology - Edu [address] [place] [address] Bruce Acuña MD 08/07/2024 Orders Only [facility] Oncology and Hematology - Edu [address] [place] [address] Bruce Acuña MD 08/01/2024 Orders Only [facility] Oncology and Hematology - Edu [address] [place] [address] Bruce Acuña MD 07/30/2024 Orders Only [facility] Oncology and Hematology - Edu [address] [place] [address] Bruce Acuña MD Malignant neoplasm of prostate ([facility]/HCC) 07/24/2024 Orders Only [facility] Oncology and Hematology - Edu [address] [place] [address] Bruce Acuña MD 07/23/2024 Refill [facility] Oncology and Hematology - Edu [address] [place] [address] Bruce Acuña MD Malignant neoplasm of prostate ([facility]/HCC) 07/20/2024 Specialty Pharmacy [facility] [address] [place] [phone] Maranda Doll, PHARMACIST Specialty Pharmacy Refill Coordination 07/17/2024 Telephone [facility] Oncology and Hematology - Edu [address] [place] [address] Bruce Acuña MD Port Dye Study 07/17/2024 Orders Only [facility] Oncology and Hematology - Edu [address] [place] [address] Bruce Acuña MD 07/16/2024 9:30 AM CLINICAL LAB CLERK Office Visit [facility] Oncology and Hematology - Edu [address] [place] [address] Bruce Acuña MD Malignant neoplasm of prostate (CMS/HCC) 07/16/2024 Refill [facility] Oncology and Hematology - Edu [address] [place] [address] Bruce Acuña MD 07/11/2024 Orders Only [facility] Oncology and Hematology - Edu [address] [place] [address] Bruce Acuña MD from Last 3 Months [...] Comments Blood Pressure 100/61 09/17/2024 9:59 AM CLINICAL LAB CLERK Pulse 104 09/17/2024 9:59 AM CLINICAL LAB CLERK Temperature 36.1 C (96.9 F) 09/17/2024 9:59 AM CLINICAL LAB CLERK Respiratory Rate 15 09/17/2024 9:59 AM CLINICAL LAB CLERK Oxygen Saturation 98% 09/17/2024 9:59 AM CLINICAL LAB CLERK Inhaled Oxygen Concentration - - Weight 87.5 kg (192 lb 12.8 oz) 09/17/2024 9:59 AM CLINICAL LAB CLERK Height 175.3 cm (5' 9 ) 06/16/2022 11:5 4 AM CDT Body Mass Index 28.47 06/16/2022 11:54 AM CDT Plan of Treatment Upcoming Encounters Date Type Department Care Team (Late st Contact Info) Description 10/15/2024 9:15 AM CLINICAL LAB CLERK Office Visit [facility] Oncology and Hematology - Edu [address] [place] [address] Bruce Acuña MD [address] [facility] [address] [place] [address] Health Maintenance Due Date Last [...] Q 6 MONTHS 03/23/2024 09/23/2023 Medicare Advantage ([place]) Prev entative Visit/Annual Wellness Visit 08/22/2024 RSV VACCINE (60+ or ) (1 - 1-dose 75+ series) 2030 Procedures Procedure Name Priority Date/Time Associated Diagnosis Comments BASIC METABOLIC PANEL Routine 09/24/2024 2:41 PM CLINICAL LAB CLERK COMPREHENSIVE METABOLIC PANEL Routine 09/17/2024 12:44 PM CLINICAL LAB CLERK BASIC METABOLIC PANEL Routine 09/17/2024 10:38 AM CLINICAL LAB CLERK CBC WITH DIFFERENTIAL Routine 09/17/2024 10:16 AM CLINICAL LAB CLERK CBC WITH DIFFERENTIAL Routine 09/07/2024 11:27 AM CLINICAL LAB CLERK COMPREHENSIVE METABOLIC PANEL Routine 09/03/2024 1:43 PM CLINICAL LAB CLERK BASIC METABOLIC PANEL Routine 09/03/2024 12:15 PM CLINICAL LAB CLERK CBC WITH DIFFERENTIAL Routine 09/03/2024 10:24 AM CLINICAL LAB CLERK COMPREHENSIVE METABOLIC PANEL Routine 08/24/2024 11:18 AM CLINICAL LAB CLERK BASIC METABOLIC PANEL Routine 08/24/2024 10:17 AM CLINICAL LAB CLERK CBC WITH DIFFERENTIAL Routine 08/24/2024 10:14 AM CLINICAL LAB CLERK XR PORT CONTRAST INJECT W FLUORO Routine 08/07/2024 10:12 AM CLINICAL LAB CLERK COMPREHENSIVE METABOLIC PANEL Routine 08/06/2024 1:24 PM CLINICAL LAB CLERK BASIC METABOLIC PANEL Routine 08/06/2024 1:03 PM CLINICAL LAB CLERK COMPREHENSIVE METABOLIC PANEL Routine 07/30/2024 2:52 PM CLINICAL LAB CLERK CBC WITH DIFFERENTIAL Routine 07/30/2024 1:04 PM CLINICAL LAB CLERK BASIC METABOLIC PANEL Routine 07/30/2024 12:35 PM CLINICAL LAB CLERK COMPREHENSIVE METABOLIC PANEL Routine 07/23/2024 1:06 PM CLINICAL LAB CLERK CBC WITH DIFFERENTIAL Routine 07/23/2024 11:10 AM CLINICAL LAB CLERK BASIC METABOLIC PANEL Routine 07/23/2024 10:44 AM CLINICAL LAB CLERK BASIC METABOLIC PANEL Routine 07/16/2024 10:19 AM CLINICAL LAB CLERK CBC WITH DIFFERENTIAL Routine 07/16/2024 10:03 AM CLINICAL LAB CLERK from Last 3 Months Results * BASIC METABOLIC PANEL (09/24/2024 2:41 PM CLINICAL LAB CLERK) Only the most recent of8 resultswithin the time period is included. Blood us Bruce Acuña MD CHEMISTRY ORDERABLES Final Resu lt * COMPREHENSIVE METABOLIC PANEL (09/17/2024 12:44 PM CLINICAL LAB CLERK) Only the most recent of6 resultswithin the time period is included. Blood us Bruce Acuña MD CHEMISTRY ORDERABLES Final Resu lt * CBC WITH DIFFERENTIAL (09/17/2024 10:16 AM CLINICAL LAB CLERK) Only the most recent of7 resultswithin the time period is included. Blood us Bruce Acuña MD HEMATOLOGY ORDERABLES Final Res ult * XR PORT CONTRAST INJECT W FLUORO (08/07/2024 10:12 AM CLINICAL LAB CLERK) Anatomical Region Laterality Modality Other us Bruce Acuña MD DIAGNOSTIC IMAGING ORDERABLES F inal Result from Last 3 Months [facility] RX [employer] Medicare Part D RX [employer] PLANS (INTERNAL) [facility] Care Teams Canine Deputy Relationship Specialty Start Date End Date Shaheen Foley MD [address] [phone] PCP - General Family Practice 04/21/21
--- OUTSIDE RECORDS SUMMARY | 2024-10-10 14:21 | XMS_ITS | Encounter Summary ---
Author Organization [facility] Address [address] [place] [address] Care Team Providers Care Processing Manager Name Role Phone Shaheen Foley MD Primary Care Provider [phone] Encounter Details Date Type Department Care Team [...] st Contact Info) Description 10/15/2024 9:15 AM CHILD NUTRITION DIRECTOR Office Visit [facility] Oncology and Hematology - Edu [address] [facility] [address] [address] Bruce Acuña MD [address] [address] documented as of this encounter Visit Diagnoses Not on filedocumented in this encounter Care Teams Processing Manager Relationship Specialty Start Date End Date Shaheen Foley MD [address] [facility] [address] [place] [address] PCP - General Family Practice 04/21/21 documented as of this encounter
[2024-10-10 14:30] LABS: Basophils Absolute Auto 0.1 K/mm3 (0.0-0.1); Basophils Percent Auto 1.2 % (0.2-1.2); Eosinophils Absolute Auto 0.1 K/mm3 (0-0.3); Eosinophils Percent Auto 1.4 % (0-4.4); Hematocrit 33.4 % (42.0-52.0); Hemoglobin 10.1 g/dL (14.0-18.0); Immature Granulocyte Absolute 0.36 K/mm3 (0.00-0.031); Immature Granulocyte Percent A 7.2 % (0-0.5); Lymphocytes Absolute Auto 0.96 K/mm3 (0.9-3.2); Lymphocytes Percent Auto 19.2 % (18.3-44.2); Mean Corpuscular HGB Conc 30.2 g/dl (32-36); Mean Corpuscular Hemoglobin 27.4 pg (26-34); Mean Corpuscular Volume 90.5 fl (80-100); Mean Platelet Volume 8.9 fl (7.4-10.4); Monocytes Absolute Auto 0.4 K/mm3 (0.1-0.6); Monocytes Percent Auto 8.4 % (2.6-8.5); Neutrophils Absolute Auto 3.1 K/mm3 (1.3-6.7); Neutrophils Percent Auto 62.6 % (45.5-73.1); Nucleated Red Blood Cells Perc 0.4 % (0.0-0.2); Platelet Count Result 187 k/mm3 (150-375); Red Blood Count 3.69 M/mm3 (4.6-6.20)
[2024-10-10 14:41] LABS: Alanine Aminotransferase 13 U/L (6-50); Albumin Level 3.5 g/dL (3.5-5.1); Alkaline Phosphatase 271 U/L (38-126); Anion Gap 13 mmol/L (4-12); Aspartate Amino Transferase 61 U/L (17-59); Bilirubin,Total 1.3 mg/dL (0.2-1.3); Blood Urea Nitrogen 15 mg/dL (9-20); Calcium 9.2 mg/dL (8.4-10.2); Carbon Dioxide 20 mmol/L (22-30); Chloride 103 mmol/L (98-107); Estimated CRCL calculation 112 ml/min; Estimated Glomerular Filt Rate > 60; Glucose 175 mg/dL (65-110); Potassium 3.9 mmol/L (3.4-5.0); Sodium 136 mmol/L (137-145)
[2024-10-10 14:57] LABS: Platelet Estimate Adequate (Adequate); Schistocytes None Seen
[2024-10-10 14:58] LABS: Hypochromasia 1+
[2024-10-10 14:59] LABS: Anisocytosis 2+; Polychromasia 1+
[2024-10-10 15:07] LABS: Influenza A QL RT-PCR Negative (Negative); Influenza B QL RT-PCR Negative (Negative); RSV RNA, RT-PCR Negative (Negative); SARS-CoV-2 RNA PCR Negative (Negative)
[2024-10-10 17:10] LABS: Add Urine Microscopic? YES; Appearance Urine Cloudy (Clear); Bacteria Urine None Seen /hpf; Bilirubin Urine 1+ (Negative); Blood Urine Negative (Negative); Color Urine Dark Yellow (Yellow); Glucose Urine UA Negative (Negative); Ketones Urine Trace mg/dL (Negative); Leukocyte Esterase Ur Negative LEU/UL (Negative); Mucus Urine Present /lpf; Need Manual Microscopic Reviewed; Nitrate Urine Negative (Negative); Protein Urine 1+ mg/dL (Negative); RBC Urine 0-2 /hpf (0-2); Specific Grav Ur 1.027 (1.001-1.035); Squamous Epithelial Cell Urine Occasional /hpf (Few); WBC Urine 0-5 /hpf (0-3); pH Urine 5.5 (5.0-9.0)
--- NOTE | 2024-10-10 18:55 | PM.IMHP ---
H&P: HPI History of Present Illness Date/Time: 10/10/24 18:55 Chief Complaint: Positive orthostatic vital signs. Narrative: This is a a very pleasant 69-year-old male with metastatic prostate cancer, hyperlipidemia, gastroesophageal reflux disease, and type 2 diabetes mellitus who presented to the emergency department from the cancer center for evaluation of positive orthostatic vital signs. The patient provides the following history. He was started back on chemotherapy last April and over the past 1 month he has missed several rounds of chemotherapy due to neutropenia, weakness, and dehydration.. He was hospitalized last month with neutropenic fever and at that time he was noted to have soft blood pressures. It sounds as though he has continued to have issues with his blood pressures since discharge as he frequently has lightheadedness and dizziness with position changes, especially going from a seated to standing position. His appetite is poor and he frequently has diarrhea after his chemotherapy treatments. He is losing weight and is feeling very weak. Last week his metoprolol succinate dose was decreased to 12.5 mg daily given soft blood pressures; is my understanding that he takes that for history of tachycardia with PACs. It is also noted that he has been on chronic steroids for many months and his dose was recently decreased from 10 mg to 5 mg daily. He denies fever, cold and flu symptoms, chest pain, pleuritic pain, shortness of breath, cough, vomiting, and dysuria. In the ED: He was afebrile on arrival. Orthostatic vital signs were positive. Labs were significant for a WBC count of 5.0, hemoglobin 10.1, platelet 187, sodium 136, carbon dioxide 20, anion gap 13, creatinine 0.52, glucose 175, AST 61, alkaline phosphatase 271. Urinalysis was positive for 1+ protein, trace ketones, 1+ bilirubin. Respiratory panel was negative. He was given a 2 L fluid bolus and remains orthostatic and he is being admitted in this setting for further treatment and evaluation. Review of Systems Review of Systems: 12 systems were reviewed and are negative except for as per HPI. [facility] Past Medical History Medical History (Updated 10/10/24 @ 23:42 by Monica Martinez PA-C) Tubular adenoma of colon (05/2013) Prostate cancer metastatic to bone Essential tremor Type 2 diabetes mellitus with diabetic polyneuropathy Aortic atherosclerosis noted on CT scan in January 2018 Mixed hyperlipidemia Surgical History Surgical History (Updated 10/10/24 @ 23:42 by Monica Martinez PA-C) History of arthroscopy of left knee (08/1996) H/O colonoscopy with polypectomy Port-A-Cath in place History of total right hip replacement (09/2023) Family History Family History Father Lung cancer Glaucoma Mother Breast cancer Sibling Arrhythmia Social History Social History (Updated 10/10/24 @ 23:42 by Monica Martinez PA-C) Social History: Surrogate medical decision maker: Josee Byers, spouse. Code status: Full code. Smoking status: Never smoker Second hand tobacco smoke exposure: Yes Alcohol intake: former Drinks per week: 5 Substance use: never Substance use type: does not use Do You Feel Safe in your Home?: Yes Lack of Transportation: No Lack of Food: Never True Current Housing: I Have Housing Concerned About Future Housing: No Difficulty Paying Gas/Electric Bills: No Difficulty Paying for Meds: No Currently Unemployed: No Education: Decline to Answer Difficulty w/ Childcare or Family Care: No Living arrangements: with family Additional living arrangements comments: Lives with in [place]. They have 3 children. Occupation/Education: retired Additional occupation/education comments: Retired from the [employer]. Spiritual care concerns: No Agree to blood products: Yes Meds Home Medications and Allergies Home Medications ?Medication ?Instructions ?Recorded ?Confirmed ?Type tamsulosin 0.4 mg capsule 0.4 mg PO HS 02/24/23 10/10/24 History cyanocobalamin (vitamin B-12) 500 mcg PO DAILY 03/10/23 10/10/24 History 1,000 mcg tablet omeprazole 40 mg capsule,delayed 40 mg PO DAILY 10/07/23 10/10/24 History release polysaccharide iron complex 150 mg 65 mg PO DAILY 10/07/23 10/10/24 History iron capsule (Ferrex) abiraterone 250 mg tablet 500 mg PO DAILY 04/17/24 10/10/24 History gabapentin 800 mg tablet 800 mg PO BID 04/17/24 10/10/24 History metformin 500 mg tablet See Rx Instructions .Route 05/06/24 10/10/24 Rx .COMPLEX #360 tabs pioglitazone 45 mg tablet See Rx Instructions .Route 08/29/24 10/10/24 Rx .COMPLEX #90 tabs atorvastatin 20 mg tablet See Rx Instructions .Route 09/07/24 10/10/24 Rx .COMPLEX #30 tabs calcitriol 0.5 mcg capsule 0.5 mcg PO BID 09/07/24 10/10/24 History calcium 600 mg capsule 600 mg PO QID 09/07/24 10/10/24 History cholecalciferol (vitamin D3) 25 25 mcg PO DAILY 09/07/24 10/10/24 History mcg (1,000 unit) capsule (Vitamin D3) megestrol 400 mg/10 mL (40 mg/mL) 40 mg PO DAILY 09/08/24 10/10/24 History oral suspension ondansetron 8 mg disintegrating 8 mg translingual Q8H PRN nausea 09/08/24 10/10/24 History tablet and vomiting metoprolol succinate 25 mg 12.5 mg PO DAILY 09/18/24 10/10/24 History tablet,extended release 24 hr prednisone 5 mg tablet 5 mg PO DAILY 09/18/24 10/10/24 History tramadol 50 mg tablet 50 mg PO DAILY PRN pain #30 tabs 09/18/24 10/10/24 Rx Allergies Allergy/AdvReac Type Severity Reaction Status Date / Time No Known Allergies Allergy Verified 10/03/24 09:50 Vital Signs Vital Signs - 24 hr 10/10/24 12:44 10/10/24 13:45 10/10/24 13:46 Temperature 97.6 F Pulse Rate 128 H 109 H 109 H Respiratory Rate 18 20 26 H Blood Pressure 118/69 108/63 Pulse Oximetry 100 100 100 10/10/24 13:47 10/10/24 14:00 10/10/24 14:01 Temperature Pulse Rate 106 H 114 H 111 H Respiratory Rate 20 15 Blood Pressure 120/60 100/69 Pulse Oximetry 100 100 10/10/24 14:15 10/10/24 14:16 10/10/24 14:18 Temperature 97.9 F Pulse Rate 110 H 109 H Respiratory Rate 20 21 H 18 Blood Pressure 100/64 Pulse Oximetry 100 100 10/10/24 15:00 10/10/24 15:00 Temperature Pulse Rate 128 H 112 H Respiratory Rate Blood Pressure 103/72 123/60 Pulse Oximetry Exam Narrative: General: Chronically ill-appearing gentleman the semi-Coe position in bed in no acute distress. Weight: 70.7 kg. BMI: 25.6. HEENT: PERRL, EOMI. Sclera anicteric. Tacky mucous membranes. Neck: Supple. Respiratory: Lungs are clear to auscultation bilaterally. Cardiovascular: Regular rate and rhythm with S1-S2. Gastrointestinal: Abdomen is soft, nontender, and nondistended with positive bowel sounds. No organomegaly. Skin: Warm and dry. Extremities: No cyanosis, clubbing, or significant edema. Radial and pedal pulses intact. Neurological: Alert. Cranial nerves 2-12 are grossly intact. No gross focal deficits to casual conversation. Psychiatric: Pleasant and cooperative with normal mood and affect. Judgment and insight intact. H&P: Results Labs Labs: Short CBC 10/10/24 Range/Units 14:09 WBC 5.0 (4.5-10.0) K/mm3 Hgb 10.1 L (14.0-18.0) g/dL Hct 33.4 L (42.0-52.0) % Plt Count 187 (150-375) k/mm3 BMP 10/10/24 14:09 Sodium 136 L Potassium 3.9 Chloride 103 Carbon Dioxide 20 L BUN 15 Creatinine 0.52 L Glucose 175 H Calcium 9.2 Liver Function 10/10/24 Range/Units 14:09 Total Bilirubin 1.3 (0.2-1.3) mg/dL AST 61 H (17-59) U/L ALT 13 (6-50) U/L Alkaline Phosphatase 271 H (38-126) U/L Albumin 3.5 (3.5-5.1) g/dL Urine 10/10/24 Range/Units 16:44 Urine Color Dark yellow (Yellow) Urine Appearance Cloudy H (Clear) Urine pH 5.5 (5.0-9.0) Ur Specific [place] 1.027 (1.001-1.035) Urine Protein 1+ H (Negative) mg/dL Urine Glucose (UA) Negative (Negative) mg/dL Assessment and Plan Assessment and plan (1) Orthostatic hypotension: Code(s): I95.1 - Orthostatic hypotension Status: Acute (2) Type 2 diabetes mellitus with diabetic polyneuropathy: Qualifiers: Diabetes mellitus long-term insulin use: without long-term use Qualified Code(s): E11.42 - Type 2 diabetes mellitus with diabetic polyneuropathy Code(s): E11.42 - Type 2 diabetes mellitus with diabetic polyneuropathy Status: Acute (3) Chronic steroid use: Status: Acute (4) Anemia: Code(s): D64.9 - Anemia, unspecified Status: Acute (5) Secondary malignant neoplasm of bone: Code(s): C79.51 - Secondary malignant neoplasm of bone Status: Acute Plan The patient presented to the emergency department for evaluation after he was found to have positive orthostatic vital signs as detailed in HPI. Labs, imaging, EKG, and all reports were personally reviewed. It sounds as though this is been an ongoing issue for the patient and it may be related to autonomic dysfunction from his diabetes in addition to chemotherapy treatments and poor oral intake. His metoprolol succinate was recently cut in half and is my understanding that he takes this for tachycardia with occasional PACs. While it is a very low dose, and may be prudent to continue to wean him off of the drug to see if he tolerates that. He is on chronic low-dose prednisone at 5 mg although there are no significant electrolyte derangements a cortisol level as been ordered for a.m.. Due to ongoing drop in blood pressure despite adequate IV fluids, he has been started on scheduled midodrine. William hose has also been ordered. Initiate fall precautions and continue to monitor orthostatic vital signs. Initiate sliding scale insulin, Accu-Cheks, and hypoglycemic protocol. His home medications will be reviewed and resumed as appropriate. Findings and treatment plan were discussed with the patient. Questions were solicited and answered to satisfaction. The patient's medical management will be taken over by the hospitalist team in a.m. Quality VTE Prophylaxis VTE prophylaxis: pharmacologic ordered The patient has been admitted under observation status. Hospitalist MIPS Advance Care Plan I have confirmed that the patient's Advanced Care Plan is present, code status is documented, or surrogate decision maker is listed in patient medical record.: Yes Medication Reconciliation I have utilized all available resources to obtain, update and review the patients current medications (includes all prescriptions, OTC, herbals, cannabis, and nutritional supplements).: Yes
[2024-10-10] MEDS: SODIUM CHLORIDE 0.9% IV 1,000 ML 125 ML IV CONT (19:37)
--- NOTE | 2024-10-10 23:02 | ADMGEN ---
This patient, Norman Byers, was admitted to [facility] Surg Room 317-02. Patient/family oriented to hospital policies and general routines including ID bracelet, bed and alarms, visiting hours, pain management, procedures, bathroom and other care routines, personal items, smoking policy, room service/diet, and visiting hours. Information on how to activate the Rapid Response Team has been discussed. Patient/Family are encouraged to report perceived risks to care and to ask questions if they do not understand what they are told or what they should do.
[2024-10-11] VITALS (8 sets, daily range): BP systolic 78–108; BP diastolic 40–57; PULSE 80–120; RESP 15–18; TEMP 36.3–37.2; O2SAT 93–98; BMI 25.7
[2024-10-11] MEDS: ATORVASTATIN 20 MG TABLET BY MOUTH ×2 (00:54→21:56)
[2024-10-11] MEDS: TAMSULOSIN HCL 0.4 MG CAPSULE PO (00:54)
[2024-10-11 01:06] LABS: Glucose Point of Care 103 mg/dl (65-105)
--- NOTE | 2024-10-11 07:35 | PM.IMPN ---
Progress Note: A&P Assessment and Plan (1) Orthostatic hypotension: Code(s): I95.1 - Orthostatic hypotension Status: Acute Assessment and Plan: 10/11 This am remains markedly orthostatic to the 70s with standing. Very lightheaded and soft bp in general. Cortisol remarkably low. - History of similar for several weeks, on flomax, chemotherapy. Has increasing generalized weakness additionally. - No history of difficulty voiding. DC flomax. - Cont. midodrine at 10mg tid at this time. - IVF resumed. - PT evaluation. I question if able to discharge directly to home, still markedly symptomatic. (2) Adrenal insufficiency: Code(s): E27.40 - Unspecified adrenocortical insufficiency Status: Acute Assessment and Plan: 10/11 - Cortisol 0.64 this am. An IV dose of solucortef ordered. Start 15mg daily oral with 10mg am, 5mg afternoon. - Outpatient endocrinology f/u may prove of benefit. (3) Chronic steroid use: Status: Acute Assessment and Plan: 10/11 - Recent dose reduction on prednisone from 10mg to 5mg daily per chart review. - Adding in hydrocortisone today d/t adrenal insufficiency. (4) Type 2 diabetes mellitus with diabetic polyneuropathy: Qualifiers: Diabetes mellitus correction insulin use: without correction use Qualified Code(s): E11.42 - Type 2 diabetes mellitus with diabetic polyneuropathy Code(s): E11.42 - Type 2 diabetes mellitus with diabetic polyneuropathy Status: Acute Assessment and Plan: 10/11 - Stable cont. current. (5) Anemia: Code(s): D64.9 - Anemia, unspecified Status: Acute Assessment and Plan: 10/11 - Repeat and trend with hgb to 7.8 this am, likely 2/2 dilutional effect from IVF. (6) Secondary malignant neoplasm of bone: Code(s): C79.51 - Secondary malignant neoplasm of bone Status: Acute Assessment and Plan: 10/11 - On chemotherapy for prostate ca, he denies known metastases. (7) Hypomagnesemia: Code(s): E83.42 - Hypomagnesemia Status: Acute Assessment and Plan: 10/11 - Replete today, repeat and trend in the am. (8) Hypokalemia: Code(s): E87.6 - Hypokalemia Status: Acute Assessment and Plan: 10/11 - Replete today, repeat and trend in the am. Plan Norman Byers 69 year old male with PMH prostate CA on chemotherapy presenting with several weeks of OH, much worse over the last few days. Markedly orthostatic with slight improvement only on midodrine and fluids. Adrenal insufficiency with cortisol 0.64 this am, solucortef dosing started. IVF resumed today. PT ordered. Time Spent With Patient Time with patient: 25 - 35 minutes Subjective Date/time seen: 10/11/24 07:35 Interval history: Norman has been feeling poorly this morning. He was very lightheaded when getting up from bed. He states similar symptoms for several weeks. Review of Systems Review of Systems: All systems reviewed & are unremarkable except as noted in HPI and below Exam Narrative: GENERAL APPEARANCE: Appears to be in no acute distress. HEAD: normocephalic atraumatic EYES: PERRL, EOMI. Vision grossly intact. ENT: Hearing grossly intact, no nasal discharge NECK: Neck supple, trachea midline. CARDIAC: Normal S1/S2. Rhythm is regular. No murmurs, rubs, or gallops. No cyanosis or pallor. Extremities are warm and well perfused. LUNGS: Clear to auscultation without rales, rhonchi, wheezing or diminished breath sounds. Respirations even and unlabored. ABDOMEN: BS positive x 4 quadrants. Soft, nondistended, nontender. No guarding or rebound. MSK: No joint tenderness/swelling PERIPHERAL VASCULAR: Peripheral pulses palpable. Normal perfusion, cap refill <2 seconds. No edema. NEURO: Follows commands. No focal deficits. SKIN: [place] without lesions or eruptions. PSYCH: Stable, no paranoia or delusional thinking. Objective Data Vital Signs Vital Signs: Vital Signs - 24 hr 10/10/24 12:44 10/10/24 13:45 10/10/24 13:46 Temperature 97.6 F Pulse Rate 128 H 109 H 109 H Respiratory Rate 18 20 26 H Blood Pressure 118/69 108/63 Pulse Oximetry 100 100 100 Oxygen Delivery 10/10/24 13:47 10/10/24 14:00 10/10/24 14:01 Temperature Pulse Rate 106 H 114 H 111 H Respiratory Rate 20 15 Blood Pressure 120/60 100/69 Pulse Oximetry 100 100 Oxygen Delivery 10/10/24 14:15 10/10/24 14:16 10/10/24 14:18 Temperature 97.9 F Pulse Rate 110 H 109 H Respiratory Rate 20 21 H 18 Blood Pressure 100/64 Pulse Oximetry 100 100 Oxygen Delivery 10/10/24 14:30 10/10/24 14:31 10/10/24 14:47 Temperature Pulse Rate 104 H 110 H 105 H Respiratory Rate 16 25 H 21 H Blood Pressure 107/63 Pulse Oximetry 100 100 98 Oxygen Delivery 10/10/24 14:51 10/10/24 14:55 10/10/24 15:00 Temperature Pulse Rate 106 H 128 H 128 H Respiratory Rate 18 19 Blood Pressure 120/60 103/72 103/72 Pulse Oximetry 100 Oxygen Delivery 10/10/24 15:00 10/10/24 15:00 10/10/24 15:01 Temperature Pulse Rate 112 H 110 H 107 H Respiratory Rate 16 22 H Blood Pressure 123/60 99/60 L Pulse Oximetry 100 100 Oxygen Delivery 10/10/24 15:15 10/10/24 15:16 10/10/24 15:30 Temperature Pulse Rate 113 H 115 H 110 H Respiratory Rate 22 H 21 H 18 Blood Pressure 100/48 L 99/54 L Pulse Oximetry 100 98 100 Oxygen Delivery 10/10/24 15:31 10/10/24 15:59 10/10/24 16:00 Temperature Pulse Rate 109 H 107 H 109 H Respiratory Rate 17 23 H 20 Blood Pressure 96/59 L Pulse Oximetry 100 100 100 Oxygen Delivery 10/10/24 16:01 10/10/24 16:15 10/10/24 16:16 Temperature Pulse Rate 109 H 110 H 108 H Respiratory Rate 21 H 24 H 19 Blood Pressure 100/61 Pulse Oximetry 99 100 98 Oxygen Delivery 10/10/24 16:30 10/10/24 16:31 10/10/24 16:49 Temperature Pulse Rate 113 H 110 H 108 H Respiratory Rate 18 26 H 25 H Blood Pressure 101/57 L Pulse Oximetry 99 98 100 Oxygen Delivery 10/10/24 17:00 10/10/24 17:07 10/10/24 17:15 Temperature Pulse Rate 119 H 110 H 110 H Respiratory Rate 17 19 20 Blood Pressure 98/60 L 96/53 L Pulse Oximetry 100 Oxygen Delivery 10/10/24 17:16 10/10/24 17:39 10/10/24 17:45 Temperature Pulse Rate 108 H 104 H 102 H Respiratory Rate 22 H 21 H 22 H Blood Pressure 98/55 L Pulse Oximetry 100 98 Oxygen Delivery 10/10/24 17:46 10/10/24 18:00 10/10/24 18:01 Temperature Pulse Rate 104 H 100 98 Respiratory Rate 20 24 H 22 H Blood Pressure 104/52 L Pulse Oximetry 98 98 Oxygen Delivery 10/10/24 18:24 10/10/24 18:30 10/10/24 18:31 Temperature Pulse Rate 103 H 111 H 102 H Respiratory Rate 19 19 23 H Blood Pressure 100/53 L Pulse Oximetry 99 98 94 Oxygen Delivery 10/10/24 18:45 10/10/24 18:46 10/10/24 19:00 Temperature Pulse Rate 109 H 109 H 101 H Respiratory Rate 23 H 19 16 Blood Pressure 118/53 L 96/52 L Pulse Oximetry Oxygen Delivery 10/10/24 19:01 10/10/24 19:15 10/10/24 19:16 Temperature Pulse Rate 102 H 103 H 104 H Respiratory Rate 23 H 19 18 Blood Pressure 99/52 L Pulse Oximetry Oxygen Delivery 10/10/24 19:30 10/10/24 19:31 10/10/24 19:45 Temperature Pulse Rate 105 H 102 H 105 H Respiratory Rate 19 21 H 20 Blood Pressure 93/54 L 90/52 L Pulse Oximetry Oxygen Delivery 10/10/24 19:46 10/10/24 21:05 10/10/24 21:15 Temperature Pulse Rate 106 H 100 93 Respiratory Rate 19 17 15 Blood Pressure Pulse Oximetry Oxygen Delivery 10/10/24 21:16 10/11/24 00:00 10/11/24 01:10 Temperature 98.4 F Pulse Rate 102 H 92 Respiratory Rate 19 15 Blood Pressure 91/54 L 98/46 L Pulse Oximetry 95 Oxygen Delivery Room Air 10/11/24 04:30 Temperature 98.9 F Pulse Rate 92 Respiratory Rate 16 Blood Pressure 99/51 L Pulse Oximetry 93 Oxygen Delivery Intake/Output Intake/Output: Intake & Output 10/08/24 10/09/24 10/10/24 10/11/24 23:59 23:59 23:59 23:59 Intake Total 1999 550 Balance 1999 550 Meds/Results Medications: Active Medications Generic Name Dose Route Start Last Admin Trade Name Freq PRN Reason Stop Dose Admin Acetaminophen 650 mg 10/10/24 18:50 Acetaminophen 325 Mg Tablet PO Q4H PRN Mild Pain (1-3) or Fever Atorvastatin Calcium 20 mg 10/10/24 23:50 10/11/24 00:54 Atorvastatin 20 Mg Tablet BY MOUTH 20 mg HS [facility] Administration Calcitriol 0.5 mcg 10/11/24 09:00 Calcitriol 0.25 Mcg Capsule PO BID [facility] Calcium Carbonate 500 mg 10/11/24 09:00 Calcium Carbonate (Oscal) 500 Mg Tablet PO BID [facility] Cyanocobalamin 500 mcg 10/11/24 09:00 Cyanocobalamin 500 Mcg Tablet PO DAILY [facility] Dextrose 12.5 gm 10/10/24 23:48 Dextrose 50% 25 Gm/50 Ml Syringe IV PUSH PRN PRN Hypoglycemia Protocol Enoxaparin Sodium 40 mg 10/11/24 09:00 Enoxaparin 40 Mg/0.4 Ml Syringe SUB-Q DAILY [facility] Gabapentin 800 mg 10/11/24 09:00 Gabapentin 400 Mg Capsule PO BID [facility] Glucagon 1 mg 10/10/24 23:48 Glucagon For Inj 1 Mg Vial IM PRN PRN Hypoglycemia Protocol Glucose 15 gm 10/10/24 23:48 Glucose Oral Gel 15 Gm Of Glucse In 37.5 Gm Tube PO PRN PRN Hypoglycemia Protocol Dextrose 1,000 mls @ 100 mls/hr 10/10/24 23:48 Dextrose 5% 1,000 Ml IVPB PRN PRN Hypoglycemia Protocol Insulin Aspart 2 - 5 units 10/11/24 08:00 Insulin Aspart (*Bkc) 100 Units/Ml SUB-Q TIDWM [facility] Protocol Insulin Aspart 1 - 2 units 10/11/24 21:00 Insulin Aspart (*Bkc) 100 Units/Ml SUB-Q HS [facility] Protocol Megestrol Acetate 200 mg 10/11/24 09:00 Megestrol Acetate (*Chemo) Oral Susp 40 Mg/Ml Syr PO QAM [facility] Metoprolol Succinate 12.5 mg 10/11/24 09:00 Metoprolol Succinate Ext Rel 12.5 Mg Tabcr PO DAILY [facility] Midodrine 10 mg 10/11/24 09:00 Midodrine Hcl 10 Mg Tablet PO TID [facility] Miscellaneous Information 0 each 10/11/24 00:35 10/11/24 01:14 Abiraterone 250 Mg Tablet- Nonformulary. Please Obtain A Home Supply Or Hold While Inpatie XX 11/10/24 00:34 Not Given CLARIFY [facility] Non-Formulary Medication 500 mg 10/11/24 09:00 Abiraterone PO 11/10/24 08:59 DAILY [facility] Ondansetron HCl 4 mg 10/10/24 18:50 Ondansetron Inj 4 Mg/2 Ml Vial IV PUSH Q4H PRN Nausea Pantoprazole Sodium 40 mg 10/11/24 09:00 Pantoprazole 40 Mg Tablet PO BID [facility] Pioglitazone HCl 45 mg 10/11/24 09:00 Pioglitazone Hcl 45 Mg Tablet BY MOUTH DAILY [facility] Polysaccharide Iron Complex 150 mg 10/11/24 12:00 Polysaccharide Iron Complex 150 Mg Capsule PO DAILY@1200 [facility] Prednisone 5 mg 10/11/24 08:00 Prednisone 5 Mg Tablet PO DAILY@0800 [facility] Tamsulosin HCl 0.4 mg 10/11/24 00:05 10/11/24 00:54 Tamsulosin Hcl 0.4 Mg Capsule PO 0.4 mg HS [facility] Administration Tramadol HCl 50 mg 10/10/24 23:50 Tramadol Hcl (*Crx) 50 Mg Tablet PO DAILY PRN pain Vitamin D 1,000 units 10/11/24 09:00 Cholecalciferol 1,000 Units Tablet PO DAILY [facility] Labs Labs: Laboratory Results - last 24 hr 10/10/24 10/10/24 10/10/24 14:08 14:09 16:44 WBC 5.0 RBC 3.69 L Hgb 10.1 L Hct 33.4 L MCV 90.5 MCH 27.4 MCHC 30.2 L RDW 19.0 H Plt Count 187 MPV 8.9 Immature Gran % (Auto) 7.2 H Neut % (Auto) 62.6 Lymph % (Auto) 19.2 [place] % (Auto) 8.4 Eos % (Auto) 1.4 Baso % (Auto) 1.2 Lymph # (Auto) 0.96 [place] # (Auto) 0.4 Eos # (Auto) 0.1 Baso # (Auto) 0.1 Abs Immat Gran (auto) 0.36 H Absolute Neuts (auto) 3.1 Absolute Nucleated RBC 0.020 H Band Neutrophils % Not Reportable Nucleated RBC % 0.4 H Platelet Estimate Adequate Polychromasia 1+ Hypochromasia 1+ Anisocytosis 2+ Schistocytes None seen Sodium 136 L Potassium 3.9 Chloride 103 Carbon Dioxide 20 L Anion Gap 13 H BUN 15 Creatinine 0.52 L Estim Creat Clear Calc 112 Estimated GFR > 60 Glucose 175 H POC Capillary Glucose Calcium 9.2 Total Bilirubin 1.3 AST 61 H ALT 13 Alkaline Phosphatase 271 H Total Protein 7.0 Albumin 3.5 Urine Color Dark yellow Urine Appearance Cloudy H Urine pH 5.5 Ur Specific [place] 1.027 Urine Protein 1+ H Urine Glucose (UA) Negative Urine Ketones Trace H Ur Blood (Man) Negative Urine Nitrate Negative Urine Bilirubin 1+ H Urine Urobilinogen 1.0 Add Ur Microanalysis Reviewed Leukocyte Esterase Rfl Negative Urine RBC 0-2 Urine WBC 0-5 Ur Squamous Epith Cells Occasional Urine Bacteria None seen Urine Casts 11-20 Hyaline Casts 3-4 H Urine Mucus Present Influenza A (RT-PCR) Negative Influenza B (RT-PCR) Negative RSV (RT-PCR) Negative SARS-CoV-2 RNA (RT-PCR) Negative 10/11/24 00:55 WBC RBC Hgb Hct MCV MCH MCHC RDW Plt Count MPV Immature Gran % (Auto) Neut % (Auto) Lymph % (Auto) [place] % (Auto) Eos % (Auto) Baso % (Auto) Lymph # (Auto) [place] # (Auto) Eos # (Auto) Baso # (Auto) Abs Immat Gran (auto) Absolute Neuts (auto) Absolute Nucleated RBC Band Neutrophils % Nucleated RBC % Platelet Estimate Polychromasia Hypochromasia Anisocytosis Schistocytes Sodium Potassium Chloride Carbon Dioxide Anion Gap BUN Creatinine Estim Creat Clear Calc Estimated GFR Glucose POC Capillary Glucose 103 Calcium Total Bilirubin AST ALT Alkaline Phosphatase Total Protein Albumin Urine Color Urine Appearance Urine pH Ur Specific [place] Urine Protein Urine Glucose (UA) Urine Ketones Ur Blood (Man) Urine Nitrate Urine Bilirubin Urine Urobilinogen Add Ur Microanalysis Leukocyte Esterase Rfl Urine RBC Urine WBC Ur Squamous Epith Cells Urine Bacteria Urine Casts Hyaline Casts Urine Mucus Influenza A (RT-PCR) Influenza B (RT-PCR) RSV (RT-PCR) SARS-CoV-2 RNA (RT-PCR) Quality VTE Prophylaxis VTE prophylaxis: pharmacologic ordered Hospitalist MIPS Advance Care Plan I have confirmed that the patient's Advanced Care Plan is present, code status is documented, or surrogate decision maker is listed in patient medical record.: Yes Medication Reconciliation I have utilized all available resources to obtain, update and review the patients current medications (includes all prescriptions, OTC, herbals, cannabis, and nutritional supplements).: Yes
[2024-10-11 08:01] LABS: Hematocrit 26.3 % (42.0-52.0); Hemoglobin 7.8 g/dL (14.0-18.0); Mean Corpuscular HGB Conc 29.7 g/dl (32-36); Mean Corpuscular Hemoglobin 26.9 pg (26-34); Mean Corpuscular Volume 90.7 fl (80-100); Mean Platelet Volume 9.3 fl (7.4-10.4); Platelet Count Result 157 k/mm3 (150-375); White Blood Count 3.3 K/mm3 (4.5-10.0)
[2024-10-11 08:02] LABS: Glucose Point of Care 91 mg/dl (65-105)
[2024-10-11] MEDS: predniSONE 5 MG TABLET PO (08:15)
[2024-10-11] MEDS: ENOXAPARIN 40 MG/0.4 ML SYRINGE SUB-Q (08:15)
[2024-10-11] MEDS: CHOLECALCIFEROL 1,000 UNITS TABLET 1000 UNITS PO (08:16)
[2024-10-11] MEDS: CYANOCOBALAMIN 500 MCG TABLET PO (08:16)
[2024-10-11] MEDS: METOPROLOL SUCCINATE EXT REL 12.5 MG TABCR PO (08:16)
[2024-10-11] MEDS: PIOGLITAZONE HCL 45 MG TABLET BY MOUTH (08:16)
[2024-10-11] MEDS: MIDODRINE HCL 10 MG TABLET PO ×3 (08:16→17:21)
[2024-10-11] MEDS: CALCIUM CARBONATE (OSCAL) 500 MG TABLET PO ×2 (08:16→17:21)
[2024-10-11] MEDS: PANTOPRAZOLE 40 MG TABLET PO ×2 (08:16→17:21)
[2024-10-11] MEDS: GABAPENTIN 400 MG CAPSULE 800 MG PO ×2 (08:16→17:20)
[2024-10-11] MEDS: MEGESTROL ACETATE (*CHEMO) ORAL SUSP 40 MG/ML SYR 200 MG PO (08:17)
[2024-10-11] MEDS: calcitrioL 0.25 MCG CAPSULE 0.5 MCG PO ×2 (08:17→17:21)
[2024-10-11 08:33] LABS: Anion Gap 6 mmol/L (4-12); Blood Urea Nitrogen 8 mg/dL (9-20); Calcium 7.7 mg/dL (8.4-10.2); Carbon Dioxide 22 mmol/L (22-30); Chloride 106 mmol/L (98-107); Estimated CRCL calculation 148 ml/min; Estimated Glomerular Filt Rate > 60; Glucose 82 mg/dL (65-110); Magnesium 1.4 mg/dL (1.6-2.3); Potassium 3.3 mmol/L (3.4-5.0); Sodium 134 mmol/L (137-145)
[2024-10-11 09:02] LABS: Cortisol Random 0.64 ug/dL
[2024-10-11 09:39] LABS: Procalcitonin 0.2 ng/mL
[2024-10-11 11:43] LABS: Glucose Point of Care 111 mg/dl (65-105)
[2024-10-11] MEDS: HYDROCORTISONE SODIUM SUCCINATE 100 MG/2 ML VIAL IV PUSH (12:24)
[2024-10-11] MEDS: SODIUM CHLORIDE 0.9% IV 1,000 ML 100 ML IV CONT (12:24)
[2024-10-11] MEDS: MAGNESIUM SULF 2 GM/WATER 50ML 2 GM/50 ML BAG IVPB (12:24)
[2024-10-11] MEDS: POLYSACCHARIDE IRON COMPLEX 150 MG CAPSULE PO (12:25)
[2024-10-11] MEDS: POTASSIUM CHLORIDE 20 MEQ ER TABLET 40 MEQ PO ×2 (12:25→17:20)
[2024-10-11 16:48] LABS: Glucose Point of Care 241 mg/dl (65-105)
[2024-10-11] MEDS: HYDROCORTISONE 5 MG TABLET PO (17:20)
[2024-10-11] MEDS: INSULIN ASPART (*BKC) 100 UNITS/ML SUB-Q ×2 (17:24→21:58)
[2024-10-11 21:35] LABS: Glucose Point of Care 251 mg/dl (65-105)
[2024-10-12] VITALS (7 sets, daily range): BP systolic 75–116; BP diastolic 45–59; PULSE 81–103; RESP 18–20; TEMP 35.5–37.1; O2SAT 89–100
[2024-10-12 06:52] LABS: Hematocrit 24.6 % (42.0-52.0); Hemoglobin 7.5 g/dL (14.0-18.0); Mean Corpuscular HGB Conc 30.5 g/dl (32-36); Mean Corpuscular Hemoglobin 27.6 pg (26-34); Mean Corpuscular Volume 90.4 fl (80-100); Mean Platelet Volume 8.9 fl (7.4-10.4); Platelet Count Result 147 k/mm3 (150-375); Red Blood Count 2.72 M/mm3 (4.6-6.20); Red Cell Distribution Width 18.6 % (11.5-14.5)
[2024-10-12 07:03] LABS: Anion Gap 6 mmol/L (4-12); Blood Urea Nitrogen 6 mg/dL (9-20); Calcium 8.1 mg/dL (8.4-10.2); Carbon Dioxide 22 mmol/L (22-30); Chloride 107 mmol/L (98-107); Estimated CRCL calculation 171 ml/min; Estimated Glomerular Filt Rate > 60; Glucose 169 mg/dL (65-110); Magnesium 1.8 mg/dL (1.6-2.3); Potassium 3.7 mmol/L (3.4-5.0); Sodium 135 mmol/L (137-145)
[2024-10-12] MEDS: SODIUM CHLORIDE 0.9% IV 1,000 ML 100 ML IV CONT ×2 (07:31→17:25)
[2024-10-12 08:12] LABS: Glucose Point of Care 143 mg/dl (65-105)
--- NOTE | 2024-10-12 08:20 | P.CDI_ITS ---
CDI Query Clarification Request BMI: 27.8 Nutritional Diagnostic Statement: Please refer to the comprehensive nutrition assessment for further information. If you agree with diagnosis of Severe protein calorie malnutrition related to chronic loss of appetite from cancer treatment, as evidenced by intakes <75% needs >1 month; weight loss 20%/6 months; moderate muscle wasting and fat loss. Please specify severity if known: * Mild * Moderate * Severe * Other/Unknown <Ada Howard RN - Last Filed: 10/12/24 08:21> Clarified Diagnosis Clarified Diagnosis: Moderate <Todd Castillo MD - Last Filed: 10/12/24 16:31>
[2024-10-12] MEDS: MEGESTROL ACETATE (*CHEMO) ORAL SUSP 40 MG/ML SYR 200 MG PO (08:26)
[2024-10-12] MEDS: HYDROCORTISONE 10 MG TABLET PO (08:27)
[2024-10-12] MEDS: PIOGLITAZONE HCL 45 MG TABLET BY MOUTH (08:27)
[2024-10-12] MEDS: MIDODRINE HCL 10 MG TABLET PO ×3 (08:27→17:00)
[2024-10-12] MEDS: METOPROLOL SUCCINATE EXT REL 12.5 MG TABCR PO (08:27)
[2024-10-12] MEDS: GABAPENTIN 400 MG CAPSULE 800 MG PO ×2 (08:27→17:00)
[2024-10-12] MEDS: predniSONE 5 MG TABLET PO (08:27)
[2024-10-12] MEDS: PANTOPRAZOLE 40 MG TABLET PO ×2 (08:27→17:00)
[2024-10-12] MEDS: CYANOCOBALAMIN 500 MCG TABLET PO (08:27)
[2024-10-12] MEDS: CALCIUM CARBONATE (OSCAL) 500 MG TABLET PO ×2 (08:27→17:00)
[2024-10-12] MEDS: CHOLECALCIFEROL 1,000 UNITS TABLET 1000 UNITS PO (08:27)
[2024-10-12] MEDS: calcitrioL 0.25 MCG CAPSULE 0.5 MCG PO ×2 (08:27→16:59)
[2024-10-12] MEDS: ENOXAPARIN 40 MG/0.4 ML SYRINGE SUB-Q (08:28)
[2024-10-12] MEDS: INSULIN ASPART (*BKC) 100 UNITS/ML SUB-Q ×3 (11:44→20:36)
[2024-10-12] MEDS: POLYSACCHARIDE IRON COMPLEX 150 MG CAPSULE PO (11:44)
[2024-10-12 12:13] LABS: Glucose Point of Care 262 mg/dl (65-105)
--- NOTE | 2024-10-12 13:45 | P.PNIM_ITS ---
Progress Note: A&P Assessment and Plan (1) Orthostatic hypotension: Code(s): I95.1 - Orthostatic hypotension Status: Acute Assessment and Plan: 10/11 This am remains markedly orthostatic to the 70s with standing. Very lightheaded and soft bp in general. Cortisol remarkably low. - History of similar for several weeks, on flomax, chemotherapy. Has increasing generalized weakness additionally. - No history of difficulty voiding. DC flomax. - Cont. midodrine at 10mg tid at this time. - IVF resumed. - PT evaluation. I question if able to discharge directly to home, still markedly symptomatic. (2) Adrenal insufficiency: Code(s): E27.40 - Unspecified adrenocortical insufficiency Status: Acute Assessment and Plan: 10/11 - Cortisol 0.64 this am. An IV dose of solucortef ordered. Start 15mg daily oral with 10mg am, 5mg afternoon. - Outpatient endocrinology f/u may prove of benefit. (3) Chronic steroid use: Status: Acute Assessment and Plan: 10/11 - Recent dose reduction on prednisone from 10mg to 5mg daily per chart review. - Adding in hydrocortisone today d/t adrenal insufficiency. (4) Type 2 diabetes mellitus with diabetic polyneuropathy: Qualifiers: Diabetes mellitus longterm insulin use: without longterm use Qualified Code(s): E11.42 - Type 2 diabetes mellitus with diabetic polyneuropathy Code(s): E11.42 - Type 2 diabetes mellitus with diabetic polyneuropathy Status: Acute Assessment and Plan: 10/11 - Stable cont. current. (5) Anemia: Code(s): D64.9 - Anemia, unspecified Status: Acute Assessment and Plan: 10/11 - Repeat and trend with hgb to 7.8 this am, likely 2/2 dilutional effect from IVF. (6) Secondary malignant neoplasm of bone: Code(s): C79.51 - Secondary malignant neoplasm of bone Status: Acute Assessment and Plan: 10/11 - On chemotherapy for prostate ca, he denies known metastases. (7) Hypomagnesemia: Code(s): E83.42 - Hypomagnesemia Status: Acute Assessment and Plan: 10/11 - Replete today, repeat and trend in the am. (8) Hypokalemia: Code(s): E87.6 - Hypokalemia Status: Acute Assessment and Plan: 10/11 - Replete today, repeat and trend in the am. Plan Norman Byers 69 year old male with PMH prostate CA on chemotherapy presenting with several weeks of OH, much worse over the last few days. Markedly orthostatic with slight improvement only on midodrine and fluids. Adrenal insufficiency with cortisol 0.64 this am, solucortef dosing started. IVF resumed today. PT ordered. Subjective Date/time seen: 10/12/24 13:45 Interval history: Patient has a past medical history of a prostate cancer which was diagnosed 2017. In 2022 his prostate cancer metastasis to bone and adrenal gland. Patient was taking prednisone 5 mg b.i.d. last 1 year and recently reduced his dose to prednisone 5 mg p.o. q.d.. Patient was recently admitted to the hospital due to weakness and was discharged but later readmitted for the same reason. His orthostatic hypertension and wearing William hose. Patient is currently getting hydrocortisone 10 mg in the morning and 5 mg in the evening and also prednisone 5 mg p.o. q.d. which is his home dosage. We will discontinue the hydrocortisone 15 mg after 3 days (stress dose) and continue the prednisone 5 mg p.o. q.d. patient reports that lately his appetite has been reduced and he is already on megace. Review of Systems Review of Systems: 12 systems were reviewed and are negativ e except for as per HPI. All systems reviewed & are unremarkable except as noted in HPI and below Exam Narrative: GENERAL APPEARANCE: Appears to be in no acute distress. HEAD: normocephalic atraumatic EYES: PERRL, EOMI. Vision grossly intact. ENT: Hearing grossly intact, no nasal discharge NECK: Neck supple, trachea midline. CARDIAC: Normal S1/S2. Rhythm is regular. No murmurs, rubs, or gallops. No cyanosis or pallor. Extremities are warm and well perfused. LUNGS: Clear to auscultation without rales, rhonchi, wheezing or diminished breath sounds. Respirations even and unlabored. ABDOMEN: BS positive x 4 quadrants. Soft, nondistended, nontender. No guarding or rebound. MSK: No joint tenderness/swelling PERIPHERAL VASCULAR: Peripheral pulses palpable. Normal perfusion, cap refill <2 seconds. No edema. NEURO: Follows commands. No focal deficits. SKIN: [place] without lesions or eruptions. PSYCH: Stable, no paranoia or delusional thinking. Objective Data Vital Signs Vital Signs: Vital Signs - 24 hr 10/11/24 13:53 10/11/24 20:00 10/11/24 21:25 Temperature 97.7 F 97.3 F L Pulse Rate 92 80 Respiratory Rate 16 18 Blood Pressure 98/57 L 108/57 L Pulse Oximetry 98 96 Oxygen Delivery Room Air 10/12/24 04:15 10/12/24 10:55 10/12/24 11:00 Temperature 96 F L 98.7 F 98.7 F Pulse Rate 81 95 103 H Respiratory Rate 20 20 20 Blood Pressure 101/56 L 116/45 L 98/50 L Pulse Oximetry 99 98 100 Oxygen Delivery 10/12/24 11:05 Temperature 98.7 F Pulse Rate 82 Respiratory Rate 20 Blood Pressure 75/59 L Pulse Oximetry 89 L Oxygen Delivery Intake/Output Intake/Output: Intake & Output 10/09/24 10/10/24 10/11/24 10/12/24 23:59 23:59 23:59 23:59 Intake Total 19990 645 Balance 19990 645 Meds/Results Medications: Active Medications Generic Name Dose Route Start Last Admin Trade Name Freq PRN Reason Stop Dose Admin Acetaminophen 650 mg 10/10/24 18:50 Acetaminophen 325 Mg Tablet PO Q4H PRN Mild Pain (1-3) or Fever Atorvastatin Calcium 20 mg 10/10/24 23:50 10/11/24 21:56 Atorvastatin 20 Mg Tablet BY MOUTH 20 mg HS DUSTY Administration Calcitriol 0.5 mcg 10/11/24 09:00 10/12/24 08:27 Calcitriol 0.25 Mcg Capsule PO 0.5 mcg BID DUSTY Administration Calcium Carbonate 500 mg 10/11/24 09:00 10/12/24 08:27 Calcium Carbonate (Oscal) 500 Mg Tablet PO 500 mg BID DUSTY Administration Cyanocobalamin 500 mcg 10/11/24 09:00 10/12/24 08:27 Cyanocobalamin 500 Mcg Tablet PO 500 mcg DAILY DUSTY Administration Dextrose 12.5 gm 10/10/24 23:48 Dextrose 50% 25 Gm/50 Ml Syringe IV PUSH PRN PRN Hypoglycemia Protocol Enoxaparin Sodium 40 mg 10/11/24 09:00 10/12/24 08:28 Enoxaparin 40 Mg/0.4 Ml Syringe SUB-Q 40 mg DAILY DUSTY Administration Gabapentin 800 mg 10/11/24 09:00 10/12/24 08:27 Gabapentin 400 Mg Capsule PO 800 mg BID DUSTY Administration Glucagon 1 mg 10/10/24 23:48 Glucagon For Inj 1 Mg Vial IM PRN PRN Hypoglycemia Protocol Glucose 15 gm 10/10/24 23:48 Glucose Oral Gel 15 Gm Of Glucse In 37.5 Gm Tube PO PRN PRN Hypoglycemia Protocol Heparin Sodium (Beef Lung) 50 units 10/12/24 09:00 10/12/24 08:28 Heparin Flush 50 Units/5 Ml Syringe IV PUSH Not Given QAM DUSTY Heparin Sodium (Beef Lung) 50 units 10/12/24 07:33 Heparin Flush 50 Units/5 Ml Syringe IV PUSH PRN PRN after intermittent infusion Heparin Sodium (Beef Lung) 50 units 10/12/24 07:33 Heparin Flush 50 Units/5 Ml Syringe IV PUSH PRN PRN after blood draws Heparin Sodium (Porcine) 500 units 10/12/24 07:33 Heparin Sodium Lock Flush 500 Units/5 Ml Syringe IV PUSH PRN PRN see comments below Hydrocortisone 10 mg 10/12/24 08:00 10/12/24 08:27 Hydrocortisone 10 Mg Tablet PO 10 mg DAILY@0800 DUSTY Administration Hydrocortisone 5 mg 10/11/24 16:00 10/11/24 17:20 Hydrocortisone 5 Mg Tablet PO 5 mg DAILY@1600 DUSTY Administration Dextrose 1,000 mls @ 100 mls/hr 10/10/24 23:48 Dextrose 5% 1,000 Ml IVPB PRN PRN Hypoglycemia Protocol Sodium Chloride 1,000 mls @ 100 mls/hr 10/11/24 10:20 10/12/24 07:31 Normal Saline Iv IV CONT 100 mls/hr .Q10H DUSTY Administration Insulin Aspart 2 - 5 units 10/11/24 08:00 10/12/24 11:44 Insulin Aspart (*Bkc) 100 Units/Ml SUB-Q 3 units TIDWM DUSTY Administration Protocol Insulin Aspart 1 - 2 units 10/11/24 21:00 10/11/24 21:58 Insulin Aspart (*Bkc) 100 Units/Ml SUB-Q 1 units HS DUSTY Administration Protocol Megestrol Acetate 200 mg 10/11/24 09:00 10/12/24 08:26 Megestrol Acetate (*Chemo) Oral Susp 40 Mg/Ml Syr PO 200 mg QAM DUSTY Administration Metoprolol Succinate 12.5 mg 10/11/24 09:00 10/12/24 08:27 Metoprolol Succinate Ext Rel 12.5 Mg Tabcr PO 12.5 mg DAILY DUSTY Administration Midodrine 10 mg 10/11/24 09:00 10/12/24 12:00 Midodrine Hcl 10 Mg Tablet PO 10 mg TID DUSTY Administration Miscellaneous Information 0 each 10/11/24 00:35 10/11/24 01:14 Abiraterone 250 Mg Tablet- Nonformulary. Please Obtain A Home Supply Or Hold While Inpatie XX 11/10/24 00:34 Not Given [facility] Non-Formulary Medication 500 mg 10/11/24 09:00 Abiraterone PO 11/10/24 08:59 DAILY [facility] Ondansetron HCl 4 mg 10/10/24 18:50 Ondansetron Inj 4 Mg/2 Ml Vial IV PUSH Q4H PRN Nausea Pantoprazole Sodium 40 mg 10/11/24 09:00 10/12/24 08:27 Pantoprazole 40 Mg Tablet PO 40 mg BID [facility] Administration Pioglitazone HCl 45 mg 10/11/24 09:00 10/12/24 08:27 Pioglitazone Hcl 45 Mg Tablet BY MOUTH 45 mg DAILY [facility] Administration Polysaccharide Iron Complex 150 mg 10/11/24 12:00 10/12/24 11:44 Polysaccharide Iron Complex 150 Mg Capsule PO 150 mg DAILY@1200 [facility] Administration Prednisone 5 mg 10/11/24 08:00 10/12/24 08:27 Prednisone 5 Mg Tablet PO 5 mg DAILY@0800 [facility] Administration Sodium Chloride 10 ml 10/12/24 14:00 Central Line Flush IV PUSH Q8HR [facility] Tramadol HCl 50 mg 10/10/24 23:50 Tramadol Hcl (*Crx) 50 Mg Tablet PO DAILY PRN pain Vitamin D 1,000 units 10/11/24 09:00 10/12/24 08:27 Cholecalciferol 1,000 Units Tablet PO 1,000 units DAILY DUSTY Administration Labs Labs: Laboratory Results - last 24 hr 10/11/24 10/11/24 10/12/24 16:26 21:30 06:35 WBC 5.0 RBC 2.72 L Hgb 7.5 L Hct 24.6 L MCV 90.4 MCH 27.6 MCHC 30.5 L RDW 18.6 H Plt Count 147 L MPV 8.9 Sodium 135 L Potassium 3.7 Chloride 107 Carbon Dioxide 22 Anion Gap 6 BUN 6 L Creatinine 0.32 L Estim Creat Clear Calc 171 Estimated GFR > 60 Glucose 169 H POC Capillary Glucose 241 H 251 H Calcium 8.1 L Magnesium 1.8 10/12/24 10/12/24 07:57 11:17 WBC RBC Hgb Hct MCV MCH MCHC RDW Plt Count MPV Sodium Potassium Chloride Carbon Dioxide Anion Gap BUN Creatinine Estim Creat Clear Calc Estimated GFR Glucose POC Capillary Glucose 143 H 262 H Calcium Magnesium Quality VTE Prophylaxis VTE prophylaxis: pharmacologic ordered Hospitalist [facility] Advance Care Plan I have confirmed that the patient's Advanced Care Plan is present, code status is documented, or surrogate decision maker is listed in patient medical record.: Yes Medication Reconciliation I have utilized all available resources to obtain, update and review the patients current medications (includes all prescriptions, OTC, herbals, cannabis, and nutritional supplements).: Yes
[2024-10-12] MEDS: CENTRAL LINE FLUSH 10 ML IV PUSH ×2 (15:18→20:38)
[2024-10-12 16:30] LABS: Glucose Point of Care 264 mg/dl (65-105)
[2024-10-12] MEDS: HYDROCORTISONE 5 MG TABLET PO (16:59)
--- NOTE | 2024-10-12 18:49 | PHAR ---
PT'S HOME MED ABIRATERONE 250 MG TABS VERIFIED BY PHARMACY
[2024-10-12 20:35] LABS: Glucose Point of Care 267 mg/dl (65-105)
[2024-10-12] MEDS: ATORVASTATIN 20 MG TABLET BY MOUTH (20:36)
[2024-10-13] VITALS (7 sets, daily range): BP systolic 93–145; BP diastolic 56–89; PULSE 83–120; RESP 16–20; TEMP 36.6–37; O2SAT 96–100
[2024-10-13 05:54] LABS: Hematocrit 23.4 % (42.0-52.0); Mean Corpuscular HGB Conc 29.9 g/dl (32-36); Mean Corpuscular Hemoglobin 27.1 pg (26-34); Mean Corpuscular Volume 90.7 fl (80-100); Platelet Count Result 147 k/mm3 (150-375); Red Blood Count 2.58 M/mm3 (4.6-6.20); Red Cell Distribution Width 18.6 % (11.5-14.5); White Blood Count 5.1 K/mm3 (4.5-10.0)
[2024-10-13 06:04] LABS: Alanine Aminotransferase 14 U/L (6-50); Albumin Level 2.3 g/dL (3.5-5.1); Alkaline Phosphatase 474 U/L (38-126); Anion Gap 4 mmol/L (4-12); Aspartate Amino Transferase 107 U/L (17-59); Bilirubin,Total 0.6 mg/dL (0.2-1.3); Blood Urea Nitrogen 5 mg/dL (9-20); Carbon Dioxide 23 mmol/L (22-30); Chloride 112 mmol/L (98-107); Estimated CRCL calculation 155 ml/min; Estimated Glomerular Filt Rate > 60; Glucose 114 mg/dL (65-110); Potassium 3.8 mmol/L (3.4-5.0); Sodium 139 mmol/L (137-145)
[2024-10-13] MEDS: CENTRAL LINE FLUSH 10 ML IV PUSH ×2 (07:14→14:00)
[2024-10-13] MEDS: ABIRATERONE ACETATE 250 MG 2 EACH PO (07:16)
[2024-10-13] MEDS: SODIUM CHLORIDE 0.9% IV 1,000 ML 100 ML IV CONT ×2 (07:21→17:29)
[2024-10-13 08:07] LABS: Glucose Point of Care 100 mg/dl (65-105)
[2024-10-13] MEDS: CHOLECALCIFEROL 1,000 UNITS TABLET 1000 UNITS PO (08:09)
[2024-10-13] MEDS: calcitrioL 0.25 MCG CAPSULE 0.5 MCG PO ×2 (08:09→17:07)
[2024-10-13] MEDS: HYDROCORTISONE 10 MG TABLET PO (08:09)
[2024-10-13] MEDS: MIDODRINE HCL 10 MG TABLET PO ×3 (08:09→17:07)
[2024-10-13] MEDS: ENOXAPARIN 40 MG/0.4 ML SYRINGE SUB-Q (08:09)
[2024-10-13] MEDS: METOPROLOL SUCCINATE EXT REL 12.5 MG TABCR PO (08:09)
[2024-10-13] MEDS: predniSONE 5 MG TABLET PO (08:09)
[2024-10-13] MEDS: ACETAMINOPHEN 325 MG TABLET 650 MG PO (08:09)
[2024-10-13] MEDS: MEGESTROL ACETATE (*CHEMO) ORAL SUSP 40 MG/ML SYR 200 MG PO (08:10)
[2024-10-13] MEDS: CALCIUM CARBONATE (OSCAL) 500 MG TABLET PO ×2 (08:10→17:07)
[2024-10-13] MEDS: GABAPENTIN 400 MG CAPSULE 800 MG PO ×2 (08:10→17:07)
[2024-10-13] MEDS: PANTOPRAZOLE 40 MG TABLET PO ×2 (08:10→17:07)
[2024-10-13] MEDS: PIOGLITAZONE HCL 45 MG TABLET BY MOUTH (08:10)
[2024-10-13] MEDS: CYANOCOBALAMIN 500 MCG TABLET PO (08:10)
--- NOTE | 2024-10-13 10:20 | P.PNIM_ITS ---
Progress Note: A&P Assessment and Plan (1) Orthostatic hypotension: Code(s): I95.1 - Orthostatic hypotension Status: Acute Assessment and Plan: 10/11 This am remains markedly orthostatic to the 70s with standing. Very lightheaded and soft bp in general. Cortisol remarkably low. - History of similar for several weeks, on flomax, chemotherapy. Has increasing generalized weakness additionally. - No history of difficulty voiding. DC flomax. - Cont. midodrine at 10mg tid at this time. - IVF resumed. - PT evaluation. I question if able to discharge directly to home, still markedly symptomatic. (2) Adrenal insufficiency: Code(s): E27.40 - Unspecified adrenocortical insufficiency Status: Acute Assessment and Plan: 10/11 - Cortisol 0.64 this am. An IV dose of solucortef ordered. Start 15mg daily oral with 10mg am, 5mg afternoon. - Outpatient endocrinology f/u may prove of benefit. (3) Chronic steroid use: Status: Acute Assessment and Plan: 10/11 - Recent dose reduction on prednisone from 10mg to 5mg daily per chart review. - Adding in hydrocortisone today d/t adrenal insufficiency. (4) Type 2 diabetes mellitus with diabetic polyneuropathy: Qualifiers: Diabetes mellitus nursing home insulin use: without nursing home use Qualified Code(s): E11.42 - Type 2 diabetes mellitus with diabetic polyneuropathy Code(s): E11.42 - Type 2 diabetes mellitus with diabetic polyneuropathy Status: Acute Assessment and Plan: 10/11 - Stable cont. current. (5) Anemia: Code(s): D64.9 - Anemia, unspecified Status: Acute Assessment and Plan: 10/11 - Repeat and trend with hgb to 7.8 this am, likely 2/2 dilutional effect from IVF. (6) Secondary malignant neoplasm of bone: Code(s): C79.51 - Secondary malignant neoplasm of bone Status: Acute Assessment and Plan: 10/11 - On chemotherapy for prostate ca, he denies known metastases. (7) Hypomagnesemia: Code(s): E83.42 - Hypomagnesemia Status: Acute Assessment and Plan: 10/11 - Replete today, repeat and trend in the am. (8) Hypokalemia: Code(s): E87.6 - Hypokalemia Status: Acute Assessment and Plan: 10/11 - Replete today, repeat and trend in the am. Plan Norman Byers 69 year old male with PMH prostate CA on chemotherapy presenting with several weeks of OH, much worse over the last few days. Markedly orthostatic with slight improvement only on midodrine and fluids. Adrenal insufficiency with cortisol 0.64 this am, solucortef dosing started. IVF resumed today. PT ordered. Subjective Date/time seen: 10/13/24 10:20 Interval history: Currently patient hemoglobin is 7. Repeat H&H at 2 pm.Patient previous blood transfusion was in 2022. Review of Systems Review of Systems: 12 systems were reviewed and are negativ e except for as per HPI. All systems reviewed & are unremarkable except as noted in HPI and below Exam Narrative: GENERAL APPEARANCE: Appears to be in no acute distress. HEAD: normocephalic atraumatic EYES: PERRL, EOMI. Vision grossly intact. ENT: Hearing grossly intact, no nasal discharge NECK: Neck supple, trachea midline. CARDIAC: Normal S1/S2. Rhythm is regular. No murmurs, rubs, or gallops. No cyanosis or pallor. Extremities are warm and well perfused. LUNGS: Clear to auscultation without rales, rhonchi, wheezing or diminished breath sounds. Respirations even and unlabored. ABDOMEN: BS positive x 4 quadrants. Soft, nondistended, nontender. No guarding or rebound. MSK: No joint tenderness/swelling PERIPHERAL VASCULAR: Peripheral pulses palpable. Normal perfusion, cap refill <2 seconds. No edema. NEURO: Follows commands. No focal deficits. SKIN: [place] without lesions or eruptions. PSYCH: Stable, no paranoia or delusional thinking. Objective Data Vital Signs Vital Signs: Vital Signs - 24 hr 10/12/24 10:55 10/12/24 11:00 10/12/24 11:05 Temperature 98.7 F 98.7 F 98.7 F Pulse Rate 95 103 H 82 Respiratory Rate 20 20 20 Blood Pressure 116/45 L 98/50 L 75/59 L Pulse Oximetry 98 100 89 L Oxygen Delivery 10/12/24 14:00 10/12/24 20:00 10/12/24 20:00 Temperature 98.4 F Pulse Rate 87 Respiratory Rate 20 Blood Pressure 104/57 L 114/48 L Pulse Oximetry 96 Oxygen Delivery Room Air 10/12/24 21:17 10/13/24 00:44 10/13/24 00:44 Temperature 98.0 F Pulse Rate 91 Respiratory Rate 18 Blood Pressure 102/53 L 118/59 L 93/61 L Pulse Oximetry 97 Oxygen Delivery 10/13/24 06:00 Temperature 97.8 F Pulse Rate 83 Respiratory Rate 16 Blood Pressure 101/56 L Pulse Oximetry 96 Oxygen Delivery Intake/Output Intake/Output: Intake & Output 10/10/24 10/11/24 10/12/24 10/13/24 23:59 23:59 23:59 23:59 Intake Total 1999 2109 2611 1790 Output Total 900 850 Balance 1999 2109 1711 940 Meds/Results Medications: Active Medications Generic Name Dose Route Start Last Admin Trade Name Freq PRN Reason Stop Dose Admin Acetaminophen 650 mg 10/10/24 18:50 10/13/24 08:09 Acetaminophen 325 Mg Tablet PO 650 mg Q4H PRN Administration Mild Pain (1-3) or Fever Atorvastatin Calcium 20 mg 10/10/24 23:50 10/12/24 20:36 Atorvastatin 20 Mg Tablet BY MOUTH 20 mg HS DUSTY Administration Calcitriol 0.5 mcg 10/11/24 09:00 10/13/24 08:09 Calcitriol 0.25 Mcg Capsule PO 0.5 mcg BID DUSTY Administration Calcium Carbonate 500 mg 10/11/24 09:00 10/13/24 08:10 Calcium Carbonate (Oscal) 500 Mg Tablet PO 500 mg BID DUSTY Administration Cyanocobalamin 500 mcg 10/11/24 09:00 10/13/24 08:10 Cyanocobalamin 500 Mcg Tablet PO 500 mcg DAILY DUSTY Administration Dextrose 12.5 gm 10/10/24 23:48 Dextrose 50% 25 Gm/50 Ml Syringe IV PUSH PRN PRN Hypoglycemia Protocol Enoxaparin Sodium 40 mg 10/11/24 09:00 10/13/24 08:09 Enoxaparin 40 Mg/0.4 Ml Syringe SUB-Q 40 mg DAILY DUSTY Administration Gabapentin 800 mg 10/11/24 09:00 10/13/24 08:10 Gabapentin 400 Mg Capsule PO 800 mg BID DUSTY Administration Glucagon 1 mg 10/10/24 23:48 Glucagon For Inj 1 Mg Vial IM PRN PRN Hypoglycemia Protocol Glucose 15 gm 10/10/24 23:48 Glucose Oral Gel 15 Gm Of Glucse In 37.5 Gm Tube PO PRN PRN Hypoglycemia Protocol Heparin Sodium (Beef Lung) 50 units 10/12/24 09:00 10/13/24 08:12 Heparin Flush 50 Units/5 Ml Syringe IV PUSH Not Given QAM DUSTY Heparin Sodium (Beef Lung) 50 units 10/12/24 07:33 Heparin Flush 50 Units/5 Ml Syringe IV PUSH PRN PRN after intermittent infusion Heparin Sodium (Beef Lung) 50 units 10/12/24 07:33 Heparin Flush 50 Units/5 Ml Syringe IV PUSH PRN PRN after blood draws Heparin Sodium (Porcine) 500 units 10/12/24 07:33 Heparin Sodium Lock Flush 500 Units/5 Ml Syringe IV PUSH PRN PRN see comments below Hydrocortisone 10 mg 10/12/24 08:00 10/13/24 08:09 Hydrocortisone 10 Mg Tablet PO 10 mg DAILY@0800 DUSTY Administration Hydrocortisone 5 mg 10/11/24 16:00 10/12/24 16:59 Hydrocortisone 5 Mg Tablet PO 5 mg DAILY@1600 DUSTY Administration Dextrose 1,000 mls @ 100 mls/hr 10/10/24 23:48 Dextrose 5% 1,000 Ml IVPB PRN PRN Hypoglycemia Protocol Sodium Chloride 1,000 mls @ 100 mls/hr 10/11/24 10:20 10/13/24 07:21 Normal Saline Iv IV CONT 100 mls/hr .Q10H DUSTY Administration Insulin Aspart 2 - 5 units 10/11/24 08:00 10/13/24 08:02 Insulin Aspart (*Bkc) 100 Units/Ml SUB-Q Not Given TIDWM DUSTY Protocol Insulin Aspart 1 - 2 units 10/11/24 21:00 10/12/24 20:36 Insulin Aspart (*Bkc) 100 Units/Ml SUB-Q 1 units HS DUSTY Administration Protocol Megestrol Acetate 200 mg 10/11/24 09:00 10/13/24 08:10 Megestrol Acetate (*Chemo) Oral Susp 40 Mg/Ml Syr PO 200 mg QAM DUSTY Administration Metoprolol Succinate 12.5 mg 10/11/24 09:00 10/13/24 08:09 Metoprolol Succinate Ext Rel 12.5 Mg Tabcr PO 12.5 mg DAILY DUSTY Administration Midodrine 10 mg 10/11/24 09:00 10/13/24 08:09 Midodrine Hcl 10 Mg Tablet PO 10 mg TID DUSTY Administration Non-Formulary ( 2 each 10/13/24 09:00 10/13/24 07:16 Abiraterone Acetate PO 11/12/24 08:59 2 each 250 Mg Oral Tablet) DAILY DUSTY Administration Ondansetron HCl 4 mg 10/10/24 18:50 Ondansetron Inj 4 Mg/2 Ml Vial IV PUSH Q4H PRN Nausea Pantoprazole Sodium 40 mg 10/11/24 09:00 10/13/24 08:10 Pantoprazole 40 Mg Tablet PO 40 mg BID DUSTY Administration Pioglitazone HCl 45 mg 10/11/24 09:00 10/13/24 08:10 Pioglitazone Hcl 45 Mg Tablet BY MOUTH 45 mg DAILY DUSTY Administration Polysaccharide Iron Complex 150 mg 10/11/24 12:00 10/12/24 11:44 Polysaccharide Iron Complex 150 Mg Capsule PO 150 mg DAILY@1200 DUSTY Administration Prednisone 5 mg 10/11/24 08:00 10/13/24 08:09 Prednisone 5 Mg Tablet PO 5 mg DAILY@0800 DUSTY Administration Sodium Chloride 10 ml 10/12/24 14:00 10/13/24 07:14 Central Line Flush IV PUSH 10 ml Q8HR DUSTY Administration Tramadol HCl 50 mg 10/10/24 23:50 Tramadol Hcl (*Crx) 50 Mg Tablet PO DAILY PRN pain Vitamin D 1,000 units 10/11/24 09:00 10/12/24 08:27 Cholecalciferol 1,000 Units Tablet PO 1,000 units DAILY DUSTY Administration Labs Labs: Laboratory Results - last 24 hr 10/12/24 10/12/24 10/12/24 11:17 16:23 20:29 WBC RBC Hgb Hct MCV MCH MCHC RDW Plt Count MPV Sodium Potassium Chloride Carbon Dioxide Anion Gap BUN Creatinine Estim Creat Clear Calc Estimated GFR Glucose POC Capillary Glucose 262 H 264 H 267 H Calcium Total Bilirubin AST ALT Alkaline Phosphatase Total Protein Albumin 10/13/24 10/13/24 05:27 07:59 WBC 5.1 RBC 2.58 L Hgb 7.0 L Hct 23.4 L MCV 90.7 MCH 27.1 MCHC 29.9 L RDW 18.6 H Plt Count 147 L MPV 9.0 Sodium 139 Potassium 3.8 Chloride 112 H Carbon Dioxide 23 Anion Gap 4 BUN 5 L Creatinine 0.36 L Estim Creat Clear Calc 155 Estimated GFR > 60 Glucose 114 H POC Capillary Glucose 100 Calcium 8.0 L Total Bilirubin 0.6 AST 107 H ALT 14 Alkaline Phosphatase 474 H Total Protein 5.0 L Albumin 2.3 L Quality VTE Prophylaxis VTE prophylaxis: pharmacologic ordered Hospitalist [facility] Advance Care Plan I have confirmed that the patient's Advanced Care Plan is present, code status is documented, or surrogate decision maker is listed in patient medical record.: Yes Medication Reconciliation I have utilized all available resources to obtain, update and review the patients current medications (includes all prescriptions, OTC, herbals, cannabis, and nutritional supplements).: Yes
[2024-10-13 11:13] LABS: Glucose Point of Care 197 mg/dl (65-105)
[2024-10-13] MEDS: POLYSACCHARIDE IRON COMPLEX 150 MG CAPSULE PO (12:23)
[2024-10-13 16:41] LABS: Glucose Point of Care 332 mg/dl (65-105)
[2024-10-13] MEDS: HYDROCORTISONE 5 MG TABLET PO (16:55)
[2024-10-13] MEDS: INSULIN ASPART (*BKC) 100 UNITS/ML SUB-Q ×2 (17:30→21:05)
[2024-10-13 20:27] LABS: Hematocrit 27.2 % (42.0-52.0); Hemoglobin 8.1 g/dL (14.0-18.0); Immature Reticulocyte Fraction 34.7 % (3.0-15.9); Reticulocyte Hemoglobin Conten 24.7 pg (28.2-36.6); Reticulocyte Percent 2.36 % (0.7-4.3); Reticulocytes Absolute 0.07 10^6/uL (0.02-0.10)
[2024-10-13 20:33] LABS: Glucose Point of Care 206 mg/dl (65-105)
[2024-10-13 20:39] LABS: Iron 42 ug/dL (49-181)
[2024-10-13 20:46] LABS: Transferrin 166 mg/dL (206-381)
[2024-10-13 20:48] LABS: Percent Iron Saturation 19 % (20-50)
[2024-10-13] MEDS: ATORVASTATIN 20 MG TABLET BY MOUTH (21:05)
[2024-10-13 21:45] LABS: Folic Acid 7.7 ng/mL (2.76->20)
[2024-10-13 22:12] LABS: Lactate Dehydrogenase 2716 U/L (120-246)
[2024-10-14 01:22] LABS: Ferritin > 2000.00 ng/mL (11.1-264)
[2024-10-14 06:00] VITALS: BP 120/57; PULSE 92; RESP 18; TEMP 36.8; O2SAT 96
[2024-10-14 06:08] VITALS: BP 110/87; BP 87/67; PULSE 124; PULSE 125
[2024-10-14] MEDS: CENTRAL LINE FLUSH 10 ML IV PUSH ×4 (06:09→20:42)
[2024-10-14] MEDS: SODIUM CHLORIDE 0.9% IV 1,000 ML 100 ML IV CONT ×2 (06:10→12:46)
[2024-10-14] MEDS: ABIRATERONE ACETATE 250 MG 2 EACH PO (07:14)
[2024-10-14 08:04] LABS: Glucose Point of Care 111 mg/dl (65-105)
[2024-10-14] MEDS: MEGESTROL ACETATE (*CHEMO) ORAL SUSP 40 MG/ML SYR 200 MG PO (08:28)
[2024-10-14] MEDS: calcitrioL 0.25 MCG CAPSULE 0.5 MCG PO ×2 (08:29→16:29)
[2024-10-14] MEDS: CALCIUM CARBONATE (OSCAL) 500 MG TABLET PO ×2 (08:29→16:29)
[2024-10-14] MEDS: CHOLECALCIFEROL 1,000 UNITS TABLET 1000 UNITS PO (08:29)
[2024-10-14] MEDS: PIOGLITAZONE HCL 45 MG TABLET BY MOUTH (08:29)
[2024-10-14] MEDS: MIDODRINE HCL 10 MG TABLET PO ×3 (08:29→16:29)
[2024-10-14] MEDS: GABAPENTIN 400 MG CAPSULE 800 MG PO ×2 (08:29→16:29)
[2024-10-14] MEDS: HYDROCORTISONE 10 MG TABLET PO (08:29)
[2024-10-14] MEDS: CYANOCOBALAMIN 500 MCG TABLET PO (08:29)
[2024-10-14] MEDS: PANTOPRAZOLE 40 MG TABLET PO ×2 (08:30→16:29)
[2024-10-14] MEDS: predniSONE 5 MG TABLET PO (08:30)
[2024-10-14] MEDS: METOPROLOL SUCCINATE EXT REL 12.5 MG TABCR PO (08:30)
[2024-10-14] MEDS: ENOXAPARIN 40 MG/0.4 ML SYRINGE SUB-Q (08:30)
[2024-10-14 10:10] LABS: Hematocrit 25.6 % (42.0-52.0); Hemoglobin 7.7 g/dL (14.0-18.0); Mean Corpuscular HGB Conc 30.1 g/dl (32-36); Mean Corpuscular Hemoglobin 27.4 pg (26-34); Mean Corpuscular Volume 91.1 fl (80-100); Mean Platelet Volume 8.8 fl (7.4-10.4); Platelet Count Result 141 k/mm3 (150-375); Red Blood Count 2.81 M/mm3 (4.6-6.20); Red Cell Distribution Width 18.9 % (11.5-14.5); White Blood Count 5.5 K/mm3 (4.5-10.0)
[2024-10-14 10:18] LABS: Alanine Aminotransferase 16 U/L (6-50); Albumin Level 2.4 g/dL (3.5-5.1); Alkaline Phosphatase 472 U/L (38-126); Anion Gap 7 mmol/L (4-12); Aspartate Amino Transferase 87 U/L (17-59); Bilirubin,Total 0.8 mg/dL (0.2-1.3); Blood Urea Nitrogen 4 mg/dL (9-20); Calcium 7.9 mg/dL (8.4-10.2); Carbon Dioxide 21 mmol/L (22-30); Chloride 110 mmol/L (98-107); Estimated CRCL calculation 145 ml/min; Estimated Glomerular Filt Rate > 60; Glucose 90 mg/dL (65-110); Potassium 3.7 mmol/L (3.4-5.0); Sodium 138 mmol/L (137-145)
[2024-10-14 11:35] LABS: IFOB Positive Control Positive; Immunochemical Fecal Occult Bl Negative (N)
[2024-10-14 11:54] LABS: Glucose Point of Care 163 mg/dl (65-105)
[2024-10-14] MEDS: ACETAMINOPHEN 325 MG TABLET 650 MG PO (12:45)
[2024-10-14] MEDS: POLYSACCHARIDE IRON COMPLEX 150 MG CAPSULE PO (12:46)
[2024-10-14 14:00] VITALS: BP 100/57; PULSE 77; RESP 18; O2SAT 97
--- NOTE | 2024-10-14 14:09 | PM.IMPN ---
Progress Note: A&P Assessment and Plan (1) Orthostatic hypotension: Code(s): I95.1 - Orthostatic hypotension Status: Acute Assessment and Plan: 10/11 This am remains markedly orthostatic to the 70s with standing. Very lightheaded and soft bp in general. Cortisol remarkably low. - History of similar for several weeks, on flomax, chemotherapy. Has increasing generalized weakness additionally. - No history of difficulty voiding. DC flomax. - Cont. midodrine at 10mg tid at this time. - IVF resumed. - PT evaluation. I question if able to discharge directly to home, still markedly symptomatic. (2) Adrenal insufficiency: Code(s): E27.40 - Unspecified adrenocortical insufficiency Status: Acute Assessment and Plan: 10/11 - Cortisol 0.64 this am. An IV dose of solucortef ordered. Start 15mg daily oral with 10mg am, 5mg afternoon. - Outpatient endocrinology f/u may prove of benefit. (3) Chronic steroid use: Status: Acute Assessment and Plan: 10/11 - Recent dose reduction on prednisone from 10mg to 5mg daily per chart review. - Adding in hydrocortisone today d/t adrenal insufficiency. (4) Type 2 diabetes mellitus with diabetic polyneuropathy: Qualifiers: Diabetes mellitus senior living insulin use: without senior living use Qualified Code(s): E11.42 - Type 2 diabetes mellitus with diabetic polyneuropathy Code(s): E11.42 - Type 2 diabetes mellitus with diabetic polyneuropathy Status: Acute Assessment and Plan: 10/11 - Stable cont. current. (5) Anemia: Code(s): D64.9 - Anemia, unspecified Status: Acute Assessment and Plan: 10/11 - Repeat and trend with hgb to 7.8 this am, likely 2/2 dilutional effect from IVF. (6) Secondary malignant neoplasm of bone: Code(s): C79.51 - Secondary malignant neoplasm of bone Status: Acute Assessment and Plan: 10/11 - On chemotherapy for prostate ca, he denies known metastases. (7) Hypomagnesemia: Code(s): E83.42 - Hypomagnesemia Status: Acute Assessment and Plan: 10/11 - Replete today, repeat and trend in the am. (8) Hypokalemia: Code(s): E87.6 - Hypokalemia Status: Acute Assessment and Plan: 10/11 - Replete today, repeat and trend in the am. Plan Norman Byers 69 year old male with PMH prostate CA on chemotherapy presenting with several weeks of OH, much worse over the last few days. Markedly orthostatic with slight improvement only on midodrine and fluids. Adrenal insufficiency with cortisol 0.64 this am, solucortef dosing started. IVF resumed today. PT ordered. Subjective Date/time seen: 10/14/24 14:09 Interval history: Patient has episodes of hypotension. Will continue stress dose until tomorrow and discharge with original home dose prednisone 5 mg PO BID. Review of Systems Review of Systems: 12 systems were reviewed and are negative except for as per HPI. All systems reviewed & are unremarkable except as noted in HPI and below Exam Narrative: GENERAL APPEARANCE: Appears to be in no acute distress. HEAD: normocephalic atraumatic EYES: PERRL, EOMI. Vision grossly intact. ENT: Hearing grossly intact, no nasal discharge NECK: Neck supple, trachea midline. CARDIAC: Normal S1/S2. Rhythm is regular. No murmurs, rubs, or gallops. No cyanosis or pallor. Extremities are warm and well perfused. LUNGS: Clear to auscultation without rales, rhonchi, wheezing or diminished breath sounds. Respirations even and unlabored. ABDOMEN: BS positive x 4 quadrants. Soft, nondistended, nontender. No guarding or rebound. MSK: No joint tenderness/swelling PERIPHERAL VASCULAR: Peripheral pulses palpable. Normal perfusion, cap refill <2 seconds. No edema. NEURO: Follows commands. No focal deficits. SKIN: [place] without lesions or eruptions. PSYCH: Stable, no paranoia or delusional thinking. Objective Data Vital Signs Vital Signs: Vital Signs - 24 hr 10/13/24 14:10 10/13/24 20:00 10/13/24 20:00 Temperature 98.3 F 98.3 F Pulse Rate 98 92 Respiratory Rate 20 18 Blood Pressure 128/64 145/89 H Pulse Oximetry 100 96 Oxygen Delivery Room Air 10/13/24 21:49 10/14/24 06:00 10/14/24 06:08 Temperature 98.6 F 98.3 F Pulse Rate 91 92 124 H Respiratory Rate 18 18 Blood Pressure 109/57 L 120/57 L 110/87 Pulse Oximetry 100 96 Oxygen Delivery 10/14/24 06:08 Temperature Pulse Rate 125 H Respiratory Rate Blood Pressure 87/67 L Pulse Oximetry Oxygen Delivery Intake/Output Intake/Output: Intake & Output 10/11/24 10/12/24 10/13/24 10/14/24 23:59 23:59 23:59 23:59 Intake Total 2110 2611 3310 2480 Output Total 900 1900 950 Balance 2110 1711 1410 1530 Meds/Results Medications: Active Medications Generic Name Dose Route Start Last Admin Trade Name Freq PRN Reason Stop Dose Admin Acetaminophen 650 mg 10/10/24 18:50 10/14/24 12:45 Acetaminophen 325 Mg Tablet PO 650 mg Q4H PRN Administration Mild Pain (1-3) or Fever Atorvastatin Calcium 20 mg 10/10/24 23:50 10/13/24 21:05 Atorvastatin 20 Mg Tablet BY MOUTH 20 mg HS DUSTY Administration Calcitriol 0.5 mcg 10/11/24 09:00 10/14/24 08:29 Calcitriol 0.25 Mcg Capsule PO 0.5 mcg BID DUSTY Administration Calcium Carbonate 500 mg 10/11/24 09:00 10/14/24 08:29 Calcium Carbonate (Oscal) 500 Mg Tablet PO 500 mg BID DUSTY Administration Cyanocobalamin 500 mcg 10/11/24 09:00 10/14/24 08:29 Cyanocobalamin 500 Mcg Tablet PO 500 mcg DAILY DUSTY Administration Dextrose 12.5 gm 10/10/24 23:48 Dextrose 50% 25 Gm/50 Ml Syringe IV PUSH PRN PRN Hypoglycemia Protocol Enoxaparin Sodium 40 mg 10/11/24 09:00 10/14/24 08:30 Enoxaparin 40 Mg/0.4 Ml Syringe SUB-Q 40 mg DAILY DUSTY Administration Gabapentin 800 mg 10/11/24 09:00 10/14/24 08:29 Gabapentin 400 Mg Capsule PO 800 mg BID DUSTY Administration Glucagon 1 mg 10/10/24 23:48 Glucagon For Inj 1 Mg Vial IM PRN PRN Hypoglycemia Protocol Glucose 15 gm 10/10/24 23:48 Glucose Oral Gel 15 Gm Of Glucse In 37.5 Gm Tube PO PRN PRN Hypoglycemia Protocol Heparin Sodium (Beef Lung) 50 units 10/12/24 09:00 10/14/24 08:30 Heparin Flush 50 Units/5 Ml Syringe IV PUSH Not Given QAM DUSTY Heparin Sodium (Beef Lung) 50 units 10/12/24 07:33 Heparin Flush 50 Units/5 Ml Syringe IV PUSH PRN PRN after intermittent infusion Heparin Sodium (Beef Lung) 50 units 10/12/24 07:33 Heparin Flush 50 Units/5 Ml Syringe IV PUSH PRN PRN after blood draws Heparin Sodium (Porcine) 500 units 10/12/24 07:33 Heparin Sodium Lock Flush 500 Units/5 Ml Syringe IV PUSH PRN PRN see comments below Hydrocortisone 10 mg 10/12/24 08:00 10/14/24 08:29 Hydrocortisone 10 Mg Tablet PO 10 mg DAILY@0800 DUSTY Administration Hydrocortisone 5 mg 10/11/24 16:00 10/13/24 16:55 Hydrocortisone 5 Mg Tablet PO 5 mg DAILY@1600 DUSTY Administration Dextrose 1,000 mls @ 100 mls/hr 10/10/24 23:48 Dextrose 5% 1,000 Ml IVPB PRN PRN Hypoglycemia Protocol Sodium Chloride 1,000 mls @ 100 mls/hr 10/11/24 10:20 10/14/24 12:46 Normal Saline Iv IV CONT 100 mls/hr .Q10H DUSTY Administration Insulin Aspart 2 - 5 units 10/11/24 08:00 10/14/24 11:56 Insulin Aspart (*Bkc) 100 Units/Ml SUB-Q Not Given TIDWM DUSTY Protocol Insulin Aspart 1 - 2 units 10/11/24 21:00 10/13/24 21:05 Insulin Aspart (*Bkc) 100 Units/Ml SUB-Q 1 units HS DUSTY Administration Protocol Megestrol Acetate 200 mg 10/11/24 09:00 10/14/24 08:28 Megestrol Acetate (*Chemo) Oral Susp 40 Mg/Ml Syr PO 200 mg QAM DUSTY Administration Metoprolol Succinate 12.5 mg 10/11/24 09:00 10/14/24 08:30 Metoprolol Succinate Ext Rel 12.5 Mg Tabcr PO 12.5 mg DAILY DUSTY Administration Midodrine 10 mg 10/11/24 09:00 10/14/24 12:46 Midodrine Hcl 10 Mg Tablet PO 10 mg TID DUSTY Administration Non-Formulary ( 2 each 10/13/24 09:00 10/14/24 07:14 Abiraterone Acetate PO 11/12/24 08:59 2 each 250 Mg Oral Tablet) DAILY DUSTY Administration Ondansetron HCl 4 mg 10/10/24 18:50 Ondansetron Inj 4 Mg/2 Ml Vial IV PUSH Q4H PRN Nausea Pantoprazole Sodium 40 mg 10/11/24 09:00 10/14/24 08:30 Pantoprazole 40 Mg Tablet PO 40 mg BID DUSTY Administration Pioglitazone HCl 45 mg 10/11/24 09:00 10/14/24 08:29 Pioglitazone Hcl 45 Mg Tablet BY MOUTH 45 mg DAILY DUSTY Administration Polysaccharide Iron Complex 150 mg 10/11/24 12:00 10/14/24 12:46 Polysaccharide Iron Complex 150 Mg Capsule PO 150 mg DAILY@1200 DUSTY Administration Prednisone 5 mg 10/11/24 08:00 10/14/24 08:30 Prednisone 5 Mg Tablet PO 5 mg DAILY@0800 DUSTY Administration Sodium Chloride 10 ml 10/12/24 14:00 10/14/24 06:10 Central Line Flush IV PUSH 10 ml Q8HR DUSTY Administration Tramadol HCl 50 mg 10/10/24 23:50 Tramadol Hcl (*Crx) 50 Mg Tablet PO DAILY PRN pain Vitamin D 1,000 units 10/11/24 09:00 10/14/24 08:29 Cholecalciferol 1,000 Units Tablet PO 1,000 units DAILY DUSTY Administration Labs Labs: Laboratory Results - last 24 hr 10/13/24 10/13/24 10/13/24 16:25 20:12 20:30 WBC RBC Hgb 8.1 L Hct 27.2 L MCV MCH MCHC RDW Plt Count MPV Absolute Retic 0.07 Percent Retic 2.36 Immature Retic Fraction 34.7 H Retic Hgb Content 24.7 L Sodium Potassium Chloride Carbon Dioxide Anion Gap BUN Creatinine Estim Creat Clear Calc Estimated GFR Glucose POC Capillary Glucose 332 H 206 H Calcium Iron 42 L TIBC 225 L % Saturation 19 L Transferrin 166 L Ferritin > 2000.00 H Total Bilirubin AST ALT Alkaline Phosphatase Lactate Dehydrogenase 2716 H Total Protein Albumin Vitamin B12 935.0 H Folate 7.7 Stl Occult Blood (IFOB) MAGDALENE, IgG Interpret Negative MAGDALENE, Poly Interpret TNP MAGDALENE, Complement Interp Negative 10/14/24 10/14/24 10/14/24 07:58 09:59 11:15 WBC 5.5 RBC 2.81 L Hgb 7.7 L Hct 25.6 L MCV 91.1 MCH 27.4 MCHC 30.1 L RDW 18.9 H Plt Count 141 L MPV 8.8 Absolute Retic Percent Retic Immature Retic Fraction Retic Hgb Content Sodium 138 Potassium 3.7 Chloride 110 H Carbon Dioxide 21 L Anion Gap 7 BUN 4 L Creatinine 0.39 L Estim Creat Clear Calc 145 Estimated GFR > 60 Glucose 90 POC Capillary Glucose 111 H Calcium 7.9 L Iron TIBC % Saturation Transferrin Ferritin Total Bilirubin 0.8 AST 87 H ALT 16 Alkaline Phosphatase 472 H Lactate Dehydrogenase Total Protein 5.0 L Albumin 2.4 L Vitamin B12 Folate Stl Occult Blood (IFOB) Negative MAGDALENE, IgG Interpret MAGDALENE, Poly Interpret MAGDALENE, Complement Interp 10/14/24 11:46 WBC RBC Hgb Hct MCV MCH MCHC RDW Plt Count MPV Absolute Retic Percent Retic Immature Retic Fraction Retic Hgb Content Sodium Potassium Chloride Carbon Dioxide Anion Gap BUN Creatinine Estim Creat Clear Calc Estimated GFR Glucose POC Capillary Glucose 163 H Calcium Iron TIBC % Saturation Transferrin Ferritin Total Bilirubin AST ALT Alkaline Phosphatase Lactate Dehydrogenase Total Protein Albumin Vitamin B12 Folate Stl Occult Blood (IFOB) MAGDALENE, IgG Interpret MAGDALENE, Poly Interpret MAGDALENE, Complement Interp Quality VTE Prophylaxis VTE prophylaxis: pharmacologic ordered Hospitalist [facility] Advance Care Plan I have confirmed that the patient's Advanced Care Plan is present, code status is documented, or surrogate decision maker is listed in patient medical record.: Yes Medication Reconciliation I have utilized all available resources to obtain, update and review the patients current medications (includes all prescriptions, OTC, herbals, cannabis, and nutritional supplements).: Yes
[2024-10-14] MEDS: HYDROCORTISONE 5 MG TABLET PO (16:29)
[2024-10-14] MEDS: INSULIN ASPART (*BKC) 100 UNITS/ML SUB-Q ×2 (16:34→20:42)
[2024-10-14 16:42] LABS: Glucose Point of Care 266 mg/dl (65-105)
[2024-10-14 20:00] VITALS: BP 116/57; PULSE 88; RESP 13; TEMP 36.5; O2SAT 94
[2024-10-14 20:35] LABS: Glucose Point of Care 302 mg/dl (65-105)
[2024-10-14] MEDS: ATORVASTATIN 20 MG TABLET BY MOUTH (20:42)
[2024-10-14 22:00] VITALS: BP 115/56; PULSE 86; RESP 13; TEMP 36.2; O2SAT 98
[2024-10-15] MEDS: ABIRATERONE ACETATE 250 MG 2 EACH PO (05:32)
[2024-10-15 06:00] VITALS: BP 116/57; PULSE 88; RESP 13; TEMP 36.5; O2SAT 94
[2024-10-15] MEDS: SODIUM CHLORIDE 0.9% IV 1,000 ML 100 ML IV CONT (06:04)
[2024-10-15] MEDS: CENTRAL LINE FLUSH 10 ML IV PUSH ×3 (06:05→22:06)
[2024-10-15 06:18] VITALS: BP 138/62; PULSE 108; O2SAT 98
[2024-10-15 06:19] VITALS: BP 101/59; PULSE 136; O2SAT 99
[2024-10-15 08:13] LABS: Glucose Point of Care 116 mg/dl (65-105)
[2024-10-15 08:39] VITALS: PULSE 100
[2024-10-15] MEDS: METOPROLOL SUCCINATE EXT REL 12.5 MG TABCR PO (08:39)
[2024-10-15] MEDS: calcitrioL 0.25 MCG CAPSULE 0.5 MCG PO ×2 (08:39→17:11)
[2024-10-15] MEDS: PIOGLITAZONE HCL 45 MG TABLET BY MOUTH (08:39)
[2024-10-15] MEDS: GABAPENTIN 400 MG CAPSULE 800 MG PO ×2 (08:39→17:11)
[2024-10-15] MEDS: CYANOCOBALAMIN 500 MCG TABLET PO (08:40)
[2024-10-15] MEDS: PANTOPRAZOLE 40 MG TABLET PO ×2 (08:40→17:11)
[2024-10-15] MEDS: HYDROCORTISONE 10 MG TABLET PO (08:40)
[2024-10-15] MEDS: predniSONE 5 MG TABLET PO ×2 (08:40→22:01)
[2024-10-15] MEDS: ENOXAPARIN 40 MG/0.4 ML SYRINGE SUB-Q (08:40)
[2024-10-15] MEDS: CALCIUM CARBONATE (OSCAL) 500 MG TABLET PO ×2 (08:40→17:11)
[2024-10-15] MEDS: CHOLECALCIFEROL 1,000 UNITS TABLET 1000 UNITS PO (08:40)
[2024-10-15] MEDS: MEGESTROL ACETATE (*CHEMO) ORAL SUSP 40 MG/ML SYR 200 MG PO (08:40)
[2024-10-15] MEDS: MIDODRINE HCL 10 MG TABLET PO ×3 (08:42→17:11)
[2024-10-15 11:45] LABS: Hematocrit 28.3 % (42.0-52.0); Hemoglobin 8.3 g/dL (14.0-18.0); Mean Corpuscular HGB Conc 29.3 g/dl (32-36); Mean Corpuscular Hemoglobin 26.6 pg (26-34); Mean Corpuscular Volume 90.7 fl (80-100); Mean Platelet Volume 9.9 fl (7.4-10.4); Platelet Count Result 167 k/mm3 (150-375); Red Blood Count 3.12 M/mm3 (4.6-6.20); Red Cell Distribution Width 19.3 % (11.5-14.5); White Blood Count 7.3 K/mm3 (4.5-10.0)
[2024-10-15 11:53] LABS: Glucose Point of Care 291 mg/dl (65-105)
[2024-10-15 11:59] LABS: Alanine Aminotransferase 15 U/L (6-50); Albumin Level 2.5 g/dL (3.5-5.1); Alkaline Phosphatase 441 U/L (38-126); Anion Gap 8 mmol/L (4-12); Aspartate Amino Transferase 61 U/L (17-59); Bilirubin,Total 0.9 mg/dL (0.2-1.3); Blood Urea Nitrogen 5 mg/dL (9-20); Calcium 7.9 mg/dL (8.4-10.2); Carbon Dioxide 21 mmol/L (22-30); Chloride 106 mmol/L (98-107); Estimated CRCL calculation 141 ml/min; Estimated Glomerular Filt Rate > 60; Glucose 207 mg/dL (65-110); Potassium 3.8 mmol/L (3.4-5.0); Sodium 135 mmol/L (137-145)
[2024-10-15] MEDS: POLYSACCHARIDE IRON COMPLEX 150 MG CAPSULE PO (12:18)
[2024-10-15] MEDS: INSULIN ASPART (*BKC) 100 UNITS/ML SUB-Q ×3 (12:19→22:00)
[2024-10-15 13:14] LABS: Haptoglobin 387 mg/dL (43-212)
--- NOTE | 2024-10-15 13:17 | PCNFU ---
Nutrition Follow-Up Complete: Severe protein calorie malnutrition related to chronic loss of appetite from cancer treatment, as evidenced by intakes <75% needs >1 month; weight loss 20%/6 months; moderate muscle wasting and fat loss Goal: Improve PO intake to at least 50% meals pt slowly progressing towards goal. Pt current nutrition is Regular, Ensure Enlive. Nutrition recommendation: change supplement to nutrition ice cream cups per preference Last recorded weight is 85 kg. Bowel Motility: +BM 10/14 Labs Reviewed: Hgb:8.3, HCT:28.3, BUN:4, Cr:2.39, Glu:302 Meds Noted: insulin, B12, megace, prednisone Skin: WNL Additional Notes: Pt continues on a regular diet, intake varied 0-50%. Pt states he will not drink the Ensure, does not like it. Agreed to nutrition ice cream cups. States he likes sweets and that is all he really is eating at this time. Encourage intake Monitoring intakes, weights, labs, output, plan of care Follow up in 5 days
[2024-10-15 14:00] VITALS: BP 113/72; PULSE 100; RESP 20; TEMP 36.4; O2SAT 99
--- NOTE | 2024-10-15 14:13 | P.PNIM_ITS ---
Progress Note: A&P Assessment and Plan (1) Orthostatic hypotension: Code(s): I95.1 - Orthostatic hypotension Status: Acute Assessment and Plan: 10/11 This am remains markedly orthostatic to the 70s with standing. Very lightheaded and soft bp in general. Cortisol remarkably low. - History of similar for several weeks, on flomax, chemotherapy. Has increasing generalized weakness additionally. - No history of difficulty voiding. DC flomax. - Cont. midodrine at 10mg tid at this time. - IVF resumed. - PT evaluation. I question if able to discharge directly to home, still markedly symptomatic. (2) Adrenal insufficiency: Code(s): E27.40 - Unspecified adrenocortical insufficiency Status: Acute Assessment and Plan: 10/11 - Cortisol 0.64 this am. An IV dose of solucortef ordered. Start 15mg daily oral with 10mg am, 5mg afternoon. - Outpatient endocrinology f/u may prove of benefit. (3) Chronic steroid use: Status: Acute Assessment and Plan: 10/11 - Recent dose reduction on prednisone from 10mg to 5mg daily per chart review. - Adding in hydrocortisone today d/t adrenal insufficiency. (4) Type 2 diabetes mellitus with diabetic polyneuropathy: Qualifiers: Diabetes mellitus detention insulin use: without detention use Qualified Code(s): E11.42 - Type 2 diabetes mellitus with diabetic polyneuropathy Code(s): E11.42 - Type 2 diabetes mellitus with diabetic polyneuropathy Status: Acute Assessment and Plan: 10/11 - Stable cont. current. (5) Anemia: Code(s): D64.9 - Anemia, unspecified Status: Acute Assessment and Plan: 10/11 - Repeat and trend with hgb to 7.8 this am, likely 2/2 dilutional effect from IVF. (6) Secondary malignant neoplasm of bone: Code(s): C79.51 - Secondary malignant neoplasm of bone Status: Acute Assessment and Plan: 10/11 - On chemotherapy for prostate ca, he denies known metastases. (7) Hypomagnesemia: Code(s): E83.42 - Hypomagnesemia Status: Acute Assessment and Plan: 10/11 - Replete today, repeat and trend in the am. (8) Hypokalemia: Code(s): E87.6 - Hypokalemia Status: Acute Assessment and Plan: 10/11 - Replete today, repeat and trend in the am. Plan Norman Byers 69 year old male with PMH prostate CA on chemotherapy presenting with several weeks of OH, much worse over the last few days. Markedly orthostatic with slight improvement only on midodrine and fluids. Adrenal insufficiency with cortisol 0.64 this am, solucortef dosing started. IVF resumed today. PT ordered. Subjective Date/time seen: 10/15/24 14:13 Interval history: Patient stress dose has been discontinued. Will continue his old regimen Prednisone 5 mg PO BID. Advised to taper his Prednisone 10 mg later to 7.5mg to 5mg to 2mg to 1mg as per his PCP. Review of Systems Review of Systems: 12 systems were reviewed and are negativ e except for as per HPI. All systems reviewed & are unremarkable except as noted in HPI and below Exam Narrative: GENERAL APPEARANCE: Appears to be in no acute distress. HEAD: normocephalic atraumatic EYES: PERRL, EOMI. Vision grossly intact. ENT: Hearing grossly intact, no nasal discharge NECK: Neck supple, trachea midline. CARDIAC: Normal S1/S2. Rhythm is regular. No murmurs, rubs, or gallops. No cyanosis or pallor. Extremities are warm and well perfused. LUNGS: Clear to auscultation without rales, rhonchi, wheezing or diminished breath sounds. Respirations even and unlabored. ABDOMEN: BS positive x 4 quadrants. Soft, nondistended, nontender. No guarding or rebound. MSK: No joint tenderness/swelling PERIPHERAL VASCULAR: Peripheral pulses palpable. Normal perfusion, cap refill <2 seconds. No edema. NEURO: Follows commands. No focal deficits. SKIN: [place] without lesions or eruptions. PSYCH: Stable, no paranoia or delusional thinking. Objective Data Vital Signs Vital Signs: Vital Signs - 24 hr 10/14/24 20:00 10/14/24 20:00 10/14/24 22:00 Temperature 97.7 F 97.1 F L Pulse Rate 88 86 Respiratory Rate 13 13 Blood Pressure 116/57 L 115/56 L Pulse Oximetry 94 98 Oxygen Delivery Room Air 10/15/24 06:00 10/15/24 06:18 10/15/24 06:19 Temperature 97.7 F Pulse Rate 88 108 H 136 H Respiratory Rate 13 Blood Pressure 116/57 L 138/62 101/59 L Pulse Oximetry 94 98 99 Oxygen Delivery 10/15/24 08:00 10/15/24 08:39 Temperature Pulse Rate 100 Respiratory Rate Blood Pressure Pulse Oximetry Oxygen Delivery Room Air Intake/Output Intake/Output: Intake & Output 10/12/24 10/13/24 10/14/24 10/15/24 23:59 23:59 23:59 23:59 Intake Total 2611 3310 3960 540 Output Total 900 1900 1250 1100 Balance 1711 1410 2710 -560 Meds/Results Medications: Active Medications Generic Name Dose Route Start Last Admin Trade Name Freq PRN Reason Stop Dose Admin Acetaminophen 650 mg 10/10/24 18:50 10/14/24 12:45 Acetaminophen 325 Mg Tablet PO 650 mg Q4H PRN Administration Mild Pain (1-3) or Fever Atorvastatin Calcium 20 mg 10/10/24 23:50 10/14/24 20:42 Atorvastatin 20 Mg Tablet BY MOUTH 20 mg HS DUSTY Administration Calcitriol 0.5 mcg 10/11/24 09:00 10/15/24 08:39 Calcitriol 0.25 Mcg Capsule PO 0.5 mcg BID DUSTY Administration Calcium Carbonate 500 mg 10/11/24 09:00 10/15/24 08:40 Calcium Carbonate (Oscal) 500 Mg Tablet PO 500 mg BID DUSTY Administration Cyanocobalamin 500 mcg 10/11/24 09:00 10/15/24 08:40 Cyanocobalamin 500 Mcg Tablet PO 500 mcg DAILY DUSTY Administration Dextrose 12.5 gm 10/10/24 23:48 Dextrose 50% 25 Gm/50 Ml Syringe IV PUSH PRN PRN Hypoglycemia Protocol Enoxaparin Sodium 40 mg 10/11/24 09:00 10/15/24 08:40 Enoxaparin 40 Mg/0.4 Ml Syringe SUB-Q 40 mg DAILY DUSTY Administration Gabapentin 800 mg 10/11/24 09:00 10/15/24 08:39 Gabapentin 400 Mg Capsule PO 800 mg BID DUSTY Administration Glucagon 1 mg 10/10/24 23:48 Glucagon For Inj 1 Mg Vial IM PRN PRN Hypoglycemia Protocol Glucose 15 gm 10/10/24 23:48 Glucose Oral Gel 15 Gm Of Glucse In 37.5 Gm Tube PO PRN PRN Hypoglycemia Protocol Heparin Sodium (Beef Lung) 50 units 10/12/24 09:00 10/15/24 08:39 Heparin Flush 50 Units/5 Ml Syringe IV PUSH 50 units QAM DUSTY Administration Heparin Sodium (Beef Lung) 50 units 10/12/24 07:33 Heparin Flush 50 Units/5 Ml Syringe IV PUSH PRN PRN after intermittent infusion Heparin Sodium (Beef Lung) 50 units 10/12/24 07:33 Heparin Flush 50 Units/5 Ml Syringe IV PUSH PRN PRN after blood draws Heparin Sodium (Porcine) 500 units 10/12/24 07:33 Heparin Sodium Lock Flush 500 Units/5 Ml Syringe IV PUSH PRN PRN see comments below Dextrose 1,000 mls @ 100 mls/hr 10/10/24 23:48 Dextrose 5% 1,000 Ml IVPB PRN PRN Hypoglycemia Protocol Sodium Chloride 1,000 mls @ 100 mls/hr 10/11/24 10:20 10/15/24 06:04 Normal Saline Iv IV CONT 100 mls/hr .Q10H DUSTY Administration Insulin Aspart 2 - 5 units 10/11/24 08:00 10/15/24 12:19 Insulin Aspart (*Bkc) 100 Units/Ml SUB-Q 3 units TIDWM DUSTY Administration Protocol Insulin Aspart 1 - 2 units 10/11/24 21:00 10/14/24 20:42 Insulin Aspart (*Bkc) 100 Units/Ml SUB-Q 2 units HS DUSTY Administration Protocol Megestrol Acetate 200 mg 10/11/24 09:00 10/15/24 08:40 Megestrol Acetate (*Chemo) Oral Susp 40 Mg/Ml Syr PO 200 mg QAM DUSTY Administration Metoprolol Succinate 12.5 mg 10/11/24 09:00 10/15/24 08:39 Metoprolol Succinate Ext Rel 12.5 Mg Tabcr PO 12.5 mg DAILY UDSTY Administration Midodrine 10 mg 10/11/24 09:00 10/15/24 12:18 Midodrine Hcl 10 Mg Tablet PO 10 mg TID DUSTY Administration Non-Formulary ( 2 each 10/15/24 06:30 10/15/24 07:51 Abiraterone Acetate PO 11/14/24 06:29 Not Given 250 Mg Oral Tablet) DAILY@0630 DUSTY Ondansetron HCl 4 mg 10/10/24 18:50 Ondansetron Inj 4 Mg/2 Ml Vial IV PUSH Q4H PRN Nausea Pantoprazole Sodium 40 mg 10/11/24 09:00 10/15/24 08:40 Pantoprazole 40 Mg Tablet PO 40 mg BID DUSTY Administration Pioglitazone HCl 45 mg 10/11/24 09:00 10/15/24 08:39 Pioglitazone Hcl 45 Mg Tablet BY MOUTH 45 mg DAILY DUSTY Administration Polysaccharide Iron Complex 150 mg 10/11/24 12:00 10/15/24 12:18 Polysaccharide Iron Complex 150 Mg Capsule PO 150 mg DAILY@1200 DUSTY Administration Prednisone 5 mg 10/11/24 08:00 10/15/24 08:40 Prednisone 5 Mg Tablet PO 5 mg DAILY@0800 DUSTY Administration Prednisone 5 mg 10/15/24 20:00 Prednisone 5 Mg Tablet PO DAILY@2000 [facility] Sodium Chloride 10 ml 10/12/24 14:00 10/15/24 06:05 Central Line Flush IV PUSH 10 ml Q8HR DUSTY Administration Tramadol HCl 50 mg 10/10/24 23:50 Tramadol Hcl (*Crx) 50 Mg Tablet PO DAILY PRN pain Vitamin D 1,000 units 10/11/24 09:00 10/15/24 08:40 Cholecalciferol 1,000 Units Tablet PO 1,000 units DAILY DUSTY Administration Labs Labs: Laboratory Results - last 24 hr 10/13/24 10/14/24 10/14/24 20:12 16:32 20:32 WBC RBC Hgb Hct MCV MCH MCHC RDW Plt Count MPV Haptoglobin 387 H Sodium Potassium Chloride Carbon Dioxide Anion Gap BUN Creatinine Estim Creat Clear Calc Estimated GFR Glucose POC Capillary Glucose 266 H 302 H Calcium Total Bilirubin AST ALT Alkaline Phosphatase Total Protein Albumin 10/15/24 10/15/24 10/15/24 07:53 11:28 11:51 WBC 7.3 RBC 3.12 L Hgb 8.3 L Hct 28.3 L MCV 90.7 MCH 26.6 MCHC 29.3 L RDW 19.3 H Plt Count 167 MPV 9.9 Haptoglobin Sodium 135 L Potassium 3.8 Chloride 106 Carbon Dioxide 21 L Anion Gap 8 BUN 5 L Creatinine 0.40 L Estim Creat Clear Calc 141 Estimated GFR > 60 Glucose 207 H POC Capillary Glucose 116 H 291 H Calcium 7.9 L Total Bilirubin 0.9 AST 61 H ALT 15 Alkaline Phosphatase 441 H Total Protein 5.0 L Albumin 2.5 L Quality VTE Prophylaxis VTE prophylaxis: pharmacologic ordered Hospitalist [facility] Advance Care Plan I have confirmed that the patient's Advanced Care Plan is present, code status is documented, or surrogate decision maker is listed in patient medical record.: Yes Medication Reconciliation I have utilized all available resources to obtain, update and review the patients current medications (includes all prescriptions, OTC, herbals, cannabis, and nutritional supplements).: Yes
[2024-10-15 17:34] LABS: Glucose Point of Care 225 mg/dl (65-105)
--- NOTE | 2024-10-15 19:11 | P.CONONC_ITS ---
Assessment and Plan Assessment and plan (1) Prostate cancer: Code(s): C61 - Malignant neoplasm of prostate Status: Acute Assessment and Plan: Patient is a pleasant 69-year-old male with history of metastatic prostate cancer diagnosed in February 2023 with bone involvement. Patient is on chemotherapy with Taxotere along with androgen deprivation therapy with Lupron and Zytiga. He was sent to the hospital due to tachycardia and hypotension along with tiredness and fatigue. His hypotension is likely secondary to adrenal cortical insufficiency. He was started on Solu-Cortef and midodrine with improvement in the blood pressure and tachycardia. Labs showed persistent anemia which is secondary to chemotherapy and metastatic prostate cancer with bone involvement. Iron level was slightly low. Patient will continue oral iron with vitamin B12. He will also continue Procrit injection on a biweekly basis in the office. I will follow-up in the office for continuation of treatment. HPI Data of Consult Date/Time: 10/15/24 19:11 Requesting Physician: Dorothy Thomas MD Primary Care Provider: Shaheen Foley MD Consult Narrative Narrative: Norman Byers is a 69 year old male with history of metastatic prostate cancer with widespread bone metastasis. Patient is currently on chemotherapy with Taxotere along with androgen deprivation therapy with Lupron and Zytiga sent to the hospital due to hypertension and tachycardia along with lightheadedness and dizziness. Labs showed WBC count normal at 7.3 and normal platelet count of [id number]. Patient remains anemic with hemoglobin of 8.3. Anemia workup showed slightly low iron level and iron saturation. B12 was elevated. Kidney function was normal. LDH was elevated at 2716. Retic count was elevated as well as a haptoglobin. Direct Fish test came back negative. Patient feels much better today. Blood pressure has improved. He was started on Solu-Cortef for adrenocortical insufficiency. Patient was continued on midodrine. Today he is feeling better and asking about discharge. Review of Systems 2 Review of Systems: Review of system as per history otherwise negative [facility] Past Medical History Medical History (Updated 10/11/24 @ 10:38 by Colin Blanton APRN) Tubular adenoma of colon (05/2013) Prostate cancer metastatic to bone Essential tremor Type 2 diabetes mellitus with diabetic polyneuropathy Aortic atherosclerosis noted on CT scan in January 2018 Mixed hyperlipidemia Surgical History Surgical History (Updated 10/10/24 @ 23:42 by Monica Martinez PA-C) History of arthroscopy of left knee (08/1996) H/O colonoscopy with polypectomy Port-A-Cath in place History of total right hip replacement (09/2023) Family History Family History Father Lung cancer Glaucoma Mother Breast cancer Sibling Arrhythmia Social History Social History (Updated 10/10/24 @ 23:42 by Monica Martinez PA-C) Social History: Surrogate medical decision maker: Josee Byers, spouse. Code status: Full code. Smoking status: Never smoker Second hand tobacco smoke exposure: Yes Alcohol intake: former Drinks per week: 5 Substance use: never Substance use type: does not use Do You Feel Safe in your Home?: Yes Lack of Transportation: No Lack of Food: Never True Current Housing: I Have Housing Concerned About Future Housing: No Difficulty Paying Gas/Electric Bills: No Difficulty Paying for Meds: No Currently Unemployed: No Education: Decline to Answer Difficulty w/ Childcare or Family Care: No Living arrangements: with family Additional living arrangements comments: Lives with in [place]. They have 3 children. Occupation/Education: retired Additional occupation/education comments: Retired from the [employer]. Spiritual care concerns: No Agree to blood products: Yes Meds Home Medications and Allergies Home Medications ?Medication ?Instructions ?Recorded ?Confirmed ?Type tamsulosin 0.4 mg capsule 0.4 mg PO HS 02/24/23 10/10/24 History cyanocobalamin (vitamin B-12) 500 mcg PO DAILY 03/10/23 10/10/24 History 1,000 mcg tablet omeprazole 40 mg capsule,delayed 40 mg PO DAILY 10/07/23 10/10/24 History release polysaccharide iron complex 150 mg 65 mg PO DAILY 10/07/23 10/10/24 History iron capsule (Ferrex) abiraterone 250 mg tablet 500 mg PO DAILY 04/17/24 10/10/24 History gabapentin 800 mg tablet 800 mg PO BID 04/17/24 10/10/24 History metformin 500 mg tablet See Rx Instructions .Route 05/06/24 10/10/24 Rx .COMPLEX #360 tabs pioglitazone 45 mg tablet See Rx Instructions .Route 08/29/24 10/10/24 Rx .COMPLEX #90 tabs atorvastatin 20 mg tablet See Rx Instructions .Route 09/07/24 10/10/24 Rx .COMPLEX #30 tabs calcitriol 0.5 mcg capsule 0.5 mcg PO BID 09/07/24 10/10/24 History calcium 600 mg capsule 600 mg PO QID 09/07/24 10/10/24 History cholecalciferol (vitamin D3) 25 25 mcg PO DAILY 09/07/24 10/10/24 History mcg (1,000 unit) capsule (Vitamin D3) megestrol 400 mg/10 mL (40 mg/mL) 40 mg PO DAILY 09/08/24 10/10/24 History oral suspension ondansetron 8 mg disintegrating 8 mg translingual Q8H PRN nausea 09/08/24 10/10/24 History tablet and vomiting metoprolol succinate 25 mg 12.5 mg PO DAILY 09/18/24 10/10/24 History tablet,extended release 24 hr prednisone 5 mg tablet 5 mg PO DAILY 09/18/24 10/10/24 History tramadol 50 mg tablet 50 mg PO DAILY PRN pain #30 tabs 09/18/24 10/10/24 Rx Allergies Allergy/AdvReac Type Severity Reaction Status Date / Time No Known Allergies Allergy Verified 10/03/24 09:50 Vital Signs Vital Signs - 24 hr 10/14/24 20:00 10/14/24 20:00 10/14/24 22:00 Temperature 36.5 C 36.2 C L Pulse Rate 88 86 Respiratory Rate 13 13 Blood Pressure 116/57 L 115/56 L Pulse Oximetry 94 98 Oxygen Delivery Room Air 10/15/24 06:00 10/15/24 06:18 10/15/24 06:19 Temperature 36.5 C Pulse Rate 88 108 H 136 H Respiratory Rate 13 Blood Pressure 116/57 L 138/62 101/59 L Pulse Oximetry 94 98 99 Oxygen Delivery 10/15/24 08:00 10/15/24 08:39 10/15/24 14:00 Temperature 36.4 C Pulse Rate 100 100 Respiratory Rate 20 Blood Pressure 113/72 Pulse Oximetry 99 Oxygen Delivery Room Air Exam 2 Narrative: Lungs are clear to auscultation bilaterally Cardiovascular regular rate rhythm no murmurs Abdomen soft nontender nondistended Extremities no edema Results Labs 10/15/24 11:28 10/15/24 11:28 Labs: Short CBC 10/15/24 Range/Units 11:28 WBC 7.3 (4.5-10.0) K/mm3 Hgb 8.3 L (14.0-18.0) g/dL Hct 28.3 L (42.0-52.0) % Plt Count 167 (150-375) k/mm3 BMP 10/15/24 11:28 Sodium 135 L Potassium 3.8 Chloride 106 Carbon Dioxide 21 L BUN 5 L Creatinine 0.40 L Glucose 207 H Calcium 7.9 L Liver Function 10/15/24 Range/Units 11:28 Total Bilirubin 0.9 (0.2-1.3) mg/dL AST 61 H (17-59) U/L ALT 15 (6-50) U/L Alkaline Phosphatase 441 H (38-126) U/L Albumin 2.5 L (3.5-5.1) g/dL
[2024-10-15 20:05] VITALS: BP 118/68; PULSE 72; RESP 20; TEMP 36.6; O2SAT 97
[2024-10-15] MEDS: ATORVASTATIN 20 MG TABLET BY MOUTH (22:00)
[2024-10-15 23:03] LABS: Glucose Point of Care 206 mg/dl (65-105)
[2024-10-16] VITALS (8 sets, daily range): BP systolic 94–134; BP diastolic 45–65; PULSE 80–107; RESP 16–20; TEMP 36.6–37.1; O2SAT 95–97
[2024-10-16] MEDS: ABIRATERONE ACETATE 250 MG 2 EACH PO (05:31)
[2024-10-16 08:12] LABS: Glucose Point of Care 133 mg/dl (65-105)
[2024-10-16] MEDS: GABAPENTIN 400 MG CAPSULE 800 MG PO ×2 (08:16→16:55)
[2024-10-16] MEDS: PIOGLITAZONE HCL 45 MG TABLET BY MOUTH (08:16)
[2024-10-16] MEDS: MIDODRINE HCL 10 MG TABLET PO ×3 (08:16→16:55)
[2024-10-16] MEDS: predniSONE 5 MG TABLET PO ×2 (08:16→20:32)
[2024-10-16] MEDS: calcitrioL 0.25 MCG CAPSULE 0.5 MCG PO ×2 (08:16→16:55)
[2024-10-16] MEDS: PANTOPRAZOLE 40 MG TABLET PO ×2 (08:16→16:55)
[2024-10-16] MEDS: CALCIUM CARBONATE (OSCAL) 500 MG TABLET PO ×2 (08:16→16:55)
[2024-10-16] MEDS: CYANOCOBALAMIN 500 MCG TABLET PO (08:16)
[2024-10-16] MEDS: MEGESTROL ACETATE (*CHEMO) ORAL SUSP 40 MG/ML SYR 200 MG PO (08:17)
[2024-10-16] MEDS: CHOLECALCIFEROL 1,000 UNITS TABLET 1000 UNITS PO (08:17)
[2024-10-16] MEDS: ENOXAPARIN 40 MG/0.4 ML SYRINGE SUB-Q (08:17)
[2024-10-16] MEDS: METOPROLOL SUCCINATE EXT REL 12.5 MG TABCR PO (08:17)
--- NOTE | 2024-10-16 10:08 | PCPTNOTE ---
On 10/16/24, the student, FADIA Leo, provided care and completed [facility] documentation on this patient. I have reviewed the student's documentation and agree with the findings.
--- NOTE | 2024-10-16 10:47 | P.PNIM_ITS ---
Progress Note: A&P Assessment and Plan (1) Orthostatic hypotension: Code(s): I95.1 - Orthostatic hypotension Status: Acute Assessment and Plan: 10/11 This am remains markedly orthostatic to the 70s with standing. Very lightheaded and soft bp in general. Cortisol remarkably low. - History of similar for several weeks, on flomax, chemotherapy. Has increasing generalized weakness additionally. - No history of difficulty voiding. DC flomax. - Cont. midodrine at 10mg tid at this time. - IVF resumed. - PT evaluation. I question if able to discharge directly to home, still markedly symptomatic. 10/15:Patient stress dose has been discontinued. Will continue his old regimen Prednisone 5 mg PO BID. Advised to taper his Prednisone 10 mg later to 7.5mg to 5mg to 2mg to 1mg as per his PCP. (2) Adrenal insufficiency: Code(s): E27.40 - Unspecified adrenocortical insufficiency Status: Acute Assessment and Plan: 10/11 - Cortisol 0.64 this am. An IV dose of solucortef ordered. Start 15mg daily oral with 10mg am, 5mg afternoon. - Outpatient endocrinology f/u may prove of benefit. 10/15: Patient stress dose has been discontinued. Will continue his old regimen Prednisone 5 mg PO BID. Advised to taper his Prednisone 10 mg later to 7.5mg to 5mg to 2mg to 1mg as per his PCP. (3) Chronic steroid use: Status: Acute Assessment and Plan: 10/11 - Recent dose reduction on prednisone from 10mg to 5mg daily per chart review. - Adding in hydrocortisone today d/t adrenal insufficiency. 10/15: Patient stress dose has been discontinued. Will continue his old regimen Prednisone 5 mg PO BID. Advised to taper his Prednisone 10 mg later to 7.5mg to 5mg to 2mg to 1mg as per his PCP. (4) Type 2 diabetes mellitus with diabetic polyneuropathy: Qualifiers: Diabetes mellitus ferry terminal agent insulin use: without prison use Qualified Code(s): E11.42 - Type 2 diabetes mellitus with diabetic polyneuropathy Code(s): E11.42 - Type 2 diabetes mellitus with diabetic polyneuropathy Status: Acute Assessment and Plan: - Stable cont. current. (5) Anemia: Code(s): D64.9 - Anemia, unspecified Status: Acute Assessment and Plan: 10/11 - Repeat and trend with hgb to 7.8 this am, likely 2/2 dilutional effect from IVF. (6) Secondary malignant neoplasm of bone: Code(s): C79.51 - Secondary malignant neoplasm of bone Status: Acute Assessment and Plan: - On chemotherapy for prostate ca (7) Hypomagnesemia: Code(s): E83.42 - Hypomagnesemia Status: Acute Assessment and Plan: 10/11 - Replete today, repeat and trend in the am. (8) Hypokalemia: Code(s): E87.6 - Hypokalemia Status: Acute Assessment and Plan: 10/11 - Replete today, repeat and trend in the am. Plan Norman Byers 69 year old male with PMH prostate CA on chemotherapy presenting with several weeks of OH, much worse over the last few days. Markedly orthostatic with slight improvement only on midodrine and fluids. Adrenal insufficiency with cortisol 0.64 this am, solucortef dosing started. IVF resumed today. PT ordered. Subjective Date/time seen: 10/16/24 10:47 Interval history: Patient removed Chemo port access . Patient stress dose has been discontinued and continued his old regimen Prednisone 5 mg PO BID.Monitor for today and dc tomorrow.Advised to taper his Prednisone 10 mg later to 7.5mg to 5mg to 2mg to 1mg as per his PCP.Recommend consulting [employer] for his adrenal insufficiency Review of Systems Review of Systems: 12 systems were reviewed and are negativ e except for as per HPI. All systems reviewed & are unremarkable except as noted in HPI and below Exam Narrative: GENERAL APPEARANCE: Appears to be in no acute distress. HEAD: normocephalic atraumatic EYES: PERRL, EOMI. Vision grossly intact. ENT: Hearing grossly intact, no nasal discharge NECK: Neck supple, trachea midline. CARDIAC: Normal S1/S2. Rhythm is regular. No murmurs, rubs, or gallops. No cyanosis or pallor. Extremities are warm and well perfused. LUNGS: Clear to auscultation without rales, rhonchi, wheezing or diminished breath sounds. Respirations even and unlabored. ABDOMEN: BS positive x 4 quadrants. Soft, nondistended, nontender. No guarding or rebound. MSK: No joint tenderness/swelling PERIPHERAL VASCULAR: Peripheral pulses palpable. Normal perfusion, cap refill <2 seconds. No edema. NEURO: Follows commands. No focal deficits. SKIN: [place] without lesions or eruptions. PSYCH: Stable, no paranoia or delusional thinking. Objective Data Vital Signs Vital Signs: Vital Signs - 24 hr 10/15/24 14:00 10/15/24 20:00 10/15/24 20:05 Temperature 97.6 F 97.8 F Pulse Rate 100 72 Respiratory Rate 20 20 Blood Pressure 113/72 118/68 Pulse Oximetry 99 97 Oxygen Delivery Room Air 10/16/24 04:35 10/16/24 08:00 10/16/24 10:41 Temperature 97.8 F Pulse Rate 81 Respiratory Rate 20 Blood Pressure 134/54 L 97/59 L 106/63 Pulse Oximetry 96 Oxygen Delivery 10/16/24 10:41 Temperature Pulse Rate Respiratory Rate Blood Pressure 108/65 Pulse Oximetry Oxygen Delivery Intake/Output Intake/Output: Intake & Output 10/13/24 10/14/24 10/15/24 10/16/24 23:59 23:59 23:59 23:59 Intake Total 3310 3960 1020 490 Output Total 1900 1250 1100 1160 Balance 1410 2710 -80 -670 Meds/Results Medications: Active Medications Generic Name Dose Route Start Last Admin Trade Name Freq PRN Reason Stop Dose Admin Acetaminophen 650 mg 10/10/24 18:50 10/14/24 12:45 Acetaminophen 325 Mg Tablet PO 650 mg Q4H PRN Administration Mild Pain (1-3) or Fever Alteplase, Recombinant 2 mg 10/15/24 19:24 Alteplase 2 Mg Vial (Cathflo) IV PUSH ONCE PRN Line Occlusion Atorvastatin Calcium 20 mg 10/10/24 23:50 10/15/24 22:00 Atorvastatin 20 Mg Tablet BY MOUTH 20 mg HS DUSTY Administration Calcitriol 0.5 mcg 10/11/24 09:00 10/16/24 08:16 Calcitriol 0.25 Mcg Capsule PO 0.5 mcg BID DUSTY Administration Calcium Carbonate 500 mg 10/11/24 09:00 10/16/24 08:16 Calcium Carbonate (Oscal) 500 Mg Tablet PO 500 mg BID DUSTY Administration Cyanocobalamin 500 mcg 10/11/24 09:00 10/16/24 08:16 Cyanocobalamin 500 Mcg Tablet PO 500 mcg DAILY DUSTY Administration Dextrose 12.5 gm 10/10/24 23:48 Dextrose 50% 25 Gm/50 Ml Syringe IV PUSH PRN PRN Hypoglycemia Protocol Enoxaparin Sodium 40 mg 10/11/24 09:00 10/16/24 08:17 Enoxaparin 40 Mg/0.4 Ml Syringe SUB-Q 40 mg DAILY DUSTY Administration Gabapentin 800 mg 10/11/24 09:00 10/16/24 08:16 Gabapentin 400 Mg Capsule PO 800 mg BID DUSTY Administration Glucagon 1 mg 10/10/24 23:48 Glucagon For Inj 1 Mg Vial IM PRN PRN Hypoglycemia Protocol Glucose 15 gm 10/10/24 23:48 Glucose Oral Gel 15 Gm Of Glucse In 37.5 Gm Tube PO PRN PRN Hypoglycemia Protocol Heparin Sodium (Beef Lung) 50 units 10/12/24 09:00 10/16/24 08:19 Heparin Flush 50 Units/5 Ml Syringe IV PUSH Not Given QAM DUSTY Heparin Sodium (Beef Lung) 50 units 10/12/24 07:33 Heparin Flush 50 Units/5 Ml Syringe IV PUSH PRN PRN after intermittent infusion Heparin Sodium (Beef Lung) 50 units 10/12/24 07:33 Heparin Flush 50 Units/5 Ml Syringe IV PUSH PRN PRN after blood draws Heparin Sodium (Porcine) 500 units 10/12/24 07:33 Heparin Sodium Lock Flush 500 Units/5 Ml Syringe IV PUSH PRN PRN see comments below Dextrose 1,000 mls @ 100 mls/hr 10/10/24 23:48 Dextrose 5% 1,000 Ml IVPB PRN PRN Hypoglycemia Protocol Insulin Aspart 2 - 5 units 10/11/24 08:00 10/16/24 08:15 Insulin Aspart (*Bkc) 100 Units/Ml SUB-Q Not Given TIDWM DUSTY Protocol Insulin Aspart 1 - 2 units 10/11/24 21:00 10/15/24 22:00 Insulin Aspart (*Bkc) 100 Units/Ml SUB-Q 1 units HS DUSTY Administration Protocol Megestrol Acetate 200 mg 10/11/24 09:00 10/16/24 08:17 Megestrol Acetate (*Chemo) Oral Susp 40 Mg/Ml Syr PO 200 mg QAM DUSTY Administration Metoprolol Succinate 12.5 mg 10/11/24 09:00 10/16/24 08:17 Metoprolol Succinate Ext Rel 12.5 Mg Tabcr PO 12.5 mg DAILY DUSTY Administration Midodrine 10 mg 10/11/24 09:00 10/16/24 08:16 Midodrine Hcl 10 Mg Tablet PO 10 mg TID DUSTY Administration Non-Formulary ( 2 each 10/15/24 06:30 10/16/24 05:31 Abiraterone Acetate PO 11/14/24 06:29 2 each 250 Mg Oral Tablet) DAILY@0630 DUSTY Administration Ondansetron HCl 4 mg 10/10/24 18:50 Ondansetron Inj 4 Mg/2 Ml Vial IV PUSH Q4H PRN Nausea Pantoprazole Sodium 40 mg 10/11/24 09:00 10/16/24 08:16 Pantoprazole 40 Mg Tablet PO 40 mg BID DUSTY Administration Pioglitazone HCl 45 mg 10/11/24 09:00 10/16/24 08:16 Pioglitazone Hcl 45 Mg Tablet BY MOUTH 45 mg DAILY DUSTY Administration Polysaccharide Iron Complex 150 mg 10/11/24 12:00 10/15/24 12:18 Polysaccharide Iron Complex 150 Mg Capsule PO 150 mg DAILY@1200 DUSTY Administration Prednisone 5 mg 10/11/24 08:00 10/16/24 08:16 Prednisone 5 Mg Tablet PO 5 mg DAILY@0800 DUSTY Administration Prednisone 5 mg 10/15/24 20:00 10/15/24 22:01 Prednisone 5 Mg Tablet PO 5 mg DAILY@2000 [facility] Administration Sodium Chloride 10 ml 10/12/24 14:00 10/16/24 05:30 Central Line Flush IV PUSH Not Given Q8HR [facility] Tramadol HCl 50 mg 10/10/24 23:50 Tramadol Hcl (*Crx) 50 Mg Tablet PO DAILY PRN pain Vitamin D 1,000 units 10/11/24 09:00 10/16/24 08:17 Cholecalciferol 1,000 Units Tablet PO 1,000 units DAILY DUSTY Administration Labs Labs: Laboratory Results - last 24 hr 10/13/24 10/15/24 10/15/24 20:12 11:28 11:51 WBC 7.3 RBC 3.12 L Hgb 8.3 L Hct 28.3 L MCV 90.7 MCH 26.6 MCHC 29.3 L RDW 19.3 H Plt Count 167 MPV 9.9 Haptoglobin 387 H Sodium 135 L Potassium 3.8 Chloride 106 Carbon Dioxide 21 L Anion Gap 8 BUN 5 L Creatinine 0.40 L Estim Creat Clear Calc 141 Estimated GFR > 60 Glucose 207 H POC Capillary Glucose 291 H Calcium 7.9 L Total Bilirubin 0.9 AST 61 H ALT 15 Alkaline Phosphatase 441 H Total Protein 5.0 L Albumin 2.5 L 10/15/24 10/15/24 10/16/24 16:54 21:58 07:49 WBC RBC Hgb Hct MCV MCH MCHC RDW Plt Count MPV Haptoglobin Sodium Potassium Chloride Carbon Dioxide Anion Gap BUN Creatinine Estim Creat Clear Calc Estimated GFR Glucose POC Capillary Glucose 225 H 206 H 133 H Calcium Total Bilirubin AST ALT Alkaline Phosphatase Total Protein Albumin Hospitalist MIPS Advance Care Plan I have confirmed that the patient's Advanced Care Plan is present, code status is documented, or surrogate decision maker is listed in patient medical record.: Yes Medication Reconciliation I have utilized all available resources to obtain, update and review the patients current medications (includes all prescriptions, OTC, herbals, cannabis, and nutritional supplements).: Yes
[2024-10-16 11:44] LABS: Glucose Point of Care 175 mg/dl (65-105)
[2024-10-16] MEDS: POLYSACCHARIDE IRON COMPLEX 150 MG CAPSULE PO (12:09)
[2024-10-16 16:19] LABS: Glucose Point of Care 256 mg/dl (65-105)
[2024-10-16] MEDS: INSULIN ASPART (*BKC) 100 UNITS/ML SUB-Q (16:54)
[2024-10-16] MEDS: HEPARIN SODIUM LOCK FLUSH 500 UNITS/5 ML SYRINGE IV PUSH (19:57)
[2024-10-16] MEDS: ATORVASTATIN 20 MG TABLET BY MOUTH (20:30)
[2024-10-16 21:21] LABS: Glucose Point of Care 145 mg/dl (65-105)
[2024-10-17] MEDS: ABIRATERONE ACETATE 250 MG 2 EACH PO (05:52)
[2024-10-17 06:00] VITALS: BP 94/62; PULSE 82; RESP 20; TEMP 36.4; O2SAT 96
[2024-10-17 08:13] LABS: Glucose Point of Care 125 mg/dl (65-105)
[2024-10-17] MEDS: CYANOCOBALAMIN 500 MCG TABLET PO (08:30)
[2024-10-17] MEDS: MIDODRINE HCL 10 MG TABLET PO ×3 (08:30→17:32)
[2024-10-17] MEDS: CALCIUM CARBONATE (OSCAL) 500 MG TABLET PO ×2 (08:30→17:32)
[2024-10-17] MEDS: CHOLECALCIFEROL 1,000 UNITS TABLET 1000 UNITS PO (08:30)
[2024-10-17] MEDS: calcitrioL 0.25 MCG CAPSULE 0.5 MCG PO ×2 (08:30→17:32)
[2024-10-17] MEDS: ENOXAPARIN 40 MG/0.4 ML SYRINGE SUB-Q (08:30)
[2024-10-17] MEDS: predniSONE 5 MG TABLET PO (08:30)
[2024-10-17] MEDS: PANTOPRAZOLE 40 MG TABLET PO ×2 (08:30→17:32)
[2024-10-17] MEDS: PIOGLITAZONE HCL 45 MG TABLET BY MOUTH (08:30)
[2024-10-17] MEDS: GABAPENTIN 400 MG CAPSULE 800 MG PO ×2 (08:30→17:32)
[2024-10-17] MEDS: METOPROLOL SUCCINATE EXT REL 12.5 MG TABCR PO (08:31)
[2024-10-17] MEDS: MEGESTROL ACETATE (*CHEMO) ORAL SUSP 40 MG/ML SYR 200 MG PO (08:31)
[2024-10-17 08:39] LABS: Hematocrit 24.8 % (42.0-52.0); Hemoglobin 7.3 g/dL (14.0-18.0); Mean Corpuscular HGB Conc 29.4 g/dl (32-36); Mean Corpuscular Hemoglobin 26.2 pg (26-34); Mean Corpuscular Volume 88.9 fl (80-100); Mean Platelet Volume 9.3 fl (7.4-10.4); Platelet Count Result 131 k/mm3 (150-375); Red Blood Count 2.79 M/mm3 (4.6-6.20); Red Cell Distribution Width 18.9 % (11.5-14.5); White Blood Count 4.8 K/mm3 (4.5-10.0)
[2024-10-17 08:49] LABS: Alanine Aminotransferase 12 U/L (6-50); Albumin Level 2.3 g/dL (3.5-5.1); Alkaline Phosphatase 323 U/L (38-126); Anion Gap 4 mmol/L (4-12); Aspartate Amino Transferase 46 U/L (17-59); Bilirubin,Total 0.8 mg/dL (0.2-1.3); Blood Urea Nitrogen 6 mg/dL (9-20); Calcium 7.5 mg/dL (8.4-10.2); Carbon Dioxide 24 mmol/L (22-30); Chloride 108 mmol/L (98-107); Estimated CRCL calculation 151 ml/min; Estimated Glomerular Filt Rate > 60; Glucose 111 mg/dL (65-110); Potassium 3.7 mmol/L (3.4-5.0); Sodium 136 mmol/L (137-145)
--- NOTE | 2024-10-17 09:59 | P.DS_ITS ---
DS: Admitting Diagnosis Discharge Date 10/17 Admitting Diagnosis Hypotension DS: Discharge Diagnosis Discharge Diagnosis (1) Orthostatic hypotension: Code(s): I95.1 - Orthostatic hypotension Status: Acute Assessment and Plan: 10/11 This am remains markedly orthostatic to the 70s with standing. Very lightheaded and soft bp in general. Cortisol remarkably low. - History of similar for several weeks, on flomax, chemotherapy. Has increasing generalized weakness additionally. - No history of difficulty voiding. DC flomax. - Cont. midodrine at 10mg tid at this time. - IVF resumed. - PT evaluation. I question if able to discharge directly to home, still markedly symptomatic. 10/17:Patient stress dose has been discontinued. Will continue his old regimen Prednisone 5 mg PO BID. Advised to taper his Prednisone 10 mg later to 7.5mg to 5mg to 2mg to 1mg as per his PCP. (2) Adrenal insufficiency: Code(s): E27.40 - Unspecified adrenocortical insufficiency Status: Acute Assessment and Plan: 10/11 - Cortisol 0.64 this am. An IV dose of solucortef ordered. Start 15mg daily oral with 10mg am, 5mg afternoon. - Outpatient endocrinology f/u may prove of benefit. 10/17: Patient stress dose has been discontinued. Will continue his old regimen Prednisone 5 mg PO BID. Advised to taper his Prednisone 10 mg later to 7.5mg to 5mg to 2mg to 1mg as per his PCP. (3) Chronic steroid use: Status: Acute Assessment and Plan: 10/11 - Recent dose reduction on prednisone from 10mg to 5mg daily per chart review. - Adding in hydrocortisone today d/t adrenal insufficiency. 10/17: Patient stress dose has been discontinued. Will continue his old regimen Prednisone 5 mg PO BID. Advised to taper his Prednisone 10 mg later to 7.5mg to 5mg to 2mg to 1mg as per his PCP. (4) Type 2 diabetes mellitus with diabetic polyneuropathy: Qualifiers: Diabetes mellitus superintendent terminal insulin use: without nursing home use Qualified Code(s): E11.42 - Type 2 diabetes mellitus with diabetic polyneuropathy Code(s): E11.42 - Type 2 diabetes mellitus with diabetic polyneuropathy Status: Acute Assessment and Plan: - Stable cont. current. (5) Anemia: Code(s): D64.9 - Anemia, unspecified Status: Acute Assessment and Plan: Stable (6) Secondary malignant neoplasm of bone: Code(s): C79.51 - Secondary malignant neoplasm of bone Status: Acute Assessment and Plan: - On chemotherapy for prostate ca -follow-up with Dr. Acuña (7) Hypomagnesemia: Code(s): E83.42 - Hypomagnesemia Status: Acute Assessment and Plan: Resolved (8) Hypokalemia: Code(s): E87.6 - Hypokalemia Status: Acute Assessment and Plan: Resolved DS: Summary Hospital Course Hospital Course: 69-year-old male with metastatic prostate cancer, hyperlipidemia, gastroesophageal reflux disease, and type 2 diabetes mellitus who presented to the emergency department from the [facility] for evaluation of positive orthostatic vital signs. The patient provides the following history. He was started back on chemotherapy last April and over the past 1 month he has missed several rounds of chemotherapy due to neutropenia, weakness, and dehydration.. He was hospitalized last month with neutropenic fever and at that time he was noted to have soft blood pressures. It sounds as though he has continued to have issues with his blood pressures since discharge as he frequently has lightheadedness and dizziness with position changes, especially going from a seated to standing position. His appetite is poor and he frequently has diarrhea after his chemotherapy treatments. He is losing weight and is feeling very weak. Last week his metoprolol succinate dose was decreased to 12.5 mg daily given soft blood pressures; is my understanding that he takes that for history of tachycardia with PACs. It is also noted that he has been on chronic steroids for many months and his dose was recently decreased from 10 mg to 5 mg daily. He denies fever, cold and flu symptoms, chest pain, pleuritic pain, shortness of breath, cough, vomiting, and dysuria. In the ED: He was afebrile on arrival. Orthostatic vital signs were positive. Labs were significant for a WBC count of 5.0, hemoglobin 10.1, platelet 187, sodium 136, carbon dioxide 20, anion gap 13, creatinine 0.52, glucose 175, AST 61, alkaline phosphatase 271. Urinalysis was positive for 1+ protein, trace ketones, 1+ bilirubin. Respiratory panel was negative. He was given a 2 L fluid bolus and remains orthostatic and he is being admitted in this setting for further treatment and evaluation. I assumed care on 10/12: Patient has a past medical history of a prostate cancer which was diagnosed 2018. In 2022 his prostate cancer metastasis to bone and adrenal gland. Patient was taking prednisone 5 mg b.i.d. last 1 year and recently reduced his dose to prednisone 5 mg p.o. q.d.. Patient was recently admitted to the hospital due to weakness and was discharged but later readmitted for the same reason. His orthostatic hypertension and wearing [place] hose. Patient is currently getting hydrocortisone 10 mg in the morning and 5 mg in the evening and also prednisone 5 mg p.o. q.d. which is his home dosage. We will discontinue the hydrocortisone 15 mg after 3 days (stress dose) and continue the prednisone 5 mg p.o. q.d. patient reports that lately his appetite has been reduced and he is already on megace. On 10/15: Patient stress dose has been discontinued. Will continue his old regimen Prednisone 5 mg PO BID. Advised to taper his Prednisone 10 mg later to 7.5mg to 5mg to 2mg to 1mg as per his PCP/Endocrinology. On 10/16-10/17: Patient is currently doing well. Patient has some episodes of hypotension but no symptoms. Advised to continue prednisone 5 mg p.o. b.i.d.. Taper the prednisone as per PCP or seafood processor. Advised to follow up with Dr. Acuña Status at Discharge Cognitive/behavioral status at discharge: Stable Time Spent with Patient Time attestation: Total time spent providing and/or coordinating discharge services: 45 minutes Exam Narrative: GENERAL APPEARANCE: Appears to be in no acute distress. HEAD: normocephalic atraumatic EYES: PERRL, EOMI. Vision grossly intact. ENT: Hearing grossly intact, no nasal discharge NECK: Neck supple, trachea midline. CARDIAC: Normal S1/S2. Rhythm is regular. No murmurs, rubs, or gallops. No cyanosis or pallor. Extremities are warm and well perfused. LUNGS: Clear to auscultation without rales, rhonchi, wheezing or diminished breath sounds. Respirations even and unlabored. ABDOMEN: BS positive x 4 quadrants. Soft, nondistended, nontender. No guarding or rebound. MSK: No joint tenderness/swelling PERIPHERAL VASCULAR: Peripheral pulses palpable. Normal perfusion, cap refill <2 seconds. No edema. NEURO: Follows commands. No focal deficits. SKIN: [place] without lesions or eruptions. PSYCH: Stable, no paranoia or delusional thinking. DS: Data Data Completed and Pending Labs on day of discharge: Labs from last 24 hours 10/17/24 10/17/24 10/16/24 08:24 08:07 21:16 WBC 4.8 RBC 2.79 L Hgb 7.3 L Hct 24.8 L MCV 88.9 MCH 26.2 MCHC 29.4 L RDW 18.9 H Plt Count 131 L MPV 9.3 Sodium 136 L Potassium 3.7 Chloride 108 H Carbon Dioxide 24 Anion Gap 4 BUN 6 L Creatinine 0.37 L Estim Creat Clear Calc 151 Estimated GFR > 60 Glucose 111 H POC Capillary Glucose 125 H 145 H Calcium 7.5 L Total Bilirubin 0.8 AST 46 ALT 12 Alkaline Phosphatase 323 H Total Protein 5.0 L Albumin 2.3 L 10/16/24 10/16/24 16:03 11:31 WBC RBC Hgb Hct MCV MCH MCHC RDW Plt Count MPV Sodium Potassium Chloride Carbon Dioxide Anion Gap BUN Creatinine Estim Creat Clear Calc Estimated GFR Glucose POC Capillary Glucose 256 H 175 H Calcium Total Bilirubin AST ALT Alkaline Phosphatase Total Protein Albumin Discharge Plan Discharge Attending physician on discharge: Todd Castillo Consulting providers: Bruce Acuña Discharging Clinician: Todd Castillo Anticipated Discharge Date/Time: 10/17/24 16:12 Patient Disposition: Home, Self-Care Activity: as tolerated Diet: regular Discharge Instructions: Per Care Coordination: [facility] [phone] has been arranged for physical and occupational therapy. They will call you regarding start of visit. RN please fax discharge orders to [phone] Advised to continue prednisone 5 mg p.o. b.i.d.. Taper the prednisone as per PCP or seafood processor. Advised to follow up with Dr. Acuña Patient started on midodrine 10 mg t.i.d. Check blood pressure 1 to 2 times a day. Record and bring into your doctor for review. Call your doctor if your blood pressure is greater than 180/110 or less than 90/45. Walk with cane or other assist device. Take precautions to avoid falls. Rise slowly from a lying or sitting position. Pause before standing or walking. Contact your doctor or call 911 and come to the Emergency Room if you have any type of trauma, lightheadedness with standing or other worrisome symptoms. Avoid NSAIDs (ibuprofen, naproxen, Aleve). Tylenol is safe to take. Follow-up with your primary care provider in 1-2 weeks. Please call for a ppointment. Follow-up with Cardiology in 2-4 weeks. Please call for an appointment. Thank you for using [facility] for your health care needs. Patient Instructions: Antibiotic Form Patient Language: Albanian Stand Alone Forms: General Discharge Information Follow-up/Referrals: Bruec Acuña MD [Physician] - ( Advised to continue prednisone 5 mg p.o. b.i.d.. Taper the prednisone as per PCP or seafood processor. Advised to follow up with Dr. Acuña) Shaheen Foley MD [Primary Care Provider] - ( Advised to continue prednisone 5 mg p.o. b.i.d.. Taper the prednisone as per PCP or seafood processor. Advised to follow up with Dr. Acuña. Patient started on midodrine 10 mg t.i.d.) Discharge Medications: New prednisone 5 mg Tablet 5 mg PO DAILY@1999 Qty: 30 0RF midodrine 10 mg Tablet 10 mg PO TID Qty: 60 0RF Continued tamsulosin 0.4 mg capsule 0.4 mg PO HS polysaccharide iron complex [Ferrex 150] 150 mg iron capsule 65 mg PO DAILY omeprazole 40 mg capsule,delayed release(DR/EC) 40 mg PO DAILY gabapentin 800 mg tablet 800 mg PO BID abiraterone 250 mg tablet 500 mg PO DAILY Patient Comments: . metoprolol succinate 25 mg tablet extended release 24 hr 12.5 mg PO DAILY Patient Comments: QAM prednisone 5 mg tablet 5 mg PO DAILY tramadol 50 mg tablet 50 mg PO DAILY PRN (Reason: pain) Qty: 30 0RF cyanocobalamin (vitamin B-12) 1,000 mcg Tablet 500 mcg PO DAILY Patient Comments: . Rx Instructions: takes 250mcg (2) gummies daily cholecalciferol (vitamin D3) [Vitamin D3] 25 mcg (1,000 unit) capsule 25 mcg PO DAILY Patient Comments: with K2 calcium 600 mg capsule 600 mg PO QID calcitriol 0.5 mcg capsule 0.5 mcg PO BID megestrol 400 mg/10 mL (40 mg/mL) suspension 40 mg PO DAILY ondansetron 8 mg tablet,disintegrating 8 mg translingual Q8H PRN (Reason: nausea and vomiting) metformin 500 mg tablet See Rx Instructions .ROUTE .COMPLEX Qty: 360 2RF Dose Instruction: TAKE 2 TABLETS BY MOUTH EVERY 12 HOURS Rx Instructions: TAKE 2 TABLETS BY MOUTH EVERY 12 HOURS pioglitazone 45 mg tablet See Rx Instructions .ROUTE .COMPLEX Qty: 90 0RF Dose Instruction: Take 1 tablet by mouth once daily Patient Comments: HS Rx Instructions: Take 1 tablet by mouth once daily atorvastatin 20 mg tablet See Rx Instructions .ROUTE .COMPLEX Qty: 30 6RF Dose Instruction: TAKE 1 TABLET BY MOUTH EVERY DAY AT BEDTIME Patient Comments: . Rx Instructions: TAKE 1 TABLET BY MOUTH EVERY DAY AT BEDTIME Date of admission: 10/11/24 08:44 Primary Care Provider: Shaheen Foley Admitting Provider: Dorothy Thomas Attending physician on admission: Dorothy Thomas Condition: Stable
[2024-10-17 11:50] LABS: Glucose Point of Care 207 mg/dl (65-105)
[2024-10-17] MEDS: POLYSACCHARIDE IRON COMPLEX 150 MG CAPSULE PO (12:20)
[2024-10-17] MEDS: INSULIN ASPART (*BKC) 100 UNITS/ML SUB-Q (12:49)
[2024-10-17 13:19] LABS: Hematocrit 27.2 % (42.0-52.0); Hemoglobin 8.1 g/dL (14.0-18.0)
[2024-10-17 14:00] VITALS: BP 123/57; PULSE 83; RESP 20; TEMP 36.3; O2SAT 98
== END 2024-10-17 17:50 | disposition home health service (06) | DRG 644 ==
LOC: ANHED 18:57 → ANH3MEDSUR 19:50
PROVIDERS: Nurse Practitioner Family; Physician Assistant; Admitting Provider Internal Medicine; Emergency Provider Emergency Medicine; PCP Family Medicine Adolescent Medicine; Visit Provider General Practice
DX: E27.40 Unspecified adrenocortical insufficiency (principal); C79.51 Secondary malignant neoplasm of bone; E44.0 Moderate protein-calorie malnutrition; I95.1 Orthostatic hypotension; C61 Malignant neoplasm of prostate; D63.0 Anemia in neoplastic disease; E11.42 Type 2 diabetes mellitus with diabetic polyneuropathy; E83.42 Hypomagnesemia; E87.6 Hypokalemia; E78.5 Hyperlipidemia, unspecified; E78.2 Mixed hyperlipidemia; K21.9 Gastro-esophageal reflux disease without esophagitis; R00.0 Tachycardia, unspecified; Z92.21 Personal history of antineoplastic chemotherapy; Z79.52 Long term (current) use of systemic steroids; Z96.641 Presence of right artificial hip joint; Z68.27 Body mass index [BMI] 27.0-27.9, adult; Z20.822 Contact with and (suspected) exposure to COVID-19; Z79.84 Long term (current) use of oral hypoglycemic drugs
CPT/HCPCS: 36415; 80048; 80053; 81001; 82274; 82533; 82607; 82728; 82746; 82948; 83010; 83540; 83550; 83615; 83735; 84145; 84466; 85014; 85018; 85025; 85027; 85046; 86880; 87040; 87637; 93005; 96361; 96374; 97110; 97116; 97161; 97530; 99285; A9270; G0378; J1642; J1650; J1720; J1815; J3475; J7030; J7120; J7512